=== PATIENT | female | born 1960 | race Caucasian/White ===

== ENCOUNTER → 2016-06-17 08:54 | Outpatient (CLI) | payer MEDICARE ==
[2015-08-07 09:27] VITALS: BMI 45.7
[~2016-06-17 08:54] MED LIST: BAYER CHEWABLE81 MG PO; CELEXA40 MG PO; COREG6.25 MG PO; FLUTICASONE PRO16 GM NASAL; FOLIC ACID1 MG PO; GLUCOPHAGE500 MG PO; HYDROCHLOROTH12.5 M1 PO; HYDROCODONE-APA1 TAB PO; INVANZ 1 GM/NS 11 G1 IV; K-DUR20 MEQ PO; KLONOPIN1 MG PO; KLOR-CON M2020 MEQ PO; LANTUS INSULIN10 ML SC; LASIX20 MG PO; LIPITOR20 MG PO; MERREM 1 GM/NS 11 G1 IV; NEURONTIN600 MG PO; NITROSTAT0.4 MG SL; NOVOLOG100 U/M1 SC; ONGLYZA5 MG PO; PEPCID40 MG PO; PERCOCET 7.5/321 TAB PO; PLAVIX75 MG PO; PRINZIDE 10/12.1 TA1 PO; ZANTAC300 MG PO; ZYLOPRIM300 MG PO
--- NOTE | 2016-06-17 12:21 | NUR ---
Nutrition education for bariatric surgery (gastric bypass): S: Pt unable to walk to office for education; requested a wheelchair. Pt states her blood sugar was low and asked me to buy her a coke. Pt did provide the money. Pt reports she drinks regular Sprite, some water and SF drinks. Pt states she skips meals and does not eat very much when she does eat. Pt states she is unable to exercise due to leg pain. O: Dx: morbid obesity, DMT2 Ht: 5'8" Wt: 308# IBW: 140# +/-10% BMI: 46.8 PMH: DMT2, DJD with knee replacement A: Pt in denial re: how much soda she is drinking in a day; Pt is also in denial re: how much food she is consuming daily. Pt food recall for last 24 hours reveals pt is only eating ~1200 kcal/day; however, pt reports she continues to gain wt. RDPillo was standing behind pt in the dining room and she ordered Lasagna, mashed potatoes, fried zucchini, gravy, jarad Tirado for lunch. Pt did not see me behind her. Pt did not even attempt to practice and of the homework she had just learned to prepare herself for bariatric surgery. P: Reviewed pre/post op dietary control; clear liquid/full liquid/puree/soft/regular diet progression and reviewed sample menus; discussed no liquids with meals; 1/2 cup meal size; dumping syndrome; no straws or carbonated drinks; protein requirements; clear liquid protein drinks and protein powder, premixed protein supplements; reviewed sample menus; daily multivitamin; pouch stretching and provided pt with printed diet information and RDN name and phone number. CHARLIEN feels pt is not ready to make the necessary changes to be successful for the long-term. RDN will be available if needed. Thank you for the consult.
== END | disposition home or self-care (01) ==
LOC: D.FANS 08:54
DX: Z01.818 Encounter for other preprocedural examination (principal)

== ENCOUNTER → 2016-08-26 14:57 | Outpatient (CLI) | payer MEDICARE ==
[2015-08-07 09:27] VITALS: BMI 45.7
== END | disposition home or self-care (01) ==
LOC: D.RT 08-03 08:00 → D.RAD 08-11 11:45 → D.RT 08-13 11:00 → D.RAD 08-13 12:00 → D.RT 08-20 14:00 → D.RAD 08-20 15:00 → D.RT 14:00
DX: R06.09 Other forms of dyspnea (principal)

== ENCOUNTER 2017-03-30 09:31 | Outpatient (CLI) | payer MEDICARE ==
--- NOTE | ~2017-03-30 | HEMODYNAMI ---
PATIENT:TATIANNA HANNA MEDICAL RECORD: [id number] : 64 LOCATION:[facility] ADMISSION DATE: 03/30/17 Generatedon:03/30/201713:17 Patient name: TATIANNA HANNA Patient #: [id number] : 1960 Date of study: 03/30/2017 Page: Of Hemodynamic Procedure Report Patient Data Patient Demographics Procedure consent was obtained First Name: TATIANNA Gender: Female Last Name: JACQUES : 1960 Middle Initial: PALOMA Age: 57 year(s) Patient #: [id number] Race: SSN: [id number] Additional ID: [id number] Contact details [address]: [address] [place] [address] State: [place] City: [place] Zip code: [address] Past Medical History Allergies Allergen Reaction Date Comments Reported Codeine 08/02/2015 Other allergy 08/02/2015 TYLENOL Admission Admission Data Admission Date: 03/30/2017 Admission Time: 9:31 Arrival Date: 03/30/2017 Arrival Time: 11:30 Admit Source: Other Insurance Payor: Medicare Height (in.): 68 BSA: 2.47 (m2) Height (cm.): 172.72 BMI: 47.44 (kg/m2) Weight (lbs.): 312 Weight (kg.): 141.52 Lab Results Lab Result Date: 03/30/2017 Lab Result Time: 0:00 Biochemistry Name Units Result Min Max BUN mg/dl 34 --(----)-* 7 18 Creatinine mg/dl 1.5 --(----)-* 0.6 1.3 CBC Name Units Result Min Max Hemoglobin g/dl 11.8 *-(----)-- 13.5 17.5 Procedure Procedure Types Cath Procedure Diagnostic Procedure LHC LHC w/Coronaries PCI Procedure Coronary Stent Initial Miscellaneous Procedures Moderate Sedation up to 15 minutes Procedure Description Procedure Date Procedure Date: 03/30/2017 Procedure Start Time: 13:01 Procedure End Time: 13:15 Procedure Staff Name Function Rafael Roth MD Performing Physician Vianey Moffett RT Scrub Morgan Reddy RN Nurse Mariella Mchugh RT Monitor Procedure Data Cath Procedure Fluoroscopy Diagnostic fluoroscopy Total fluoroscopy Time: 2.9 time: 2.9 min min Diagnostic fluoroscopy Total fluoroscopy dose: dose: 1161 mGy 1161 mGy Contrast Material Contrast Material Type Amount (ml) Isovue 300 139 Entry Location Entry Primary Successful Side Size Upsize Upsize Entry Closure Martinez ccessful Closure Location (Fr) 1 (Fr) 2 (Fr) Remarks Device Remarks Radial Right 6 Fr Mechanical artery Short Compression Estimated blood loss: 5 ml Diagnostic catheters Device Type Used For End Catheter Placement Diagnostic Terumo 5Fr Multi-vessel Lodgepole 110cm catheter Angiography Procedure Complications No complications Procedure Medications Medication Administration Route Dosage Oxygen NC 2 l/min Heparin Flush Bag added to field 2 bags (1000units/500ml NS) 0.9% NaCl I.V. 100 ml/hr Radial Cocktail added to field 1 syringe (Verapomil 2mg/Nitro 400mcg/Heparin 1500units) Fentanyl I.V. 50 mcg Versed I.V. 1 mg Fentanyl I.V. 50 mcg Versed I.V. 1 mg Fentanyl I.V. 50 mcg Radial Cocktail I.A. 1 syringe (Verapomil 2mg/Nitro 400mcg/Heparin 1500units) Heparin Bolus I.V. 4000 units Hemodynamics Rest BSA: 2.47 (m2) HGB: 11.8 (g/dl) O2 Consumption: Estimated: 240.03 (ml/min) O2 Co nsumption indexed: Estimated:97.18 (ml/min/m) Heart Rate: 72 (bpm) Pressure Samples Time Site Value (mmHg) Purpose Heart Use Rate(bpm) 13:03 LV 75/2,17 Snapshot 52 Snapshots Pre Cath Intra NCS Post Cath Vital Signs Time Heart Resp SPO2 etCO2 NIBP (mmHg) Rhythm Pain Sedation Rate (ipm) (%) (mmHg) Status Level (bpm) 12:44:00 71 18 97 0 128/68(93) NSR 0 (11) 10(A) , No pain 12:48:40 70 19 97 46.6 129/68(107) NSR 0 (11) 10(A) , No pain 12:53:21 69 18 95 39.1 122/67(90) NSR 0 (11) 10(A) , No pain 12:58:06 71 18 94 40.6 112/54(80) NSR 0 (11) 10(A) , No pain 13:02:38 71 18 94 42.1 114/66(91) NSR 0 (11) 10(A) , No pain 13:07:16 70 18 95 30.8 107/59(77) NSR 0 (11) 10(A) , No pain 13:12:03 80 18 96 22.5 121/42(71) NSR 0 (11) 10(A) , No pain 13:16:58 70 18 95 33.8 111/48(80) NSR 0 (11) 10(A) , No pain Medications Time Medication Route Dose Verified Delivered Reason Note s Effectiveness by by 12:47:24 Oxygen NC 2 l/min Rafael Mora Per physician Gonzalez Reddy RN 12:47:33 Heparin Flush added 2 bags Rafael Mora used for Bag to Gonzalez Reddy RN procedure (1000units/500ml field NS) 12:47:44 0.9% NaCl I.V. 100 Rafael Mora Per physician ml/hr Gonzalez Reddy RN 12:47:51 Radial Cocktail added 1 Rafael Mora used for (Verapomil to syringe Gonzalez Reddy RN procedure 2mg/Nitro field 400mcg/Heparin 1500units) 12:55:19 Fentanyl I.V. 50 mcg Rafael Mora for sedation Gonzalez Reddy RN 12:55:25 Versed I.V. 1 mg Rafael Mora for sedation Gonzalez Reddy RN 12:56:53 Fentanyl I.V. 50 mcg Rafael Mora for sedation Gonzalez Reddy RN 12:56:59 Versed I.V. 1 mg Rafael Mora for sedation Gonzalez Reddy RN 13:03:01 Fentanyl I.V. 50 mcg Rafael Madisony for sedation Gonzalez Reddy RN 13:03:14 Radial Cocktail I.A. 1 Rafael Hall for (Verapomil syringe Gonzalez Roth MD vasodilation 2mg/Nitro 400mcg/Heparin 1500units) 13:07:43 Heparin Bolus I.V. 4000 Rafael Mora for units Gonzalez Reddy RN anticoagulation Procedure Log Time Note 12:25:00 Morgan Reddy RN sent for patient. Start room use. 12:31:18 Informed consent obtained and on chart 12::31 Diagnostic Cath Status : Elective 12:32:01 Time tracking: Regular hours 12:32:06 Plan of Care:Hemodynamics will remain stable., Cardiac rhythm will remain stable., Comfort level will be maintained., Respiratory function will remain adequate., Patient/ family verbilizes understanding of procedure., Procedure tolerated without complication., Recovers from procedure without complications.. 12:37:32 Patient received from Pre/Post Procedure Room to [facility] 2 Alert and oriented. Tansferred to table in Supine position. 12:37:33 Warm blankets applied, and britt hugger turned on for patient comfort. 12:37:34 Correct patient and procedure confirmed by team. 12:37:35 ECG and BP/O2 sat monitors applied to patient. 12:42:17 Vital chart was started 12:47:24 Oxygen 2 l/min NC was administered by Morgan Reddy RN; Per physician; 12:47:33 Heparin Flush Bag (1000units/500ml NS) 2 bags added to field was administered by Morgan Reddy RN; used for procedure; 12:47:33 Baseline sample Acquired. 12:47:36 Rhythm: sinus rhythm 12:47:38 Full Disclosure recording started 12:47:43 H&P Date Dictated: 03/30/2017 Within 30 days and on chart., H&P Addendum completed by physician on day of procedure. (MUST COMPLETE FOR ALL OUTPATIENTS). 12:47:44 0.9% NaCl 100 ml/hr I.V. was administered by Morgan Reddy RN; Per physician; 12:47:45 Pre-procedure instructions explained to patient. 12:47:45 Pre-op teaching completed and patient verbalized understanding. 12:47:46 Family in waiting room. 12:47:48 Patient NPO since Midnight. 12:47:51 Radial Cocktail (Verapomil 2mg/Nitro 400mcg/Heparin 1500units) 1 syringe added to field was administered by Morgan Reddy RN; used for procedure; 12:47:51 Is the patient allergic to Iodine/contrast media? No. 12:47:52 Was the patient premedicated? No 12:47:55 Is patient on blood thinner?Yes 12:48:04 ACC The patient was administered the following blood thiners within the last 24 hours: ACCPlavix 12:48:25 Patient diabetic? Yes. 12:48:26 If diabetic: On Metformin? No 12:48:28 Previous problem with sedation/anesthesia? No ? 12:48:30 Snore? Yes 12:48:31 Sleep apnea? Yes 12:48:31 Deviated septum? No 12:48:32 Opens mouth fully? Yes 12:48:33 Sticks out tongue? Yes 12:48:52 Airway obstruction? No ? 12:48:56 Dentures? No ? 12:48:59 Pre procedure: right dorsailis pedis pulse 1+ Palpable, but thready & weak; easily obliterated 12:49:02 Pre procedure: left dorsailis pedis pulse 1+ Palpable, but thready & weak; easily obliterated 12:49:08 Patient pain scale 0/10 ?. 12:49:22 IV patent on arrival in left forearm with 0.9% NaCl at [facility]. 12:50:03 Lab Result : BUN 34 mg/dl 12:50:03 Lab Result : Creatinine 1.5 mg/dl 12:50:03 Lab Result : Hemoglobin 11.8 g/dl 12:50:06 Lab results completed and on chart. 12:50:10 Right Radial & Right Groin area was prepped with chlora-prep and draped in sterile fashion 12:50:12 Alarms reviewed by R. N. 12:50:12 Sharps counted by scrub and verified by R.N. 12:50:28 Physician arrived 12:50:29 --------ALL STOP TIME OUT------ 12:50:29 Final Timeout: patient, procedure, and site verified with staff and physician. All members of the team are in agreement. 12:50:32 Right Radial & Right Groin site verified by team. 12:50:34 Physical assessment completed. ASA score P 2 - A patient with mild systemic disease as per Rafael Roth MD. 12:50:37 Sedation plan: IV Moderate Sedation Versed, Fentanyl 12:50:45 Use device set Radial Dx 12:50:46 Acist Syringe opened to sterile field. 12:50:46 Medline Cath Pack opened to sterile field. 12:50:46 Bag Decanter opened to sterile field. 12:50:47 Terumo 6Fr Slender Glidesheath opened to sterile field. 12:50:47 St Aris 260cm J .035 wire opened to sterile field. 12:50:48 Acist Hand Control opened to sterile field. 12:50:48 Acist Manifold opened to sterile field. 12:50:48 Tegaderm 4 x 4 opened to sterile field. 12:50:49 MBrace Wrist Support opened to sterile field. 12:54:24 Admit Source: Other 12:54:30 Arrival Date: 03/30/2017 11:30:00 AM 12:54:36 Insurance Payor : Medicare 12:54:41 Patient Height : 68 inches 12:54:46 Patient Weight : 312 lbs 12:55:19 Fentanyl 50 mcg I.V. was administered by Morgan Reddy RN; for sedation; 12:55:25 Versed 1 mg I.V. was administered by Morgan Reddy RN; for sedation; 12:56:06 Zero performed for pressure channel P1 12:56:14 Zero performed for pressure channel P1 12:56:53 Fentanyl 50 mcg I.V. was administered by Morgan Reddy RN; for sedation; 12:56:59 Versed 1 mg I.V. was administered by Morgan Reddy RN; for sedation; 13:00:58 Procedure started. 13:01:04 Local anesthetic to right radial artery with Lidocaine 2% by Rafael Roth MD.INITIAL ACCESS ONLY 13:02:02 A 6 Fr Short sheath was inserted into the Right Radial artery 13:02:22 A Diagnostic Terumo 5Fr Lodgepole 110cm catheter was advanced over the wire and used for Multi-vessel Angiography. 13:03:01 Fentanyl 50 mcg I.V. was administered by Morgan Reddy RN; for sedation; 13:03:14 Radial Cocktail (Verapomil 2mg/Nitro 400mcg/Heparin 1500units) 1 syringe I.A. was administered by Rafael Roth MD; for vasodilation; 13:03:50 LV hemodynamics recorded. 13:03:51 LV gram done using LOVE 13:03:55 Injector settings: Ml/sec: 5, Volume: 15, 13:04:00 EF : 55 % 13:04:05 LCA angiography performed. 13:04:09 Injector settings: Ml/sec: 3, Volume: 6, 13:05:29 Cuenca Whisper J 300cm 0.014 guide wire opened to sterile field. 13:05:30 f-star [employer] BasixCompak Inflation Kit opened to sterile field. 13:06:32 Cordis 6FR XBLAD 3.5 guide catheter opened to sterile field. 13:06:43 RCA angiography performed. 13:06:45 Catheter removed. 13:06:56 6 Fr xblad 3.5 guide catheter was inserted over the wire 13:07:43 Heparin Bolus 4000 units I.V. was administered by Morgan Reddy RN; for anticoagulation; 13:08:11 whisper wire advanced. 13:11:00 Inflation Number: 1 A Blue RX 3.0 x 38 stent was prepped and advanced across the Prox LAD. The stent was deployed at 15 TOÑO for 0:10 (min:sec). 13:11:22 Stent catheter was removed intact over wire. 13:11:22 Wire removed. 13:11:23 Guide catheter removed. 13:12:08 Terumo TR Band Standard opened to sterile field. 13:13:19 Sheath removed intact; hemostasis achieved with Mechanical Compression to the Right Radial artery. 13:13:32 Procedure ended.(Physican Out) 13:13:49 Fluoroscopy time 02.90 minutes. 13:13:53 Fluoroscopy dose: 1161 mGy 13:13:53 Flurop Dose total: 1161 13:14:11 Contrast amount:Isovue 300 139ml. 13:14:13 Sharps counted by scrub and verified by R.N. 13:14:15 TR band inflated with 10cc of air. 13:14:17 Insertion/operative site no bleeding no hematoma. 13:14:20 Post right radial artery:stable 13:14:21 Post Procedure Pulses reassessed and unchanged 13:14:24 Post procedure rhythm: unchanged. 13:14:27 Estimated blood loss: 5 ml 13:14:28 Post procedure instruction explained to patient.Patient verbalizes understanding. 13:14:30 Patient needs reinforcement of post procedure teaching. 13:14:46 Procedure type changed to Cath procedure, Diagnostic procedure, LHC, LHC w/Coronaries, PCI procedure, Coronary Stent Initial, Miscellaneous Procedures, Moderate Sedation up to 15 minutes 13:14:47 Procedure and supply charges have been captured, reviewed, submitted and are correct. 13:14:52 Procedure Complication : No complications 13:14:54 Vital chart was stopped 13:14:59 See physician's report for complete and final results. 13:15:01 Report given to Pre/Post Procedure Room. 13:15:04 Patient transfered to Pre/Post Procedure Room with Stretcher. 13:15:06 Procedure ended. 13:15:06 Full Disclosure recording stopped 13:15:14 ACC-PCI Only Patient was given prescriptions, or instructed by Rafael Roth MD to start/continue the following medications upon discharge: Plavix 13:15:16 End room use (Document Last) Intervention Summary Intervention Notes Time ActionType Lesion and Equipment Action# Pressure Duration Attributes Used 13:11:[address] Place stent Prox LAD Harvye RX 1 15 00:10 3.0 x 38 stent Device Usage Item Name Manufacture Quantity Catalog Hospital Part Current Minim al Lot# / Number Charge Number Stock Stock Serial# Code Acist Acist 1 96687 616666 682859 240016 20 Syringe Medical Systems Inc Medline Cardinal 1 [id number] 300975 95804 450650 5 Cath Pack Health Bag Microtek 1 2002S 396451 51466 609653 5 tagUin Inc. Terumo 6Fr Terumo 1 [id number] 368593 017475 267431 [address] Aris 1 578069 542270 703738 382979 30 260cm J .035 wire Acist Hand Acist 1 45061 186438 529363 938532 5 Control Medical Systems Inc Acist Acist 1 84010 148335 806251 782010 5 Manifold Medical Systems Inc Tegaderm 4 3M 1 1626W 896116 603263 332648 5 x 4 MBrace Advanced 1 140-0250-00 083376 50063 078089 5 Wrist Vascular Support Dynamics Diagnostic Terumo 1 89-3693 282612 846769 391016 5 Terumo 5Fr Lodgepole 110cm catheter Cuenca Cuenca 1 [id number] 579524 456357 134253 5 Whisper J Vascular 300cm 0.014 guide wire Merit Merit 1 [id number] 479065 178053 453298 15 [employer] Medical Inflation Kit Cordis 6FR Cardinal 1 [id number] 314895 328583 007433 10 XBLAD 3.5 Health guide catheter Harvey RX 3.0 Medtronic 1 [id number] 905814 1451640 371141 5 [id number] x 38 stent Terumo TR Terumo 1 [id number] 689849 464566 737187 40 Band Standard Signature Audit [place] Stage Time Signature Unsigned Intra-Procedure 03/30/2017 Mariella Mchugh 1:17:34 PM RT(R) Signatures Monitor : Mariella Mchugh RT Signature : Date : Time : [id number] [place] [address]
[2017-03-30] MEDS ORDERED: ONGLYZA5 MG PO (10:00)
[2017-03-30] MEDS ORDERED: KLONOPIN1 MG PO (10:01)
[2017-03-30 10:07] VITALS: BP 130/54; BMI 47.5
[2017-03-30 10:21] LABS: BASOPHILS 0.4 % (0-2); EOSINOPHILS 5.8 % (0-7); HEMOGLOBIN 11.8 g/dL (12-16); IMMATURE GRANULOCYTES 0.4 % (0-5); LYMPHOCYTES 24.6 % (15-50); MCH 32.7 pg (26.0-34.0); MCHC 33.7 g/dL (31.0-37.0); MEAN PLATELET VOLUME 9.3 fL (7.4-10.4); MONOCYTES 8.3 % (2-11); NEUTROPHILS 60.5 % (40-80); PLATELET COUNT 222 10x3/uL (130-400); RBC 3.61 10x6/uL (4.00-5.40); RDW 13.1 % (11.5-14.5)
[2017-03-30 10:25] LABS: ANION GAP 14.5 mmol/L (8-16); CALCIUM 8.9 mg/dL (8.5-10.1); CARBON DIOXIDE 26.8 mmol/L (21.0-32.0); CREATININE - SERUM 1.5 mg/dL (0.6-1.3); POTASSIUM - SERUM 4.3 mmol/L (3.5-5.1)
--- NOTE | 2017-03-30 13:40 | NUR ---
2L NC, NO RESP DISTRESS NOTED. RIGHT WRIST TR BAND CDI WITH NO BLEEDING OR HEMATOMA. VSS. NO C/O NAUSEA OR PAIN. FAMILY AT BEDSIDE, CALL LIGHT WITHIN REACH.
--- NOTE | 2017-03-30 14:10 | NUR ---
2L NC, NO RESP DISTRESS. RIGHT WRIST TR BAND CDI, NO BLEEDING OR HEMATOMA NOTED. NO C/O CHEST PAIN OR NAUSEA. VSS. FAMILY AT BEDSIDE, CALL LIGHT WITHIN REACH.
--- NOTE | 2017-03-30 14:25 | NUR ---
SANDWICH TRAY AND DRINK GIVEN. NO C/O NAUSEA. RIGHT WRIST TR BAND CDI, NO BLEEDING NOTED. 2L NC, NO RESP DISTRESS. VSS. WILL CONTINUE TO MONITOR.
--- NOTE | 2017-03-30 15:25 | NUR ---
RESTING QUIETLY WITH EYES CLOSED. RIGHT WRIST TR BAND CDI, NO BLEEDING NOTED. 2L NC, NO RESP DISTRESS. NO C/O PAIN. VSS. CALL LIGHT WITHIN REACH.
--- NOTE | 2017-03-30 16:30 | NUR ---
3CC OF AIR REMOVED FROM TR BAND, NO BLEEDING NOTED.
--- NOTE | 2017-03-30 16:47 | NUR ---
3CC OF AIR REMOVED FROM TR BAND, NO BLEEDING NOTED.
--- NOTE | 2017-03-30 17:02 | NUR ---
LEFT HAND PIV D/C'D WITH CATHETER INTACT, BAND AID TO SITE. 3CC OF AIR REMOVED FROM TR BAND, NO BLEEDING NOTED. UP TO BEDSIDE TO GET DRESSED.
--- NOTE | 2017-03-30 17:07 | NUR ---
UP TO RESTROOM TO VOID.
--- NOTE | 2017-03-30 17:12 | NUR ---
REMAINING AIR REMOVED FROM TR BAND, DRESSING TO SITE. DISCHARGE INSTRUCTIONS GIVEN, VERBALIZED UNDERSTANDING.
--- NOTE | 2017-03-30 17:20 | NUR ---
TAKEN OUT VIA WHEELCHAIR BY CATH GRILL PREP COOK. LEFT FACILITY WITH FAMILY MEMBER AND ALL PERSONAL BELONGINGS.
--- NOTE | 2017-04-02 16:56 | OP ---
PATIENT NAME: TATIANNA HANNA MEDICAL RECORD: [id number] :64 LOCATION:D.CAT ADMISSION DATE: SURGEON: KENRICK SHERMAN MD DATE OF OPERATION: 03/30/2017 PROCEDURES: 1. PTCA stent LAD. 2. Left heart catheterization. 3. Selective coronary angiography. 4. Left ventriculogram. INDICATION: Chest pain compatible with angina and coronary artery disease. PROCEDURE IN DETAIL: After informed consent was obtained and after a detailed explanation of risks, benefits as well as alternative therapies, the patient elected to proceed with angiogram and angioplasty. The right radial area is prepped and draped in normal sterile fashion. The right radial artery was cannulated via modified Seldinger technique with placement of a 6-Niuean sheath. All catheters exchanged through this sheath. FINDINGS: The left ventriculogram was performed in the standard 30-degree LOVE view reveals good cardiac wall motion throughout all segments. Overall ejection fraction estimated at 60%. SELECTIVE CORONARY ANGIOGRAPHY: 1. Left main showed no significant angiographic disease. 2. Left anterior descending has a long area of 70% to 75% stenosis proximally, then a previously placed stent. This is widely patent and mild irregularities. 3. Left circumflex shows moderate irregularities, but no flow-limiting stenosis. 4. Right coronary is small and diffusely diseased, nondominant. PTCA STENT OF THE LAD: The stent used is a 3.0 x 38 mm Harvey taken to 15 atmospheres. Result was 0% residual stenosis. OVERALL IMPRESSION: Successful percutaneous transluminal coronary angioplasty stent of the left anterior descending going from a long area of 70% to 75% initial stenosis to 0% residual stenosis. TRANSINT:[id number] Voice Confirmation ID: [id number] DOCUMENT ID: [id number] KENRICK SHERMAN MD at 1656 CC: [id number] DICTATION DATE: 03/30/17 1310 [facility]SE SUPERVISOR: 03/30/17 1351 [facility] CLI 03/30/[address] [address]
== END 2017-03-30 17:20 | disposition home or self-care (01) ==
LOC: D.CATH 09:31
PROVIDERS: Internal Medicine Interventional Cardiology
DX: I25.119 Atherosclerotic heart disease of native coronary artery with unspecified angina pectoris (principal); I10 Essential (primary) hypertension; E78.5 Hyperlipidemia, unspecified; Z01.812 Encounter for preprocedural laboratory examination
CPT/HCPCS: 93458; C9600

== ENCOUNTER 2017-05-07 09:00 | Outpatient (CLI) | payer MEDICARE | END 2017-05-07 23:59 | disposition home or self-care (01) | LOC: D.MAMMO 09:00 | DX: Z12.31 Encounter for screening mammogram for malignant neoplasm of breast (principal) ==

== ENCOUNTER 2017-05-10 17:11 | Emergency (ER) | payer MEDICARE | END 2017-05-10 19:10 | disposition home or self-care (01) | LOC: D.ER 17:11 | DX: S80.02XA Contusion of left knee, initial encounter (principal); X58.XXXA Exposure to other specified factors, initial encounter; Y93.89 Activity, other specified; Y92.89 Other specified places as the place of occurrence of the external cause; S70.02XA Contusion of left hip, initial encounter; E11.9 Type 2 diabetes mellitus without complications; Z79.4 Long term (current) use of insulin ==

== ENCOUNTER 2017-06-02 17:10 | Inpatient (IN) | payer MEDICARE ==
[~2017-06-02] VITALS: Ht 172.7 cm; Wt 136.1 kg
--- NOTE | ~2017-06-02 | OP ---
PATIENT NAME: TATIANNA HANNA MEDICAL RECORD: [id number] :64 LOCATION:D.[id number] ADMISSION DATE:06/02/17 SURGEON: MAXINE KULKARNI MD DATE OF OPERATION: 06/03/2017 DATE OF OPERATION: 06/03/2017 PREOPERATIVE DIAGNOSIS: Flexor tenosynovitis with osteomyelitis, left long finger. POSTOPERATIVE DIAGNOSES: Flexor tenosynovitis with osteomyelitis, left long finger and felon. PROCEDURE: Excisional debridement of the flexor tendon sheath as well as the entire distal phalanx of the left long finger that is skin, subcutaneous tissue, portions of fat, fascia as well as bone. SURGEON: Maxine Kulkarni MD ANESTHESIA: General. INTRAOPERATIVE COMPLICATIONS: None. SUMMARY OF PATHOLOGIC FINDINGS: Unfortunately, the patient had flexor tenosynovitis into the palmar aspect of her hand. The entire distal phalanx was essentially eroded and was a hollow shell. All of the portions of this were removed. OPERATIVE SUMMARY IN DETAIL: After obtaining the appropriate preoperative orthopedic surgery consent as well as anesthetic consultation, evaluation and clearance, the patient was brought to the operating room and placed on the operating table in supine position. After adequate regional anesthesia had been administered, the patient's left upper extremity was prepared for the tourniquet, was prepped and draped in routine sterile fashion. The arm was elevated and exsanguinated, tourniquet inflated to 250 mmHg. Volar zigzag incision was made, taken down very gently to the level of the flexor tendon. It is of note that purulence was encountered at both levels. Cultures were taken. A small incision was made both proximal and distal to the PIP joint and copious flush was done. The incision was carried out into the volar pulp of the distal volar aspect of the phalanges and it was noted that the entire distal phalanx had eroded as seen on the x-rays. This was shelled out, decorticated and essentially removed in its entirety. The flexor digitorum profundus stopped and had eroded at this joint. It did not appear that there was any osteomyelitis in the middle phalanx. After further irrigation, a very loose closure for reapproximation was done, sterile dressings were applied. Tourniquet was deflated. The patient was awakened and taken to the recovery room in stable condition. All final sponge and needle counts were correct. TRANSINT:[id number] Voice Confirmation ID: [id number] DOCUMENT ID: [id number] OPERATIVE REPORT [id number] TATIANNA HANNA MD, MAXINE CANDELARIA at 1641 CC: [id number] DICTATION DATE: 06/03/17 1525 PAPERBOARD MACHINE OPERATOR: 06/03/[address] [facility] [address] [place] [address]
--- NOTE | ~2017-06-02 | HP ---
PATIENT: TATIANNA HANNA MEDICAL RECORD: [id number] ACCOUNT: [id number] LOCATION:[facility] : 64 ADMISSION DATE: 06/02/17 HISTORY AND PHYSICAL EXAMINATION REASON FOR ADMISSION: Left third finger cellulitis and pain. HISTORY OF PRESENT ILLNESS: The patient is a 57-year-old, metabolic syndrome female who says she constantly picks at her finger. It had gradually enlarged and swelled a few weeks ago. She saw Dr. Arizmendi who placed her on oral clindamycin. Her finger has gotten progressively worse over the weekend with low-grade fever and intense pain, is chronically draining. She presented to the office and had a sausage like left third finger on presentation with multiple pustules and discoloration. She is now admitted for cellulitis, possible abscess of the left third finger with possible need for amputation. 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 ALLERGIES: None known. MEDICATIONS: Lantus insulin 60 units in the morning and 100 in the evening with NovoLog sliding scale, hydrocodone 10/325 one 4 times daily p.r.n. pain, gabapentin 600 mg t.i.d., atorvastatin 40 mg at bedtime, lisinopril and hydrochlorothiazide 10/12.5 one q.a.m., Plavix 75 mg p.o. daily, Coreg 6.25 mg b.i.d., Klonopin 1 mg b.i.d., citalopram 40 mg daily, allopurinol 300 mg daily, Flonase nasal spray 2 sprays each nostril daily. FAMILY HISTORY: Mother with history of CAD and chronic pain syndrome. Brother and father both have diabetes. SOCIAL HISTORY: Former smoker. Does not use drugs or alcohol. SURGICAL HISTORY: Hysterectomy, cholecystectomy, PTCA times 2, left knee replacement and right knee replacement for osteoarthritis. REVIEW OF SYSTEMS: GENERAL: She has had low-grade fever and felt poorly for the last week. HEENT: No recent new visual change, sinus congestion, sore throat or hearing difficulty. RESPIRATORY: No SOB or cough. CARDIAC: No exertional chest pain, claudication or edema. GASTROINTESTINAL: No nausea, vomiting, change in stools or blood per rectum. GYNECOLOGIC: No vaginal bleeding. GENITOURINARY: No dysuria. INTEGUMENT: Marked swelling, purplish discoloration of the left third finger from the base of the phalanx to the tip. The finger is 3 times its normal size, it is very painful to touch and has several pustules that are oozing. NEUROLOGIC: Oriented to person, place, and time. Cranial nerves grossly intact. Decreased sensation to touch in the bottoms of both feet. LABORATORY DATA: Currently pending. HISTORY AND PHYSICAL [id number] TATIANNA HANNA ASSESSMENT: 1. Cellulitis versus abscess, left third finger. 2. Metabolic syndrome, poorly controlled, historically. 3. History of multivessel coronary artery disease. 4. Essential hypertension. 5. Exogenous obesity. 6. Osteoarthritis. 7. Umbilical hernia. 8. History of asthma. 9. Diabetic neuropathy. 10. Chronic pain syndrome. 11. Gout. PLAN: The patient will be admitted for cultures, IV antibiotics and orthopedic consult after x-ray of the head is obtained. TRANSINT:[id number] Voice Confirmation ID: [id number] DOCUMENT ID: [id number] BENJAMIN SCHAEFFER MD at 2153 CC: [id number] DICTATION DATE: 06/02/171753 GLUE JOINTER OPERATOR: 06/02/17 1907 ADM IN [place] [id number] [place] [address]
--- NOTE | ~2017-06-02 | OP ---
PATIENT NAME: TATIANNA HANNA MEDICAL RECORD: [id number] :64 LOCATION:[facility] ADMISSION DATE:06/02/17 SURGEON: MAXINE KULKARNI MD DATE OF OPERATION: 06/10/2017 PREOPERATIVE DIAGNOSIS: Severely infected left finger with flexor tenosynovitis with continued bleeding. POSTOPERATIVE DIAGNOSIS: Severely infected left finger with flexor tenosynovitis with continued bleeding. PROCEDURES: Irrigation and debridement of the entire finger with debridement of flexor tendon sheath along with further pieces of the distal phalangeal bone and lastly cauterization of small bleeder. OPERATIVE SUMMARY IN DETAIL: After obtaining the appropriate preoperative orthopedic surgery consent as well as anesthetic consultation, evaluation and clearance, the patient was brought to the operating room and placed on the operating table in supine position. After adequate general TIVA anesthesia was administered, the patient's hand was prepped and draped in a routine sterile fashion. First, care was taken to debride all the skin back to viable appearing tissue. Previously placed sutures were removed and the area was again debrided of any necrotic appearing tissue. The tendon remained intact, however, the distal phalanx had a small residual bone chips. These were removed as well as the distal phalanx is now completely gone and wound was tacked back together gently, but not too tightly. Sterile dressings were applied. The patient was awakened, taken to recovery room in stable condition. All final needle and sponge counts were correct. TRANSINT:[id number] Voice Confirmation ID: [id number] DOCUMENT ID: [id number] MAXINE KULKARNI MD at 1657 CC: [id number] DICTATION DATE: 06/11/17 1500 CANVAS REPAIRER: 06/11/17 1534 DIS IN 06/11/17 [place] [place] [address]
[2017-06-02 18:52] LABS: BASOPHILS 0.2 % (0-2); EOSINOPHILS 1.4 % (0-7); HEMATOCRIT 32.4 % (36.0-48.0); HEMOGLOBIN 10.7 g/dL (12-16); IMMATURE GRANULOCYTES 0.3 % (0-5); LYMPHOCYTES 10.6 % (15-50); MCH 31.8 pg (26.0-34.0); MCV 96.1 fL (80.0-100.0); MEAN PLATELET VOLUME 9.2 fL (7.4-10.4); MONOCYTES 9.1 % (2-11); NEUTROPHILS 78.4 % (40-80); RBC 3.37 10x6/uL (4.00-5.40); RDW 12.8 % (11.5-14.5); WBC 13.2 10x3/uL (4.8-10.8)
[2017-06-02 19:05] LABS: PLATELET COUNT 295 10x3/uL (130-400)
[2017-06-02 19:14] LABS: ANION GAP 14.7 mmol/L (8-16); CALCIUM 9.2 mg/dL (8.5-10.1); CARBON DIOXIDE 26.6 mmol/L (21.0-32.0); CREATININE - SERUM 1.6 mg/dL (0.6-1.3); POTASSIUM - SERUM 5.3 mmol/L (3.5-5.1)
[2017-06-02 20:17] LABS: ERYTHROCYTE SEDIMENTATION RATE 15 mm/hr (0-30)
[2017-06-03 02:00] VITALS: BP 112/39
[2017-06-03 02:19] VITALS: BP 112/39; BMI 45.7
[2017-06-03 06:19] LABS: ANION GAP 13.1 mmol/L (8-16); CALCIUM 8.6 mg/dL (8.5-10.1); CARBON DIOXIDE 26.5 mmol/L (21.0-32.0); CREATININE - SERUM 1.4 mg/dL (0.6-1.3); POTASSIUM - SERUM 4.6 mmol/L (3.5-5.1)
[2017-06-03 08:20] VITALS: BP 125/51
[2017-06-03 12:26] VITALS: BP 137/64
[2017-06-03 13:55] VITALS: BMI 45.6
[2017-06-03 15:28] VITALS: BP 102/50
[2017-06-03 20:00] VITALS: BP 120/64
[2017-06-04] VITALS: BP 110/60
[2017-06-04 04:00] VITALS: BP 106/55
[2017-06-04 08:25] LABS: HEMATOCRIT 29.1 % (36.0-48.0); HEMOGLOBIN 9.5 g/dL (12-16); MCH 31.4 pg (26.0-34.0); MCHC 32.6 g/dL (31.0-37.0); MEAN PLATELET VOLUME 8.8 fL (7.4-10.4); RBC 3.03 10x6/uL (4.00-5.40); WBC 10.2 10x3/uL (4.8-10.8)
[2017-06-04 08:39] LABS: CALCIUM 8.7 mg/dL (8.5-10.1); CARBON DIOXIDE 26.4 mmol/L (21.0-32.0); CREATININE - SERUM 1.3 mg/dL (0.6-1.3); POTASSIUM - SERUM 4.4 mmol/L (3.5-5.1)
[2017-06-04 16:03] VITALS: Ht 172.7 cm; Wt 136.1 kg
[2017-06-04 16:09] VITALS: BP 134/71
[2017-06-04 20:00] VITALS: BP 159/69
[2017-06-05] VITALS: BP 142/62
[2017-06-05 06:14] LABS: APPEARANCE CLEAR (CLEAR); BILIRUBIN NEGATIVE (NEGATIVE); COLOR STRAW (YELLOW); GLUCOSE 250 mg/dL (NEGATIVE); KETONE NEGATIVE (NEGATIVE); NITRITE NEGATIVE (NEGATIVE); PROTEIN NEGATIVE (NEGATIVE); SPECIFIC GRAVITY 1.015 (1.005-1.020); UROBILINOGEN NORMAL (NORMAL)
[2017-06-05 06:15] LABS: BACTERIA FEW /hpf (NONE SEEN); EPITHELIAL CELLS NSEEN /hpf (0-5); RED CELLS - URINE 0-5 /hpf (0-5); WHITE CELLS - URINE NSEEN /hpf (0-5)
[2017-06-05 06:33] LABS: HEMATOCRIT 30.7 % (36.0-48.0); MCH 31.3 pg (26.0-34.0); MCHC 32.6 g/dL (31.0-37.0); MCV 96.2 fL (80.0-100.0); RBC 3.19 10x6/uL (4.00-5.40); RDW 12.9 % (11.5-14.5); WBC 8.5 10x3/uL (4.8-10.8)
[2017-06-05 06:48] LABS: ANION GAP 13.8 mmol/L (8-16); CALCIUM 8.8 mg/dL (8.5-10.1); CARBON DIOXIDE 26.7 mmol/L (21.0-32.0); CREATININE - SERUM 1.1 mg/dL (0.6-1.3); POTASSIUM - SERUM 4.5 mmol/L (3.5-5.1)
[2017-06-05 07:14] VITALS: BP 169/80
[2017-06-05 11:07] VITALS: BP 134/69
[2017-06-05 15:14] VITALS: BP 135/67
[2017-06-06] VITALS: BP 134/64
[2017-06-06 05:00] VITALS: BP 152/63
[2017-06-06 07:28] VITALS: BP 173/77
[2017-06-06 11:04] VITALS: BP 189/88
[2017-06-06 20:00] VITALS: BP 157/74
[2017-06-07 04:00] VITALS: BP 177/81
[2017-06-07 06:20] LABS: BASOPHILS 0.1 % (0-2); EOSINOPHILS 3.2 % (0-7); HEMATOCRIT 29.1 % (36.0-48.0); HEMOGLOBIN 9.5 g/dL (12-16); IMMATURE GRANULOCYTES 0.5 % (0-5); LYMPHOCYTES 22.5 % (15-50); MCH 31.3 pg (26.0-34.0); MCHC 32.6 g/dL (31.0-37.0); MCV 95.7 fL (80.0-100.0); MEAN PLATELET VOLUME 8.7 fL (7.4-10.4); MONOCYTES 8.1 % (2-11); NEUTROPHILS 65.6 % (40-80); PLATELET COUNT 313 10x3/uL (130-400); RBC 3.04 10x6/uL (4.00-5.40); RDW 12.9 % (11.5-14.5); WBC 8.2 10x3/uL (4.8-10.8)
[2017-06-07 06:28] LABS: ANION GAP 12.3 mmol/L (8-16); CALCIUM 8.8 mg/dL (8.5-10.1); CARBON DIOXIDE 26.6 mmol/L (21.0-32.0); CREATININE - SERUM 0.9 mg/dL (0.6-1.3); POTASSIUM - SERUM 3.9 mmol/L (3.5-5.1)
[2017-06-07 08:51] VITALS: BP 176/73
[2017-06-07 12:20] VITALS: BP 159/61
[2017-06-07 16:03] VITALS: BP 159/69
[2017-06-07 20:00] VITALS: BP 159/70
[2017-06-08 04:00] VITALS: BP 166/70
[2017-06-08 08:30] VITALS: BP 174/70
[2017-06-08 12:16] VITALS: BP 175/76
[2017-06-08 14:55] VITALS: BP 195/71
[2017-06-08 20:00] VITALS: BP 169/81
[2017-06-09] VITALS: BP 159/77
[2017-06-09 04:00] VITALS: BP 155/82
[2017-06-09] MEDS ORDERED: Ancef 2 GM/Dextrose IV (08:02)
[2017-06-09 09:06] VITALS: BP 181/77
[2017-06-09 13:19] VITALS: BP 189/99
[2017-06-09 16:50] VITALS: BP 148/79
[2017-06-09 21:41] VITALS: BP 187/73
[2017-06-10 01:13] VITALS: BP 118/68
[2017-06-10 04:00] VITALS: BP 149/77
[2017-06-10 05:20] LABS: BASOPHILS 0.2 % (0-2); EOSINOPHILS 2.8 % (0-7); HEMATOCRIT 28.7 % (36.0-48.0); HEMOGLOBIN 9.3 g/dL (12-16); IMMATURE GRANULOCYTES 1.1 % (0-5); LYMPHOCYTES 30.2 % (15-50); MCH 31.4 pg (26.0-34.0); MCHC 32.4 g/dL (31.0-37.0); MEAN PLATELET VOLUME 8.7 fL (7.4-10.4); NEUTROPHILS 57.7 % (40-80); PLATELET COUNT 312 10x3/uL (130-400); RBC 2.96 10x6/uL (4.00-5.40); RDW 13.2 % (11.5-14.5); WBC 8.3 10x3/uL (4.8-10.8)
[2017-06-10 05:44] LABS: ANION GAP 10.4 mmol/L (8-16); CALCIUM 8.3 mg/dL (8.5-10.1); CARBON DIOXIDE 29.5 mmol/L (21.0-32.0); CREATININE - SERUM 0.9 mg/dL (0.6-1.3); POTASSIUM - SERUM 3.9 mmol/L (3.5-5.1)
[2017-06-10 08:53] VITALS: BP 126/87
[2017-06-10 12:24] VITALS: BP 190/88
[2017-06-10 16:08] VITALS: BP 163/69
[2017-06-11 04:00] VITALS: BP 98/58
[2017-06-11 04:15] LABS: BASOPHILS 0.1 % (0-2); EOSINOPHILS 2.8 % (0-7); HEMATOCRIT 27.3 % (36.0-48.0); HEMOGLOBIN 8.8 g/dL (12-16); IMMATURE GRANULOCYTES 0.6 % (0-5); LYMPHOCYTES 25.4 % (15-50); MCH 31.4 pg (26.0-34.0); MCHC 32.2 g/dL (31.0-37.0); MCV 97.5 fL (80.0-100.0); MEAN PLATELET VOLUME 8.6 fL (7.4-10.4); MONOCYTES 7.1 % (2-11); PLATELET COUNT 286 10x3/uL (130-400); RDW 13.4 % (11.5-14.5); WBC 8.4 10x3/uL (4.8-10.8)
[2017-06-11 08:40] VITALS: BP 144/60
== END 2017-06-11 14:00 | disposition home health service (06) | DRG 629 ==
LOC: D.MS 17:10 → D.SDCHOLD 06-03 15:37 → D.MS 06-03 15:38
PROVIDERS: Family Medicine; Orthopaedic Surgery; Student in an Organized Health Care Education/Training Program
PROC: 0PBV0ZZ Excision of Left Finger Phalanx, Open Approach (ICD-10-PCS; principal; 2017-06-03 14:45)
PROC: 02HV33Z Insertion of Infusion Device into Superior Vena Cava, Percutaneous Approach (ICD-10-PCS; 2017-06-09)
PROC: B548ZZA Ultrasonography of Superior Vena Cava, Guidance (ICD-10-PCS; 2017-06-09)
PROC: 0PBV0ZZ Excision of Left Finger Phalanx, Open Approach (ICD-10-PCS; 2017-06-10)
DX: E11.69 Type 2 diabetes mellitus with other specified complication (principal); M86.9 Osteomyelitis, unspecified; Z68.42 Body mass index [BMI] 45.0-49.9, adult; L03.012 Cellulitis of left finger; B95.61 Methicillin susceptible Staphylococcus aureus infection as the cause of diseases classified elsewhere; M65.18 Other infective (teno)synovitis, other site; N17.9 Acute kidney failure, unspecified; E87.5 Hyperkalemia; E11.40 Type 2 diabetes mellitus with diabetic neuropathy, unspecified; E88.81 Metabolic syndrome and other insulin resistance; E66.01 Morbid (severe) obesity due to excess calories

== ENCOUNTER → 2017-06-21 11:16 | Outpatient (CLI) | payer MEDICARE ==
[2017-06-04 16:03] VITALS: BMI 45.6
[~2017-06-21 11:16] MED LIST changes: +Ancef 2 GM/Dextrose IV
[2017-06-21 11:26] LABS: BASOPHILS 0.5 % (0-2); EOSINOPHILS 4.6 % (0-7); HEMOGLOBIN 10.1 g/dL (12-16); IMMATURE GRANULOCYTES 0.2 % (0-5); LYMPHOCYTES 30.6 % (15-50); MCH 31.1 pg (26.0-34.0); MCHC 31.6 g/dL (31.0-37.0); MCV 98.5 fL (80.0-100.0); MEAN PLATELET VOLUME 9.4 fL (7.4-10.4); MONOCYTES 10.4 % (2-11); NEUTROPHILS 53.7 % (40-80); RBC 3.25 10x6/uL (4.00-5.40); RDW 13.8 % (11.5-14.5); WBC 6.5 10x3/uL (4.8-10.8)
[2017-06-21 11:28] LABS: CREATININE - SERUM 0.9 mg/dL (0.6-1.3); UREA NITROGEN 20 mg/dL (7-18)
[2017-06-21 11:30] LABS: C-REACTIVE PROTEIN < 0.2 mg/dL (0.0-0.9)
[2017-06-21 11:37] LABS: PLATELET COUNT 220 10x3/uL (130-400)
[2017-06-21 12:28] LABS: ERYTHROCYTE SEDIMENTATION RATE 42 mm/hr (0-30)
== END | disposition home or self-care (01) ==
LOC: D.LABREF 11:16
PROVIDERS: Family Medicine
DX: L03.114 Cellulitis of left upper limb (principal)

== ENCOUNTER → 2017-06-28 13:39 | Outpatient (CLI) | payer MEDICARE ==
[2017-06-04 16:03] VITALS: BMI 45.6
[2017-06-28 15:13] LABS: BASOPHILS 0 % (0-2); EOSINOPHILS 6.8 % (0-7); HEMATOCRIT 34.8 % (36.0-48.0); HEMOGLOBIN 10.7 g/dL (12-16); IMMATURE GRANULOCYTES 0.5 % (0-5); MCH 30.4 pg (26.0-34.0); MCHC 30.7 g/dL (31.0-37.0); MCV 98.9 fL (80.0-100.0); MEAN PLATELET VOLUME 9.8 fL (7.4-10.4); NEUTROPHILS 45.7 % (40-80); RBC 3.52 10x6/uL (4.00-5.40); RDW 13.8 % (11.5-14.5)
[2017-06-28 15:14] LABS: PLATELET COUNT 143 10x3/uL (130-400)
[2017-06-28 15:30] LABS: C-REACTIVE PROTEIN 1.8 mg/dL (0.0-0.9); CREATININE - SERUM 0.9 mg/dL (0.6-1.3)
[2017-06-28 16:43] LABS: ERYTHROCYTE SEDIMENTATION RATE 5 mm/hr (0-30)
== END | disposition home or self-care (01) ==
LOC: D.LABREF 13:39
PROVIDERS: Family Medicine
DX: L03.012 Cellulitis of left finger (principal)

== ENCOUNTER → 2017-07-05 16:14 | Outpatient (CLI) | payer MEDICARE ==
[2017-06-04 16:03] VITALS: BMI 45.6
[2017-07-05 16:45] LABS: BASOPHILS 0.2 % (0-2); EOSINOPHILS 5.2 % (0-7); HEMATOCRIT 31.7 % (36.0-48.0); IMMATURE GRANULOCYTES 0.3 % (0-5); LYMPHOCYTES 27.3 % (15-50); MCH 31.1 pg (26.0-34.0); MCHC 31.5 g/dL (31.0-37.0); MCV 98.4 fL (80.0-100.0); MEAN PLATELET VOLUME 9.4 fL (7.4-10.4); RBC 3.22 10x6/uL (4.00-5.40); RDW 13.9 % (11.5-14.5); WBC 6.4 10x3/uL (4.8-10.8)
[2017-07-05 16:53] LABS: PLATELET COUNT 220 10x3/uL (130-400)
[2017-07-05 17:03] LABS: C-REACTIVE PROTEIN 1.3 mg/dL (0.0-0.9); CREATININE - SERUM 0.8 mg/dL (0.6-1.3)
[2017-07-05 18:11] LABS: ERYTHROCYTE SEDIMENTATION RATE 49 mm/hr (0-30)
== END | disposition home or self-care (01) ==
LOC: D.LABREF 16:14
PROVIDERS: Student in an Organized Health Care Education/Training Program
DX: L03.012 Cellulitis of left finger (principal); I10 Essential (primary) hypertension; Z51.81 Encounter for therapeutic drug level monitoring; Z79.2 Long term (current) use of antibiotics

== ENCOUNTER → 2017-07-09 14:50 | Outpatient (CLI) | payer MEDICARE ==
[2017-06-04 16:03] VITALS: BMI 45.6
[2017-07-09 17:55] LABS: BASOPHILS 0.2 % (0-2); EOSINOPHILS 2.7 % (0-7); HEMOGLOBIN 10.9 g/dL (12-16); IMMATURE GRANULOCYTES 0.4 % (0-5); LYMPHOCYTES 19.9 % (15-50); MCH 31.4 pg (26.0-34.0); MCHC 32.1 g/dL (31.0-37.0); MEAN PLATELET VOLUME 9.6 fL (7.4-10.4); MONOCYTES 7.5 % (2-11); NEUTROPHILS 69.3 % (40-80); PLATELET COUNT 245 10x3/uL (130-400); RBC 3.47 10x6/uL (4.00-5.40); RDW 13.9 % (11.5-14.5)
[2017-07-09 18:11] LABS: C-REACTIVE PROTEIN 0.4 mg/dL (0.0-0.9)
[2017-07-09 19:09] LABS: ERYTHROCYTE SEDIMENTATION RATE 47 mm/hr (0-30)
== END | disposition home or self-care (01) ==
LOC: D.LABREF 14:50
PROVIDERS: Student in an Organized Health Care Education/Training Program
DX: M19.042 Primary osteoarthritis, left hand (principal); Z51.81 Encounter for therapeutic drug level monitoring; Z79.2 Long term (current) use of antibiotics

== ENCOUNTER 2017-08-31 17:13 | Inpatient (IN) | payer MEDICARE ==
[~2017-08-31] VITALS: Ht 172.7 cm; Wt 143.3 kg
[2017-08-31 18:30] LABS: BASOPHILS 0.5 % (0-2); EOSINOPHILS 5.3 % (0-7); HEMATOCRIT 33.4 % (36.0-48.0); HEMOGLOBIN 11.1 g/dL (12-16); IMMATURE GRANULOCYTES 0.3 % (0-5); LYMPHOCYTES 28.7 % (15-50); MCH 31.3 pg (26.0-34.0); MCHC 33.2 g/dL (31.0-37.0); MCV 94.1 fL (80.0-100.0); MEAN PLATELET VOLUME 9.1 fL (7.4-10.4); MONOCYTES 8.3 % (2-11); NEUTROPHILS 56.9 % (40-80); PLATELET COUNT 201 10x3/uL (130-400); RBC 3.55 10x6/uL (4.00-5.40); RDW 13.9 % (11.5-14.5); WBC 8.8 10x3/uL (4.8-10.8)
[2017-08-31 18:54] LABS: APPEARANCE CLEAR (CLEAR); BILIRUBIN NEGATIVE (NEGATIVE); COLOR YELLOW (YELLOW); GLUCOSE NEGATIVE (NEGATIVE); KETONE NEGATIVE (NEGATIVE); NITRITE NEGATIVE (NEGATIVE); PROTEIN NEGATIVE (NEGATIVE); UROBILINOGEN NORMAL (NORMAL)
[2017-08-31 18:55] LABS: RED CELLS - URINE 0-5 /hpf (0-5)
[2017-08-31 18:56] LABS: BACTERIA MANY /hpf (NONE SEEN); EPITHELIAL CELLS 0-5 /hpf (0-5)
[2017-08-31 18:58] LABS: ALBUMIN 3.2 g/dL (3.4-5.0); ALKALINE PHOSPHATASE 113 U/L (46-116); ALT (SGPT) 50 U/L (10-68); BILIRUBIN - TOTAL 0.43 mg/dL (0.2-1.3); CALC OSMOLALITY 287 mosm/kg (275-300); CALCIUM 7.3 mg/dL (8.5-10.1); CARBON DIOXIDE 22.1 mmol/L (21.0-32.0); CHLORIDE - SERUM 101 mmol/L (98-107); CREATININE - SERUM 2.7 mg/dL (0.6-1.3); GLUCOSE 115 mg/dL (74-106); POTASSIUM - SERUM 4.2 mmol/L (3.5-5.1); PROTEIN - SERUM 6.6 g/dL (6.4-8.2); SODIUM 137 mmol/L (136-145); UREA NITROGEN 48 mg/dL (7-18); eGFR NON AFRICAN AMERICAN 19 mL/min (90-120)
[2017-08-31 19:08] LABS: CKMB 18.5 U/L (0.0-3.6)
[2017-08-31 19:15] LABS: TROPONIN-I < 0.017 ng/mL (0.000-0.060)
[2017-09-01] MEDS ORDERED: BIOTIN5 MG PO (00:41)
[2017-09-01] MEDS ORDERED: MELATONIN 3 MG1 TAB PO (00:42)
[2017-09-01] MEDS ORDERED: BENADRYL25 MG PO (00:43)
[2017-09-01 01:32] VITALS: BP 110/38
[2017-09-01 03:24] VITALS: BP 110/38; BMI 45.7
[2017-09-01 05:23] LABS: BASOPHILS 0.5 % (0-2); EOSINOPHILS 4.5 % (0-7); HEMATOCRIT 31.7 % (36.0-48.0); HEMOGLOBIN 10.6 g/dL (12-16); IMMATURE GRANULOCYTES 0.4 % (0-5); LYMPHOCYTES 28.4 % (15-50); MCH 31.5 pg (26.0-34.0); MCHC 33.4 g/dL (31.0-37.0); MCV 94.3 fL (80.0-100.0); MEAN PLATELET VOLUME 9.6 fL (7.4-10.4); MONOCYTES 8.8 % (2-11); NEUTROPHILS 57.4 % (40-80); PLATELET COUNT 176 10x3/uL (130-400); RBC 3.36 10x6/uL (4.00-5.40); RDW 13.8 % (11.5-14.5); WBC 7.8 10x3/uL (4.8-10.8)
[2017-09-01 06:14] LABS: ANION GAP 16.4 mmol/L (8-16); BILIRUBIN - TOTAL 0.4 mg/dL (0.2-1.3); CALCIUM 7.1 mg/dL (8.5-10.1); CARBON DIOXIDE 20.6 mmol/L (21.0-32.0); PROTEIN - SERUM 6.1 g/dL (6.4-8.2)
[2017-09-01 06:34] VITALS: BP 102/40
[2017-09-01 13:13] VITALS: Ht 172.7 cm; Wt 143.3 kg
[2017-09-01 20:00] VITALS: BP 125/53
[2017-09-02 04:43] LABS: BASOPHILS 0.4 % (0-2); EOSINOPHILS 5.7 % (0-7); HEMATOCRIT 32.3 % (36.0-48.0); HEMOGLOBIN 10.5 g/dL (12-16); IMMATURE GRANULOCYTES 0.6 % (0-5); LYMPHOCYTES 37.3 % (15-50); MCH 30.5 pg (26.0-34.0); MCHC 32.5 g/dL (31.0-37.0); MCV 93.9 fL (80.0-100.0); MEAN PLATELET VOLUME 9.6 fL (7.4-10.4); MONOCYTES 11.7 % (2-11); NEUTROPHILS 44.3 % (40-80); PLATELET COUNT 183 10x3/uL (130-400); RBC 3.44 10x6/uL (4.00-5.40); RDW 13.7 % (11.5-14.5)
[2017-09-02 04:46] LABS: WBC 5.1 10x3/uL (4.8-10.8)
[2017-09-02 05:12] LABS: ALBUMIN 2.8 g/dL (3.4-5.0); ANION GAP 12.5 mmol/L (8-16); BILIRUBIN - TOTAL 0.2 mg/dL (0.2-1.3); CALCIUM 7.2 mg/dL (8.5-10.1); CARBON DIOXIDE 23.5 mmol/L (21.0-32.0); PROTEIN - SERUM 6.2 g/dL (6.4-8.2)
[2017-09-02 05:16] LABS: CREATININE - SERUM 1.8 mg/dL (0.6-1.3)
[2017-09-02 06:42] VITALS: BP 124/43
[2017-09-02 10:25] VITALS: BP 147/57
[2017-09-02 13:01] VITALS: BP 134/72
[2017-09-02 17:28] VITALS: BP 174/65
[2017-09-02 21:55] VITALS: BP 152/45
[2017-09-03 00:55] VITALS: BP 150/57
[2017-09-03 04:55] LABS: BASOPHILS 0.4 % (0-2); HEMATOCRIT 30.5 % (36.0-48.0); HEMOGLOBIN 10.1 g/dL (12-16); IMMATURE GRANULOCYTES 0.2 % (0-5); LYMPHOCYTES 39.6 % (15-50); MCH 31.1 pg (26.0-34.0); MCHC 33.1 g/dL (31.0-37.0); MCV 93.8 fL (80.0-100.0); MEAN PLATELET VOLUME 9.5 fL (7.4-10.4); MONOCYTES 11.1 % (2-11); NEUTROPHILS 42.7 % (40-80); PLATELET COUNT 152 10x3/uL (130-400); RBC 3.25 10x6/uL (4.00-5.40); RDW 13.9 % (11.5-14.5); WBC 4.7 10x3/uL (4.8-10.8)
[2017-09-03 05:05] LABS: ALBUMIN 2.8 g/dL (3.4-5.0); BILIRUBIN - TOTAL 0.2 mg/dL (0.2-1.3); CALCIUM 7.4 mg/dL (8.5-10.1); CARBON DIOXIDE 22.6 mmol/L (21.0-32.0); POTASSIUM - SERUM 4.6 mmol/L (3.5-5.1)
[2017-09-03 05:09] LABS: CREATININE - SERUM 1.2 mg/dL (0.6-1.3)
[2017-09-03 05:48] VITALS: BP 149/68
[2017-09-03 11:33] VITALS: BP 145/49
== END 2017-09-03 16:12 | disposition home or self-care (01) | DRG 683 ==
LOC: D.ER 17:13 → D.M2 22:46 → OBSVTIME 22:47 → D.M2 09-01 11:03
PROVIDERS: Family Medicine
DX: N17.9 Acute kidney failure, unspecified (principal); N39.0 Urinary tract infection, site not specified; I95.1 Orthostatic hypotension; D64.9 Anemia, unspecified; E11.51 Type 2 diabetes mellitus with diabetic peripheral angiopathy without gangrene; I10 Essential (primary) hypertension; I25.10 Atherosclerotic heart disease of native coronary artery without angina pectoris; R41.0 Disorientation, unspecified

== ENCOUNTER 2018-02-24 14:17 | Emergency (ER) | payer MEDICARE ==
[~2018-02-24] VITALS: Ht 172.7 cm; Wt 134.1 kg
[~2018-02-24 14:17] MED LIST changes: +BENADRYL25 MG PO; +BIOTIN5 MG PO; +MELATONIN 3 MG1 TAB PO
[2018-02-24 14:23] VITALS: Ht 172.7 cm; Wt 134.1 kg
[2018-02-24 15:14] LABS: BASOPHILS 0.2 % (0-2); HEMATOCRIT 31.6 % (36.0-48.0); HEMOGLOBIN 10.3 g/dL (12-16); IMMATURE GRANULOCYTES 0.3 % (0-5); MCH 31.5 pg (26.0-34.0); MCHC 32.6 g/dL (31.0-37.0); MCV 96.6 fL (80.0-100.0); MONOCYTES 10.8 % (2-11); NEUTROPHILS 58.7 % (40-80); RBC 3.27 10x6/uL (4.00-5.40); RDW 13.4 % (11.5-14.5); WBC 6.2 10x3/uL (4.8-10.8)
[2018-02-24 15:34] LABS: APPEARANCE CLEAR (CLEAR); COLOR YELLOW (YELLOW)
[2018-02-24 15:35] LABS: BACTERIA FEW /hpf (NONE SEEN); BILIRUBIN NEGATIVE (NEGATIVE); EPITHELIAL CELLS 0-5 /hpf (0-5); GLUCOSE 1000 mg/dL (NEGATIVE); KETONE NEGATIVE (NEGATIVE); NITRITE NEGATIVE (NEGATIVE); PROTEIN 1+ mg/dL (NEGATIVE); RED CELLS - URINE 0-5 /hpf (0-5); SPECIFIC GRAVITY 1.015 (1.005-1.020); UROBILINOGEN NORMAL (NORMAL); WHITE CELLS - URINE OCC /hpf (0-5)
[2018-02-24 15:36] LABS: PLATELET COUNT 201 10x3/uL (130-400)
[2018-02-24 15:53] LABS: ALBUMIN 2.8 g/dL (3.4-5.0); ALKALINE PHOSPHATASE 118 U/L (46-116); ALT (SGPT) 69 U/L (10-68); BILIRUBIN - TOTAL 0.25 mg/dL (0.2-1.3); CALC OSMOLALITY 297 mosm/kg (275-300); CALCIUM 8.5 mg/dL (8.5-10.1); CARBON DIOXIDE 28.5 mmol/L (21.0-32.0); CHLORIDE - SERUM 100 mmol/L (98-107); CREATINE KINASE 224 UL (21-215); CREATININE - SERUM 1.3 mg/dL (0.6-1.3); POTASSIUM - SERUM 4.8 mmol/L (3.5-5.1); PROTEIN - SERUM 6.2 g/dL (6.4-8.2); SODIUM 137 mmol/L (136-145); TROPONIN-I < 0.017 ng/mL (0.000-0.060); UREA NITROGEN 28 mg/dL (7-18); eGFR NON AFRICAN AMERICAN 45 mL/min (90-120)
[2018-02-24 15:55] LABS: GLUCOSE 422 mg/dL (74-106)
[2018-02-24 16:02] LABS: KETONE - SERUM NEGATIVE (NEGATIVE)
[2018-02-24 20:16] VITALS: BP 178/72
== END 2018-02-24 20:16 | disposition home or self-care (01) ==
LOC: D.ER 14:17
PROVIDERS: Family Medicine
DX: E11.65 Type 2 diabetes mellitus with hyperglycemia (principal); Z79.4 Long term (current) use of insulin; G47.30 Sleep apnea, unspecified; I10 Essential (primary) hypertension; F17.200 Nicotine dependence, unspecified, uncomplicated

== ENCOUNTER 2018-04-23 18:37 | Inpatient (IN) | payer OTHER ==
[~2018-04-23] VITALS: Ht 172.7 cm; Wt 141.1 kg
--- NOTE | ~2018-04-23 | MORECARE ---
CASE MANAGEMENT DISCHARGE SUMMARY PATIENT: TTAIANNA HANNA UNIT: [id number] ADM DATE: 04/23/18 AGE: 58 : 64 SEX: F ROOM/BED: D.4744 AUTHOR: SAEED,DOC PHYSICIAN: REFERRING PHYSICIAN: KEN MCDONALD MD DATE OF SERVICE: 04/26/18 Discharge Plan Patient Name: TATIANNA HANNA Facility: [facility]:[place] : 1960 Planned Disposition: Home Anticipated Discharge Date: 04/26/18 Discharge Date: 04/26/2018 Expected LOS: 3 Initial Reviewer: [email or web address] Initial Review Date: 04/26/2018 Generated: 04/26/18 5:57 pm Comments DCP- Discharge Planning Updated by [id number]: Cesar Nicholson on 04/26/18 3:[address] Patient Name: TATIANNA HANNA Admission Status: ER Accout number: [id number] Admission Date: 04-23-2018 : 1960 Admission Diagnosis:TYPE 2 DIABETES MELLITUS WITH OTHER SKIN COMPLICATIONS Attending: KEN MCDONALD Current LOS: 3 Anticipated DC Date: 04-26-2018 Planned Disposition: Home Primary Insurance[facility] [facility] Discharge Planning Comments: CM MET WITH PT AND DAUGHTER IN ROOM TO DISCUSS DISCHARGE PLANNING AND NEEDS. TATIANNA HANNA provided verbal consent to discuss current and ongoing needs with/in the presence of: DAUGHTERBONNY. PT REPORTS LIVING AT HOME INDEPENDENTLY WITH HER FAMILY PT HAS CANE AND WALKER WITH WHEELS SEAT AND BRAKES. PT HAS NO MEDICAL EQUIPMENT PROVIDER PREFERENCE AND NO OUTSIDE SERVICES ASSISTING IN THE HOME. CM DISCUSSED AVAILABILITY OF HOME HEALTH, REHAB SERVICES AND MEDICAL EQUIPMENT. PT DENIES DISCHARGE NEEDS, REPORTS HER DAUGHTERS FRIEND WILL PICK HER UP FOR DISCHARGE HOME. PT REPORTS SHE AND HER DAUGHTER ARE ABLE TO DO WOUND CARE EXPLAINED TO THEM BY THE DOCTOR. IMPORTANT MESSAGE FROM MEDICARE PROVIDED AND EXPLAINED. COUNTY HISTORIAN NURSE NOTIFIED. Progressive Care Nurse: Cesar Nicholson DCPIA - Discharge Planning Initial Assessment Updated by [email or web address]: Cesar Nicholson on 04/26/18 4:49 pm * Is the patient Alert and Oriented? Yes * How many steps to enter\exit or inside your home? 14 W/RAILS * PCP DR. MCDONALD * Pharmacy [facility] * Preadmission Environment Home with Family * ADLs Independent * Equipment Cane Glucometer Rolling Walker * Other Equipment NO MEDICAL EQUIOPMENT PROVIDER PREFERNCE * List name and contact numbers for known caregivers / representatives who currently or will assist patient after discharge: DEN HANNA, DTR, * Verbal permission to speak to the caregivers and representatives has been obtained from the patient. Yes * Community resources currently utilized None * Please name any agencies selected above. NONE * Additional services required to return to the preadmission environment? No * Can the patient safely return to the preadmission environment? Yes * Has this patient been hospitalized within the prior 30 days at any hospital? No Coverage Notice Reviewer: [email or web address] Milton Nicholson Notice Issued Date-Time: 04/26/2018 14:30 Notice Type: IM Discharge Notice Notice Delivered To: Patient Relationship to Patient: Helicopter Utility Aircrewman Name: Delivery Method: HAND - Hand Delivered Julia Days: Prior Verbal Notification: Recipient Understood Notice: Yes Recipient Signature: Yes Med Rec Note Co-signed by Attending: Coverage Notice Comment: Patient Name: TATIANNA HANNA Page [id number] at 1657 All edits/amendments must be made on the electronic document DICTATION DATE: 04/26/181656 AUTO CUSTOMIZE PAINTER: OSIRIS 04/26/181656 RPT#: [id number] DC DATE:04/26/18 STATUS: DIS IN [facility] [address] [place] [address] END OF REPORT
[2018-04-23 19:24] LABS: BASOPHILS 0.2 % (0-2); EOSINOPHILS 7.5 % (0-7); HEMATOCRIT 32.1 % (36.0-48.0); HEMOGLOBIN 10.6 g/dL (12-16); IMMATURE GRANULOCYTES 0.5 % (0-5); LYMPHOCYTES 17.5 % (15-50); MCH 30.9 pg (26.0-34.0); MCV 93.6 fL (80.0-100.0); MEAN PLATELET VOLUME 9.6 fL (7.4-10.4); NEUTROPHILS 67.3 % (40-80); RBC 3.43 10x6/uL (4.00-5.40); RDW 13.2 % (11.5-14.5); WBC 12.7 10x3/uL (4.8-10.8)
[2018-04-23 19:37] LABS: ANION GAP 12.2 mmol/L (8-16); BILIRUBIN - TOTAL 0.44 mg/dL (0.2-1.3); CALCIUM 9.2 mg/dL (8.5-10.1); CARBON DIOXIDE 26.5 mmol/L (21.0-32.0); CREATININE - SERUM 2.2 mg/dL (0.6-1.3); POTASSIUM - SERUM 4.7 mmol/L (3.5-5.1); PROTEIN - SERUM 7.2 g/dL (6.4-8.2)
[2018-04-23 19:40] LABS: C-REACTIVE PROTEIN 18.9 mg/dL (0.0-0.9)
[2018-04-23 19:41] LABS: PLATELET COUNT 259 10x3/uL (130-400)
[2018-04-23 20:58] VITALS: BP 103/53
[2018-04-23 22:03] VITALS: BP 86/45
[2018-04-23 23:02] VITALS: BP 90/46; BMI 45.7
[2018-04-24] VITALS: BP 90/46
[2018-04-24 01:39] LABS: APPEARANCE HAZY (CLEAR); BILIRUBIN NEGATIVE (NEGATIVE); COLOR YELLOW (YELLOW); GLUCOSE 250 mg/dL (NEGATIVE); KETONE NEGATIVE (NEGATIVE); NITRITE NEGATIVE (NEGATIVE); PROTEIN NEGATIVE (NEGATIVE); UROBILINOGEN NORMAL (NORMAL)
[2018-04-24 04:59] VITALS: BP 100/49
[2018-04-24 05:30] LABS: BASOPHILS 0.1 % (0-2); EOSINOPHILS 9.1 % (0-7); HEMATOCRIT 29.6 % (36.0-48.0); HEMOGLOBIN 9.7 g/dL (12-16); IMMATURE GRANULOCYTES 0.6 % (0-5); LYMPHOCYTES 19.6 % (15-50); MCH 30.9 pg (26.0-34.0); MCHC 32.8 g/dL (31.0-37.0); MCV 94.3 fL (80.0-100.0); MEAN PLATELET VOLUME 9.9 fL (7.4-10.4); MONOCYTES 8.6 % (2-11); PLATELET COUNT 242 10x3/uL (130-400); RBC 3.14 10x6/uL (4.00-5.40); RDW 13.5 % (11.5-14.5); WBC 12.3 10x3/uL (4.8-10.8)
[2018-04-24 05:52] LABS: ALBUMIN 2.6 g/dL (3.4-5.0); ANION GAP 12.3 mmol/L (8-16); BILIRUBIN - TOTAL 0.44 mg/dL (0.2-1.3); CALCIUM 8.2 mg/dL (8.5-10.1); CARBON DIOXIDE 25.8 mmol/L (21.0-32.0); CREATININE - SERUM 2.1 mg/dL (0.6-1.3); POTASSIUM - SERUM 5.1 mmol/L (3.5-5.1); PROTEIN - SERUM 5.8 g/dL (6.4-8.2)
[2018-04-24 09:24] VITALS: BP 139/72
[2018-04-24 13:28] VITALS: BP 92/46
[2018-04-24 20:00] VITALS: BP 107/53
[2018-04-25 04:00] VITALS: BP 111/45
[2018-04-25 06:50] LABS: BASOPHILS 0.1 % (0-2); EOSINOPHILS 13.7 % (0-7); HEMATOCRIT 29.4 % (36.0-48.0); HEMOGLOBIN 9.4 g/dL (12-16); IMMATURE GRANULOCYTES 0.9 % (0-5); LYMPHOCYTES 25.1 % (15-50); MCH 30.7 pg (26.0-34.0); MCV 96.1 fL (80.0-100.0); MEAN PLATELET VOLUME 9.8 fL (7.4-10.4); MONOCYTES 8.3 % (2-11); NEUTROPHILS 51.9 % (40-80); PLATELET COUNT 229 10x3/uL (130-400); RBC 3.06 10x6/uL (4.00-5.40); RDW 13.5 % (11.5-14.5)
[2018-04-25 06:55] LABS: WBC 8.6 10x3/uL (4.8-10.8)
[2018-04-25 07:11] LABS: ANION GAP 10.6 mmol/L (8-16); CALCIUM 8.3 mg/dL (8.5-10.1); CARBON DIOXIDE 27.2 mmol/L (21.0-32.0); CREATININE - SERUM 1.8 mg/dL (0.6-1.3); POTASSIUM - SERUM 4.8 mmol/L (3.5-5.1)
[2018-04-25 10:48] VITALS: BP 152/74
[2018-04-25 13:12] VITALS: Ht 172.7 cm; Wt 141.1 kg
[2018-04-25 13:38] VITALS: BP 129/63
[2018-04-25 15:53] VITALS: BP 131/62
[2018-04-25 19:45] VITALS: BP 140/39
[2018-04-25 23:35] VITALS: BP 133/56
[2018-04-26 03:30] VITALS: BP 117/65
[2018-04-26 08:47] VITALS: BP 156/61
[2018-04-26 11:42] VITALS: BP 145/56
[2018-04-26] MEDS ORDERED: CLEOCIN HCL300 MG PO (12:54)
[2018-04-26 15:07] VITALS: BP 125/62
== END 2018-04-26 16:23 | disposition home or self-care (01) | DRG 638 ==
LOC: D.ER 18:37 → D.M2 21:51
PROVIDERS: Family Medicine
DX: E11.628 Type 2 diabetes mellitus with other skin complications (principal); L03.116 Cellulitis of left lower limb; L97.212 Non-pressure chronic ulcer of right calf with fat layer exposed; Z79.4 Long term (current) use of insulin; E11.622 Type 2 diabetes mellitus with other skin ulcer; E11.22 Type 2 diabetes mellitus with diabetic chronic kidney disease; I12.9 Hypertensive chronic kidney disease with stage 1 through stage 4 chronic kidney disease, or unspecified chronic kidney disease; N18.9 Chronic kidney disease, unspecified; Z87.891 Personal history of nicotine dependence

== ENCOUNTER 2018-09-12 01:24 | Inpatient (IN) | payer OTHER ==
[~2018-09-12] VITALS: Ht 172.7 cm; Wt 118.4 kg
[2018-09-12] VITALS (82 sets, daily range): BP systolic 69–151; BP diastolic 31–92; Ht 172.7 cm; Wt 118.4 kg
[~2018-09-12 01:24] MED LIST changes: +CLEOCIN HCL300 MG PO
[2018-09-12 02:30] LABS: BASOPHILS 0.4 % (0-2); EOSINOPHILS 2.3 % (0-7); HEMATOCRIT 31.2 % (36.0-48.0); HEMOGLOBIN 10.3 g/dL (12-16); IMMATURE GRANULOCYTES 0.3 % (0-5); LYMPHOCYTES 22.5 % (15-50); MCH 30.6 pg (26.0-34.0); MCV 92.6 fL (80.0-100.0); MONOCYTES 10.3 % (2-11); NEUTROPHILS 64.2 % (40-80); PLATELET COUNT 239 10x3/uL (130-400); RBC 3.37 10x6/uL (4.00-5.40); RDW 13.9 % (11.5-14.5)
[2018-09-12 02:35] LABS: APTT 28.7 SECONDS (22.8-39.4); INR 1.03 (0.85-1.17)
[2018-09-12 02:49] LABS: ALBUMIN 2.5 g/dL (3.4-5.0); ALKALINE PHOSPHATASE 132 U/L (46-116); ALT (SGPT) 40 U/L (10-68); BILIRUBIN - TOTAL 0.15 mg/dL (0.2-1.3); CALCIUM 7.5 mg/dL (8.5-10.1); CHLORIDE - SERUM 89 mmol/L (98-107); CKMB 22.9 U/L (0.0-3.6); CREATININE - SERUM 5.2 mg/dL (0.6-1.3); POTASSIUM - SERUM 5.8 mmol/L (3.5-5.1); PROTEIN - SERUM 6.3 g/dL (6.4-8.2); SODIUM 123 mmol/L (136-145); UREA NITROGEN 86 mg/dL (7-18); eGFR NON AFRICAN AMERICAN 9 mL/min (90-120)
[2018-09-12 02:55] LABS: CALC OSMOLALITY 302 mosm/kg (275-300); CREATINE KINASE 1119 UL (21-215); GLUCOSE 625 mg/dL (74-106); TROPONIN-I < 0.017 ng/mL (0.000-0.060)
[2018-09-12 05:09] LABS: APPEARANCE CLEAR (CLEAR); BILIRUBIN NEGATIVE (NEGATIVE); COLOR YELLOW (YELLOW); GLUCOSE 500 mg/dL (NEGATIVE); KETONE NEGATIVE (NEGATIVE); NITRITE NEGATIVE (NEGATIVE); PROTEIN NEGATIVE (NEGATIVE); UROBILINOGEN NORMAL (NORMAL)
[2018-09-12 07:37] LABS: CALCIUM 7.4 mg/dL (8.5-10.1); CARBON DIOXIDE 24.5 mmol/L (21.0-32.0); CREATININE - SERUM 5.1 mg/dL (0.6-1.3); MAGNESIUM - SERUM 2.6 mg/dL (1.8-2.4); POTASSIUM - SERUM 5.5 mmol/L (3.5-5.1)
[2018-09-12] MEDS ORDERED: COREG6.25 MG PO (08:20)
[2018-09-12 12:49] LABS: ANION GAP 14.7 mmol/L (8-16); CALCIUM 7.5 mg/dL (8.5-10.1); CARBON DIOXIDE 24.2 mmol/L (21.0-32.0); CREATININE - SERUM 5.2 mg/dL (0.6-1.3); MAGNESIUM - SERUM 2.3 mg/dL (1.8-2.4); POTASSIUM - SERUM 4.9 mmol/L (3.5-5.1)
[2018-09-12 16:11] LABS: ANION GAP 15.6 mmol/L (8-16); CALCIUM 7.1 mg/dL (8.5-10.1); CARBON DIOXIDE 22.4 mmol/L (21.0-32.0); CREATININE - SERUM 5.2 mg/dL (0.6-1.3)
[2018-09-12 19:48] LABS: ANION GAP 12.8 mmol/L (8-16); CALCIUM 7.3 mg/dL (8.5-10.1); CARBON DIOXIDE 23.2 mmol/L (21.0-32.0); CREATININE - SERUM 4.7 mg/dL (0.6-1.3); MAGNESIUM - SERUM 2.4 mg/dL (1.8-2.4)
[2018-09-13] VITALS (35 sets, daily range): BP systolic 15–136; BP diastolic 28–72
[2018-09-13 01:17] LABS: ANION GAP 13.9 mmol/L (8-16); CALCIUM 7.2 mg/dL (8.5-10.1); CARBON DIOXIDE 22.4 mmol/L (21.0-32.0); CREATININE - SERUM 4.3 mg/dL (0.6-1.3); MAGNESIUM - SERUM 2.3 mg/dL (1.8-2.4); POTASSIUM - SERUM 5.3 mmol/L (3.5-5.1)
[2018-09-13 05:23] LABS: HEMATOCRIT 32.7 % (36.0-48.0); HEMOGLOBIN 10.8 g/dL (12-16); MCH 30.3 pg (26.0-34.0); MCV 91.9 fL (80.0-100.0); MEAN PLATELET VOLUME 9.6 fL (7.4-10.4); PLATELET COUNT 251 10x3/uL (130-400); RBC 3.56 10x6/uL (4.00-5.40); RDW 13.8 % (11.5-14.5); WBC 8.9 10x3/uL (4.8-10.8)
[2018-09-13 06:47] LABS: ALBUMIN 2.3 g/dL (3.4-5.0); ANION GAP 15.2 mmol/L (8-16); BILIRUBIN - TOTAL 0.22 mg/dL (0.2-1.3); CALCIUM 7.4 mg/dL (8.5-10.1); CARBON DIOXIDE 21.8 mmol/L (21.0-32.0); CREATININE - SERUM 3.9 mg/dL (0.6-1.3); PROTEIN - SERUM 6.2 g/dL (6.4-8.2)
[2018-09-13 08:14] LABS: LYMPHOCYTES 20 % (15-50); MONOCYTES 9 % (2-11); NEUTROPHILS 71 % (40-80)
[2018-09-13 08:15] LABS: PLATELET ESTIMATE NORMAL; PLATELET MORPHOLOGY NORMAL PLT MORPH
[2018-09-14 05:00] VITALS: BP 111/50
[2018-09-14 08:04] LABS: ALBUMIN 2.3 g/dL (3.4-5.0); ANION GAP 11.8 mmol/L (8-16); BILIRUBIN - TOTAL 0.26 mg/dL (0.2-1.3); CARBON DIOXIDE 24.1 mmol/L (21.0-32.0); POTASSIUM - SERUM 4.9 mmol/L (3.5-5.1); PROTEIN - SERUM 6.1 g/dL (6.4-8.2)
[2018-09-14 08:05] LABS: BASOPHILS 0.2 % (0-2); EOSINOPHILS 0.8 % (0-7); HEMATOCRIT 28.9 % (36.0-48.0); HEMOGLOBIN 9.3 g/dL (12-16); LYMPHOCYTES 32.5 % (15-50); MCH 29.8 pg (26.0-34.0); MCHC 32.2 g/dL (31.0-37.0); MCV 92.6 fL (80.0-100.0); MEAN PLATELET VOLUME 9.8 fL (7.4-10.4); MONOCYTES 10.4 % (2-11); NEUTROPHILS 56.1 % (40-80); PLATELET COUNT 222 10x3/uL (130-400); RBC 3.12 10x6/uL (4.00-5.40); RDW 14.4 % (11.5-14.5)
[2018-09-14 08:11] LABS: WBC 6.4 10x3/uL (4.8-10.8)
[2018-09-14 09:12] VITALS: BP 132/55
[2018-09-14 12:53] VITALS: BP 139/54
--- NOTE | 2018-09-14 13:18 | MORECARE ---
CASE MANAGEMENT DISCHARGE SUMMARY PATIENT: TATIANNA HANNA UNIT: [id number] ADM DATE: 09/12/18 AGE: 58 : 64 SEX: F ROOM/BED: D.1202 AUTHOR: DAVID TIPTON PHYSICIAN: REFERRING PHYSICIAN: KEN MCDONALD MD DATE OF SERVICE: 09/14/18 Discharge Plan Patient Name: TATIANNA HANNA Facility: [facility]:[place] : 1960 Planned Disposition: Home Anticipated Discharge Date: Discharge Date: Expected LOS: Initial Reviewer: [email or web address] Initial Review Date: 09/13/2018 Generated: 09/14/18 2:18 pm Patient Name: TATIANNA HANNA Page [phone] at 1318 All edits/amendments must be made on the electronic document DICTATION DATE: 09/14/18 1317 HEALTH AND WELLNESS MANAGER: OSIRIS 09/14/18 1317 RPT#: [id number] DC DATE: STATUS: ADM IN [facility] [address] [place] [address] END OF REPORT
--- NOTE | 2018-09-14 13:27 | MORECARE ---
CASE MANAGEMENT DISCHARGE SUMMARY PATIENT: TATIANNA HANNA UNIT: [id number] ADM DATE: 09/12/18 AGE: 58 : 64 SEX: F ROOM/BED: D.1202 AUTHOR: SAEED,DOC PHYSICIAN: REFERRING PHYSICIAN: KEN MCDONALD MD DATE OF SERVICE: 09/14/18 Discharge Plan Patient Name: TATIANNA HANNA Facility: [facility]:[place] : 1960 Planned Disposition: Home Anticipated Discharge Date: Discharge Date: Expected LOS: Initial Reviewer: [email or web address] Initial Review Date: 09/13/2018 Generated: 09/14/18 2:26 pm Comments DCP- Discharge Planning Updated by [email or web address]: Nataliia Hilario on 09/14/18 12:[address] LATE ENTRY 09/13/18 @ 1230 Patient Name: TATIANNA HANNA Admission Status: ER Accout number: [id number] Admission Date: 09-12-2018 : 1960 Admission Diagnosis: Attending: KEN MCDONALD Current LOS: 2 Anticipated DC Date: Planned Disposition: Home Primary Insurance: [employer] Discharge Planning Comments: CM met with patient at bedside after explaining CM role and obtaining verbal consent. Patient lives at home with her 19 yr old daughter and plans to return there upon discharge. Patient feels this would be a safe discharge. CM discussed availability / needs of home health and medical equipment. Patient states she has a CPAP, walker and a cane. Patient also states that she has 10 steps going into her home. Patient denies any discharge needs at this time. Patient states he will have her family drive her home upon discharge. CM will continue to follow and assist as needed with discharge planning / needs. Wood Type Finisher: Nataliia Hilario DCPIA - Discharge Planning Initial Assessment Updated by [email or web address]: Nataliia Hilario on 09/14/18 1:18 pm * Is the patient Alert and Oriented? Yes * How many steps to enter\exit or inside your home? 10 * PCP TAMARA * [facility] * Preadmission Environment Home with Family * ADLs Independent * Other Equipment CPAP, WALKER, CANE * List name and contact numbers for known caregivers / representatives who currently or will assist patient after discharge: MARCIE TODD [phone], SON AND [id number] * Verbal permission to speak to the caregivers and representatives has been obtained from the patient. Yes * Community resources currently utilized None * Additional services required to return to the preadmission environment? No * Can the patient safely return to the preadmission environment? Yes * Has this patient been hospitalized within the prior 30 days at any hospital? No Last DP export: 09/14/18 12:18 p Patient Name: TATIANNA HANNA Page [phone] at 1327 All edits/amendments must be made on the electronic document DICTATION DATE: 09/14/181325 INSURANCE CUSTOMER SERVICE SPECIALIST: OSIRIS 09/14/181325 RPT#: [id number] DC DATE: STATUS: ADM IN [facility] [address] [place] [address] END OF REPORT
[2018-09-14 18:22] VITALS: BP 134/66
[2018-09-14 20:00] VITALS: BP 145/47
[2018-09-15] VITALS: BP 142/63
[2018-09-15 05:00] VITALS: BP 121/43
[2018-09-15 07:15] LABS: BASOPHILS 0.2 % (0-2); EOSINOPHILS 1.4 % (0-7); HEMATOCRIT 28.8 % (36.0-48.0); HEMOGLOBIN 9.4 g/dL (12-16); IMMATURE GRANULOCYTES 0.2 % (0-5); LYMPHOCYTES 36.2 % (15-50); MCH 29.8 pg (26.0-34.0); MCHC 32.6 g/dL (31.0-37.0); MCV 91.4 fL (80.0-100.0); MEAN PLATELET VOLUME 9.3 fL (7.4-10.4); MONOCYTES 9.6 % (2-11); NEUTROPHILS 52.4 % (40-80); PLATELET COUNT 232 10x3/uL (130-400); RBC 3.15 10x6/uL (4.00-5.40); RDW 14.1 % (11.5-14.5); WBC 6.2 10x3/uL (4.8-10.8)
[2018-09-15 07:32] LABS: ALBUMIN 2.3 g/dL (3.4-5.0); ANION GAP 10.3 mmol/L (8-16); BILIRUBIN - TOTAL 0.29 mg/dL (0.2-1.3); CALCIUM 8.3 mg/dL (8.5-10.1); CARBON DIOXIDE 26.5 mmol/L (21.0-32.0); POTASSIUM - SERUM 4.8 mmol/L (3.5-5.1)
[2018-09-15 07:33] LABS: CREATININE - SERUM 1.4 mg/dL (0.6-1.3)
[2018-09-15 08:00] VITALS: BP 117/50
[2018-09-15 12:00] VITALS: BP 131/51
[2018-09-15 16:00] VITALS: BP 142/46
[2018-09-15 20:38] VITALS: BP 150/61
[2018-09-16 06:56] LABS: BASOPHILS 0.2 % (0-2); EOSINOPHILS 1.4 % (0-7); HEMATOCRIT 31.5 % (36.0-48.0); HEMOGLOBIN 10.2 g/dL (12-16); IMMATURE GRANULOCYTES 0.3 % (0-5); LYMPHOCYTES 42.5 % (15-50); MCH 29.9 pg (26.0-34.0); MCHC 32.4 g/dL (31.0-37.0); MCV 92.4 fL (80.0-100.0); MEAN PLATELET VOLUME 9.4 fL (7.4-10.4); MONOCYTES 8.5 % (2-11); NEUTROPHILS 47.1 % (40-80); RBC 3.41 10x6/uL (4.00-5.40); RDW 14.2 % (11.5-14.5)
[2018-09-16 07:00] LABS: PLATELET COUNT 280 10x3/uL (130-400); WBC 9.5 10x3/uL (4.8-10.8)
[2018-09-16 07:14] LABS: ALBUMIN 2.4 g/dL (3.4-5.0); ANION GAP 15.3 mmol/L (8-16); BILIRUBIN - TOTAL 0.23 mg/dL (0.2-1.3); CALCIUM 8.2 mg/dL (8.5-10.1); CARBON DIOXIDE 23.4 mmol/L (21.0-32.0); CREATININE - SERUM 1.2 mg/dL (0.6-1.3); POTASSIUM - SERUM 4.7 mmol/L (3.5-5.1); PROTEIN - SERUM 6.4 g/dL (6.4-8.2)
[2018-09-16 08:08] VITALS: BP 148/55
[2018-09-16 12:00] VITALS: BP 149/72
[2018-09-16 16:00] VITALS: BP 161/63
[2018-09-16 21:23] VITALS: BP 136/57
[2018-09-17 00:32] VITALS: BP 157/49
[2018-09-17 05:54] VITALS: BP 126/63
[2018-09-17 06:29] LABS: BASOPHILS 0.1 % (0-2); HEMATOCRIT 28.4 % (36.0-48.0); HEMOGLOBIN 9.2 g/dL (12-16); IMMATURE GRANULOCYTES 0.4 % (0-5); LYMPHOCYTES 41.4 % (15-50); MCHC 32.4 g/dL (31.0-37.0); MCV 92.5 fL (80.0-100.0); MEAN PLATELET VOLUME 9.2 fL (7.4-10.4); MONOCYTES 8.2 % (2-11); NEUTROPHILS 48.9 % (40-80); PLATELET COUNT 230 10x3/uL (130-400); RBC 3.07 10x6/uL (4.00-5.40); RDW 13.8 % (11.5-14.5); WBC 7.8 10x3/uL (4.8-10.8)
[2018-09-17 06:38] LABS: ALBUMIN 2.3 g/dL (3.4-5.0); ANION GAP 10.8 mmol/L (8-16); BILIRUBIN - TOTAL 0.18 mg/dL (0.2-1.3); CALCIUM 8.3 mg/dL (8.5-10.1); CREATININE - SERUM 1.1 mg/dL (0.6-1.3); POTASSIUM - SERUM 4.8 mmol/L (3.5-5.1); PROTEIN - SERUM 5.9 g/dL (6.4-8.2)
[2018-09-17 08:36] VITALS: BP 148/56
[2018-09-17 11:40] VITALS: BP 129/88
--- NOTE | 2018-09-17 15:58 | MORECARE ---
CASE MANAGEMENT DISCHARGE SUMMARY PATIENT: TATIANNA HANNA UNIT: [id number] ADM DATE: 09/12/18 AGE: 58 : 64 SEX: F ROOM/BED: D.1202 AUTHOR: SAEED,DOC PHYSICIAN: REFERRING PHYSICIAN: KEN MCDONALD MD DATE OF SERVICE: 09/17/18 Discharge Plan Patient Name: TATIANNA HANNA Facility: [facility]:[place] : 1960 Planned Disposition: Home Anticipated Discharge Date: 09/17/18 Discharge Date: Expected LOS: 5 Initial Reviewer: [email or web address] Initial Review Date: 09/13/2018 Generated: 09/17/18 4:57 pm Comments DCP- Discharge Planning Updated by [email or web address]: Nataliia Hilario on 09/14/18 12:[address] LATE ENTRY 09/13/18 @ 1230 Patient Name: TATIANNA HANNA Admission Status: ER Accout number: [id number] Admission Date: 09-12-2018 : 1960 Admission Diagnosis: Attending: KEN MCDONALD Current LOS: 2 Anticipated DC Date: Planned Disposition: Home Primary Insurance: [employer] Discharge Planning Comments: CM met with patient at bedside after explaining CM role and obtaining verbal consent. Patient lives at home with her 19 yr old daughter and plans to return there upon discharge. Patient feels this would be a safe discharge. CM discussed availability / needs of home health and medical equipment. Patient states she has a CPAP, walker and a cane. Patient also states that she has 10 steps going into her home. Patient denies any discharge needs at this time. Patient states he will have her family drive her home upon discharge. CM will continue to follow and assist as needed with discharge planning / needs. Online Advertising Manager: Nataliia Hilario DCPIA - Discharge Planning Initial Assessment Updated by [email or web address]: Nataliia Hilario on 09/14/18 1:18 pm * Is the patient Alert and Oriented? Yes * How many steps to enter\exit or inside your home? 10 * PCP TAMARA * [facility] * Preadmission Environment Home with Family * ADLs Independent * Other Equipment CPAP, WALKER, CANE * List name and contact numbers for known caregivers / representatives who currently or will assist patient after discharge: MARCIE TODD [phone], SON AND [id number] * Verbal permission to speak to the caregivers and representatives has been obtained from the patient. Yes * Community resources currently utilized None * Additional services required to return to the preadmission environment? No * Can the patient safely return to the preadmission environment? Yes * Has this patient been hospitalized within the prior 30 days at any hospital? No Last DP export: 09/14/18 12:26 p Patient Name: TATIANNA HANNA Page [phone] at 1558 All edits/amendments must be made on the electronic document DICTATION DATE: 09/17/181556 SALES OPERATIONS ANALYST: OSIRIS 09/17/181556 RPT#: [id number] DC DATE: STATUS: ADM IN [facility] [address] [place] [address] END OF REPORT
--- NOTE | 2018-09-17 16:18 | MORECARE ---
CASE MANAGEMENT DISCHARGE SUMMARY PATIENT: TATIANNA HANNA UNIT: [id number] ADM DATE: 09/12/18 AGE: 58 : 64 SEX: F ROOM/BED: D.1202 AUTHOR: SAEED,DOC PHYSICIAN: REFERRING PHYSICIAN: KEN MCDONALD MD DATE OF SERVICE: 09/17/18 Discharge Plan Patient Name: TATIANNA HANNA Facility: [facility]:[place] : 1960 Planned Disposition: Home Anticipated Discharge Date: 09/17/18 Discharge Date: Expected LOS: 5 Initial Reviewer: [email or web address] Initial Review Date: 09/13/2018 Generated: 09/17/18 5:18 pm Comments DCP- Discharge Planning Updated by [email or web address]: Luh Cotter on 09/17/18 3:[address] CM RECEIVED A TELEPHONE CALL FROM POR[facility] CARGO SERVICE AGENT, THAT PATIENT WAS BEING DISCHARGED TO HOME W/ HOME HEALTH. STATED SHE HAD HOME HEALTH HOWEVER PATIENT STATED THEY NEVER CONTACTED HER. TC TO [facility]- SPOKE W/ [facility]. JANETH - NO REFERRAL [facility] HAD SEEN THE PATIENT PREVIOUSLY AND SHE WAS DISCHARGED FROM SERVICE IN JUNE. TC TO [facility] - SPOKE W/ HOOKER UP, CHERRIE - NO REFERRAL. [facility] VISITED W/ THE PATIENT. DISCUSSED HOME HEALTH. PROVIDED THE HOME HEALTH PROVIDERS LIST. SHE SELECTED [facility] SINCE SHE HAD THEM PREVIOUSLY. IF PATIENT SELECTED [facility] THE VISIT WILL BE WEDNESDAY. PATIENT CHOICE FORM SIGNED. ORIGINAL COPY TO THE PATIENT. ORIGINAL COPY TO HARD COVER CHART. DISCHARGE IMM EXPLAINED. SIGNATURE OBTAINED. COPY TO THE PATIENT. SIGNED COPY TO THE HARD COVER CHART. ADVISED CARGO SERVICE AGENT OF PATIENT CHOICE FOR H/H. ADVISED PATIENT THE VISIT WOULD BE ON WEDNESDAY. SPOKE WITH PRIMARY NURSE, JACOB. REQUESTED SHE SEND DRESSINGS FOR 4 DAYS OF CHANGES. DCP- Discharge Planning Updated by [email or web address]: Nataliia Hilario on 09/14/18 12:[address] LATE ENTRY 09/13/18 @ 1230 Patient Name: TATIANNA HANNA Admission Status: ER Accout number: [id number] Admission Date: 09-12-2018 : 1960 Admission Diagnosis: Attending: KEN MCDONALD Current LOS: 2 Anticipated DC Date: Planned Disposition: Home Primary Insurance: [email or web address] Discharge Planning Comments: CM met with patient at bedside after explaining CM role and obtaining verbal consent. Patient lives at home with her 19 yr old daughter and plans to return there upon discharge. Patient feels this would be a safe discharge. CM discussed availability / needs of home health and medical equipment. Patient states she has a CPAP, walker and a cane. Patient also states that she has 10 steps going into her home. Patient denies any discharge needs at this time. Patient states he will have her family drive her home upon discharge. CM will continue to follow and assist as needed with discharge planning / needs. Remote Sensing Research Scientist: Nataliia Hilario DCPIA - Discharge Planning Initial Assessment Updated by [email or web address]: Nataliia Hilario on 09/14/18 1:18 pm * Is the patient Alert and Oriented? Yes * How many steps to enter\exit or inside your home? 10 * PCP TAMARA * [facility] * Preadmission Environment Home with Family * ADLs Independent * Other Equipment CPAP, WALKER, CANE * List name and contact numbers for known caregivers / representatives who currently or will assist patient after discharge: MARCIE TODD [phone], SON AND [id number] * Verbal permission to speak to the caregivers and representatives has been obtained from the patient. Yes * Community resources currently utilized None * Additional services required to return to the preadmission environment? No * Can the patient safely return to the preadmission environment? Yes * Has this patient been hospitalized within the prior 30 days at any hospital? No Coverage Notice Reviewer: [id number] Milton Cotter Notice Issued Date-Time: 09/17/2018 15:55 Notice Type: IM Discharge Notice Notice Delivered To: Patient Relationship to Patient: Self Operations Support Analyst Name: Delivery Method: HAND - Hand Delivered Julia Days: Prior Verbal Notification: Recipient Understood Notice: Yes Recipient Signature: Yes Med Rec Note Co-signed by Attending: Coverage Notice Comment: DISCHARGE IMM SERVED. Last DP export: 09/17/18 2:57 p Patient Name: TATIANNA HANNA Page [phone] at 1618 All edits/amendments must be made on the electronic document DICTATION DATE: 09/17/181617 UROLOGIC NURSE: OSIRIS 09/17/181617 RPT#: [id number] DC DATE: STATUS: ADM IN [facility] [address] [place] [address] END OF REPORT
--- NOTE | 2018-09-19 09:26 | MORECARE ---
CASE MANAGEMENT DISCHARGE SUMMARY PATIENT: TATIANNA HANNA UNIT: [id number] ADM DATE: 09/12/18 AGE: 58 : 64 SEX: F ROOM/BED: D.1202 AUTHOR: SAEED,DOC PHYSICIAN: REFERRING PHYSICIAN: KEN MCDONALD MD DATE OF SERVICE: 09/19/18 Discharge Plan Patient Name: TATIANNA HANNA Facility: [facility]:[place] : 1960 Planned Disposition: Home Anticipated Discharge Date: 09/17/18 Discharge Date: 09/17/2018 Expected LOS: 5 Initial Reviewer: [id number] Initial Review Date: 09/13/2018 Generated: 09/19/18 10:25 am Comments DCP- Discharge Planning Updated by [email or web address]: Luh Cotter on 09/17/18 3:[address] CM RECEIVED A TELEPHONE CALL FROM [facility] APPLIED PSYCHOLOGY PROFESSOR, THAT PATIENT WAS BEING DISCHARGED TO HOME W/ HOME HEALTH. STATED SHE HAD HOME HEALTH HOWEVER PATIENT STATED THEY NEVER CONTACTED HER. TC TO [facility]- SPOKE W/ CHILDREN'S SERVICE SUPERVISOR. JANETH - NO REFERRAL HANNAH HAD SEEN THE PATIENT PREVIOUSLY AND SHE WAS DISCHARGED FROM SERVICE IN JUNE. TC TO [facility] - SPOKE W/ CHILDREN'S SERVICE SUPERVISOR, CHERRIE - NO REFERRAL. CM VISITED W/ THE PATIENT. DISCUSSED HOME HEALTH. PROVIDED THE HOME HEALTH PROVIDERS LIST. SHE SELECTED [facility] SINCE SHE HAD THEM PREVIOUSLY. IF PATIENT SELECTED [facility] THE VISIT WILL BE WEDNESDAY. PATIENT CHOICE FORM SIGNED. ORIGINAL COPY TO THE PATIENT. ORIGINAL COPY TO HARD COVER CHART. DISCHARGE IMM EXPLAINED. SIGNATURE OBTAINED. COPY TO THE PATIENT. SIGNED COPY TO THE HARD COVER CHART. ADVISED APPLIED PSYCHOLOGY PROFESSOR OF PATIENT CHOICE FOR H/H. ADVISED PATIENT THE VISIT WOULD BE ON WEDNESDAY. SPOKE WITH PRIMARY NURSE, JACOB. REQUESTED SHE SEND DRESSINGS FOR 4 DAYS OF CHANGES. DCP- Discharge Planning Updated by [id number]: Nataliia Hilario on 09/14/18 12:[address] LATE ENTRY 09/13/18 @ 1230 Patient Name: TATIANNA HANNA Admission Status: ER Accout number: [id number] Admission Date: 09-12-2018 : 1960 Admission Diagnosis: Attending: KEN MCDONALD Current LOS: 2 Anticipated DC Date: Planned Disposition: Home Primary Insurance: [employer] Discharge Planning Comments: CM met with patient at bedside after explaining CM role and obtaining verbal consent. Patient lives at home with her 19 yr old daughter and plans to return there upon discharge. Patient feels this would be a safe discharge. CM discussed availability / needs of home health and medical equipment. Patient states she has a CPAP, walker and a cane. Patient also states that she has 10 steps going into her home. Patient denies any discharge needs at this time. Patient states he will have her family drive her home upon discharge. CM will continue to follow and assist as needed with discharge planning / needs. Crane Operator Cab: Nataliia Hilario DCPIA - Discharge Planning Initial Assessment Updated by [id number]: Nataliia Hilario on 09/14/18 1:18 pm * Is the patient Alert and Oriented? Yes * How many steps to enter\exit or inside your home? 10 * PCP TAMARA * [facility] * Preadmission Environment Home with Family * ADLs Independent * Other Equipment CPAP, WALKER, CANE * List name and contact numbers for known caregivers / representatives who currently or will assist patient after discharge: KATARINA Elizabeth DEMARCUSHoracio TODD [phone], SON AND [id number] * Verbal permission to speak to the caregivers and representatives has been obtained from the patient. Yes * Community resources currently utilized None * Additional services required to return to the preadmission environment? No * Can the patient safely return to the preadmission environment? Yes * Has this patient been hospitalized within the prior 30 days at any hospital? No Coverage Notice Reviewer: [id number] Milton Cotter Notice Issued Date-Time: 09/17/2018 15:55 Notice Type: IM Discharge Notice Notice Delivered To: Patient Relationship to Patient: Self Supervisor Varnish Name: Delivery Method: HAND - Hand Delivered Julia Days: Prior Verbal Notification: Recipient Understood Notice: Yes Recipient Signature: Yes Med Rec Note Co-signed by Attending: Coverage Notice Comment: DISCHARGE IMM SERVED. Last DP export: 09/17/18 3:18 p Patient Name: TATIANNA HANNA Page [phone] at 0926 All edits/amendments must be made on the electronic document DICTATION DATE: 09/19/18924 DEPUTY CHIEF EXECUTIVE: OSIRIS 09/19/18924 RPT#: [id number] DC DATE:09/17/18 STATUS: DIS IN [facility] [address] [place] [address] END OF REPORT
== END 2018-09-17 17:39 | disposition home or self-care (01) | DRG 871 ==
LOC: D.ER 01:24 → D.EDHOLD 06:28 → D.ICU 06:28 → D.M3 09-13 15:36
PROVIDERS: Family Medicine; ADMIT Family Medicine; ATTEND Family Medicine
PROC: 0HBKXZZ Excision of Right Lower Leg Skin, External Approach (ICD-10-PCS; principal; 2018-09-12)
DX: A41.9 Sepsis, unspecified organism (principal); E11.00 Type 2 diabetes mellitus with hyperosmolarity without nonketotic hyperglycemic-hyperosmolar coma (NKHHC); E11.10 Type 2 diabetes mellitus with ketoacidosis without coma; L97.212 Non-pressure chronic ulcer of right calf with fat layer exposed; L05.01 Pilonidal cyst with abscess; Z79.4 Long term (current) use of insulin; E11.622 Type 2 diabetes mellitus with other skin ulcer; N28.9 Disorder of kidney and ureter, unspecified; B37.2 Candidiasis of skin and nail

== ENCOUNTER → 2018-11-22 17:06 | Outpatient (CLI) | payer OTHER, MEDICAID ==
[2018-09-12 12:39] VITALS: BMI 45.6
[~2018-11-22 17:06] MED LIST changes: +ZYPREXA5 MG PO
[2018-11-22 18:09] LABS: APTT 25.4 SECONDS (22.8-39.4); INR 1.04 (0.85-1.17); PROTIME 13.1 SECONDS (11.6-15.0)
[2018-11-22 18:10] LABS: BASOPHILS 0.2 % (0-2); EOSINOPHILS 0.5 % (0-7); HEMATOCRIT 33.9 % (36.0-48.0); HEMOGLOBIN 11.5 g/dL (12-16); IMMATURE GRANULOCYTES 0.2 % (0-5); LYMPHOCYTES 23.4 % (15-50); MCH 31.1 pg (26.0-34.0); MCHC 33.9 g/dL (31.0-37.0); MCV 91.6 fL (80.0-100.0); MEAN PLATELET VOLUME 9.8 fL (7.4-10.4); MONOCYTES 5.8 % (2-11); NEUTROPHILS 69.9 % (40-80); PLATELET COUNT 215 10x3/uL (130-400); RDW 14.3 % (11.5-14.5); WBC 8.1 10x3/uL (4.8-10.8)
[2018-11-22 18:33] LABS: ALBUMIN 3.3 g/dL (3.4-5.0); ALKALINE PHOSPHATASE 135 U/L (46-116); ALT (SGPT) 30 U/L (10-68); BILIRUBIN - DIRECT 0.12 mg/dL (0.00-0.30); BILIRUBIN - INDIRECT 0.35 mg/dL (0.00-1.00); BILIRUBIN - TOTAL 0.47 mg/dL (0.2-1.3); CALCIUM 8.5 mg/dL (8.5-10.1); CARBON DIOXIDE 26.1 mmol/L (21.0-32.0); CHLORIDE - SERUM 91 mmol/L (98-107); CHOL - HDL RATIO 6.3 ratio (2.3-4.1); CHOLESTEROL, TOTAL 188 mg/dL (0-200); CREATININE - SERUM 1.7 mg/dL (0.6-1.3); HDL CHOLESTEROL 30 mg/dL (32-96); POTASSIUM - SERUM 4.3 mmol/L (3.5-5.1); SODIUM 129 mmol/L (136-145); T4 THYROXIN - FREE 1.06 ng/dL (0.76-1.46); THYROID STIMULATING HORMONE 3.62 uIU/mL (0.36-3.74); UREA NITROGEN 42 mg/dL (7-18); eGFR NON AFRICAN AMERICAN 33 mL/min (90-120)
[2018-11-22 18:37] LABS: CALC OSMOLALITY 302 mosm/kg (275-300)
[2018-11-22 18:38] LABS: TRIGLYCERIDE 594 mg/dL (30-200)
[2018-11-22 18:54] LABS: GLUCOSE 696 mg/dL (74-106)
[2018-11-22 22:01] LABS: HELICOBACTER PYLORI IGG NEGATIVE (NEGATIVE)
[2018-11-24 09:13] LABS: VITAMIN D 25 HYDROXY <4.0 ng/mL (30.0-100.0)
== END | disposition home or self-care (01) ==
LOC: D.LAB 17:06
PROVIDERS: ATTEND Surgery
DX: E11.9 Type 2 diabetes mellitus without complications (principal); Z01.812 Encounter for preprocedural laboratory examination; E66.01 Morbid (severe) obesity due to excess calories; M10.9 Gout, unspecified

== ENCOUNTER 2018-11-23 13:30 | Emergency (ER) | payer OTHER, MEDICAID ==
[~2018-11-23] VITALS: Ht 172.7 cm; Wt 130.9 kg
[~2018-11-23 13:30] MED LIST changes: -ZYPREXA5 MG PO
[2018-11-23 13:46] VITALS: Ht 172.7 cm; Wt 130.9 kg
[2018-11-23] MEDS ORDERED: ZYPREXA5 MG PO (13:55)
[2018-11-23 14:58] LABS: APPEARANCE CLEAR (CLEAR); BILIRUBIN NEGATIVE (NEGATIVE); COLOR YELLOW (YELLOW); GLUCOSE 1000 mg/dL (NEGATIVE); KETONE NEGATIVE (NEGATIVE); NITRITE NEGATIVE (NEGATIVE); PROTEIN TRACE mg/dL (NEGATIVE); SPECIFIC GRAVITY 1.015 (1.005-1.020); UROBILINOGEN NORMAL (NORMAL)
[2018-11-23 14:59] LABS: BASOPHILS 0.2 % (0-2); EOSINOPHILS 0.7 % (0-7); HEMATOCRIT 33.6 % (36.0-48.0); HEMOGLOBIN 11.4 g/dL (12-16); IMMATURE GRANULOCYTES 0.2 % (0-5); LYMPHOCYTES 20.4 % (15-50); MCH 30.8 pg (26.0-34.0); MCHC 33.9 g/dL (31.0-37.0); MCV 90.8 fL (80.0-100.0); MEAN PLATELET VOLUME 9.4 fL (7.4-10.4); MONOCYTES 6.2 % (2-11); NEUTROPHILS 72.3 % (40-80); PLATELET COUNT 199 10x3/uL (130-400); RDW 14.3 % (11.5-14.5); WBC 9.6 10x3/uL (4.8-10.8)
[2018-11-23 15:20] LABS: KETONE - SERUM NEGATIVE (NEGATIVE)
[2018-11-23 16:28] LABS: ALBUMIN 3.3 g/dL (3.4-5.0); ALKALINE PHOSPHATASE 136 U/L (46-116); ALT (SGPT) 31 U/L (10-68); BILIRUBIN - TOTAL 0.36 mg/dL (0.2-1.3); CALCIUM 8.6 mg/dL (8.5-10.1); CARBON DIOXIDE 26.9 mmol/L (21.0-32.0); CHLORIDE - SERUM 95 mmol/L (98-107); CREATININE - SERUM 1.7 mg/dL (0.6-1.3); MAGNESIUM - SERUM 1.8 mg/dL (1.8-2.4); POTASSIUM - SERUM 4.8 mmol/L (3.5-5.1); PROTEIN - SERUM 6.5 g/dL (6.4-8.2); SODIUM 131 mmol/L (136-145); UREA NITROGEN 43 mg/dL (7-18); eGFR NON AFRICAN AMERICAN 33 mL/min (90-120)
[2018-11-23 16:29] LABS: CALC OSMOLALITY 298 mosm/kg (275-300); GLUCOSE 542 mg/dL (74-106)
[2018-11-23 21:12] VITALS: BP 129/75
== END 2018-11-23 21:12 | disposition home or self-care (01) ==
LOC: D.ER 13:30
PROVIDERS: Family Medicine
DX: E11.9 Type 2 diabetes mellitus without complications (principal); N28.9 Disorder of kidney and ureter, unspecified; Z86.79 Personal history of other diseases of the circulatory system; I10 Essential (primary) hypertension

== ENCOUNTER 2019-01-28 22:57 | Inpatient (IN) | payer OTHER, MEDICAID ==
[~2019-01-28] VITALS: Ht 172.7 cm; Wt 128.5 kg
[~2019-01-28 22:57] MED LIST changes: +ZYPREXA5 MG PO
[2019-01-28 23:23] LABS: BASOPHILS 0.3 % (0-2); HEMATOCRIT 34.6 % (36.0-48.0); HEMOGLOBIN 11.5 g/dL (12-16); IMMATURE GRANULOCYTES 0.3 % (0-5); LYMPHOCYTES 16.4 % (15-50); MCH 30.6 pg (26.0-34.0); MCHC 33.2 g/dL (31.0-37.0); MEAN PLATELET VOLUME 9.7 fL (7.4-10.4); MONOCYTES 8.8 % (2-11); NEUTROPHILS 72.2 % (40-80); RBC 3.76 10x6/uL (4.00-5.40); WBC 15.7 10x3/uL (4.8-10.8)
[2019-01-28 23:29] LABS: PLATELET COUNT 254 10x3/uL (130-400)
[2019-01-28 23:33] LABS: APPEARANCE TURBID (CLEAR); BACTERIA MANY /hpf (NONE SEEN); BILIRUBIN NEGATIVE (NEGATIVE); COLOR YELLOW (YELLOW); GLUCOSE NEGATIVE (NEGATIVE); KETONE SMALL mg/dL (NEGATIVE); NITRITE POSITIVE (NEGATIVE); PROTEIN TRACE mg/dL (NEGATIVE); RED CELLS - URINE 0-5 /hpf (0-5); UROBILINOGEN NORMAL (NORMAL); WHITE CELLS - URINE >50 /hpf (0-5)
[2019-01-28 23:38] LABS: APTT 28.3 SECONDS (22.8-39.4); INR 1.12 (0.85-1.17); PROTIME 13.9 SECONDS (11.6-15.0)
[2019-01-28 23:39] LABS: ALBUMIN 2.7 g/dL (3.4-5.0); ALKALINE PHOSPHATASE 147 U/L (46-116); ALT (SGPT) 17 U/L (10-68); BILIRUBIN - TOTAL 0.28 mg/dL (0.2-1.3); CALC OSMOLALITY 281 mosm/kg (275-300); CALCIUM 8.1 mg/dL (8.5-10.1); CARBON DIOXIDE 22.5 mmol/L (21.0-32.0); CHLORIDE - SERUM 94 mmol/L (98-107); CREATININE - SERUM 4.9 mg/dL (0.6-1.3); POTASSIUM - SERUM 4.3 mmol/L (3.5-5.1); PROTEIN - SERUM 7.1 g/dL (6.4-8.2); SODIUM 129 mmol/L (136-145); UREA NITROGEN 58 mg/dL (7-18); eGFR NON AFRICAN AMERICAN 10 mL/min (90-120)
[2019-01-28 23:40] LABS: GLUCOSE 218 mg/dL (74-106)
[2019-01-28 23:45] LABS: C-REACTIVE PROTEIN 20.4 mg/dL (0.0-0.9); CREATINE KINASE 174 UL (21-215); TROPONIN-I < 0.017 ng/mL (0.000-0.060)
[2019-01-29] VITALS (23 sets, daily range): BP systolic 86–133; BP diastolic 41–100; BMI 43.1
--- NOTE | 2019-01-29 00:38 | NUR ---
RECEIVED PATIENT FROM ED VIA BED ACCOMPANIED BY ED RN. TRANSFERRED TO ICU BED 2302. MONITORS CONNECTED TO PATIENT WITH ALARMS SET. VSS. ADMIT ASSESSMENT COMPLETED AT THIS TIME PER FLOW SHEET. NO ACUTE DISTRESS OBSERVED AT THIS TIME. PATIENT ORIENTED TO ICU ROOM/SCHEDULE/CALL LIGHT. CALL LIGHT WITHIN REACH AND ABLE TO UTILIZE TO MAKE NEEDS KNOWN.
--- NOTE | 2019-01-29 01:45 | NUR ---
RETURNED TO ROOM [address] JANENE WITHOUT DIFF. VSS
--- NOTE | 2019-01-29 03:00 | NUR ---
RESTING QUIETLY IN BED WITH EYES CLOSED. ROUSES EASILY TO VERBAL STIMULI. VSS
--- NOTE | 2019-01-29 06:32 | NUR ---
DR. SID DIAS FOR CONSULT
--- NOTE | 2019-01-29 06:35 | NUR ---
SPOKE WITH DR. LAU INFORMED OF CONSULT.
--- NOTE | 2019-01-29 07:00 | NUR ---
RECEIVED BEDSIDE REPORT ON PATIENT AND ASSUMED CARE OF PATIENT. PATIENT RESTING QUIETLY, VSS. EASILY AROUSED BY VOICE. ALERT AND ORIENTED X 4. STATES ACHES ALL OVER RATES 3/10. ABCESS TO LEFT GROIN AREA, FIRM WITH SOME DRAINAGE NOTED. BBS CLEAR AND EQUAL, RRR. CM - SR RATE 68. IV 20 GA TO R FA INFUSING NS AT 125 CC/HR WITH NO S/S OF INFILTRATION. IV 20 GA TO L HAND NSL. HEAD TO TOE ASSESSMENT COMPLETED.
--- NOTE | 2019-01-29 09:05 | NUR ---
PATIENT RESTING KRISTINE NOLAN.
--- NOTE | 2019-01-29 11:00 | NUR ---
REASSESSMENT COMPLETED. VSS. NO NEEDS AT THIS TIME. RESTING QUIETLY.
--- NOTE | 2019-01-29 11:15 | NUR ---
DR. HENSON AT ROOM UPDATED AND QUESTIONS ANSWERED.
--- NOTE | 2019-01-29 13:00 | NUR ---
PATIENT RESTING QUIETLY, EYES CLOSED, VSS. WILL CONTINUE TO MONITOR.
--- NOTE | 2019-01-29 15:00 | NUR ---
REASSESSMENT COMPLETE. PATIENT UP TO BEDSIDE COMMODE AND VOIDS 300 CC UOP, FRANK, CLOUDY.
--- NOTE | 2019-01-29 15:40 | NUR ---
SPOKE TO DR. HENSON CONCERNING PATIENT RATING PAIN 01/14, ADVISED TO RESTART PATIENTS HOME MED HYDROCODONE 10/325 Q6H PRN. PATIENT DURING VOIDING C/O PAIN TO ABCESS THAT IS ON LEFT EXTERNAL LABIA/GROIN. ADVISED TO INSERT HARLEY CATH. ORDER PLACED.
--- NOTE | 2019-01-29 16:05 | NUR ---
DR. LAU AT ROOM UPDATED AND EXAMINES PATIENT. WILL DO I/D TOMORROW IN OR.
--- NOTE | 2019-01-29 17:50 | NUR ---
CONSENT OBTAINED FROM PATIENT FOR EXCISIONAL DEBRIDEMENT OF LEFT LABIAL AND PERINEAL ABSCESS WITH PACKING AND PLACED ON CHART.
--- NOTE | 2019-01-29 17:52 | NUR ---
HARLEY CATH PLACED PER ORDER WITH APPROXIMATELY 1400 CC UOP RETURNED FRANK WITH SEDIMENT/CLOUDY.
--- NOTE | 2019-01-29 19:15 | NUR ---
REC'D TO CARE, EMERGENCY RESPONSE OFFICER PER FLOWSHEET. PT RESTING QUIETLY, VSS. GROIN AREA REDNESS/SORE NOTED. PT VERBALIZES NPO AFTER MN FOR O.R. IN AM. DENIES NEEDS. C/L IN REACH.
--- NOTE | 2019-01-29 21:00 | NUR ---
FAMILY AT BS VISITING.
--- NOTE | 2019-01-29 21:49 | NUR ---
PT REPOSITIONED UP IN BED, C/O PAIN AT L LABIA SITE, DANE-CARE AND ABD PAD PLACED. ADMIN PRN NORCO - SEE EMAR. PT DENIES OTHER NEEDS.
--- NOTE | 2019-01-29 23:00 | NUR ---
REASSESSMENT PER FLOWSHEET, NO ACUTE CHANGES. PT REPORTS ADEQUATE PAIN RELIEF. SMALL AMT BROWN/PINK DRAINAGE ON ABD PAD NOTED. C/L IN REACH.
[2019-01-30] VITALS (13 sets, daily range): BP systolic 105–157; BP diastolic 43–80; Ht 172.7 cm; Wt 128.5 kg
--- NOTE | 2019-01-30 01:00 | NUR ---
PT RESTING WITH EYES CLOSED, NO SIGN OF DISTRESS. VSS.
--- NOTE | 2019-01-30 03:00 | NUR ---
REASSESSMENT PER FLOWSHEET. PT AWAKENS EASILY, VSS. REPOSITIONS SELF. C/L IN REACH.
[2019-01-30 03:48] LABS: BASOPHILS 0.1 % (0-2); EOSINOPHILS 6.5 % (0-7); HEMATOCRIT 29.4 % (36.0-48.0); HEMOGLOBIN 9.7 g/dL (12-16); IMMATURE GRANULOCYTES 0.4 % (0-5); LYMPHOCYTES 24.1 % (15-50); MEAN PLATELET VOLUME 9.1 fL (7.4-10.4); MONOCYTES 9.4 % (2-11); NEUTROPHILS 59.5 % (40-80); RBC 3.23 10x6/uL (4.00-5.40); RDW 12.9 % (11.5-14.5)
[2019-01-30 03:51] LABS: PLATELET COUNT 200 10x3/uL (130-400); WBC 8.5 10x3/uL (4.8-10.8)
[2019-01-30 04:07] LABS: ALKALINE PHOSPHATASE 107 U/L (46-116); BILIRUBIN - TOTAL 0.26 mg/dL (0.2-1.3); CALCIUM 7.5 mg/dL (8.5-10.1); CARBON DIOXIDE 25.8 mmol/L (21.0-32.0); CHLORIDE - SERUM 106 mmol/L (98-107); POTASSIUM - SERUM 4.4 mmol/L (3.5-5.1); PROTEIN - SERUM 5.5 g/dL (6.4-8.2); SODIUM 138 mmol/L (136-145); UREA NITROGEN 48 mg/dL (7-18); VANCOMYCIN - RANDOM 5.8 ug/mL (10.0-20.0)
[2019-01-30 04:08] LABS: ALT (SGPT) 10 U/L (10-68); CALC OSMOLALITY 291 mosm/kg (275-300); CREATININE - SERUM 2.1 mg/dL (0.6-1.3); GLUCOSE 148 mg/dL (74-106); TROPONIN-I < 0.017 ng/mL (0.000-0.060); eGFR NON AFRICAN AMERICAN 26 mL/min (90-120)
--- NOTE | 2019-01-30 05:22 | NUR ---
PRE-OP CHG BATH DONE. GOWN AND LINENS CHANGED.
--- NOTE | 2019-01-30 07:15 | NUR ---
PATIENT IS ALERT AND ORIENTED. NO PAIN AT THIS TIME. DENIES NEEDS AT THIS TIME. PATIENT NPO. CALL LIGHT WITHIN REACH. BED LOW AND LOCKED. AWAITING PREOP ORDRES. WILL CONITINUE TO MONITOR. SHIFT ASSESSMENT COMPLETED.
--- NOTE | 2019-01-30 10:11 | NUR ---
PATIENT SLEEPING. NPO. CLEAR LUNGS BILAT. PALP PULSES. NO DISTRESS NOTED. NO CHANGES FROM SHIFT ASSESSMENT. DRAINAGE ON ABD PAD ON PERINEAL AREA. CHANGED ABD PAD. VSS. WILL CONTINUE TO MONITOR
--- NOTE | 2019-01-30 11:05 | NUR ---
PATIENT SLEEPING. EASILY AROUSED. VSS. NO COMPLAINTS AT THIS TIME. NO DISTRESS NOTED. NO CHANGES. REASSESSMENT COMPLTED.
--- NOTE | 2019-01-30 13:09 | NUR ---
PATIENT RESTING. STATES RELIEF OF PAIN WITH NORCO GIVEN. NO OTHER COMPLAINS AT THIS TIME. NO DISTRESS NOTED. NO CHANGES. WILL CONTINUE TO MONITOR.
--- NOTE | 2019-01-30 15:03 | NUR ---
PATIENT WENT TO OR. PREOP WAS COMPLETE.
--- NOTE | 2019-01-30 16:54 | NUR ---
patient back from OR
--- NOTE | 2019-01-30 17:44 | NUR ---
PATIENT REFUSED BATH AT THIS TIME.
--- NOTE | 2019-01-30 17:54 | NUR ---
gave report to lindy coleman
--- NOTE | 2019-01-30 18:17 | NUR ---
RECEIVED PT FROM ICU. ALERT AND ORIENTED. NO C/O PAIN. NO S/S OF ACUTE DISTRESS NOTED. BROUGHT BY BED. IV IN LEFT HAND OUT. IV IN RIGHT FOREARM INFILTRATED. DISCONTINUED BOTH IV'S, CATHETER TIP INTACT. PT DENIES ANY NEEDS.
--- NOTE | 2019-01-30 18:41 | NUR ---
RESITED IV TO LEFT FOREARM 22 GA, X1 STICK.
--- NOTE | 2019-01-30 20:00 | NUR ---
A&O X 4. FAMILY AT BEDSIDE. ORIENTED X 4, PT IS VERY LETHARGIC. PACKING TO LEFT GROIN C/D/I. DENIES NEEDS AT THIS TIME. WILL CONTINUE TO MONITOR.
[2019-01-31] VITALS: BP 133/48
[2019-01-31 04:00] VITALS: BP 121/49
--- NOTE | 2019-01-31 07:46 | NUR ---
PT RESTING IN BED WITH EYES OPEN, ALERT AND ORIENTED. IV LOCATED TO LEFT FOREARM RUNNING NS @ 125ML. DENIES ANY NEEDS AT THIS TIME, WILL CONTINUE TO MONITOR. BED LOW, CALL LIGHT IN REACH, RAILS UP X 2.
[2019-01-31 09:08] VITALS: BP 136/47
[2019-01-31 12:17] VITALS: BP 152/51
[2019-01-31 16:45] VITALS: BP 159/58
[2019-01-31 20:00] VITALS: BP 143/69
--- NOTE | 2019-01-31 20:00 | NUR ---
RESTING IN BED EYES CLOSED, RESP UNLABORED, AROUSES TO VOICE AND TOUCH, BUT APPEARS VERY DROWSY WILL MONITOR, SEE SHIFT ASSESSMENT, CALL LIGHT IN REACH
--- NOTE | 2019-01-31 21:30 | NUR ---
REMAINS LETHARGIC AND DIFFICULT TO KEEP AWAKE, WILL HOLD SCHEDULED MEDS AT TH TIME
--- NOTE | 2019-01-31 22:00 | NUR ---
NOW AWAKE WATHCING TV, NO LONGER APPEARS LETHARGIC, SCHEDULED MEDS GIVEN AT THIS TIME
[2019-02-01 04:00] VITALS: BP 130/44
--- NOTE | 2019-02-01 08:06 | NUR ---
Nutrition follow-up: Diet: ADA consistent CHO PO poor to fair; pt has been NPO for surgery 01/30 and has had periods of lethagy per nursing. labs reviewed Wt: 283# NS @ 125 ml/hr Pt would benefit from ProcalAmine PPN @ 125 ml/hr due to poor po intake after surgery. RDN following.
[2019-02-01 08:48] VITALS: BP 155/60
--- NOTE | 2019-02-01 10:34 | OP ---
PATIENT NAME: TATIANNA HANNA MEDICAL RECORD: [id number] :[birth year] LOCATION:D.MS [id number] ADMISSION DATE:01/29/19 SURGEON: DESEAN LAU MD DATE OF OPERATION: 01/30/2019 PREOPERATIVE DIAGNOSIS: Left labial abscess. POSTOPERATIVE DIAGNOSIS: Left labial abscess. PROCEDURES: Excisional debridement with marsupialization and packing of left labial abscess. Dimensions of debridement, including margins, measured 3.2 x 3.4 cm included skin and subcutaneous tissue as well as abscess cavity. SURGEON: Desean Lau MD INSPECTOR ELECTROMECHANICAL: None. BLOOD LOSS: Minimal. ANESTHESIA: General. COMPLICATIONS: None. OPERATIVE COURSE: The patient was conveyed to the operating room electively on 01/30/2019. General anesthesia was induced by the anesthesia staff. The patient was positioned in the lithotomy position. The perineum was sterilely prepped and draped. Utilizing a scalpel, I excised a roughly circular defect overlying the labia majora on the left. I dissected down to an abscess cavity. Cultures were obtained. The excised dimensions are listed above. I curetted out the abscess cavity. I then irrigated with hydrogen peroxide. I marsupialized the wound with a running locking 3-0 Vicryl Rapide suture. I then packed the wound with Kerlix that was soaked in quarter-strength Dakin's. A sterile dressing was applied. The patient was then extubated and conveyed to post-anesthesia care unit where she was in stable condition. TRANSINT:[id number] Voice Confirmation ID: [id number] DOCUMENT ID: [id number] DESEAN LAU MD at 1034 CC: KEN MCDONALD MD [id number] DICTATION DATE: 01/31/19 1627 [place] T[place] AUDITOR: 01/31/19 2243 [place] [address]
--- NOTE | 2019-02-01 11:15 | NUR ---
MEDICATED WITH NORCO FOR C/O PAIN RATING 8/10 ON PAIN SCALE. C/L IN REACH
[2019-02-01 11:43] VITALS: BP 150/69
[2019-02-01 16:34] VITALS: BP 180/64
--- NOTE | 2019-02-01 16:38 | MORECARE ---
CASE MANAGEMENT DISCHARGE SUMMARY PATIENT: TATIANNA HANNA UNIT: [id number] ADM DATE: 01/29/19 AGE: 58 : 64 SEX: F ROOM/BED: D.2239 AUTHOR: SAEED,DOC PHYSICIAN: REFERRING PHYSICIAN: KEN MCDONALD MD DATE OF SERVICE: 02/01/19 Discharge Plan Patient Name: TATIANNA HANNA Facility: [facility]:[place] : 1960 Planned Disposition: Home with Home Health Anticipated Discharge Date: 02/03/19 Discharge Date: Expected LOS: 5 Initial Reviewer: [email or web address] Initial Review Date: 02/01/2019 Generated: 02/01/19 5:38 pm Comments DCP- Discharge Planning Updated by [email or web address]: Reva Genao on 02/01/19 3:[address] Patient Name: TATIANNA HANNA Admission Status: ER Accout number: [id number] Admission Date: 01-29-2019 : 1960 Admission Diagnosis: Attending: KEN MCDONALD Current LOS: 3 Anticipated DC Date: 02-03-2019 Planned Disposition: Home with Home Health Primary Insurance: [employer] Discharge Planning Comments: CM met with patient to discuss discharge planning/needs. She states her daughter (Yola) is living with her at this time and would be a teachable career development specialist for home health to teach dressing changes. She states she uses her cane for ambulation, otherwise is independent with all ADL's and AIDL's. I discussed availability of rehab, SNF, home health and DME. She states she would like to use [facility] for dressing changes. She denies other needs at this time. CM will continue to follow and assist with discharge planning/needs. Reimbursement Spec: Reva Genao DCP- Discharge Planning Updated by [id number]: Nataliia Hilario on 01/30/19 4:[address] CM attempted to see patient for discharge planning. Patient is currently in surgery CM will come back at a later time for d/c planning eval. CM will continue to follow and assist as needed with discharge planning / needs. DCPIA - Discharge Planning Initial Assessment Updated by [email or web address]: Reva Genao on 02/01/19 4:32 pm * Is the patient Alert and Oriented? Yes * How many steps to enter\exit or inside your home? 03/07 * PCP Dr. Mcdonald * Pharmacy [facility] * Preadmission Environment Home with Family * ADLs Partial Dependent * Partial ADLs (Assistance needed) Ambulation * Equipment Cane CPAP Walker * List name and contact numbers for known caregivers / representatives who currently or will assist patient after discharge: Rebecca Victorino - [phone] or [phone] Yola - DTR - no phone * Verbal permission to speak to the caregivers and representatives has been obtained from the patient. Yes * Community resources currently utilized None * Additional services required to return to the preadmission environment? Yes * Can the patient safely return to the preadmission environment? Yes * Has this patient been hospitalized within the prior 30 days at any hospital? No External Providers External Provider: [facility]ANNAHHannah [facility] Next Contact Date: Service Request Date: Service Type: Resolution: Reviewer: Comments: Coverage Notice Reviewer: [email or web address] Genao Notice Issued Date-Time: 02/01/2019 16:28 Notice Type: Patient Choice Letter Notice Delivered To: Patient Relationship to Patient: Self Linen Aide Name: Delivery Method: HAND - Hand Delivered Julia Days: Prior Verbal Notification: Recipient Understood Notice: Yes Recipient Signature: Yes Med Rec Note Co-signed by Attending: Coverage Notice Comment: [facility] Reviewer: [id number] Genao Notice Issued Date-Time: 02/01/2019 16:28 Notice Type: IM Discharge Notice Notice Delivered To: Patient Relationship to Patient: Self Linen Aide Name: Delivery Method: HAND - Hand Delivered Julia Days: Prior Verbal Notification: Recipient Understood Notice: Yes Recipient Signature: Yes Med Rec Note Co-signed by Attending: Coverage Notice Comment: IMM explained, signed, given, copy placed in Mr Patient Name: TATIANNA HANNA Page [phone] at 1638 All edits/amendments must be made on the electronic document DICTATION DATE: 02/01/191637 HELP DESK SUPPORT SPECIALIST: OSIRIS 02/01/198 RPT#: [id number] DC DATE: STATUS: ADM IN [facility] [address] [place] [address] END OF REPORT
--- NOTE | 2019-02-01 19:36 | NUR ---
LYING IN BED WITH TV ON, ISOLATION PRECAUTIONS IN PLACE. REQUESTS PHONE TO BE PLUGGED UP, IT WAS, REQUESTS LARGE CUP OF ICE WATER, GRANTED. WILL NOTE ANY FURTHER CHANGE.
[2019-02-01 20:00] VITALS: BP 152/45
--- NOTE | 2019-02-01 23:40 | NUR ---
I have reviewed this patient and I concur with the Shift Assessment completed by the Licensed Practical Nurse today this shift.
--- NOTE | 2019-02-02 00:23 | NUR ---
REQUESTED PAIN MEDICATION RELATED TO BACK PAIN, NORCO 10-325 GIVEN PER ORDERS, WILL CONTINUE TO OBSERVE.
--- NOTE | 2019-02-02 00:57 | NUR ---
UPON REASSESSMENT, PT IS RESTING COMFORTABLY IN BED WITH NO S/S OF ANY ACUTE DISTRESS OR DISCOMFORT. WILL NOTE ANY CHANGE.
[2019-02-02 04:00] VITALS: BP 131/59
--- NOTE | 2019-02-02 05:38 | NUR ---
HAS RESTED WELL THIS SHIFT, IS IN BED AT THIS TIME, EASILY AROUSED, IV TO LEFT FOREARM IS INFUSING NS AT 100 PER ORDERS, SHOWS NO S/S OF ANY ACUTE DISTRESS. WILL NOTE ANY CHANGE.
[2019-02-02 07:05] LABS: BASOPHILS 0.3 % (0-2); EOSINOPHILS 4.7 % (0-7); HEMATOCRIT 28.5 % (36.0-48.0); HEMOGLOBIN 9.2 g/dL (12-16); IMMATURE GRANULOCYTES 0.4 % (0-5); LYMPHOCYTES 33.1 % (15-50); MCH 30.1 pg (26.0-34.0); MCHC 32.3 g/dL (31.0-37.0); MCV 93.1 fL (80.0-100.0); MEAN PLATELET VOLUME 8.9 fL (7.4-10.4); MONOCYTES 9.2 % (2-11); NEUTROPHILS 52.3 % (40-80); PLATELET COUNT 182 10x3/uL (130-400); RBC 3.06 10x6/uL (4.00-5.40); RDW 13.1 % (11.5-14.5); WBC 7.4 10x3/uL (4.8-10.8)
[2019-02-02 07:34] LABS: ANION GAP 11.1 mmol/L (8-16); CALCIUM 7.5 mg/dL (8.5-10.1); CARBON DIOXIDE 28.5 mmol/L (21.0-32.0); CREATININE - SERUM 0.9 mg/dL (0.6-1.3); POTASSIUM - SERUM 4.6 mmol/L (3.5-5.1)
[2019-02-02 09:39] VITALS: BP 148/53
--- NOTE | 2019-02-02 09:52 | NUR ---
C/O PERINEAL PAIN RATING 6/10 ON PAIN SCALE. MEDICATED WITH NORCO PER ORDERS. C/L IN REACH AT BEDSIDE
[2019-02-02 11:56] VITALS: BP 155/61
--- NOTE | 2019-02-02 14:48 | NUR ---
[facility]LEY DC AT THIS TIME WITH 600 CC NOTED TO TUBING AND COLLECTION DEVICE.
--- NOTE | 2019-02-02 15:57 | MORECARE ---
CASE MANAGEMENT DISCHARGE SUMMARY PATIENT: TATIANNA HANNA UNIT: [id number] ADM DATE: 01/29/19 AGE: 58 : 64 SEX: F ROOM/BED: D.2239 AUTHOR: SAEED,DOC PHYSICIAN: REFERRING PHYSICIAN: KEN MCDONALD MD DATE OF SERVICE: 02/02/19 Discharge Plan Patient Name: TATIANNA HANNA Facility: [facility]:[place] : 1960 Planned Disposition: Home with Home Health Anticipated Discharge Date: 02/03/19 Discharge Date: Expected LOS: 5 Initial Reviewer: [email or web address] Initial Review Date: 02/01/2019 Generated: 02/02/19 4:57 pm Comments DCP- Discharge Planning Updated by [id number]: Reva Tothcharlie on 02/02/19 2:[address] Received discharge orders, she is no longer needing packing. She states she no longer needs home health. I called Capri with [facility] and informed her that she no longer wants home health. DCP- Discharge Planning Updated by [email or web address]: Reva Genao on 02/01/19 3:[address] Patient Name: TATIANNA HANNA Admission Status: ER Accout number: [id number] Admission Date: 01-29-2019 : 1960 Admission Diagnosis: Attending: KEN MCDONALD Current LOS: 3 Anticipated DC Date: 02-03-2019 Planned Disposition: Home with Home Health Primary Insurance: [employer] Discharge Planning Comments: CM met with patient to discuss discharge planning/needs. She states her daughter (Yola) is living with her at this time and would be a teachable rn transitional care for home health to teach dressing changes. She states she uses her cane for ambulation, otherwise is independent with all ADL's and AIDL's. I discussed availability of rehab, SNF, home health and DME. She states she would like to use [facility] for dressing changes. She denies other needs at this time. CM will continue to follow and assist with discharge planning/needs. Build Automation Engineer: Reva Genao DCP- Discharge Planning Updated by [id number]: Nataliia Hilario on 01/30/19 4:[address] CM attempted to see patient for discharge planning. Patient is currently in surgery CM will come back at a later time for d/c planning eval. CM will continue to follow and assist as needed with discharge planning / needs. DCPIA - Discharge Planning Initial Assessment Updated by [id number]: Reva Genao on 02/01/19 4:32 pm * Is the patient Alert and Oriented? Yes * How many steps to enter\exit or inside your home? 03/07 * PCP Dr. Mcdonald * Pharmacy [facility] * Preadmission Environment Home with Family * ADLs Partial Dependent * Partial ADLs (Assistance needed) Ambulation * Equipment Cane CPAP Walker * List name and contact numbers for known caregivers / representatives who currently or will assist patient after discharge: Rebecca Gleason - [phone] or [phone] Yola - DTR - no phone * Verbal permission to speak to the caregivers and representatives has been obtained from the patient. Yes * Community resources currently utilized None * Additional services required to return to the preadmission environment? Yes * Can the patient safely return to the preadmission environment? Yes * Has this patient been hospitalized within the prior 30 days at any hospital? No Coverage Notice Reviewer: [id number] Milton Genao Notice Issued Date-Time: 02/01/2019 16:28 Notice Type: Patient Choice Letter Notice Delivered To: Patient Relationship to Patient: Self Steel Chipper Name: Delivery Method: HAND - Hand Delivered Julia Days: Prior Verbal Notification: Recipient Understood Notice: Yes Recipient Signature: Yes Med Rec Note Co-signed by Attending: Coverage Notice Comment: [facility] Reviewer: [id number] Milton Genao Notice Issued Date-Time: 02/01/2019 16:28 Notice Type: IM Discharge Notice Notice Delivered To: Patient Relationship to Patient: Self Steel Chipper Name: Delivery Method: HAND - Hand Delivered Julia Days: Prior Verbal Notification: Recipient Understood Notice: Yes Recipient Signature: Yes Med Rec Note Co-signed by Attending: Coverage Notice Comment: IMM explained, signed, given, copy placed in Mr Last DP export: 02/01/19 3:38 p Patient Name: TATIANNA HANNA Page [id number] at 1557 All edits/amendments must be made on the electronic document DICTATION DATE: 02/02/191556 RESIDENT BUYER: OSIRIS 02/02/191556 RPT#: [id number] DC DATE: STATUS: ADM IN [facility] [address] [facility] [place] [address] END OF REPORT
--- NOTE | 2019-02-02 19:01 | NUR ---
CALL WAS PLACED TO LEGAL CLERK ABOUT PT BEING DC HOME AND SPOKE WITH DR. SCHAEFFER AND REC'D VERBAL ORDERS FOR PT TO BE DC HOME AND THAT FOR HER TO CALL DR. GALEAS ON TOMORROW TO ASK IF HE WANTS HER ON ANY ABTX THERAPY.
--- NOTE | 2019-02-02 19:59 | NUR ---
PT DISCHARGED VIA FAMILY MEMBER, ALL INSTRUCTIONS REGARDING DISCHARGE WERE VERBALLY UNDERSTOOD, ALL BELONGINGS TOOK WITH.
--- NOTE | 2019-02-04 12:06 | MORECARE ---
CASE MANAGEMENT DISCHARGE SUMMARY PATIENT: TATIANNA HANNA UNIT: [id number] ADM DATE: 01/29/19 AGE: 58 : 64 SEX: F ROOM/BED: D.2239 AUTHOR: SAEED,DOC PHYSICIAN: REFERRING PHYSICIAN: KEN MCDONALD MD DATE OF SERVICE: 02/04/19 Discharge Plan Patient Name: TATIANNA HANNA Facility: [facility]:[place] : 1960 Planned Disposition: Home with Home Health Anticipated Discharge Date: 02/03/19 Discharge Date: 02/02/2019 Expected LOS: 5 Initial Reviewer: [email or web address] Initial Review Date: 02/01/2019 Generated: 02/04/19 1:06 pm Comments DCP- Discharge Planning Updated by [email or web address]: Reva Genao on 02/02/19 2:[address] Received discharge orders, she is no longer needing packing. She states she no longer needs home health. I called Capri with [facility] and informed her that she no longer wants home health. DCP- Discharge Planning Updated by [email or web address]: Reva Genao on 02/01/19 3:[address] Patient Name: TATIANNA HANNA Admission Status: ER Accout number: [id number] Admission Date: 01-29-2019 : 1960 Admission Diagnosis: Attending: KEN MCDONALD Current LOS: 3 Anticipated DC Date: 02-03-2019 Planned Disposition: Home with Home Health Primary Insurance: [facility] Discharge Planning Comments: CM met with patient to discuss discharge planning/needs. She states her daughter (Yola) is living with her at this time and would be a teachable insurance healthcare representative for home health to teach dressing changes. She states she uses her cane for ambulation, otherwise is independent with all ADL's and AIDL's. I discussed availability of rehab, SNF, home health and DME. She states she would like to use [facility] for dressing changes. She denies other needs at this time. CM will continue to follow and assist with discharge planning/needs. Brand Analyst: Reva Genao DCP- Discharge Planning Updated by [id number]: Nataliia Hilario on 01/30/19 4:[address] CM attempted to see patient for discharge planning. Patient is currently in surgery CM will come back at a later time for d/c planning eval. CM will continue to follow and assist as needed with discharge planning / needs. DCPIA - Discharge Planning Initial Assessment Updated by [email or web address]: Reva Genao on 02/01/19 4:32 pm * Is the patient Alert and Oriented? Yes * How many steps to enter\exit or inside your home? 03/07 * PCP Dr. Mcdonald * Pharmacy [facility] * Preadmission Environment Home with Family * ADLs Partial Dependent * Partial ADLs (Assistance needed) Ambulation * Equipment Cane CPAP Walker * List name and contact numbers for known caregivers / representatives who currently or will assist patient after discharge: Rebecca Gleason - [phone] or [phone] Yola - DTR - no phone * Verbal permission to speak to the caregivers and representatives has been obtained from the patient. Yes * Community resources currently utilized None * Additional services required to return to the preadmission environment? Yes * Can the patient safely return to the preadmission environment? Yes * Has this patient been hospitalized within the prior 30 days at any hospital? No Coverage Notice Reviewer: [id number] Milton Genao Notice Issued Date-Time: 02/01/2019 16:28 Notice Type: Patient Choice Letter Notice Delivered To: Patient Relationship to Patient: Self Modern And Contemporary Art Curator Name: Delivery Method: HAND - Hand Delivered Julia Days: Prior Verbal Notification: Recipient Understood Notice: Yes Recipient Signature: Yes Med Rec Note Co-signed by Attending: Coverage Notice Comment: [facility] for [facility] Reviewer: [id number] Milton Genao Notice Issued Date-Time: 02/01/2019 16:28 Notice Type: IM Discharge Notice Notice Delivered To: Patient Relationship to Patient: Self Modern And Contemporary Art Curator Name: Delivery Method: HAND - Hand Delivered Julia Days: Prior Verbal Notification: Recipient Understood Notice: Yes Recipient Signature: Yes Med Rec Note Co-signed by Attending: Coverage Notice Comment: IMM explained, signed, given, copy placed in Mr Last DP export: 02/02/19 2:57 p Patient Name: TATIANNA HANNA Page [phone] at 1206 All edits/amendments must be made on the electronic document DICTATION DATE: 02/04/191205 PAPER CONE GRADER: OSIRIS 02/04/196 RPT#: [id number] DC DATE:02/02/19 STATUS: DIS IN [facility] [address] [facility] [place] [address] END OF REPORT
== END 2019-02-02 20:00 | disposition home or self-care (01) | DRG 854 ==
LOC: D.ER 22:57 → D.ICU 01-29 00:07 → D.MS 01-29 00:07
PROVIDERS: Family Medicine; Surgery; ADMIT Family Medicine; ATTEND Family Medicine
PROC: 0UBM0ZZ Excision of Vulva, Open Approach (ICD-10-PCS; principal; 2019-01-30 12:55)
DX: A41.9 Sepsis, unspecified organism (principal); N76.4 Abscess of vulva; N17.9 Acute kidney failure, unspecified; Z68.41 Body mass index [BMI] 40.0-44.9, adult; E11.65 Type 2 diabetes mellitus with hyperglycemia; N18.9 Chronic kidney disease, unspecified; I12.9 Hypertensive chronic kidney disease with stage 1 through stage 4 chronic kidney disease, or unspecified chronic kidney disease; E11.22 Type 2 diabetes mellitus with diabetic chronic kidney disease; I25.10 Atherosclerotic heart disease of native coronary artery without angina pectoris; E66.01 Morbid (severe) obesity due to excess calories

== ENCOUNTER 2019-02-25 14:36 | Emergency (ER) | payer OTHER, MEDICAID ==
[~2019-02-25] VITALS: Ht 172.7 cm; Wt 136.4 kg
[2019-02-25 14:40] VITALS: Ht 172.7 cm; Wt 136.4 kg
[2019-02-25 15:42] LABS: BASOPHILS 0.5 % (0-2); HEMATOCRIT 37.9 % (36.0-48.0); IMMATURE GRANULOCYTES 0.5 % (0-5); LYMPHOCYTES 25.6 % (15-50); MCH 30.7 pg (26.0-34.0); MCHC 34.3 g/dL (31.0-37.0); MCV 89.4 fL (80.0-100.0); MEAN PLATELET VOLUME 9.5 fL (7.4-10.4); MONOCYTES 8.2 % (2-11); NEUTROPHILS 63.2 % (40-80); RBC 4.24 10x6/uL (4.00-5.40); RDW 13.6 % (11.5-14.5); WBC 13.2 10x3/uL (4.8-10.8)
[2019-02-25 15:44] LABS: PLATELET COUNT 276 10x3/uL (130-400)
[2019-02-25 15:57] LABS: ALBUMIN 3.6 g/dL (3.4-5.0); ALKALINE PHOSPHATASE 160 U/L (46-116); ALT (SGPT) 20 U/L (10-68); CALC OSMOLALITY 302 mosm/kg (275-300); CALCIUM 8.2 mg/dL (8.5-10.1); CARBON DIOXIDE 27.1 mmol/L (21.0-32.0); CHLORIDE - SERUM 99 mmol/L (98-107); POTASSIUM - SERUM 3.6 mmol/L (3.5-5.1); PROTEIN - SERUM 7.1 g/dL (6.4-8.2); SODIUM 138 mmol/L (136-145); UREA NITROGEN 42 mg/dL (7-18); eGFR NON AFRICAN AMERICAN 17 mL/min (90-120)
[2019-02-25 16:05] LABS: GLUCOSE 388 mg/dL (74-106)
[2019-02-25 16:10] LABS: CKMB 3.7 U/L (0.0-3.6); CREATINE KINASE 162 UL (21-215); MAGNESIUM - SERUM 1.8 mg/dL (1.8-2.4); THYROID STIMULATING HORMONE 2.77 uIU/mL (0.36-3.74); TROPONIN-I < 0.017 ng/mL (0.000-0.060)
[2019-02-25 16:27] LABS: APTT 25.3 SECONDS (22.8-39.4); INR 1.01 (0.85-1.17); PROTIME 12.8 SECONDS (11.6-15.0)
[2019-02-25 18:03] VITALS: BP 128/50
== END 2019-02-25 18:03 | disposition home or self-care (01) ==
LOC: D.ER 14:36
PROVIDERS: Family Medicine
DX: R42 Dizziness and giddiness (principal); E11.9 Type 2 diabetes mellitus without complications; I10 Essential (primary) hypertension

== ENCOUNTER 2019-04-15 03:05 | Inpatient (IN) | payer OTHER, MEDICAID ==
[~2019-04-15] VITALS: Ht 172.7 cm; Wt 129.1 kg
[2019-04-15 03:26] LABS: BASOPHILS 0.2 % (0-2); EOSINOPHILS 4.2 % (0-7); HEMATOCRIT 32.4 % (36.0-48.0); HEMOGLOBIN 10.7 g/dL (12-16); IMMATURE GRANULOCYTES 0.4 % (0-5); LYMPHOCYTES 18.6 % (15-50); MCH 30.1 pg (26.0-34.0); MCV 91.3 fL (80.0-100.0); MEAN PLATELET VOLUME 8.9 fL (7.4-10.4); MONOCYTES 7.8 % (2-11); NEUTROPHILS 68.8 % (40-80); PLATELET COUNT 306 10x3/uL (130-400); RBC 3.55 10x6/uL (4.00-5.40); RDW 13.7 % (11.5-14.5); WBC 9.1 10x3/uL (4.8-10.8)
--- NOTE | 2019-04-15 03:40 | NUR ---
URINE SENT TO LAB.
[2019-04-15 03:51] LABS: ALBUMIN 2.6 g/dL (3.4-5.0); ANION GAP 15.5 mmol/L (8-16); BILIRUBIN - TOTAL 0.3 mg/dL (0.2-1.3); C-REACTIVE PROTEIN 13.3 mg/dL (0.0-0.9); CALCIUM 8.3 mg/dL (8.5-10.1); CARBON DIOXIDE 28.5 mmol/L (21.0-32.0); CREATININE - SERUM 1.8 mg/dL (0.6-1.3)
[2019-04-15 03:55] LABS: APPEARANCE CLEAR (CLEAR); BILIRUBIN NEGATIVE (NEGATIVE); COLOR YELLOW (YELLOW); GLUCOSE 1000 mg/dL (NEGATIVE); KETONE NEGATIVE (NEGATIVE); NITRITE NEGATIVE (NEGATIVE); PROTEIN TRACE mg/dL (NEGATIVE); SPECIFIC GRAVITY 1.015 (1.005-1.020); UROBILINOGEN NORMAL (NORMAL); WHITE CELLS - URINE RARE /hpf (NEGATIVE)
--- NOTE | 2019-04-15 05:15 | NUR ---
MID WIFE ON FLOOR. SPOKE WITH MID WIFE AND CHARGE NURSE ABOUT PATIENT COMPLAINS OF LEG NUMBNESS. ASKED MANAGER APPLE IF THIS NURSE SHOULD CALL DOCTOR BREVING OVER SITUATION. MID WIFE STATED NOT TO AT THIS TIME, TO INSTRUCT PATIENT TO TAKE IT UP WITH DOCTOR WHEN HE MAKES ROUNDS. REASSESSED PATIENT. SLEEPING WITH NO DISTRESS NOTED. ASSESSED PATIENT AND PATIENT RESPONDED TO PHYSICAL STIMULI WHEN ASSESSING BILATERAL LOWER EXTREMETIES. PATIENT STATED "I DIDN'T KNOW YOU WERE THERE." BUT WOKE AND JERKED WHEN TOUCHING LEGS FOR ASSESSMENT.
--- NOTE | 2019-04-15 07:20 | NUR ---
PT RESTING IN BED. NO SIGNS OF DISTRESS. IV TO RIGHT FORARM PATENT NO REDNESS OR TENDERNESS. ON TELEMETRY 64 SR. HAS REDENDDED AREA TO GRION, GRAHAM AND RIGHT GREAT TOE. DRESSING ON TOE CLEAN AND INTACT. DENIES ANY FURTHER NEED AT THIS TIME. CALL LIGHT IN REACH. BED LOW POSITION. NO FAMILY AT BEDSIDE AT THIS TIME.
[2019-04-15 08:03] VITALS: BP 116/51; BMI 43.2
[2019-04-15 08:51] VITALS: BP 114/57
[2019-04-15 12:40] VITALS: BP 142/66
--- NOTE | 2019-04-15 15:05 | NUR ---
SLEEPING,WITHOUT SIGNS OF DISTRESS.CALL LIGHT IN REACH
[2019-04-15 15:29] VITALS: Ht 172.7 cm; Wt 129.1 kg
[2019-04-15 17:29] VITALS: BP 125/50
[2019-04-15 18:59] VITALS: BP 127/56
--- NOTE | 2019-04-15 19:15 | NUR ---
RECEIVED PATIENT. STABLE. MINIMAL COMPLAINTS OF PAIN. INCISION TO THE RIGHT SIDED DANE AREA/GROIN. PACKED WITH KERLEX AND 4X4S OVERLAPPING WITH MESH UNDERWEAR. RIGHT FOREARM IV RESTARTED WITH NS. PATIENT ALERT AND ORIENTED. FAMILY AT BEDSIDE. POST OP VITAL SIGNS IN MUSLIM. DENIES FURTHER NEEDS AT THIS TIME. CALL LIGHT IN REACH. CPOC.
[2019-04-15 20:56] VITALS: BP 135/59
[2019-04-16 00:36] VITALS: BP 100/49
--- NOTE | 2019-04-16 01:30 | NUR ---
ASSESSING PATIENT. PATIENT APPEARS TO HAVE ANXIETY. ASSESSED VITAL SIGNS. STABLE. SUGARS STABLE. ASSESSED PULSES, BILATERAL PEDAL PULSES PALPABLE. BILATERAL LOWER EXTREMETIES WARM TO TOUCH AND CAPILLARY REFILL LESS THAN THREE SECONDS. PATIENT MOVED TO SIDE OF BED AND WANTED TO URINATE. PATIENT STATES SHE IS HAVING TROUBLE FEELING HER LEGS. ASKED CHARGE NURSE TO COME IN ROOM. CHARGE NURSE IN ROOM ASSESSED PATIENT. PATIENT STATES "I HAVE NEUROPATHY." PATIENT ASKED TO CALL SON. ASSISTED PATIENT IN CALLING SON. SPOKE WITH SON ABOUT VITAL SIGNS AND BLOOD SUGARS. PATIENT TALKED WITH SON FOR SEVERAL MINUTES. AFTER PHONE CALL HELPED PATIENT READJUST IN BED. PLACED COLD RAG ON HEAD. PATIENT THANKED. CALL LIGHT IN REACH. CPOC
--- NOTE | 2019-04-16 03:30 | NUR ---
REASSESSED PATIENT. PATIENT COMPLANIED OF LEGS AGAIN. NO CHANGES IN VITAL SIGNS OR SUGARS AT THIS TIME. BILATERAL EXTREMETIES REMAIN WARM TO TOUCH AND PATIENT RESPONDS WHEN TOUCHED AT ANKLE AREA. SPOKE WITH CHARGE NURSE, DENA LIPSCOMB ABOUT PATIENT AGAIN. CHARGE NURSE STATED ITS POSSIBLE MEDICATIONS THAT HAS PATIENT UPSET.
--- NOTE | 2019-04-16 05:15 | NUR ---
GROWTH HACKER ON FLOOR. TOLD HS OVER PATIENT COMPLAINTS AND IF THIS NURSE SHOULD INFORM DOCTOR. GROWTH HACKER INSTRUCTED THIS NURSE NOT TO AND INSTRUCTED THIS NURSE TO TELL PATIENT TO "TAKE IT UP WITH THE DOCTOR". WENT BACK TO ASSESS PATIENT AND PATIENT SLEEPING WITH NO SIGNS OF DISTRESS. ASSESSED PATIENT BILATERAL LOWER EXTREMETIES WHERE PATIENT WAS COMPLAINING. PATIENT WOKE AND RESPONDED TO PHYSICAL STIMULI. PATIENT STATED "I DIDN'T KNOW YOU WERE THERE BUT I FEEL IT." DENIES ANY OTHER DISTRESS AT THIS TIME. CALL LIGHT IN REACH.
--- NOTE | 2019-04-16 06:13 | NUR ---
I have reviewed this patient and I concur with the Shift Assessment completed by the Licensed Practical Nurse today this shift.
--- NOTE | 2019-04-16 06:45 | NUR ---
PASSED FINDINGS IN REPORT.
--- NOTE | 2019-04-16 08:13 | NUR ---
PT IS RESTING IN BED WTIH EYES OPEN. PT WITH TEARS AND STATING THAT SHE IS UNABLE TO "FEEL" HER LEGS. PT REPORTS THAT SHE IS UNABLE TO MOVE RLE AND LLE WILL "JERK". PT DOES NOT RESPOND TO PAINFUL STIMULI TO BLE. PEDAL PULSES ARE PALPABLE. CAP REFILL TO BLE IS <3. SKIN IS WARM TO TOUCH. NOTED 2ND TOE ON LEFT FOOT AMPUTATED PT REPORTS "BECAUSE OF STAPH". PT WITH MODERATE LEVEL OF ANXIETY AND TACHYPNEA STATING "I CAN'T MOVE. I CAN'T FEEL MY LEGS AND I FEEL LIKE IT IS GOING UP MY BODY. MY TAIL BONE IS KIND OF HURTING". VSS. BP 165/65 HEARTRATE SINUS RHYTHM 79. PT IS AAO X 4. DR SCHAEFFER PAGED AND NOTIFIED OF PT STATUS. NO NEW ORDERS RECD AT THIS TIME.
--- NOTE | 2019-04-16 08:26 | NUR ---
PT ENCOURAGED TO TAKE RELAXING BREATHS PT STARTS CRYING STATING "I JUST LOST MY MOTHER 2 WEEKS AGO AND ROSLYN NEVER HAD THIS FEELING BEFORE. IT FEELS LIKE I AM FLOATING OR LIKE MY BODY IS ON JELL-O". PT IS AAO X 4 AND IS TALING ON CELL PHONE TO FAMILY MEMBER PER PT. PT NOTIFIED THAT DR SCHAEFFER IS ON HIS WAY TO ASSESS PT. PT THANKS ME FOR ASSISTANCE AND DENIES FURTHER NEEDS AT THIS TIME. BED IS IN THE LOWEST POSITION. CALL LIGHT AND BEDSIDE TABLE ARE WITHIN REACH. SIDE RAILS X 2. WILL CONT TO MONITOR.
--- NOTE | 2019-04-16 08:45 | HP ---
PATIENT: TATIANNA HANNA MEDICAL RECORD: [id number] ACCOUNT: [id number] LOCATION:[id number] : 64 ADMISSION DATE: 04/15/19 PCP: KEN MCDONALD HISTORY AND PHYSICAL EXAMINATION CHIEF COMPLAINT: Right groin pain and draining wound and uncontrolled diabetes. HISTORY OF PRESENT ILLNESS: The patient is a 59-year-old female, followed by Dr. Los Mcdonald, who had increasing erythema and pain in her right groin for the last week. She saw him in the office yesterday and was felt to have cellulitis versus early furuncle. She had an I and D on the left side back in January of this year and had a complicated medical course. She was placed on clindamycin and consult was made to Dr. Ho, but the patient's pain became worse last night. For that reason, presented to the ED this morning. She denies fever and chills, shortness of breath or chest pain. Her blood sugar in the ED was over 400, but she was nonketotic. PAST MEDICAL HISTORY: Cellulitis of the left third finger in May of 2017. Diabetic foot ulcer, right great toe and left second toe. Type 2 diabetes mellitus, poorly controlled with A1c most recently of 14. Essential hypertension. History of asthma . Depression. Arthritis. Hyperlipidemia. Morbid obesity. Umbilical hernia. Coronary artery disease with a stent in the left circumflex in August of 2015. PTCA of the LAD in August of 2015. Total occlusion of the RCA remotely. 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 ALLERGIES: None known. FAMILY HISTORY: Mother recently , had history of CAD, chronic pain syndrome and in hospice. One brother and father both have diabetes. SOCIAL HISTORY: Former smoker. Does not use drugs or alcohol. PAST SURGICAL HISTORY: Cholecystectomy, hysterectomy, I&D of left groin for Radha's, cellulitis, PTCA times 2, left and right knee replacement. She has had tendon surgery on the right great toe and amputation of the left second toe. HOME MEDICATIONS: Lantus insulin 60 units in the morning and 100 in the evening. Clindamycin 300 mg q.i.d. Diflucan 150 mg p.o. daily. Narcan 10/325 one every 6 hours for severe pain. Januvia 100 mg a day. Allopurinol 300 mg a day. Olanzapine 5 mg tablets at bedtime. Lisinopril HCT 10/12.5 one p.o. at bedtime. Atorvastatin 20 mg at bedtime. Citalopram 40 mg a day. Benadryl 25 mg every 4 hours p.r.n. sleep. Aspirin 81 mg p.o. daily. Coreg 6.25 mg p.o. twice a day. Gabapentin 300 mg 2 capsules by mouth t.i.d. NovoLog sliding scale. Nitrostat 0.4 sublingual p.r.n. chest pain. REVIEW OF SYSTEMS: GENERAL: She is chronically fatigued, has been somewhat depressed due to her mother's recent . No recent fever. HEENT: No recent visual change, sinus congestion, or sore throat. RESPIRATORY: No SOB or cough. CARDIAC: No exertional chest pain, claudication, or edema. GASTROINTESTINAL: No nausea, vomiting, change in stools, blood per rectum. GENITOURINARY: Pain, swelling, and erythema, now draining wound at her right femoral triangle and groin. Denies vaginal bleeding. MUSCULOSKELETAL: Chronic arthralgia in knees and hips. HISTORY AND PHYSICAL [id number] TATIANNA HANNA PSYCHIATRIC: Admits to depressed mood. No suicidal ideation. SKIN: As mentioned above. PHYSICAL EXAMINATION: VITAL SIGNS: Temperature 97.9, pulse 77 and regular, respirations are 15, blood pressure 102/66 with a sat of 97% on room air. GENERAL: The patient is alert and oriented times 3. Eyes are clear. Oropharynx unremarkable. NECK: Supple. CHEST: Distant breath sounds without wheeze or rales. HEART: Regular rate and rhythm. ABDOMEN: Morbidly obese, soft, nontender throughout. GENITOURINARY: She has marked erythema. A firm right perivulvar abscess that is draining bloody discharge. LOWER EXTREMITIES: Show 2+ pretibial edema bilaterally. She has amputation of left second toe. Her right great toe shows an ulcer on the tip and plantar aspect. NEUROLOGIC: She is oriented to person, place, and time. Cranial nerves are intact. Sensory, decreased sensation to touch in both feet bilaterally. LABORATORY DATA: White count of 9000, H&H of 10.7 and 32.4, reflecting her chronic anemia. Sodium was 130, creatinine is 1.8 and her baseline 1.3, BUN is 36, glucose is 476. Lactic acid was 2.1. C-reactive protein is 13.3, alkaline phosphatase 162. CT of the abdomen is currently pending. ASSESSMENT: Probable Radha cellulitis in right groin, uncontrolled diabetes mellitus type 2, morbid obesity, CAD clinically stable, chronic pain, osteoarthritis, hyperlipidemia, depression, diabetic neuropathy. PLAN: The patient is admitted to the floor, has been placed on IV antibiotics. Dr. Ho of surgery has been consulted. We will place on high dose sliding scale insulin. Further workup pending clinical course. TRANSINT:[id number] Voice Confirmation ID: [id number] DOCUMENT ID: [id number] BENJAMIN SCHAEFFER MD at 0845 CC: [id number] DICTATION DATE: 04/15/19704 AUTO RESEARCH ENGINEER: 04/15/19 0746 ADM IN [place] [id number] [place] [id number]
--- NOTE | 2019-04-16 09:06 | NUR ---
TELEPHONE ORDERS RECD FROM DR SCHAEFFER ARE ORDER BANANA BAG CONTINUOUS RUNNING AT 125/HR. HALF THE PATIENTS LANTUS DOSE THAT IS ORDERED. ONE TIME DOSE OF VIT B12 1ML SUBQ. ORDERS PLACED.
[2019-04-16 09:19] VITALS: BP 140/42
--- NOTE | 2019-04-16 11:12 | OP ---
PATIENT NAME: TATIANNA HANNA MEDICAL RECORD: [id number] :64 LOCATION:D[facility] ADMISSION DATE:04/15/19 SURGEON: ARELY LAU MD DATE OF OPERATION: 04/15/2019 PREOPERATIVE DIAGNOSIS: Right labial abscess, rule out Radha's gangrene. POSTOPERATIVE DIAGNOSES: Right labial abscess without Radha's gangrene. PROCEDURE: Excisional debridement of right labial abscess. The dimensions of debridement, including margins, measured 3.5 x 4.0 cm included skin and subcutaneous tissue as well as a portion of the abscess cavity. I then marsupialized and packed the wound. OPERATIVE COURSE: The patient was conveyed to the operating room electively on 04/15/2019. General anesthesia was induced by anesthesia staff. The patient was placed in the lithotomy position. The perineum was sterilely prepped and draped. Utilizing scalpel, a roughly circular incision was accomplished around the area that was pointing overlying the right labia majora. I dissected down to a purulent cavity. Cultures were obtained. I then excised the cap. The dimensions of the excision are listed above. I excised back to healthy bleeding tissue. Meticulous hemostasis was achieved with the electrocautery. I then curetted out the abscess cavity with some bone curettes. I marsupialized the wound with a running locking 3-0 Vicryl Rapide suture. I irrigated with hydrogen peroxide. Meticulous hemostasis was achieved with the electrocautery. I then packed the wound with a Kerlix soaked in Dakin's solution. A sterile dressing was applied. The patient was then extubated and conveyed to post-anesthesia care unit where she was in stable condition. TRANSINT:[id number] Voice Confirmation ID: [id number] DOCUMENT ID: [id number] ARELY LAU MD at 1112 CC: KEN MCDONALD MD [id number] DICTATION DATE: 04/15/191922 PRESSURE TESTER: 04/16/19 0022 ADM IN [place] [id number] [place] [address]
--- NOTE | 2019-04-16 11:20 | NUR ---
PT TRANSPORTED FROM ROOM VIA STRETCHER FOR MRI ESCORTED BY HOSPITAL STAFF.
--- NOTE | 2019-04-16 11:40 | NUR ---
TUMOR REGISTRAR CALLED AND NOTIFIED THIS NURSE OF PATIENT INABILITY TO STAY STILL. DR SCHAEFFER PAGED TO NOTIFY OF INABILITY TO PROPERLY COMPLETE MRI DUE TO PT "UNCONTROLLABLE MOVEMENTS". TELEPHONE ORDERS RECD ARE 1MG IV ATIVAN ONE TIME NOW. WILL PLACE ORDERS.
--- NOTE | 2019-04-16 12:12 | NUR ---
ATIVAN ADMINISTERED AT MRI WITH MAMMAL CONTROL AGENT AT BEDSIDE. PT TOLERATED WELL. PT RESPIRATIONS ARE EVEN AND UNLABORED.
--- NOTE | 2019-04-16 13:30 | NUR ---
PT RETURNS TO ROOM VIA STRETCHER FROM MRI
--- NOTE | 2019-04-16 14:04 | NUR ---
PIV TO RIGHT FA LEAKING. PIV REMOVED WITH CATHETER TIP INTACT. DRESSING APPLIED. 22G PIV RESITED TO LOWER RIGHT FA X 1 ATTEMPT. PT TOLERATED WELL. BANANA BAG INFUSING WITHOUT DIFFICULTY. BED IS IN THE LOWEST POSITION. CALL LIGHT AND BEDSIDE TABLE ARE WITHIN REACH. SIDE RAILS X 2. FAMILY AT BEDSIDE.
--- NOTE | 2019-04-16 15:15 | NUR ---
PT TRANSPORTED FROM FLOOR VIA STRETCHER ESCORTED BY HOSPITAL STAFF FOR STAT MRI.
[2019-04-16 17:04] VITALS: BP 156/74
--- NOTE | 2019-04-16 17:11 | NUR ---
PT HAS NOT VOIDED DURING THIS SHIFT. SPOKE WITH DR SCHAEFFER TELEPHONE ORDERS RECD TO INSERT HARLEY CATHETER.
[2019-04-16] MEDS ORDERED: CLINDAMYCIN IV (17:13)
--- NOTE | 2019-04-16 17:14 | NUR ---
SPOKE WITH DR SCHAEFFER RE DISCHARGE ORDER AND MEDICATIONS. CONTINUE MARKED.
--- NOTE | 2019-04-16 17:34 | NUR ---
16 FR HARLEY CATHETER INSERTED USING STERILE TECHNIQUE. 10ML USED TO INFLATE STABILIZATION BALLOON. 700ML CLEAR YELLOW URINE NOTED TO COLLECTION BAG WITH CLEAR YELLOW URINE STILL FILLING TUBING. CATHETER TUBING CLAMPED AT THIS TIME. STAT LOCK INPLACE SECURING HARLEY TUBING. PT TOLERATED WELL. FAMILY IS AT BEDSIDE. BED IS IN THE LOWEST POSITION. CALL LIGHT AND BEDSIDE TABLE ARE WITHIN REACH. SIDE RAILS X 2. PT DENIES FURTHER NEEDS.
--- NOTE | 2019-04-16 17:39 | NUR ---
SPOKE WITH ABDIFATAH AT [facility] FOR TRANSFER OF PT. NO FURTHER ACTION NEEDED FROM [facility] AT THIS TIME PER ABDIFATAH. WILL WAIT FOR ROOM NUMBER FOR TRANSFER.
--- NOTE | 2019-04-16 20:00 | NUR ---
PT SLEEPING. VITALS SIGNS STABLE. FAXED TRANSFER BACK AGREEMENT AND CALLED TRANSFER CENTER FOR CONFIRMATION. AROUSED PT TO SIGN FORMS FOR TRANSFER. COMPLETE ASSESSMENT PER FLOW-SHEET. NO OTHER NEEDS. WILL CONTINUE TO MONITOR.
--- NOTE | 2019-04-16 21:30 | NUR ---
TRANSFER CENTER CALLED WITH ROOM NUMBER FOR [facility]. CALLED AND GAVE REPORT TO CHRISTAL FRAUSTO RN. CALLED [facility]. [facility] HAS TRUCK DOWN AND IS SENDING [facility] TO DO TRANSPORT. [facility] CALLED AND SAID [facility] IS ON THE WAY.
--- NOTE | 2019-04-16 22:35 | NUR ---
[facility] ARRIVED TO TRANSPORT PT TO [facility]. PT ALERT & ORIENTED. VITALS SIGNS STABLE. PT'S PERSONNEL ITEMS WITH CELL PHONE, MANAGER DECISION SUPPORT, GLASSESS AND CANE CHECKED BY NURSE, EMS AND PT ARE IN BAG AND LEFT FLOOR WITH PT.
== END 2019-04-16 22:35 | disposition short-term general hospital (02) | DRG 746 ==
LOC: D.ER 03:05 → D.MS 04:33
PROVIDERS: Family Medicine; Surgery; ADMIT Family Medicine; ATTEND Family Medicine
PROC: 0JBQ0ZZ Excision of Right Foot Subcutaneous Tissue and Fascia, Open Approach (ICD-10-PCS; 2019-04-15)
PROC: 0UBM0ZZ Excision of Vulva, Open Approach (ICD-10-PCS; principal; 2019-04-15 13:00)
DX: N76.4 Abscess of vulva (principal); Z68.41 Body mass index [BMI] 40.0-44.9, adult; G37.3 Acute transverse myelitis in demyelinating disease of central nervous system; G82.20 Paraplegia, unspecified; E11.621 Type 2 diabetes mellitus with foot ulcer; E11.65 Type 2 diabetes mellitus with hyperglycemia; E11.40 Type 2 diabetes mellitus with diabetic neuropathy, unspecified; L97.519 Non-pressure chronic ulcer of other part of right foot with unspecified severity; E66.01 Morbid (severe) obesity due to excess calories; I10 Essential (primary) hypertension; E11.51 Type 2 diabetes mellitus with diabetic peripheral angiopathy without gangrene

== ENCOUNTER 2019-04-19 15:31 | Inpatient (IN) | payer OTHER, MEDICAID ==
[~2019-04-19] VITALS: Ht 172.7 cm; Wt 128.8 kg
[~2019-04-19 15:31] MED LIST changes: +CLINDAMYCIN IV
[2019-04-19 17:27] VITALS: BP 166/62
[2019-04-19 18:32] VITALS: BP 166/62; BMI 43.2
--- NOTE | 2019-04-19 18:41 | NUR ---
PATIENT RECIEVED BACK FORM [facility] FOLLOWING TRANSFER TO THEIR FACILITY 2 DAYS AGO FOR UNEXPLAINED WEAKNESS TO BLE. PATIENT CONTINUES TO HAVE WEAKNESS WITH MINIMAL IMPROVEMENT. IV RESTARTED TO RIGHT FOREARM DUE TO UNABLE TO FLUSH IV PATIENT HAD ON TRANSFER.
--- NOTE | 2019-04-19 19:40 | NUR ---
PT SITTING UP IN BED WITHOUT DISTRESS, AOX4. IV RIGHT FA SL, FLUSHES EASILY. WEANKESS TO BILAT LOWER EXT. DENIES PAIN AT THIS TIME. CL IN REACH, WILL CTM
[2019-04-19 20:00] VITALS: BP 169/61
[2019-04-20] VITALS: BP 116/74
--- NOTE | 2019-04-20 00:30 | NUR ---
PT STATES [facility] PULLED HER HARLEY AT 1PM 04/19/19 AND SHE HAS NO GONE TO BATHROOM SINCE. ASSISTED PT ONTO BEDPAN TO VOID. COULD NOT VOID BUT FELT URGE TO GO. LOWER ABD TENDER TO TOUCH, SLIGHLTY DISTENDED. BLADDER SCAN 229ML BUT PT ALMOST IN TEARS IN PAIN. CALLED DR HENSON, ORDERS TO PLACE HARLEY. 18F HARLEY PLACED. 1200ML IMMEDIATE OUTPUT. PT STATES SHE FEELS MUCH BETTER. WILL CTM
[2019-04-20 06:35] LABS: BASOPHILS 0.2 % (0-2); EOSINOPHILS 4.7 % (0-7); HEMATOCRIT 32.4 % (36.0-48.0); HEMOGLOBIN 10.7 g/dL (12-16); IMMATURE GRANULOCYTES 0.5 % (0-5); LYMPHOCYTES 31.4 % (15-50); MCH 30.9 pg (26.0-34.0); MCV 93.6 fL (80.0-100.0); MEAN PLATELET VOLUME 9.1 fL (7.4-10.4); MONOCYTES 7.3 % (2-11); NEUTROPHILS 55.9 % (40-80); PLATELET COUNT 281 10x3/uL (130-400); RBC 3.46 10x6/uL (4.00-5.40); RDW 14.2 % (11.5-14.5); WBC 8.3 10x3/uL (4.8-10.8)
[2019-04-20 07:03] LABS: ANION GAP 11.1 mmol/L (8-16); CALCIUM 8.4 mg/dL (8.5-10.1); CARBON DIOXIDE 27.8 mmol/L (21.0-32.0); CREATININE - SERUM 1.1 mg/dL (0.6-1.3); POTASSIUM - SERUM 3.9 mmol/L (3.5-5.1)
--- NOTE | 2019-04-20 07:10 | NUR ---
PT RESTING IN BED. NO SIGNS OF DISTRESS. IV TO RIGHT FORARM PATENT NO REDNESS OR TENDERNESS. HAS HARLEY NO KINKS PATENT. DENIES ANY FURTHER NEED AT THIS TIME. CALL LIGHT IN REACH. BED LOW POSITION. NO FAMILY AT BEDSIDE AT THIS TIME.
[2019-04-20 09:21] VITALS: BP 143/65
[2019-04-20 12:16] VITALS: BP 133/66
--- NOTE | 2019-04-20 13:49 | NUR ---
I have reviewed this patient and I concur with the Shift Assessment completed by the Licensed Practical Nurse today this shift.
[2019-04-20 21:36] VITALS: BP 138/57
[2019-04-21 01:03] VITALS: BP 124/60
[2019-04-21 05:00] LABS: BASOPHILS 0.2 % (0-2); EOSINOPHILS 5.4 % (0-7); HEMATOCRIT 33.4 % (36.0-48.0); HEMOGLOBIN 10.4 g/dL (12-16); IMMATURE GRANULOCYTES 0.9 % (0-5); LYMPHOCYTES 25.4 % (15-50); MCH 29.4 pg (26.0-34.0); MCHC 31.1 g/dL (31.0-37.0); MCV 94.4 fL (80.0-100.0); MEAN PLATELET VOLUME 8.9 fL (7.4-10.4); MONOCYTES 7.4 % (2-11); NEUTROPHILS 60.7 % (40-80); RBC 3.54 10x6/uL (4.00-5.40); RDW 14.2 % (11.5-14.5); WBC 8.8 10x3/uL (4.8-10.8)
[2019-04-21 05:03] LABS: ANION GAP 11.6 mmol/L (8-16); CALCIUM 8.2 mg/dL (8.5-10.1); CARBON DIOXIDE 30.1 mmol/L (21.0-32.0); POTASSIUM - SERUM 3.7 mmol/L (3.5-5.1)
[2019-04-21 05:05] LABS: CREATININE - SERUM 1.4 mg/dL (0.6-1.3)
[2019-04-21 05:10] LABS: PLATELET COUNT 361 10x3/uL (130-400)
[2019-04-21 05:16] VITALS: BP 109/63
--- NOTE | 2019-04-21 07:05 | NUR ---
SLEEPING ON LEFT SIDE.AWAKENS INT. SHE IS WITHOUT DISTRESS
[2019-04-21 07:55] VITALS: BP 143/58
--- NOTE | 2019-04-21 08:00 | NUR ---
ASSESSMENT PER FLOW SHEET. PT IS WITHOUT DISTRESS.DENIES NEEDS.CALL LIGHT IN REACH.
--- NOTE | 2019-04-21 10:57 | MORECARE ---
CASE MANAGEMENT DISCHARGE SUMMARY PATIENT: TATIANNA HANNA UNIT: [id number] ADM DATE: 04/19/19 AGE: 59 : 64 SEX: F ROOM/BED: D.2217 AUTHOR: DAVID TIPTON PHYSICIAN: REFERRING PHYSICIAN: KEN MCDONALD MD DATE OF SERVICE: 04/21/19 Discharge Plan Patient Name: TATIANNA HANNA Facility: [facility]:[place] : 1960 Planned Disposition: Inpatient Rehab Anticipated Discharge Date: Discharge Date: Expected LOS: Initial Reviewer: [email or web address] Initial Review Date: 04/19/2019 Generated: 04/21/19 11:56 am Patient Name: TATIANNA HANNA Page [phone] at 1057 All edits/amendments must be made on the electronic document DICTATION DATE: 04/21/19 1056 FIELD SUPERINTENDENT: OSIRIS 04/21/19 1056 RPT#: [id number] DC DATE: STATUS: ADM IN [facility] [address] [place] [address] END OF REPORT
--- NOTE | 2019-04-21 11:07 | MORECARE ---
CASE MANAGEMENT DISCHARGE SUMMARY PATIENT: TATIANNA HANNA UNIT: [id number] ADM DATE: 04/19/19 AGE: 59 : 64 SEX: F ROOM/BED: D.2217 AUTHOR: DAVID TIPTON PHYSICIAN: REFERRING PHYSICIAN: KEN MCDONALD MD DATE OF SERVICE: 04/21/19 Discharge Plan Patient Name: TATIANNA HANNA Facility: [facility]:[place] : 1960 Planned Disposition: Inpatient Rehab Anticipated Discharge Date: Discharge Date: Expected LOS: Initial Reviewer: [email or web address] Initial Review Date: 04/19/2019 Generated: 04/21/19 12:06 pm DCPIA - Discharge Planning Initial Assessment Updated by [email or web address]: Sushma Snyder on 04/21/19 11:00 am * Is the patient Alert and Oriented? Yes * How many steps to enter\exit or inside your home? RAMP * PCP TAMARA * Pharmacy [facility] * Preadmission Environment Home with Family * ADLs Partial Dependent * Partial ADLs (Assistance needed) Ambulation * Equipment Glucometer Rolling Walker Shower Chair * List name and contact numbers for known caregivers / representatives who currently or will assist patient after discharge: DEMARCUS (SON) [phone] * Verbal permission to speak to the caregivers and representatives has been obtained from the patient. N/A * Community resources currently utilized None * Additional services required to return to the preadmission environment? Yes * Can the patient safely return to the preadmission environment? No * Has this patient been hospitalized within the prior 30 days at any hospital? Yes Last DP export: 04/21/19 9:57 Patient Name: TATIANNA HANNA Page [id number] at 1107 All edits/amendments must be made on the electronic document DICTATION DATE: 04/21/191105 DAIRY HUSBANDRY TEACHER: OSIRIS 04/21/191105 RPT#: [id number] DC DATE: STATUS: ADM IN [facility] [address] [place] [address] END OF REPORT
--- NOTE | 2019-04-21 11:13 | MORECARE ---
CASE MANAGEMENT DISCHARGE SUMMARY PATIENT: TATIANNA HANNA UNIT: [id number] ADM DATE: 04/19/19 AGE: 59 : 64 SEX: F ROOM/BED: D.2217 AUTHOR: DAVID TIPTON PHYSICIAN: REFERRING PHYSICIAN: KEN MCDONALD MD DATE OF SERVICE: 04/21/19 Discharge Plan Patient Name: TATIANNA HANNA Facility: [facility]:[place] : 1960 Planned Disposition: Inpatient Rehab Anticipated Discharge Date: Discharge Date: Expected LOS: Initial Reviewer: [id number] Initial Review Date: 04/19/2019 Generated: 04/21/19 12:13 pm Comments DCP- Discharge Planning Updated by [id number]: Sushma Snyder on 04/21/19 10:[address] Patient Name: TATIANNA HANNA Admission Status: Urgent Accout number: [id number] Admission Date: 04-19-2019 : 1960 Admission Diagnosis: Attending: KEN MCDONALD Current LOS: 2 Anticipated DC Date: Planned Disposition: Inpatient Rehab Primary Insurance: [employer] Discharge Planning Comments: CM met with patient to complete initial dc planning assessment. CM educated patient on the CM role and verbal consent given by patient to complete assessment. Patient lives at home with her great niece and her where she WAS independent with her care. At discharge patient needs some type of rehab & feels this is a safe discharge. CM discussed availability of home health, rehab services, and medical equipment. She would like to know why her legs are not working. PT and OT are in there, we will wait to see what they have to say to have a good discharge plan. She has a walker, shower chair, ramp at home. She had a cane, but has lost it between the transfers to and from [facility]. She stated when she does get to go home either her son or nephew, Cullen will be her deliver driver home. Patient denied known discharge needs at this time. CM will continue to follow and will assist as needed with dc plans/needs. Tuft Machine Operator: Sushma Snyder DCPIA - Discharge Planning Initial Assessment Updated by [email or web address]: Sushma Snyder on 04/21/19 11:00 am * Is the patient Alert and Oriented? Yes * How many steps to enter\exit or inside your home? RAMP * PCP TAMARA * Pharmacy [facility] * Preadmission Environment Home with Family * ADLs Partial Dependent * Partial ADLs (Assistance needed) Ambulation * Equipment Glucometer Rolling Walker Shower Chair * List name and contact numbers for known caregivers / representatives who currently or will assist patient after discharge: DEMARCUS (SON) [phone] * Verbal permission to speak to the caregivers and representatives has been obtained from the patient. N/A * Community resources currently utilized None * Additional services required to return to the preadmission environment? Yes * Can the patient safely return to the preadmission environment? No * Has this patient been hospitalized within the prior 30 days at any hospital? Yes Last DP export: 04/21/19 10:07 Patient Name: TATIANNA HANNA Page [id number] at 1113 All edits/amendments must be made on the electronic document DICTATION DATE: 04/21/191112 DIRECTOR OF ANALYTICS: OSIRIS 04/21/191112 RPT#: [id number] DC DATE: STATUS: ADM IN [facility] [address] [place] [address] END OF REPORT
[2019-04-21 12:49] VITALS: BP 120/53
--- NOTE | 2019-04-21 14:02 | NUR ---
Rehab Prescreening Consult recieved and the chart has been reviewed. She is [employer] and will require a preauth for the ARU. Discussed with the CM Reyna Snyder RN. Elissa Krishna RN Clinical Liaison, Rehab
[2019-04-21 18:08] VITALS: BP 168/64
[2019-04-21 21:16] VITALS: BP 159/55
--- NOTE | 2019-04-21 22:17 | NUR ---
PT CRYING AND COMPLAINING OF "HARLEY" PAIN, ITCHING AND BURNING. PT DEMANDS THE HARLEY BE TAKEN OUT. EXPLAINED TO THE PT THAT THE HARLEY WAS PLACED DUE TO HER INABILITY TO VOID AND THAT WE MAY NOT BE ABLE TO GET HER UP (PT WAS HARD FOR 2 MALES TO GET HER UP ON DAYSHIFT), THAT SHE WOULD POSSIBLY HAVE TO USE BEDPAN. PT STATED HER ACCEPTANCE AND STATED SHE STILL WANTED HARLEY OUT. REMOVED HARLEY CATHETER AT THIS TIME AND EMPTIED 800 CC'S URINE FROM CATHETER. GAVE SCHEDULED MEDS AND PAIN MEDICINE. NO OTHER NEEDS. COMPLETE ASSESSMENT PER FLOW-SHEET. WILL REASSESS AND CONTINUE TO MONITOR.
[2019-04-22 01:13] VITALS: BP 122/62
[2019-04-22 04:37] VITALS: BP 108/51
[2019-04-22 06:34] LABS: ANION GAP 11.2 mmol/L (8-16); CALCIUM 8.2 mg/dL (8.5-10.1); CARBON DIOXIDE 27.9 mmol/L (21.0-32.0); CREATININE - SERUM 1.2 mg/dL (0.6-1.3); POTASSIUM - SERUM 4.1 mmol/L (3.5-5.1)
[2019-04-22 06:37] LABS: BASOPHILS 0.2 % (0-2); EOSINOPHILS 4.2 % (0-7); HEMOGLOBIN 10.2 g/dL (12-16); IMMATURE GRANULOCYTES 0.7 % (0-5); MCH 29.9 pg (26.0-34.0); MCHC 31.9 g/dL (31.0-37.0); MCV 93.8 fL (80.0-100.0); MEAN PLATELET VOLUME 8.9 fL (7.4-10.4); MONOCYTES 6.9 % (2-11); PLATELET COUNT 345 10x3/uL (130-400); RBC 3.41 10x6/uL (4.00-5.40); RDW 14.4 % (11.5-14.5); WBC 9.1 10x3/uL (4.8-10.8)
[2019-04-22 08:22] VITALS: BP 143/50
[2019-04-22 12:57] VITALS: BP 105/55
[2019-04-22 19:30] VITALS: BP 157/50
--- NOTE | 2019-04-22 21:42 | NUR ---
PT C/O PAIN 01/14. GAVE NORCO-10 PO AND SCHEDULED MEDS. FSBS 404 - TREATED WITH 28 UNITS REG INSULIN PER SS. GAVE SNACK. PT STATES SHE "FEELS MUCH BETTER TODAY." NO OTHER NEEDS. COMPLETE ASSESSMENT PER FLOW-SHEET. WILL REASSESS AND CONTINUE TO MONITOR.
[2019-04-23 04:30] VITALS: BP 148/56
[2019-04-23 06:09] LABS: BASOPHILS 0.1 % (0-2); HEMOGLOBIN 10.1 g/dL (12-16); IMMATURE GRANULOCYTES 0.8 % (0-5); LYMPHOCYTES 28.6 % (15-50); MCH 29.6 pg (26.0-34.0); MCHC 31.6 g/dL (31.0-37.0); MCV 93.8 fL (80.0-100.0); MEAN PLATELET VOLUME 8.4 fL (7.4-10.4); MONOCYTES 7.3 % (2-11); NEUTROPHILS 59.2 % (40-80); PLATELET COUNT 334 10x3/uL (130-400); RBC 3.41 10x6/uL (4.00-5.40); RDW 14.3 % (11.5-14.5); WBC 8.9 10x3/uL (4.8-10.8)
[2019-04-23 06:47] LABS: ANION GAP 12.5 mmol/L (8-16); CALCIUM 8.4 mg/dL (8.5-10.1); CARBON DIOXIDE 26.7 mmol/L (21.0-32.0); CREATININE - SERUM 1.1 mg/dL (0.6-1.3); POTASSIUM - SERUM 4.2 mmol/L (3.5-5.1)
[2019-04-23 07:46] VITALS: BP 112/45
--- NOTE | 2019-04-23 09:11 | NUR ---
PT C/O HARLEY IRRITATING HER, STATES SHE HAS A BURNING FEELING THAT IS UNCOMFORTABLE, HARLEY PLACED YESTERDAY AFTERNOON WITH NO COMPLICATION. ENCOURAGED PT TO MENTION BURNING SENSATION TO DR WILL GET UA IF NEEDED. CONTINUE WITH PLAN OF CARE. CL IN REACH
--- NOTE | 2019-04-23 10:40 | NUR ---
I have reviewed this patient and I concur with the Shift Assessment completed by the Licensed Practical Nurse today this shift.
[2019-04-23 12:08] VITALS: BP 94/53
[2019-04-23 16:11] LABS: APPEARANCE CLEAR (CLEAR); COLOR STRAW (YELLOW)
[2019-04-23 16:12] LABS: BILIRUBIN NEGATIVE (NEGATIVE); GLUCOSE 250 mg/dL (NEGATIVE); KETONE NEGATIVE (NEGATIVE); NITRITE NEGATIVE (NEGATIVE); PROTEIN 2+ mg/dL (NEGATIVE); SPECIFIC GRAVITY 1.015 (1.005-1.020); UROBILINOGEN NORMAL (NORMAL)
[2019-04-23 16:14] LABS: BACTERIA FEW /hpf (NEGATIVE)
[2019-04-23 20:01] VITALS: BP 140/51
--- NOTE | 2019-04-23 22:02 | NUR ---
FSBS 505 - PT HAS HAD SNACK AND DRINKING COLA. GAVE 28 UNITS REG INSULIN PER SS AND SCHEDULED 100 UNITS LANTUS. GAVE DIABETIC SNACK. PT C/O PAIN 12/14. GAVE NORCO-10 1 TAB PO AND SCHEDULED MEDS. NO OTHER NEEDS. ASSESSMENT COMPLETE PER FLOW-SHEET. WILL REASSESS AND CONTINUE TO MONITOR.
[2019-04-24 00:30] VITALS: BP 97/40
--- NOTE | 2019-04-24 00:30 | NUR ---
PT C/O OF ITCHING AND BURNING IN PERIAREA. EKG MONITOR TECH PERFORMED HARLEY CARE. RIGHT GROIN INCISION MODERATE WARREN AND PINK TINGED DRAINAGE. CHANGED DRESSING WET TO DRY. NO OTHER NEEDS. WILL CONTINUE TO MONITOR.
[2019-04-24 05:00] VITALS: BP 128/54
[2019-04-24 05:44] LABS: BASOPHILS 0.1 % (0-2); EOSINOPHILS 4.7 % (0-7); HEMATOCRIT 31.1 % (36.0-48.0); HEMOGLOBIN 10.2 g/dL (12-16); IMMATURE GRANULOCYTES 0.7 % (0-5); LYMPHOCYTES 29.9 % (15-50); MCH 30.4 pg (26.0-34.0); MCHC 32.8 g/dL (31.0-37.0); MCV 92.8 fL (80.0-100.0); MEAN PLATELET VOLUME 9.2 fL (7.4-10.4); MONOCYTES 9.5 % (2-11); NEUTROPHILS 55.1 % (40-80); PLATELET COUNT 317 10x3/uL (130-400); RBC 3.35 10x6/uL (4.00-5.40); RDW 14.1 % (11.5-14.5); WBC 7.7 10x3/uL (4.8-10.8)
[2019-04-24 06:19] LABS: ANION GAP 9.9 mmol/L (8-16); CALCIUM 8.1 mg/dL (8.5-10.1); CARBON DIOXIDE 28.8 mmol/L (21.0-32.0); POTASSIUM - SERUM 4.7 mmol/L (3.5-5.1)
[2019-04-24 08:33] VITALS: BP 135/47
--- NOTE | 2019-04-24 13:01 | NUR ---
OT NOTE: PT PERFOREMD WELL TODAY. BED MOB WITH SPV; ABLE TO SIT UP ON EOB WITH GOOD SITTING BALANCE. ABLE TO WASH FACE, HANDS , AND CHEST WITH WASHCLOTH; MOD ASSIST TO BATHE BACK AND PERINEAL AREA. MAX ASSIST TO MAJO SOCKS. ABLE TO TRANSFER WITH WALKER AND MOD ASSIST X 2 DUE TO POTENTIAL KNEE BUCKLING. PT WAS ABLE TO MOVE R FOOT TODAY WITH INCREASED UE SUPPORT. EUN AVILES, OTR/L
[2019-04-24 13:32] VITALS: Ht 172.7 cm; Wt 128.8 kg
[2019-04-24 13:34] VITALS: BP 127/65
--- NOTE | 2019-04-24 15:05 | NUR ---
I&D RIGHT LABIAL ABSCESS ON 04/25. DAILY DRESSING CHANGES ARE BEING DONE PER MD ORDERS.
--- NOTE | 2019-04-24 15:59 | NUR ---
TRIED TO FIX NORCO CHARTING ON EMAR. DID NOT GIVE AT 1305 WAS ONLY GIVEN AT 1040. UNABLE TO FIX. CALLED PHARMACIST AND THEY STATED THERE WAS NO WAY TO DELETE IT. WAS UNABLE TO CHART AT 1040 IN HER ROOM ON COMPUTER BECAUSE IT WAS NOT WORKING AT THAT TIME.
[2019-04-24 17:51] VITALS: BP 102/51; BP 98/51
--- NOTE | 2019-04-24 18:05 | NUR ---
OT NOTE: PT COMPLETED BED MOB TASKS WITH SPV. PT COMPLETED EOB SITTING WITH SBA. PT COMPLETED UB HYGIENE TASK FACE/HAND WASH WITH SET UP. THANK YOU, XIMENA HANNA
--- NOTE | 2019-04-24 18:45 | NUR ---
PATIENT IN BED WITH IV INTACT. NO COMPLAINT OR SIGNS OF DISTRESS. FAMILY AT BEDSIDE. CALL LIGHT WITHIN REACH.
--- NOTE | 2019-04-24 19:40 | NUR ---
PT SITTING UP ON SIDE OF BED WITHOUT DISTRESS, AOX4. IV LEFT AC SL, FLUSHES EASILY. DRESSING TO RIGHT GROIN CDI. REMINDED PT SHE IS NPO AFTER MN. CONSENTS SIGNED FOR SURGERY. DENIES OTHER NEEDS. CL IN REACH, WILL CTM
[2019-04-24 20:00] VITALS: BP 141/46
[2019-04-25] VITALS (20 sets, daily range): BP systolic 109–162; BP diastolic 46–77
--- NOTE | 2019-04-25 04:00 | NUR ---
WET TO DRY DRESSING TO RIGHT GROIN CHANGED
--- NOTE | 2019-04-25 04:39 | NUR ---
LEFT AC LEAKING WHEN FLUSHED. DC'D WITH CATHETER TIP INTACT. 20G IV RESITED TO LEFT FA X1 ATTEMPT
--- NOTE | 2019-04-25 07:20 | NUR ---
PATIENT TAKEN TO SURGERYBEFORE REPORT TAKEN, ASSUME PATIENT CARE
[2019-04-25 07:24] LABS: BASOPHILS 0.3 % (0-2); EOSINOPHILS 4.2 % (0-7); HEMATOCRIT 30.7 % (36.0-48.0); HEMOGLOBIN 9.9 g/dL (12-16); IMMATURE GRANULOCYTES 0.4 % (0-5); LYMPHOCYTES 31.6 % (15-50); MCH 29.6 pg (26.0-34.0); MCHC 32.2 g/dL (31.0-37.0); MCV 91.6 fL (80.0-100.0); MEAN PLATELET VOLUME 9.1 fL (7.4-10.4); NEUTROPHILS 54.5 % (40-80); PLATELET COUNT 310 10x3/uL (130-400); RBC 3.35 10x6/uL (4.00-5.40); WBC 6.9 10x3/uL (4.8-10.8)
[2019-04-25 07:44] LABS: ANION GAP 11.8 mmol/L (8-16); CALCIUM 8.1 mg/dL (8.5-10.1); CARBON DIOXIDE 26.7 mmol/L (21.0-32.0); CREATININE - SERUM 1.1 mg/dL (0.6-1.3); POTASSIUM - SERUM 4.5 mmol/L (3.5-5.1)
--- NOTE | 2019-04-25 10:01 | NUR ---
FSBS POST OP 187 NO ACTION REQUIRED.
--- NOTE | 2019-04-25 10:15 | NUR ---
PATIENT RECEIVED FROM PACU VIA BED, ALERT AND ORIENTED X 4, S/P 2 LEVEL ACF. PATIENT C/O PAIN 7/10 TO NECK, NO SWELLING NOTED, INCISION WELL APPROXIMATED AND NO DRAINAGE. VSS. SPO2 - 94% ON RA, CM SHOWS NSR RATE 64. BBS - CLEAR AND EQUAL, DIMINISHE IN THE BASES. IV 20 GA TO LEFT FA, NSL, FLUSHES EASILY WITH POSITIVE BLOOD RETURN NOTED. HARLEY CATH IN PLACE WITH 1450 ML YELLOW CLEAR UOP. HEAD TO TOE ASSESSMENT COMPLETED UPON ADMISSION TO ICU.
--- NOTE | 2019-04-25 10:24 | NUR ---
TRANSFERRED TO ICU PER ORDER. PT AWAKE AND RESTING QUIETLY. CALLED PTS ROOM AND NO FAMILY IN THERE OR IN OUTPATIENT SURGERY WAITING. WILL LET ICU KNOW AND TRY TO CONTACT THEM FOR ROOM NUMBER CHANGE.
--- NOTE | 2019-04-25 11:00 | NUR ---
REASSESSMENT COMPLETED. VSS. PATIENT RESTING QUEIETLY WITH EYES CLOSED, EASILY AROUSED.
--- NOTE | 2019-04-25 11:45 | NUR ---
PATIENT STATES SHE DOES NOT WANT LUNCH TRAY. STATES NO HUNGRY.
--- NOTE | 2019-04-25 11:53 | NUR ---
Rehab continues to follow this patient. She is having surgery today. She is [employer] and will require a preauth for the acute rehab. Post OP she will need to be re-evaluated by PT and OT to submit to the insurance for their review. Elissa Krishna RN CL
--- NOTE | 2019-04-25 12:00 | NUR ---
PATEINT RESTING QUIETLY, SNORING, VSS. PATIENT EASILY AWAKENED BY VOICE, STATES DOES NOT WANT LUNCH TRAY.
--- NOTE | 2019-04-25 13:16 | NUR ---
PATIENT RESTING QUIETLY, VSS. ASSISTED WITH TURNING TO LEFT SIDE AND PILLOW PLACED.
--- NOTE | 2019-04-25 15:10 | NUR ---
REASSESSMENT COMPLETE. PATIENT RESTING QUEITLY, EASILY AROUSED BY VOICE. VSS.
--- NOTE | 2019-04-25 16:10 | NUR ---
PATIENT C/O PAIN TO NECK RATES 8/10, PRN PAIN MED GIVEN PER MAR.
--- NOTE | 2019-04-25 16:52 | NUR ---
PATIENT GIVEN DINNER TRAY AND ASSISTED IN SET UP. VSS.
--- NOTE | 2019-04-25 19:00 | NUR ---
BEDSIDE REPORT AND SHIFT ASSESSMENT COMPLETE, SEE FLOWSHEET. L NECK INCISION CDI, WNL, NO SIGNS OF BLEEDING OR SWELLING NOTED. PT STATES SHE IS MISSING A WARREN CHANGE PURSE THAT WAS IN HER ROOM (2216) BEFORE SHE WENT TO SURGERY. SPOKE WITH EDVIN AT [facility] AND SHE SAID SHE WOULD LOOK FOR THOSE ITEMS. PT DENIES PAIN. VSS, NO SIGNS OF ACUTE DISTRESS NOTED. CALL LIGHT IN REACH. WILL MONITOR.
--- NOTE | 2019-04-25 19:47 | MORECARE ---
CASE MANAGEMENT DISCHARGE SUMMARY PATIENT: TATIANNA HANNA UNIT: [id number] ADM DATE: 04/19/19 AGE: 59 : 64 SEX: F ROOM/BED: D.2303 AUTHOR: DAVID TIPTON PHYSICIAN: REFERRING PHYSICIAN: KEN MCDONALD MD DATE OF SERVICE: 04/25/19 Discharge Plan Patient Name: TATIANNA HANNA Facility: [facility]:[place] : 1960 Planned Disposition: Inpatient Rehab Anticipated Discharge Date: Discharge Date: Expected LOS: Initial Reviewer: [email or web address] Initial Review Date: 04/19/2019 Generated: 04/25/19 8:47 pm DCP- Discharge Planning Updated by [email or web address]: Sushma Snyder on 04/21/19 10:[address] Patient Name: TATIANNA HANNA Admission Status: Urgent Accout number: [id number] Admission Date: 04-19-2019 : 1960 Admission Diagnosis: Attending: KEN MCDONALD Current LOS: 2 Anticipated DC Date: Planned Disposition: Inpatient Rehab Primary Insurance: [employer] Discharge Planning Comments: CM met with patient to complete initial dc planning assessment. CM educated patient on the CM role and verbal consent given by patient to complete assessment. Patient lives at home with her great niece and her where she WAS independent with her care. At discharge patient needs some type of rehab & feels this is a safe discharge. CM discussed availability of home health, rehab services, and medical equipment. She would like to know why her legs are not working. PT and OT are in there, we will wait to see what they have to say to have a good discharge plan. She has a walker, shower chair, ramp at home. She had a cane, but has lost it between the transfers to and from [facility]. She stated when she does get to go home either her son or nephew, Cullen will be her powder truck driver home. Patient denied known discharge needs at this time. CM will continue to follow and will assist as needed with dc plans/needs. Buying Intern: Sushma Snyder DCPIA - Discharge Planning Initial Assessment Updated by [id number]: Sushma Snyder on 04/21/19 11:00 am * Is the patient Alert and Oriented? Yes * How many steps to enter\exit or inside your home? RAMP * PCP TAMARA * Pharmacy [facility] * Preadmission Environment Home with Family * ADLs Partial Dependent * Partial ADLs (Assistance needed) Ambulation * Equipment Glucometer Rolling Walker Shower Chair * List name and contact numbers for known caregivers / representatives who currently or will assist patient after discharge: DEMARCUS (SON) [phone] * Verbal permission to speak to the caregivers and representatives has been obtained from the patient. N/A * Community resources currently utilized None * Additional services required to return to the preadmission environment? Yes * Can the patient safely return to the preadmission environment? No * Has this patient been hospitalized within the prior 30 days at any hospital? Yes Last DP export: 04/21/19 10:13 Patient Name: TATIANNA HANNA Page [id number] at 1947 All edits/amendments must be made on the electronic document DICTATION DATE: 04/25/191946 REPRODUCER: OSIRIS 04/25/191946 RPT#: [id number] DC DATE: STATUS: ADM IN [facility] [address] [place] [address] END OF REPORT
--- NOTE | 2019-04-25 21:00 | NUR ---
MEDS GIVEN PER MAR AND TOLERATED BY PT. REPOSITIONED SELF IN BED. EDUCATION ON PROTECTING L NECK INCISION COMPLETE. CALL LIGHT IN REACH, WILL MONITOR.
--- NOTE | 2019-04-25 23:00 | NUR ---
REASSESSMENT COMPLETE, SEE FLOWSHEET. MEDS GIVEN PER MAR. REPOSITIONED SELF IN BED, HOB LOWERED PER PT REQUEST. DENIES ANY OTHER NEEDS, CALL LIGHT IN REACH, BED IN LOWEST POSITION. WILL MONITOR.
[2019-04-26] VITALS (18 sets, daily range): BP systolic 97–171; BP diastolic 55–89
--- NOTE | 2019-04-26 01:00 | NUR ---
PT RESTING QUIETLY. VSS, NO SIGNS OF ACUTE DISTRESS NOTED. WILL MONITOR.
--- NOTE | 2019-04-26 03:00 | NUR ---
REASSESSMENT COMPLETE, SEE FLOWSHEET. VSS. PT SLEEPING. WILL MONITOR.
--- NOTE | 2019-04-26 05:00 | NUR ---
MEDS GIVEN PER MAR. PT DENIES ANY OTHER NEEDS AT THIS TIME. CALL LIGHT IN REACH, WILL MONITOR.
--- NOTE | 2019-04-26 07:00 | NUR ---
AWAKE AND ALERT. LEFT NECK INCISION INTACT. NO REDNESS OR DRAINAGE. STATES HER THROAT IS SORE. RIGHT GROIN DRESSING DRY AND INTACT. IV LEFT FOREARM INFUSING WITH NS AT 5 ML HOUR FIR IVPB. NO REDNESS OR SWELLING. HARLEY CATH PATENT DRAINING CLEAR YELLOW URINE. MOVING LEGS AND ARMS DENIES ANY NUMBNESS OR TINGLING IN EXTREMITITES. HEAD OF BED ELEVATED 30 DEGREES.
--- NOTE | 2019-04-26 07:50 | NUR ---
Nutrition follow-up: Pt s/p ACDF Diet: Consistent CHO PO Intake 100% of most meals Labs reviewed; glucose elevated Will continue to provide food choices with selective menus and honor food preferences within diet restrictions. RDN following.
--- NOTE | 2019-04-26 08:00 | NUR ---
BREAKFAST SERVED ATE WELL. DR. TRUONG HERE STATES PATIENT CAN GO TO REHAB TODAY IF OK WITH PRIMARY PHYSICAN.
--- NOTE | 2019-04-26 10:00 | NUR ---
TALKING ON PHONE. NO DISTRESS. HEAD OF BED ELEVATED 30 DEGREES.
--- NOTE | 2019-04-26 11:30 | NUR ---
LUNCH TRAY SERVED ATE 100% . DRINKING PLENTY OF FLUIDS. THORAT IS STILL SORE.
--- NOTE | 2019-04-26 11:43 | NUR ---
Rehab Note- We have been following the patient since referral on 04/21, was awaiting treatment plan. She has [employer] insurance and will require a PreAuth so we will begin the PreAuth process. She has a pending PT & OT Evals post procedure, will also need these for PreAuth process. WIll follow at this time. Thank you for this referral! Jess Diamond RN Clinical Liaison, [facility] Rehab
--- NOTE | 2019-04-26 13:00 | NUR ---
VISITORS HERE. UP IN CHAIR NO DISTRESS
--- NOTE | 2019-04-26 15:00 | NUR ---
COMPLETE BED BATH GIVEN WITH HIBCLENS. PATIENT TOLERATED WELL HARLEY CATH CARE DONE. RIGHT GROIN WOUND DRESSING REMOVED FOUL ODOR NOTED. HALF DOLLAR SIZE AREA FLAT NO DEPTH PINK RED IN COLOR YELLOW DRAINAGE NOTED ON DRESSING, CLEAN WITH NS, WET TO DRY DRESSING APPLIED SECURE WITH TAPE. PATIENT TOLERATED WELL.
--- NOTE | 2019-04-26 16:00 | NUR ---
UP TO BEDSIDE COMMODE PASSING GAS NO BM. STANDING BETTER, STILL WEAK
--- NOTE | 2019-04-26 16:24 | NUR ---
Rehab Note- PreAuth initiated & clinicals faxed to [facility]Annabelle at [phone], pending Auth#[id number]. Will continue to await determiniation for possible inpatient acute rehab stay. Thank you for this referral! Jess Diamond RN Clinical Liaison, [facility] Rehab
--- NOTE | 2019-04-26 16:30 | NUR ---
SUPPER TRAY SERVED. TALKING ON PHONE
--- NOTE | 2019-04-26 17:15 | NUR ---
REPORT CALLED TO DOU[facility]AS. PATIENT TO TRANSFER TO 2236 PER BED.
--- NOTE | 2019-04-26 17:40 | NUR ---
RECEIVED PATIENT FROM ICU. ALERT AND ORIENTED, VIA BED ACCOMPANIED BY STAFF. NO C/O PAIN. NO S/S OF ACUTE DISTRESS NOTED. HARLEY CATHETER PRESENT. IV TO LEFT FOREARM, SL. SITE PATENT WITHOUT REDNESS OR SWELLING. ON CONTACT ISOLATION FOR WOUND. DENIES ANY NEEDS AT THIS TIME. CALL LIGHT IN REACH. WILL CONTINUE TO MONITOR.
--- NOTE | 2019-04-26 18:49 | NUR ---
ALERT AND ORIENTED, RESTING IN BED EYES OPEN. NO C/O PAIN. NO S/S OF ACUTE DISTRESS NOTED. CALL LIGHT IN REACH. DENIES ANY NEEDS AT THIS TIME. WILL CONTINUE TO MONITOR.
[2019-04-27 01:47] VITALS: BP 125/66
[2019-04-27 06:22] VITALS: BP 101/55
[2019-04-27 06:39] LABS: BASOPHILS 0.1 % (0-2); EOSINOPHILS 3.5 % (0-7); HEMATOCRIT 30.4 % (36.0-48.0); HEMOGLOBIN 9.6 g/dL (12-16); IMMATURE GRANULOCYTES 0.5 % (0-5); LYMPHOCYTES 26.3 % (15-50); MCH 29.4 pg (26.0-34.0); MCHC 31.6 g/dL (31.0-37.0); MEAN PLATELET VOLUME 9.4 fL (7.4-10.4); MONOCYTES 11.7 % (2-11); NEUTROPHILS 57.9 % (40-80); PLATELET COUNT 292 10x3/uL (130-400); RBC 3.27 10x6/uL (4.00-5.40); RDW 14.1 % (11.5-14.5); WBC 7.8 10x3/uL (4.8-10.8)
[2019-04-27 07:02] LABS: ALBUMIN 2.3 g/dL (3.4-5.0); ANION GAP 10.3 mmol/L (8-16); BILIRUBIN - TOTAL 0.27 mg/dL (0.2-1.3); CALCIUM 8.3 mg/dL (8.5-10.1); CARBON DIOXIDE 28.3 mmol/L (21.0-32.0); CREATININE - SERUM 1.3 mg/dL (0.6-1.3); POTASSIUM - SERUM 4.6 mmol/L (3.5-5.1); PROTEIN - SERUM 6.2 g/dL (6.4-8.2)
[2019-04-27 08:42] VITALS: BP 160/72
--- NOTE | 2019-04-27 09:50 | NUR ---
PT ALERT X 4. BREATH SOUNDS CLEAR BILAT. BOWEL SOUNDS HYPO X 4. IV TO LEFT FOREARM, SALINE BONITA. PT REPORTING PAIN OF 5/10, MEDICATED PER ORDERS, WILL MONITOR. REDDENED AREA TO ABDOMINAL FOLD. DRESSING TO LABIAL AREA CDI. BED LOW, CALL LIGHT IN REACH. NO OTHER NEEDS AT THIS TIME.
[2019-04-27 12:44] VITALS: BP 136/61
--- NOTE | 2019-04-27 14:57 | NUR ---
OT NOTE: PT COMPLETED ADL MOB WITH CGA. PT COMPLETED BED MOB WITH CGA/MIN A. PT COMPLETED UE AROM AXS. PT COMPLETED HYGIENE TASK WITH MIN A. THANK YOU, XIMENA HANNA
--- NOTE | 2019-04-27 15:09 | NUR ---
OT NOTE: PT PERFORMED VERY WELL TODAY. PT DESPERATELY WANTING TO GET BETTER SO THAT SHE CAN GO HOME AND TAKE CARE OF HERSELF AND HER BILLS. PT ABLE TO PERFORM UE/LE AROM EXS IN AM.... IN PM, PT ABLE TO DOFF AND MAJO SOCKS. ABLE TO PERFORM FEEDING WITH SET UP OF TRAY. ABLE TO WASH FACE AND HANDS WITH WASH CLOTH. MIN ASSIST WITH UE DRESSING BUT UNABLE TO FASTEN SNAPS ON GOWN. UNABLE TO OPEN CAN OF DRINK OR CERTAIN PKGS DUE TO WEAKNESS IN HANDS AND DECREASED FINE MOTOR SKILLS. PERFORMED SIT TO STAND WITH WALKER AND MOD ASSIST X 4 TRIALS. AMB WITH OT AND PT WITH WALKER AND GAIT BELT AND MOD ASSIST X 40 FT. PT REMAINS WEAK IN B UE/LE . PT IS VERY MOTIVATED AND WILL DO WELL IN IP REHAB. EUN AVILES, OTR/L
[2019-04-27 15:39] VITALS: BP 128/73
--- NOTE | 2019-04-27 18:11 | NUR ---
PT FSBS HAS BEEN ELEVATED TODAY. FOUND PT ONGLYZA TABLET IN THE BED. DISPOSED OF TABLET DUE TO PROXIMITY OF NEXT DOSE.
[2019-04-27 21:23] VITALS: BP 112/67
[2019-04-28 01:14] VITALS: BP 146/67
[2019-04-28 05:30] LABS: ALBUMIN 2.3 g/dL (3.4-5.0); ANION GAP 8.2 mmol/L (8-16); BILIRUBIN - TOTAL 0.25 mg/dL (0.2-1.3); CALCIUM 8.7 mg/dL (8.5-10.1); CARBON DIOXIDE 30.2 mmol/L (21.0-32.0); CREATININE - SERUM 1.4 mg/dL (0.6-1.3); POTASSIUM - SERUM 4.4 mmol/L (3.5-5.1); PROTEIN - SERUM 6.4 g/dL (6.4-8.2)
[2019-04-28 06:01] VITALS: BP 164/60
[2019-04-28 06:13] LABS: HEMATOCRIT 30.6 % (36.0-48.0); HEMOGLOBIN 9.7 g/dL (12-16); MCH 29.3 pg (26.0-34.0); MCHC 31.7 g/dL (31.0-37.0); MCV 92.4 fL (80.0-100.0); MEAN PLATELET VOLUME 9.3 fL (7.4-10.4); PLATELET COUNT 260 10x3/uL (130-400); RBC 3.31 10x6/uL (4.00-5.40); WBC 6.6 10x3/uL (4.8-10.8)
[2019-04-28 07:41] VITALS: BP 139/64
[2019-04-28 09:04] LABS: ANISOCYTOSIS OCC; EOSINOPHILS 4 % (0-7); HYPOCHROMASIA OCC; LYMPHOCYTES 24 % (15-50); MONOCYTES 8 % (2-11); NEUTROPHILS 62 % (40-80); PLATELET ESTIMATE NORMAL; SMUDGE CELLS OCC
--- NOTE | 2019-04-28 11:07 | MORECARE ---
CASE MANAGEMENT DISCHARGE SUMMARY PATIENT: TATIANNA HANNA UNIT: [id number] ADM DATE: 04/19/19 AGE: 59 : 64 SEX: F ROOM/BED: D.2236 AUTHOR: SAEED,DOC PHYSICIAN: REFERRING PHYSICIAN: KEN MCDONALD MD DATE OF SERVICE: 04/28/19 Discharge Plan Patient Name: TATIANNA HANNA Facility: [facility]:[place] : 1960 Planned Disposition: Inpatient Rehab Anticipated Discharge Date: Discharge Date: Expected LOS: Initial Reviewer: [id number] Initial Review Date: 04/19/2019 Generated: 04/28/19 12:07 pm Comments DCP- Discharge Planning Updated by [id number]: Reva Genao on 04/28/19 10:[address] Elissa from inpatient rehab states they have insurance authorization for inpatient rehab. I called and informed Dr. Mcdonald. He states he will be here at lunch time to write discharge orders. I informed the patient and she is agreeable to discharge to inpatient rehab today. DCP- Discharge Planning Updated by [id number]: Sushma Snyder on 04/21/19 10:[address] Patient Name: TATIANNA HANNA Admission Status: Urgent Accout number: [id number] Admission Date: 04-19-2019 : 1960 Admission Diagnosis: Attending: KEN MCDONALD Current LOS: 2 Anticipated DC Date: Planned Disposition: Inpatient Rehab [facility] Discharge Planning Comments: CM met with patient to complete initial dc planning assessment. CM educated patient on the CM role and verbal consent given by patient to complete assessment. Patient lives at home with her great niece and her where she WAS independent with her care. At discharge patient needs some type of rehab & feels this is a safe discharge. CM discussed availability of home health, rehab services, and medical equipment. She would like to know why her legs are not working. PT and OT are in there, we will wait to see what they have to say to have a good discharge plan. She has a walker, shower chair, ramp at home. She had a cane, but has lost it between the transfers to and from [facility]. She stated when she does get to go home either her son or nephew, Cullen will be her mobile lounge driver or operator home. Patient denied known discharge needs at this time. CM will continue to follow and will assist as needed with dc plans/needs. Hatchery Man: Sushma Snyder DCPIA - Discharge Planning Initial Assessment Updated by [id number]: Sushma Snyder on 04/21/19 11:00 am * Is the patient Alert and Oriented? Yes * How many steps to enter\exit or inside your home? RAMP * PCP TAMARA * Pharmacy [facility] * Preadmission Environment Home with Family * ADLs Partial Dependent * Partial ADLs (Assistance needed) Ambulation * Equipment Glucometer Rolling Walker Shower Chair * List name and contact numbers for known caregivers / representatives who currently or will assist patient after discharge: DEMARCUS (SON) [phone] * Verbal permission to speak to the caregivers and representatives has been obtained from the patient. N/A * Community resources currently utilized None * Additional services required to return to the preadmission environment? Yes * Can the patient safely return to the preadmission environment? No * Has this patient been hospitalized within the prior 30 days at any hospital? Yes Coverage Notice Reviewer: [id number] Milton Genao Notice Issued Date-Time: 04/28/2019 11:01 Notice Type: IM Discharge Notice Notice Delivered To: Patient Relationship to Patient: Self Returned Materials Inspector Name: Delivery Method: HAND - Hand Delivered Julia Days: Prior Verbal Notification: Recipient Understood Notice: Yes Recipient Signature: Yes Med Rec Note Co-signed by Attending: Coverage Notice Comment: IMM explained, signed, given, copy placed in MR Last DP export: 04/25/19 6:47 Patient Name: TATIANNA HANNA Page [id number] at 1107 All edits/amendments must be made on the electronic document DICTATION DATE: 04/28/191106 ICE CARVER: OSIRIS 04/28/191106 RPT#: [id number] DC DATE: STATUS: ADM IN [facility] [address] [place] [address] END OF REPORT
[2019-04-28] MEDS ORDERED: CHRONULAC30 ML PO (12:53)
--- NOTE | 2019-04-28 13:26 | MORECARE ---
CASE MANAGEMENT DISCHARGE SUMMARY PATIENT: TATIANNA HANNA UNIT: [id number] ADM DATE: 04/19/19 AGE: 59 : 64 SEX: F ROOM/BED: D.2236 AUTHOR: DAVID TIPTON PHYSICIAN: REFERRING PHYSICIAN: KEN MCDONALD MD DATE OF SERVICE: 04/28/19 Discharge Plan Patient Name: TATIANNA HANNA Facility: [facility]:[place] : 1960 Planned Disposition: Inpatient Rehab Anticipated Discharge Date: Discharge Date: Expected LOS: Initial Reviewer: [email or web address] Initial Review Date: 04/19/2019 Generated: 04/28/19 2:26 pm Comments DCP- Discharge Planning Updated by [id number]: Reva Genao on 04/28/19 12:[address] Patient Name: TATIANNA HANNA Encounter No: [id number] : 1960 Primary Insurance: N[employer]CR Anticipated DC Date: Planned Disposition: Inpatient Rehab External Planned Provider: : DCP follow-up note: Patient in agreement with discharge plan. No changes to plan. Discharging to inpatient rehab today. Claudia in inpatient rehab informed. Case management will follow and assist as needed. Reva Genao DCP- Discharge Planning Updated by [id number]: Reva Genao on 04/28/19 10:[address] Elissa from inpatient rehab states they have insurance authorization for inpatient rehab. I called and informed Dr. Mcdonald. He states he will be here at lunch time to write discharge orders. I informed the patient and she is agreeable to discharge to inpatient rehab today. DCP- Discharge Planning Updated by [id number]: Sushma Snyder on 04/21/19 10:[address] Patient Name: TATIANNA HANNA Admission Status: Urgent Accout number: [id number] Admission Date: 04-19-2019 : 1960 Admission Diagnosis: Attending: KEN MCDONALD Current LOS: 2 Anticipated DC Date: Planned Disposition: Inpatient Rehab Primary Insurance: NOVASYCR Discharge Planning Comments: CM met with patient to complete initial dc planning assessment. CM educated patient on the CM role and verbal consent given by patient to complete assessment. Patient lives at home with her great niece and her where she WAS independent with her care. At discharge patient needs some type of rehab & feels this is a safe discharge. CM discussed availability of home health, rehab services, and medical equipment. She would like to know why her legs are not working. PT and OT are in there, we will wait to see what they have to say to have a good discharge plan. She has a walker, shower chair, ramp at home. She had a cane, but has lost it between the transfers to and from [facility]. She stated when she does get to go home either her son or nephew, Cullen will be her sales route driver helper home. Patient denied known discharge needs at this time. CM will continue to follow and will assist as needed with dc plans/needs. Transitional Living Specialist: Sushma Snyder DCPIA - Discharge Planning Initial Assessment Updated by [email or web address]: Sushma Snyder on 04/21/19 11:00 am * Is the patient Alert and Oriented? Yes * How many steps to enter\exit or inside your home? RAMP * PCP TAMARA * [facility]acy [facility] * Preadmission Environment Home with Family * ADLs Partial Dependent * Partial ADLs (Assistance needed) Ambulation * Equipment Glucometer Rolling Walker Shower Chair * List name and contact numbers for known caregivers / representatives who currently or will assist patient after discharge: DEMARCUS (SON) [phone] * Verbal permission to speak to the caregivers and representatives has been obtained from the patient. N/A * Community resources currently utilized None * Additional services required to return to the preadmission environment? Yes * Can the patient safely return to the preadmission environment? No * Has this patient been hospitalized within the prior 30 days at any hospital? Yes Coverage Notice Reviewer: [id number] Milton Genao Notice Issued Date-Time: 04/28/2019 11:01 Notice Type: IM Discharge Notice Notice Delivered To: Patient Relationship to Patient: Self Bending Frame Operator Name: Delivery Method: HAND - Hand Delivered Julia Days: Prior Verbal Notification: Recipient Understood Notice: Yes Recipient Signature: Yes Med Rec Note Co-signed by Attending: Coverage Notice Comment: IMM explained, signed, given, copy placed in MR Last DP export: 04/28/19 10:07 Patient Name: TATIANNA HANNA Page 27838 at 1326 All edits/amendments must be made on the electronic document DICTATION DATE: 04/28/191325 RETENTION MANAGER: OSIRIS 04/28/196 RPT#: [id number] DC DATE: STATUS: ADM IN [facility] [address] [place] [address] END OF REPORT
--- NOTE | 2019-04-28 13:32 | NUR ---
DR. MCDONALD STATES TO ME TO REMOVE HARLEY CATHETER. I VERBALIZED UNDERSTANDING.
--- NOTE | 2019-04-28 13:40 | NUR ---
OT NOTE: PT DOING WELL; ABLE TO AMB TO BATHROOM WITH MIN ASSIST, HOWEVER, GAIT BELT AND PREPARED FOR MOD ASSIST DUE TO 1 INCIDENT OF LEGS BUCKLING. TOILET TRANSFER WITH MIN ASSIST; HYGIENE WITH SET UP. PTS GROSS AND FINE MOTOR COORDINATION ARE IMPROVING. SET UP TO MAJO SOCKS. AMB 12 FT FROM TOIILET TO OTHER SIDE OF BED IWTH MIN/MOD ASSIST AND WALKER. REQUIRED APPROX 5 MIN REST BREAK, THEN AMB ANOTHER 50 FT INTO HALLWAY. PT ABLE TO WASH FACE AND HANDS WITH SET UP. PT EAGER TO GO TO REHAB. WILL PROVIDE THERABAND FOR UE STRENGTHENING EXS. EUN AVILES, OTR/L
--- NOTE | 2019-04-28 13:45 | NUR ---
WET TO DRY DRESSING DONE ON RIGHT GROIN ABSCESS. OLD DRESSING HAD A MODERATE AMOUNT OF BLOOD. DC'D HARLEY CATHETER. PT TOLERATED WELL. PT STATES SHE FELT LIKE SHE NEEDED TO USE THE BATHROOM. ASSISTED PT TO BATHROOM. STATED TO PT TO PULL CORD WHEN SHE IS FINISHED. PT VERBALIZED UNDERSTANDING. WILL MONITOR FOR PT TO URINATE.
--- NOTE | 2019-04-28 14:20 | NUR ---
I have reviewed this patient and I concur with the Shift Assessment completed by the Licensed Practical Nurse today this shift.
--- NOTE | 2019-04-28 17:23 | NUR ---
LEFT FA 20G IV DC'D WITH CATH INTACT. DISCHARGE INSTRUCTIONS GIVEN TO PT. PT HAS NO FURTHER QUESTIONS. CHART COPY SIGNED. CALLED REPORT TO JERMAINE LIPSCOMB IN REHAB. PT IS GOING TO ROOM 1116. PT IS GOING TO EAT DINNER THEN TRANSFER DOWN TO REHAB.
--- NOTE | 2019-04-28 18:38 | NUR ---
PT TAKEN DOWN TO REHAB BY AGRICULTURAL CROP FARM MANAGER WITH ALL OF BELONGINGS. ACCOMAPNIED BY FAMILY.
--- NOTE | 2019-04-29 15:23 | MORECARE ---
CASE MANAGEMENT DISCHARGE SUMMARY PATIENT: TATIANNA HANNA UNIT: [id number] ADM DATE: 04/19/19 AGE: 59 : 64 SEX: F ROOM/BED: D.2236 AUTHOR: DAVID TIPTON PHYSICIAN: REFERRING PHYSICIAN: KEN MCDONALD MD DATE OF SERVICE: 04/29/19 Discharge Plan Patient Name: TATIANNA HANNA Facility: [facility]:[place] : 1960 Planned Disposition: Inpatient Rehab Anticipated Discharge Date: Discharge Date: 04/28/2019 Expected LOS: Initial Reviewer: [email or web address] Initial Review Date: 04/19/2019 Generated: 04/29/19 4:23 pm Comments DCP- Discharge Planning Updated by [id number]: Reva Genao on 04/28/19 12:[address] Patient Name: TATIANNA AHNNA Encounter No: [id number] : 1960 Primary Insurance: NOVASYSMCR Anticipated DC Date: Planned Disposition: Inpatient Rehab External Planned Provider: : DCP follow-up note: Patient in agreement with discharge plan. No changes to plan. Discharging to inpatient rehab today. Claudia in inpatient rehab informed. Case management will follow and assist as needed. Reva Genao DCP- Discharge Planning Updated by [id number]: Reva Genao on 04/28/19 10:[address] Elissa from inpatient rehab states they have insurance authorization for inpatient rehab. I called and informed Dr. Mcdonald. He states he will be here at lunch time to write discharge orders. I informed the patient and she is agreeable to discharge to inpatient rehab today. DCP- Discharge Planning Updated by [id number]: Sushma Snyder on 04/21/19 10:[address] Patient Name: TATIANNA HANNA Admission Status: Urgent Accout number: [id number] Admission Date: 04-19-2019 : 1960 Admission Diagnosis: Attending: KEN MCDONALD Current LOS: 2 Anticipated DC Date: Planned Disposition: Inpatient Rehab Primary Insurance: NOVASYSMCR Discharge Planning Comments: CM met with patient to complete initial dc planning assessment. CM educated patient on the CM role and verbal consent given by patient to complete assessment. Patient lives at home with her great niece and her where she WAS independent with her care. At discharge patient needs some type of rehab & feels this is a safe discharge. CM discussed availability of home health, rehab services, and medical equipment. She would like to know why her legs are not working. PT and OT are in there, we will wait to see what they have to say to have a good discharge plan. She has a walker, shower chair, ramp at home. She had a cane, but has lost it between the transfers to and from [facility]. She stated when she does get to go home either her son or nephew, Cullen will be her driver recruiter home. Patient denied known discharge needs at this time. CM will continue to follow and will assist as needed with dc plans/needs. Concrete Pipe Making Machine Operator: Sushma Snyder DCPIA - Discharge Planning Initial Assessment Updated by [id number]: Sushma Snyder on 04/21/19 11:00 am * Is the patient Alert and Oriented? Yes * How many steps to enter\exit or inside your home? RAMP * PCP TAMARA * Pharmacy [facility] * Preadmission Environment Home with Family * ADLs Partial Dependent * Partial ADLs (Assistance needed) Ambulation * Equipment Glucometer Rolling Walker Shower Chair * List name and contact numbers for known caregivers / representatives who currently or will assist patient after discharge: DEMARCUS (SON) [phone] * Verbal permission to speak to the caregivers and representatives has been obtained from the patient. N/A * Community resources currently utilized None * Additional services required to return to the preadmission environment? Yes * Can the patient safely return to the preadmission environment? No * Has this patient been hospitalized within the prior 30 days at any hospital? Yes Coverage Notice Reviewer: [email or web address] - Reva Genao Notice Issued Date-Time: 04/28/2019 11:01 Notice Type: IM Discharge Notice Notice Delivered To: Patient Relationship to Patient: Self Scorer Helper Name: Delivery Method: HAND - Hand Delivered Julia Days: Prior Verbal Notification: Recipient Understood Notice: Yes Recipient Signature: Yes Med Rec Note Co-signed by Attending: Coverage Notice Comment: IMM explained, signed, given, copy placed in MR Last DP export: 04/28/19 12:26 Patient Name: TATIANNA HANNA Page 31440 at 1523 All edits/amendments must be made on the electronic document DICTATION DATE: 04/29/191522 PAPER AND PULP MILL WORKER: OSIRIS 04/29/191522 RPT#: [id number] DC DATE:04/28/19 STATUS: DIS IN [facility] [address] [place] [address] END OF REPORT
--- NOTE | 2019-05-12 09:47 | OP ---
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 PROCEDURE: Anterior cervical discectomy and fusion with Zavation anterior cervical plate and screws, Judith bone allograft, separate PEEK interbody cage. DESCRIPTION OF TECHNIQUE: After induction of general endotracheal anesthesia, the patient was positioned supine on the operating table. Neck was prepped and draped in usual sterile fashion. Fluoroscopic x-ray and [place] dissector localized the C6-C7 interspace. After infiltration of 1:100,000 epinephrine and 1% lidocaine, a transverse skin incision was carried out from the midline to the sternocleidomastoid muscle. The platysma was divided with #15-blade. Using blunt and sharp dissection with Metzenbaum scissors, I proceeded in the avascular plane medial to the carotid sheath. The C6-C7 interspace was now identified with fluoroscopic x-ray and a spinal needle. The longus colli muscles were elevated from bodies of C6 and C7. Osteophytes were removed anteriorly with Adson rongeurs. The self-retaining retractor was placed deep to the longus colli muscles. [place] distracting pins placed in body of C6 and C7. Disc space was incised with #11 blade, and pituitary rongeurs and curettes were used to clear the disc space of disc material. The bony endplates were prepared with curettes. Posteriorly osteophytes were drilled away under microscopic illumination with a Midas-Cruz drill. The posterior longitudinal ligament was removed with Cloward rongeurs. A large fragment of disc material was removed from the don hole in the posterior longitudinal ligament. This decompressed the dura well. The foraminotomies were carried out bilaterally with Cloward rongeurs. Following this, the nerve roots were decompressed as well as the central dura. A PEEK interbody cage 7 mm in height was filled with Judith bone allograft and placed in the disc space under distraction. The [place] pins removed and a 16-mm plate was used to span the C6-C7 interspace. The 16-mm screws were placed in the holes in the plate. The locking cams were tightened down over the screw heads. Good position of hardware was confirmed with fluoroscopic x-ray. Meticulous hemostasis was maintained throughout the wound. Wound was irrigated with copious amounts of Ancef irrigant solution. The platysma and subdermal layer were closed with interrupted 3-0 Vicryl suture. The skin was reapproximated with Steri-Strips and benzoin. A sterile dressing was applied to the wound. The patient was awakened in good condition and taken to recovery. All counts were reported as correct. Estimated blood loss was minimal. TRANSINT:[id number] Voice Confirmation ID: [id number] DOCUMENT ID: [id number] OPERATIVE REPORT [id number] TATIANNA HANNA JOHN MD at 0947 CC: [id number] DICTATION DATE: 04/27/19627 CERAMIC ENGINEERING PROFESSOR: 04/27/19 0651 DIS IN 04/28/19 [place] [id number] [place] [address]
== END 2019-04-28 18:39 | DRG 982 ==
LOC: D.MS 15:31 → D.ICU 15:31 → D.MS 04-26 17:56
PROVIDERS: Family Medicine; Neurological Surgery; ADMIT Family Medicine; ATTEND Family Medicine
PROC: 0RB30ZZ Excision of Cervical Vertebral Disc, Open Approach (ICD-10-PCS; principal; 2019-04-25 07:30)
PROC: 0RG10A0 Fusion of Cervical Vertebral Joint with Interbody Fusion Device, Anterior Approach, Anterior Column, Open Approach (ICD-10-PCS; 2019-04-25 07:30)
DX: N76.89 Other specified inflammation of vagina and vulva (principal); M86.9 Osteomyelitis, unspecified; Z68.41 Body mass index [BMI] 40.0-44.9, adult; E11.69 Type 2 diabetes mellitus with other specified complication; M50.123 Cervical disc disorder at C6-C7 level with radiculopathy; E11.43 Type 2 diabetes mellitus with diabetic autonomic (poly)neuropathy; E66.01 Morbid (severe) obesity due to excess calories; E11.621 Type 2 diabetes mellitus with foot ulcer; L97.519 Non-pressure chronic ulcer of other part of right foot with unspecified severity; E11.65 Type 2 diabetes mellitus with hyperglycemia; E11.51 Type 2 diabetes mellitus with diabetic peripheral angiopathy without gangrene; E11.22 Type 2 diabetes mellitus with diabetic chronic kidney disease; I12.9 Hypertensive chronic kidney disease with stage 1 through stage 4 chronic kidney disease, or unspecified chronic kidney disease; N18.9 Chronic kidney disease, unspecified; I25.10 Atherosclerotic heart disease of native coronary artery without angina pectoris; K31.84 Gastroparesis; K59.09 Other constipation

== ENCOUNTER 2019-04-28 16:59 | Inpatient (IN) | payer MEDICARE, MEDICAID ==
[~2019-04-28] VITALS: Ht 172.7 cm; Wt 128.8 kg
[~2019-04-28 16:59] MED LIST changes: +CHRONULAC30 ML PO
--- NOTE | 2019-04-28 19:00 | NUR ---
PT SITTING UP IN WHEELCHAIR. VISITORS IN ROOM. PT ARRIVED TO UNIT ABOUT 1830 AND PT IS ON CONTACT ISOLATION. ISOLATIONS PRECAUTIONS EDUCATION PROVIDED TO VISITORS AND PROTOCOL WAS FOLLOWED BY THEM. DENIES NEEDS AT THIS TIME. CL IN REACH. WILL CONTINUE TO MONITOR. A/O X4.
--- NOTE | 2019-04-28 20:20 | NUR ---
PT ATTEMPTED TO URINATE TWICE SINCE 1930 AND HAS NOT HAD ANY SUCCESS. PT IS IN PAIN FROM NOT BEING ABLE TO URINATE SINCE HARLEY WAS REMOVED EARLIER TODAY AT 1345. AT 214 IT WILL BE 8 HRS SINCE PT HAD NOT URINATED WILL CONTINUE TO MONITOR UNTIL THEN. PT IS ON COMMODE NOW ATTEMPTING TO URINATE.
--- NOTE | 2019-04-28 22:00 | NUR ---
PT TEARFUL FROM PAIN IN HER BLADDER AREA FROM NOT BEING ABLE TO URINATE. HARLEY PLACED BACK IN AND 1500CC OF URINE IN HARLEY BAG. STERILE TECHNIQUE USED. 16 GUAGE HARLEY ADMINISTERED. URINE COLOR WNL. NO FOUL ODOR. WILL CONTINUE TO MONITOR. CL IN REACH.
[2019-04-28 22:36] VITALS: BP 174/64
[2019-04-29 00:51] VITALS: BP 174/64; BMI 43.2
--- NOTE | 2019-04-29 00:51 | NUR ---
ADMISSION ASSESSMENT COMPLETED. DRESSING ON DANE AREA WOUND REMOVED AND CLEANED AND NEW WET TO DRY DRESSING APPLIED. PT. TOLERATED PROCEDURE.
[2019-04-29 06:57] LABS: BASOPHILS 0.4 % (0-2); EOSINOPHILS 4.6 % (0-7); HEMATOCRIT 29.2 % (36.0-48.0); HEMOGLOBIN 9.4 g/dL (12-16); IMMATURE GRANULOCYTES 0.1 % (0-5); MCH 29.8 pg (26.0-34.0); MCHC 32.2 g/dL (31.0-37.0); MCV 92.7 fL (80.0-100.0); MEAN PLATELET VOLUME 9.2 fL (7.4-10.4); MONOCYTES 12.9 % (2-11); PLATELET COUNT 248 10x3/uL (130-400); RBC 3.15 10x6/uL (4.00-5.40); RDW 14.1 % (11.5-14.5); WBC 7.4 10x3/uL (4.8-10.8)
[2019-04-29 07:09] LABS: ANION GAP 11.5 mmol/L (8-16); CARBON DIOXIDE 29.4 mmol/L (21.0-32.0); CREATININE - SERUM 1.2 mg/dL (0.6-1.3); POTASSIUM - SERUM 4.9 mmol/L (3.5-5.1)
[2019-04-29 08:00] VITALS: BP 142/61
--- NOTE | 2019-04-29 10:16 | NUR ---
WORKING WITH THERAPY
--- NOTE | 2019-04-29 10:17 | NUR ---
HAS BEEN UP WORKING WITH THERAPY THIS AM. WEARS SOFT C-COLLAR WHEN UP F/C PATENT WITH CLOUDY URINE. DSG INTACT TO RT GROIN. USES WC FOR MOTION ASST
[2019-04-29 11:21] VITALS: Ht 172.7 cm; Wt 128.8 kg
--- NOTE | 2019-04-29 15:47 | NUR ---
LAYING IN BED RESTING QUIETLY. HAS BEEN UP MOST OF DAY. HAS WORKED WITH PT AND OT. C/O TO NECK AND GROIN AREA. DSG IN PLACE TO GROIN AREA. WEARS SOFT C-COLLAR WHEN UP. USES WC FOR NAVIGATION. F/C PATENT WITH CLOUDY YELLOW URINE. CALL LIGHT IN REACH
--- NOTE | 2019-04-29 17:40 | NUR ---
PT FSBS [address] COATS NOTIFIED.
--- NOTE | 2019-04-29 19:35 | NUR ---
PT SITTING UP IN WHEELCHAIR. CL IN REACH. PT EYES CLOSED. NO DISTRESS NOTED. CHAIR ALARM ON. WHEELCHAIR LOCKED. HARLEY INTACT, URINE COLOR WNL WITH NO ODOR. RESP EVEN AND UNLABORED. LUNGS CLEAR. BOWEL ACTIVE X4. WILL CONTINUE TO MONITOR.
[2019-04-29 21:14] VITALS: BP 125/67
--- NOTE | 2019-04-30 00:04 | NUR ---
QUIET HOURS. PT LYING IN BED EYES CLOSED RESTING QUIETLY. RR EVEN AND UNLABROED. CL IN REACH
--- NOTE | 2019-04-30 05:59 | NUR ---
I have reviewed this patient and I concur with the Shift Assessment completed by the Licensed Practical Nurse today this shift.
--- NOTE | 2019-04-30 06:34 | NUR ---
FSBS 270. 6 UNITS OF HUMALOG GIVEN IN LEFT ARM
[2019-04-30 08:00] VITALS: BP 143/72
--- NOTE | 2019-04-30 19:43 | NUR ---
PT SITTING UP IN WHEELCHAIR WATCHING TV. CL IN REACH. DENIES NEEDS AT THIS TIME. PT IS COMPLAINING OF URGENCY AND PAIN LIKE NEEDING TO URINATE BUT PT HAS HARLEY. WILL CHECK HARLEY FOR KINKS AND IRRIGATE IF NEEDED. URINE COLOR WNL. RESP EVEN AND UNLABORED. A/O X4. LUNGS CLEAR. BOWEL ACTIVE X4. WILL CONTINUE TO MONITOR.
--- NOTE | 2019-04-30 21:00 | NUR ---
PT TEARFUL AND IN PAIN FROM HARLEY CATH, IRRIGATED CATH TWICE AND PT STATED IT WAS VERY PAINFUL AND ASKED NOT TO DO IT AGAIN. ADJUSTED HARLEY AND PT COMPLAINED OF PAIN WHEN MOVING CATHETAR. CHARGE NURSE ASSISTED THIS NURSE AND DECIDED TO REMOVE HARLEY DUE TO PREVIOUS DAY NURSE CLEANING AROUND THE WOUND AND HARLEY EARLIER TODAY, HARLEY CATH MIGHT HAVE BEEN NOT IN THE BLADDER ANYMORE. HARLEY REMOVED INTACT. PT HAD 1200CC IN COLLECTION BAG. PT DOES STATE IT FEELS A LITTLE BETTER JUST FEELS LIKE SHE STILL HAS TO URINATE WILL CONTINUE TO MONITOR.
[2019-04-30 21:40] VITALS: BP 143/74
--- NOTE | 2019-04-30 23:00 | NUR ---
PT URINATED 300CC WITH NO TROUBLE OR PAIN. JACOB CONTINUE TO MONITOR.
--- NOTE | 2019-04-30 23:10 | NUR ---
QUIET HOURS. PT SITTING UP IN W/C WATCHING TV. DENIES ANY NEEDS OR PAIN. NO SIGNS OF ACUTE DISTRESS NOTED. CL IN REACH
--- NOTE | 2019-05-01 02:33 | NUR ---
PT LYING IN BED PRONE WITH HEAD SLIGHTLY TILTED TO LEFT SIDE. RR EVEN AND UNLABORED. CL IN REACH
[2019-05-01 06:25] LABS: BASOPHILS 0.4 % (0-2); EOSINOPHILS 9.1 % (0-7); HEMATOCRIT 29.7 % (36.0-48.0); HEMOGLOBIN 9.4 g/dL (12-16); LYMPHOCYTES 26.1 % (15-50); MCH 29.2 pg (26.0-34.0); MCHC 31.6 g/dL (31.0-37.0); MCV 92.2 fL (80.0-100.0); MEAN PLATELET VOLUME 9.2 fL (7.4-10.4); MONOCYTES 9.5 % (2-11); NEUTROPHILS 54.9 % (40-80); PLATELET COUNT 263 10x3/uL (130-400); RBC 3.22 10x6/uL (4.00-5.40); RDW 13.9 % (11.5-14.5)
[2019-05-01 06:55] LABS: ANION GAP 11.9 mmol/L (8-16); CALCIUM 8.5 mg/dL (8.5-10.1); CARBON DIOXIDE 27.2 mmol/L (21.0-32.0); CREATININE - SERUM 1.3 mg/dL (0.6-1.3); POTASSIUM - SERUM 5.1 mmol/L (3.5-5.1)
[2019-05-01 07:16] LABS: WBC 4.8 10x3/uL (4.8-10.8)
[2019-05-01 07:31] VITALS: BP 104/53
--- NOTE | 2019-05-01 11:52 | NUR ---
PATIENT ADMITTED TO REHAB FROM [facility]. DME AT HOME IS A WALKER, SHOWER CHAIR AND SHE DOES HAVE A RAMP. HER PCP IS DR. MCDONALD AND AT DISCHARGE SHE PLANS ON RETURNING HOME WITH HER FAMILY. WILL CONTINUE TO FOLLOW WITH PATIENT
--- NOTE | 2019-05-01 14:47 | NUR ---
PT SITTING IN HER WC IN HER ROOM WATCHING TV. HAD C/O CONSTIPATION AND INABILITY TO VOID TILL EMPTY. MD NOTIFIED, ORDERS GIVEN. RIGHT BEFORE PT WAS TO GET MEDS TO HELP WITH BM SHE REPORTED SHE VOIDED TILL EMPTY AND HAD LARGE BM. SOME DRAINAGE NOTED FROM RT GROIN. WOUND CARE NURSE HAS BEEN CONSULTED. DR FLORES HAS BEEN CONSLULTED FOR LEFT BIG TOE WOUND.
--- NOTE | 2019-05-01 16:05 | NUR ---
Wound located on right groin measures 3cm x 3cm. There is no depth. The wound bed is red and beefy. Recommended puracol plus for daily dressing changes. Wound care will monitor.
--- NOTE | 2019-05-01 17:31 | NUR ---
PT FSBS 414. DR COATS NOTIFIED. NO NEW ORDERS
--- NOTE | 2019-05-01 17:54 | NUR ---
SITTING UP IN WC VISITING WITH FAMILY AND EATING SUPPER. STILL VOIDING AND HAVING BM'S. DENIES NEED FOR INTERVENTION. WOUND CARE NURSE CAME BY AND SAW PT AND WROTE ORDERS.
[2019-05-01 19:23] VITALS: BP 137/58
--- NOTE | 2019-05-01 19:35 | NUR ---
PT SITTING UP IN WHEELCHAIR. CL IN REACH. DENIES NEEDS AT THIS TIME. BED IN LOW SIDE RAILS X2. A/O X4. LUNGS CLEAR. BOWEL ACTIVE X4. RESP EVEN AND UNLABORED. WILL CONTINUE TO MONITOR.
--- NOTE | 2019-05-02 02:56 | NUR ---
QUIET HOURS. PT LYING IN BED PRONE EYES CLOSED RESTING QUIETLY. RR EVEN AND UNLABORED. CL IN REACH
--- NOTE | 2019-05-02 03:54 | NUR ---
I have reviewed this patient and I concur with the Shift Assessment completed by the Licensed Practical Nurse today this shift.
--- NOTE | 2019-05-02 08:00 | NUR ---
PT RESTING IN BED WITH EYES OPEN CALL LIGHT IN REACH NO PROBLEMS WILL MONITER
[2019-05-02 08:18] VITALS: BP 102/50
--- NOTE | 2019-05-02 09:58 | NUR ---
CLINICAL UPDTAES FAXED TO [facility]. , AUTH. # [id number] WITH CONFORMATION RECIEVED.
--- NOTE | 2019-05-02 11:00 | NUR ---
I have reviewed this patient and I concur with the Shift Assessment completed by the Licensed Practical Nurse today this shift.
--- NOTE | 2019-05-02 14:44 | NUR ---
Nutrition Follow-up: Pt remains on Isolation at this time. Chart reviewed. Noted wound care note: DM foot ulcer to right big toe, debridement yesterday. Blood sugars running higher d/t infection per MD notes. MRSA. Diet: Diabetic PO intake: ~89% average x last 9 meals Last BM: 05/01/19 x 2. Wt: 284# (04/29/19) Significant meds: bactrim, lantus, onglyza. Labs noted: Glu 251 Continue diabetic diet. Will order Hakeem BID to nutritionally aid in wound healing. RD Following.
--- NOTE | 2019-05-02 18:21 | NUR ---
PT RESTING IN BED WITH EYES OPEN CALL LIGHT IN REACH WILL MONITER
--- NOTE | 2019-05-02 19:37 | NUR ---
GREETED PATIENT AND INTRODUCED MYSELF HER NURSE. PATIENT IS SITTING IN WHEELCHAIR WATCHING TV. RESPIRATIONS EVEN. NO S/S OF DISTRESS. CALL LIGHT IN REACH. DENIES ANY NEEDS AT THIS TIME.
[2019-05-02 20:00] VITALS: BP 113/53
--- NOTE | 2019-05-03 00:55 | NUR ---
PT. RESTING QUIETLY WITH EYES CLOSED. RESPIRATIONS EVEN. NO S/S OF DISTRESS. SR UP X 2. BED IN LOWEST POSITION. CALL LIGHT IN REACH.
[2019-05-03 05:55] LABS: BASOPHILS 0.3 % (0-2); EOSINOPHILS 10.1 % (0-7); HEMATOCRIT 29.9 % (36.0-48.0); HEMOGLOBIN 9.5 g/dL (12-16); IMMATURE GRANULOCYTES 0.2 % (0-5); MCH 29.5 pg (26.0-34.0); MCHC 31.8 g/dL (31.0-37.0); MCV 92.9 fL (80.0-100.0); MEAN PLATELET VOLUME 9.1 fL (7.4-10.4); MONOCYTES 8.5 % (2-11); NEUTROPHILS 45.9 % (40-80); PLATELET COUNT 256 10x3/uL (130-400); RBC 3.22 10x6/uL (4.00-5.40); RDW 14.1 % (11.5-14.5); WBC 5.9 10x3/uL (4.8-10.8)
[2019-05-03 06:04] LABS: ANION GAP 12.6 mmol/L (8-16); CALCIUM 8.7 mg/dL (8.5-10.1); POTASSIUM - SERUM 5.6 mmol/L (3.5-5.1)
[2019-05-03 06:05] LABS: CREATININE - SERUM 1.7 mg/dL (0.6-1.3)
[2019-05-03 08:00] VITALS: BP 120/57
--- NOTE | 2019-05-03 08:00 | NUR ---
PATIENT IS IN CONTACT ISOLATION. ALERT/ORIENT. CALL LIGHT WITHIN REACH. VOICES NO NEEDS AT THIS TIME. WILL CONTINUE WITH PLAN OF CARE
--- NOTE | 2019-05-03 09:59 | NUR ---
PATIENT WORKING WITH PHYSICAL THERAPIST. ISOLATION PRECAUSIONS IN PLACE
--- NOTE | 2019-05-03 13:16 | NUR ---
PATIENT IS A STAND BY ASST WITH AMBULATION
--- NOTE | 2019-05-03 13:44 | NUR ---
UP IN HALLWAY WITH THERAPY.
--- NOTE | 2019-05-03 14:42 | NUR ---
DR FLORES INTO SEE PATIENT. CHANGED DRESSING TO RIGHT BIG TOE. STATED THAT IS PATIENT HAS A SHOWER, DRESSING CAN BE CHANGED. DR FLORES STATED DRESSING CAN BE CHANGED EVERY TWO TO THREE DAYS. STATED HE WILL COME DOWN AND SEE PATIENT NEXT WEEK
--- NOTE | 2019-05-03 14:55 | NUR ---
CARE TEAM MEETING: PATIENT DOING WELL IN THERAPY. TENATIVE DSICHARGE DATE IS 05/11/19. WILL CONTINUE TO FOLLOW WITH PATIENT.
--- NOTE | 2019-05-03 19:57 | NUR ---
GREETED PATIENT AND INTRODUCED MYSELF HIS NURSE. PATIENT IS SITTING IN WHEELCHAIR AT THIS TIME. RESPIRATIONS EVEN. NO S/S OF DISTRESS. STATES THAT PAIN IS 8/10 IN BACK AND SHOULDERS. CALL LIGHT IN REACH.
[2019-05-03 20:00] VITALS: BP 150/57
--- NOTE | 2019-05-04 02:12 | NUR ---
PT. RESTING QUIETLY WITH EYES CLOSED. RESPIRATIONS EVEN. NO S/S OF DISTRESS. SR UP X 2. BED IN LOWEST POSITION. CALL LIGHT IN REACH.
[2019-05-04 06:56] LABS: CALCIUM 8.3 mg/dL (8.5-10.1); CARBON DIOXIDE 26.5 mmol/L (21.0-32.0); CREATININE - SERUM 1.4 mg/dL (0.6-1.3); POTASSIUM - SERUM 5.5 mmol/L (3.5-5.1)
[2019-05-04 08:00] VITALS: BP 126/45
--- NOTE | 2019-05-04 17:00 | NUR ---
PT BACK FROM PASS. DENIES NEEDS OR C/O.
[2019-05-04 20:10] VITALS: BP 154/67
--- NOTE | 2019-05-05 00:29 | NUR ---
QUIET HOURS. PT LYING IN BED EYES CLOSED RESTING QUIETLY. RR EVEN AND UNLABORED. CL IN REACH.
--- NOTE | 2019-05-05 02:00 | NUR ---
I have reviewed this patient and I concur with the Shift Assessment completed by the Licensed Practical Nurse today this shift.
--- NOTE | 2019-05-05 03:30 | NUR ---
PATIENT EYES CLOSED. RESPIRATIONS 18 & EVEN. BED LOW. CALL LIGHT WITHIN REACH. WILL CONTINUE TO MONITOR.
[2019-05-05 08:00] VITALS: BP 151/62
--- NOTE | 2019-05-05 13:07 | NUR ---
SITTING UP IN WC IN ROOM FINISHING LUNCH. DENIES NEEDS OR C/O. REMAINS ON CONTACT ISOLATION. WOUND TO RT GROIN IS STILL DRAINING BUT ODOR IS LESS. NO S/S WORSENING WOUND CONDITION. SHE USES WC FOR NAVIGATION MOST OF TIME. CALL LIGHT IN REACH
--- NOTE | 2019-05-05 19:00 | NUR ---
PT RESTING IN ROOM WITH EYES OPEN. ALERT AND ORIENTED X 3. DENIES ACUTE DISCOMFORT AT THIS TIME. PAT RN IS GOING TO CHANGE HER DRESSING TO HER GROIN. ISOLATION PRECAUTIONS OBSERVED. SR'S ARE UP X 2 WHILE IN BED. CALL LIGHT AND BEDSIDE TABLE ARE WITHIN EASY REACH.
[2019-05-05 19:46] VITALS: BP 124/42
--- NOTE | 2019-05-05 23:31 | NUR ---
PT IS RESTING IN BED ROOM WITH EYES OPEN. NO ACUTE DISTRESS NOTED.
--- NOTE | 2019-05-06 01:00 | NUR ---
RESTING IN BED WITH EYES CLOSED.
--- NOTE | 2019-05-06 02:10 | NUR ---
I have reviewed this patient and I concur with the Shift Assessment completed by the Licensed Practical Nurse today this shift.
--- NOTE | 2019-05-06 05:00 | NUR ---
PT RESTING IN BED WITH EYES CLOSED. NO DISTRESS NOTED.
--- NOTE | 2019-05-06 07:09 | NUR ---
GREETED PATIENT AND INTRODUCED MYSELF HER NURSE. PATIENT IS CURRENTLY IN BATHROOM AT THIS TIME. RESPIRATIONS EVEN. NO S/S OF DISTRESS. STATES THAT PAIN LEVEL IS 8/10 IN BACK AND BILATERAL SHOULDERS. DENIES ANY FURTHER NEEDS AT THIS TIME.
[2019-05-06 07:45] VITALS: BP 143/51
--- NOTE | 2019-05-06 10:45 | NUR ---
PT. SITTING IN WHEELCHAIR WATCHING TV.
[2019-05-06 19:30] VITALS: BP 138/72
--- NOTE | 2019-05-06 19:41 | NUR ---
PT RANG CALL LIGHT TO SAY SOMETHING ON HER BED RAIL BROKE. UPON INSPECTION, I NOTED THE UPPER LEFT RAIL HAD COME OFF THE LOWER HINGE. PT STATED IT DID NOT CAUSE HER TO FALL, BUT WAS WORRIED ABOUT IT. BED IMMEDIATELY EXCHANGED. PT SATISFIED WITH RESULTS.
--- NOTE | 2019-05-06 22:26 | NUR ---
PT SITTING IN ROOM EATING SHERBERT FOR HER HS SNACK. NO DISTRESS NOTED.
--- NOTE | 2019-05-07 00:43 | NUR ---
RESTING QUIETLY IN BED WITH EYES CLOSED. RESPS ARE EVEN AND UNLABORED. NO ACUTE DISTRESS NOTED.
--- NOTE | 2019-05-07 01:31 | NUR ---
I have reviewed this patient and I concur with the Shift Assessment completed by the Licensed Practical Nurse today this shift.
--- NOTE | 2019-05-07 06:26 | NUR ---
PT RESTING IN BED WITH EYES OPEN. NO NEEDS VOICED.
--- NOTE | 2019-05-07 06:58 | NUR ---
GREETED PATIENT AND INTRODUCED MYSELF HER NURSE. PATIENT IS LAYING IN BED RESTING AT THIS TIME. RESPIRATIONS EVEN. NO S/S OF DISTRESS. CALL LIGHT IN REACH.
[2019-05-07 07:30] VITALS: BP 148/77
--- NOTE | 2019-05-07 13:19 | NUR ---
PT. SITTING IN WHEELCHAIR. DENIES ANY NEEDS AT THIS TIME.
--- NOTE | 2019-05-07 17:15 | NUR ---
PT. SITTING IN DINNER AND VISITING WITH FAMILY MEMBERS. DENIES ANY NEEDS AT THIS TIME. CALL LIGHT IN REACH.
--- NOTE | 2019-05-07 19:16 | NUR ---
PT SITTING IN HER ROOM WATCHING TV. NO NEEDS VOICED.
[2019-05-07 20:58] VITALS: BP 141/74
--- NOTE | 2019-05-07 22:03 | NUR ---
PT RESTING IN HER ROOM WATCHING TV. PT OFFERED A SHOWER, BUT SHE STATES SHE WANTS IT IN THE AM.
--- NOTE | 2019-05-08 00:07 | NUR ---
I have reviewed this patient and I concur with the Shift Assessment completed by the Licensed Practical Nurse today this shift.
--- NOTE | 2019-05-08 04:46 | NUR ---
RESTING IN BED WITH EYES CLOSED.
--- NOTE | 2019-05-08 06:01 | NUR ---
PT OFFERED A SHOWER THIS AM. HER ROOM IS VERY COLD, AND SHE STATED SHE DID NOT WANT TO TAKE ONE AND FREEZE. THE HEATER IS BLOWING COLD AIR ONLY. WORK ORDER PLACED. PT STATES SHE WILL ASK THE DAY NURSE TO LET HER SHOWER LATER.
[2019-05-08 07:12] LABS: ANION GAP 14.1 mmol/L (8-16); CALCIUM 8.6 mg/dL (8.5-10.1); CREATININE - SERUM 1.2 mg/dL (0.6-1.3)
[2019-05-08 07:16] LABS: POTASSIUM - SERUM 6.1 mmol/L (3.5-5.1)
[2019-05-08 07:26] LABS: BASOPHILS 0.2 % (0-2); EOSINOPHILS 5.8 % (0-7); HEMATOCRIT 30.6 % (36.0-48.0); HEMOGLOBIN 9.7 g/dL (12-16); IMMATURE GRANULOCYTES 0.2 % (0-5); MCH 29.5 pg (26.0-34.0); MCHC 31.7 g/dL (31.0-37.0); MEAN PLATELET VOLUME 9.2 fL (7.4-10.4); MONOCYTES 8.4 % (2-11); NEUTROPHILS 45.4 % (40-80); PLATELET COUNT 277 10x3/uL (130-400); RBC 3.29 10x6/uL (4.00-5.40); RDW 14.3 % (11.5-14.5); WBC 4.6 10x3/uL (4.8-10.8)
[2019-05-08 07:46] VITALS: BP 133/56
--- NOTE | 2019-05-08 09:01 | NUR ---
LATE ENTRY FOR 05/03/19, CLINICAL UPDTES FAXED TO , AUTH . # [id number], FAXED ONE DAYS NOTE PER MONICA DUE TO HOLIDAY. CONFORMATION RECIEVED
--- NOTE | 2019-05-08 09:26 | NUR ---
NUTRITION F/U PT REMAINS IN CONTACT ISOLATION. CHART REVIEWED. 100% INTAKE RECENT MEALS. BM RECORDED ON 05/07/19. WILL CONTINUE TO PROVIDE DIABETIC DIET, MONITOR PO INTAKE. RD FOLLOWING
--- NOTE | 2019-05-08 12:21 | NUR ---
SITTING UP IN ROOM FOR LUNCH. HAS BEEN UP ALL MORNING VISITING WITH FAMILY AND DOIGN THERAPY. DENIES INCREASED PAIN. CALL LIGHT IN REACH
--- NOTE | 2019-05-08 17:00 | NUR ---
ASSISTED PT WITH SHOWER. DSG CHANGED TO RT GROIN/DANE AREA. WOUND BED IS FLUSH WITH SKIN AND IS BEEFY RED. NO S/S POOR SKIN ATTACHMENT.
[2019-05-08 20:00] VITALS: BP 140/51
--- NOTE | 2019-05-08 20:00 | NUR ---
PATIENT RECEIVED SITTING UP IN WHEELCHAIR AT BEDSIDE. FRIEND IN ROOM. ASSESMENT & VITAL SIGNS DONE. NO C/O PAIN OR DISTRESS AT THIS TIME. CALL LIGHT WITHIN REACH. WILL CONTINUE TO MONITOR.
--- NOTE | 2019-05-09 04:03 | NUR ---
I have reviewed this patient and I concur with the Shift Assessment completed by the Licensed Practical Nurse today this shift.
--- NOTE | 2019-05-09 04:09 | NUR ---
PATIENT EYES CLOSED. RESPIRATIONS 18 & EVEN. BED LOW. CALL LIGHT WITHIN REACH. WILL CONTINUE TO MONITOR.
[2019-05-09 06:14] LABS: ANION GAP 13.9 mmol/L (8-16); CALCIUM 8.5 mg/dL (8.5-10.1); CARBON DIOXIDE 25.5 mmol/L (21.0-32.0); CREATININE - SERUM 1.4 mg/dL (0.6-1.3); POTASSIUM - SERUM 5.4 mmol/L (3.5-5.1)
--- NOTE | 2019-05-09 06:21 | NUR ---
PATIENT FSBS 89. ADDIEBERT GIVEN PER PATIENT REQUEST. TOILETED & HAD VOID. CALL LIGHT WITHIN REACH. WILL CONTINUE TO MONITOR.
[2019-05-09 08:08] VITALS: BP 132/74
--- NOTE | 2019-05-09 09:58 | RHP ---
PATIENT: TATIANNA HANNA MEDICAL RECORD: [id number] ACCOUNT: [id number] LOCATION:[facility]1116 : 64 ADMISSION DATE: 04/28/19 REHABILITATION HISTORY AND PHYSICAL EXAMINATION POST ADMISSION PHYSICIAN EXAMINATION ADMITTING DIAGNOSES: Right inguinal abscess and developing gangrene. HISTORY OF PRESENT ILLNESS: The patient is a 59-year-old female patient with poorly controlled diabetes and has had some noncompliance with treatment, who came in, had a status post incision and drainage of a labial abscess on 04/15/2019. The wound culture was positive for MRSA. She then developed a neurological assistance and inability to move or feel her legs. She was transferred to [facility] for neurology consult on 04/17/2019. EMS performed an MRI of the spine and pelvis, found an area of osteomyelitis in the pelvis that seemed to communicate with the open abscess. The impression was that her neurological symptoms were due to infection. She was transferred back to [place] for continued IV therapy. The patient continues to have weakness and tingling and numbness in all extremities; however, some better since IV antibiotics. Dr. Dangelo was consulted. He did do an MRI of her C-spine. She is able to stand with assistance, but has weakness, unable to dress herself or feed herself independently. MRI of her C-spine showed bulging discs and central protrusion of C5-C6 and cord effacement. She was taken to the OR for an ACDF at C5-C7 on 04/25/2019. On postop day, she had improvement in motor and sensory function in all 4 extremities. Previously, the weakness in her lower extremities were affecting her tolerance to PT. She is very fatigued, has limited flexion and extension of her lower extremities. Proximal muscle strength is decreased and mod-to-max assist for ADLs, mod-to-max assist for [id number] and dro-lo-tgrbk. She is highly motivated and has good family support to regain her strength and actually return home. 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 PAST MEDICAL HISTORY: Significant for diabetes, got a history of noncompliance, got a history of acid reflux, arthritis, depression and anxiety. PAST SURGICAL HISTORY: Includes gallbladder surgery, hysterectomy. She has had stents. She has had knee replacement, carpal tunnel, trigger finger release, anterior cervical fusion, exploratory surgeries, DC and tubal. ALLERGIES: CODEINE. CURRENT MEDICATIONS: Include insulin 60 units daily of the Lantus, she is on Coreg 3.125 mg b.i.d. with meals, Zyprexa 5 mg at bedtime, hydrochlorothiazide 12.5 mg at bedtime, lisinopril 10 mg daily, she is on Onglyza 5 mg at bedtime, Enulose 30 cc b.i.d., she is on Humalog low-resistant sliding scale, Neurontin 600 mg t.i.d., Klonopin 1 mg b.i.d., citalopram 40 mg at bedtime, atorvastatin 20 mg at bedtime, aspirin 81 mg daily, allopurinol 300 mg at bedtime, is on a glucose replacement protocol, nitroglycerin 0.4 mg every 5 minutes p.r.n., [place] 10/325 one tab every 6 hours p.r.n. and Benadryl 25 mg every 4 hours p.r.n. HISTORY AND PHYSICAL [id number] TATIANNA HANNA HABITS: No current alcohol or tobacco use. FAMILY HISTORY: Noncontributory. SOCIAL HISTORY: The patient hopes to return back home and get back to her prior level of functioning. REVIEW OF SYSTEMS: GENERAL: Does complain of weakness and fatigue, but has actually improved since recent surgery. HEENT: Denies cold, cough, or congestion. CARDIOVASCULAR: Denies any chest pain. LUNGS: Does not complain of any shortness of breath. PHYSICAL EXAMINATION: VITAL SIGNS: Stable. She is afebrile. GENERAL: A morbidly obese female in no acute distress, alert upon exam. HEENT: Normocephalic and atraumatic. Mucosa moist. NECK: Supple. No lymphadenopathy. LUNGS: Clear at this time. No wheezing, rhonchi or rales. HEART: Regular rate and rhythm. No murmurs, rubs or gallops. ABDOMEN: Soft, obese. EXTREMITIES: No clubbing, cyanosis or edema. NEUROLOGIC: She does have noted weakness, it is diffuse, but does have 3/5 strength in her upper extremities and 2/5 in her lower. LABORATORY DATA: White count is 7.4, H&H of 9.4 and 29.2 and platelet count is 248. Sodium is 136, potassium 4.9, BUN and creatinine of 35 and 1.2, and blood sugar is noted to be 280. 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 The patient has potential to make improvement. We instituted the following multidisciplinary therapies including, but not limited to physical, occupational, respiratory, speech, nutritional services, prosthetics and orthotics. Given her complex medical condition and risk for more complications, rehabilitation services cannot be provided at a low level of care such as skilled nurse facility. PLAN: 1. Admit to [facility] for intensive inpatient therapy to include the following disciplines: A. Physical therapy to improve gait, all transfer skills and bed mobility to a modified independent level. B. Occupational therapy to a modified independent level. C. Case management to assist with discharge planning and placement options. D. Nutrition to assist with nutritional needs. E. Rehabilitation nursing to assist in monitoring the patient's underlying medical condition and to assist with any type of bowel or bladder management. 2. We will go ahead and watch her blood sugars closely. Treat appropriately. Keep on current medications and I will see again in the a.m. on Wednesday. TRANSINT:[id number] Voice Confirmation ID: [id number] DOCUMENT ID: [id number] HISTORY AND PHYSICAL [id number] TATIANNA HANNA notes whether there has been none or any medical/functional change since admission: - No change since preadmission screen. SONIA attests patient continues to be appropriate for IRF: - Continues to be appropriate. KEN COATS MD at 0958 CC: [id number] DICTATION DATE: 04/29/19821 EMERGENCY MEDICAL TECHNICIAN: 04/29/19912 ADM IN [place] [id number] [place] [address]
--- NOTE | 2019-05-09 13:09 | NUR ---
SITTING UP IN FOR LUNCH. DOES OWN TASKS FOR HERSELF (OPENING LIDS, CLOSING DRAWERS AND WASHING HANDS...ETC). DENIES INCREASED PAIN.
--- NOTE | 2019-05-09 13:49 | NUR ---
SITTING UP IN WC TALKING ON PHONE IN HER ROOM. DENIES NEEDS OR C/O. ROLLS HERSELF AROUND IN ROOM. BALANCE AND ENDURANCE ARE POOR WHEN STANDING. NO DRESSING TO LEFT BIG TOE. NO S/S WORSENING SKIN BREAKDOWN TO LEFT BIG TOE BUT IT STILL HAS A CIRCULAR SCAB ON END OF TOE. HER TOE IS PERMANTELY BENT SO END OF TOE STRIKES FLOOR.
--- NOTE | 2019-05-09 15:34 | NUR ---
DSG CHANGED ORDERED. WOUND BED IS STILL BEEFY RED. SHE HAS MODERATE DRAINAGE ON HER DRESSING. NO INCREASED ODOR NOTED. SKIN STILL HEALTHY LOOKING. CALL LIGHT IN REACH.
[2019-05-09 19:00] VITALS: BP 144/66
--- NOTE | 2019-05-09 20:00 | NUR ---
PATIENT RECEIVED SITTING UP IN WHEELCHAIR. FRIEND IN ROOM. VITAL SIGNS & ASSESSMENT DONE. BED LOW. CALL LIGHT WITHIN REACH. WILL CONTINUE TO MONITOR.
--- NOTE | 2019-05-10 02:28 | NUR ---
PATIENT EYES CLOSED. RESPIRATIONS 18 & EVEN. BED LOW. ALARM ON. CALL LIGHT WITHIN REACH. WILL CONTINUE TO MONITOR.
--- NOTE | 2019-05-10 07:57 | NUR ---
ALERT AND ORIENTED. NO DISTRESS NOTED. CL IN REACH. RESP EVEN AND UNLABORED. WAITING FOR BREAKFAST.
--- NOTE | 2019-05-10 07:58 | NUR ---
ALERT AND ORIENTED. NO DISTRESS NOTED. CL IN REACH. RESP EVEN AND UNLABORED. WAITING FOR BREAKFAST.
[2019-05-10 08:04] VITALS: BP 136/50
[2019-05-10 09:49] LABS: HEMATOCRIT 29.7 % (36.0-48.0); HEMOGLOBIN 9.9 g/dL (12-16); MCH 30.6 pg (26.0-34.0); MCHC 33.3 g/dL (31.0-37.0); MCV 91.7 fL (80.0-100.0); MEAN PLATELET VOLUME 8.2 fL (7.4-10.4); NEUTROPHILS 49.9 % (40-80); PLATELET COUNT 293 10x3/uL (130-400); RBC 3.24 10x6/uL (4.00-5.40); RDW 14.5 % (11.5-14.5); WBC 4.7 10x3/uL (4.8-10.8)
[2019-05-10 09:51] LABS: ANION GAP 13.4 mmol/L (8-16); CALCIUM 8.9 mg/dL (8.5-10.1); CARBON DIOXIDE 26.6 mmol/L (21.0-32.0); CREATININE - SERUM 1.3 mg/dL (0.6-1.3)
--- NOTE | 2019-05-10 12:35 | NUR ---
PARTICIPATED IN THERAPY THIS AM. NO C/O PAIN AT THIS TIME. CL IN REACH.
--- NOTE | 2019-05-10 14:12 | NUR ---
SHOWER TODAY PER OT.
--- NOTE | 2019-05-10 16:06 | NUR ---
DRESSING CHANGED TO R GROIN. NO CHANGE IN ASSESSEMNT. SITTING IN WC. CL IN REACH.
--- NOTE | 2019-05-10 19:09 | NUR ---
GREETED PATIENTAND INTRODUCED MYSELF HER NURSE. PATIENT IS SITTIN IN WHEELCHAIR WATCHING TV. RESPIRATIONS EVEN. NO S/S OF DISTRESS. STATES THAT PAIN IS 6/10 IN BILATERAL SHOULDERS AND LOWER BACK. DENIES ANY FURTHER NEEDS AT THIS TIME. CALL LIGHT IN REACH.
[2019-05-10 19:30] VITALS: BP 156/59
--- NOTE | 2019-05-10 20:37 | NUR ---
PT. FSBS TAKEN. RESULTED IN BS OF 420. PUT IN ORDER FOR LAB TO COME DRAW GLUCOSE. WCTM.
--- NOTE | 2019-05-10 21:30 | NUR ---
CONTACTED LAB FOR THE SECOND TIME TO COME DRAW BLOOD GLUCOSE. LAB RESPONDED THAT THEY WOULD BE THERE SHORTLY BUT THAT THEY WHERE SHORT HANDED AT THIS TIME.
--- NOTE | 2019-05-10 22:10 | NUR ---
LAB CALLED WITH PTS. BLOOD GLUCOSE OF 462.
--- NOTE | 2019-05-10 22:12 | NUR ---
PAGED SUPERINTENDENT WATER AND SEWER SYSTEMS CRAFT COORDINATOR CONCERNING PTS. BLOOD GLUCOSE OF 462 FOR INSTRUCTIONS ON INTERVENTIONS NEEDED.
--- NOTE | 2019-05-10 22:22 | NUR ---
TIM CABALLERO APN RETURNED MY PAGE. HE INSTRUCTED THIS NURSE TO ADMINISTER 14 UNITS OF HUMALOG AND 100 UNITS OF LANTUS AND RECHECK BS AT 0100 AT TREAT ACCORDING TO SLIDING SCALE.
--- NOTE | 2019-05-11 06:34 | NUR ---
PT. AWAKE AND SITTIN IN WHEELCHAIR. DENIES ANY NEEDS AT THIS TIME. CALL LIGHT IN REACH.
--- NOTE | 2019-05-11 08:00 | NUR ---
PATIENT IS ALERT/ORIENT. CALL LIGHT WITHIN REACH. VOICES NO NEEDS AT THIS TIME. PLAN IS TO DISCHARGE TO THE [facility]HAB TODAY
--- NOTE | 2019-05-11 08:00 | NUR ---
PATIENT IS ALERT/ORIENT. SITTING UP AT BEDSIDE TO EAT BREAKFAST. CALL LIGHT WITHIN REACH. VOICES NO NEEDS AT THIS TIME. PLAN IS TO DISCHARGE PATIENT HOME TODAY
[2019-05-11 08:23] VITALS: BP 129/46
--- NOTE | 2019-05-11 08:25 | NUR ---
DR Zac COATS INTO SEE PATIENT. NEW ORDERS FOR DISCHARGE
[2019-05-11] MEDS ORDERED: HYDROCODON-ACE1 EA10 PO (08:32)
[2019-05-11] MEDS ORDERED: HCTZ25 MG PO (08:33)
[2019-05-11] MEDS ORDERED: SMZ-TMP DS 800-1 TAB PO (08:40)
--- NOTE | 2019-05-11 09:10 | NUR ---
DR Zac COATS INTO SEE PATIENT. NEW ORDER FOR DISCHARGE
--- NOTE | 2019-05-11 09:30 | NUR ---
PRN PAIN MEDICATION GIVEN PER PATIENT REQUEST
--- NOTE | 2019-05-11 09:30 | NUR ---
PRN PAIN MEDICATION GIVEN PER PATIENT REQUEST FOR BACK AND ALL OVER PAIN/DISC
--- NOTE | 2019-05-11 10:39 | NUR ---
PATIENT DISCHARGING HOME TODAY WITH FAMILY. [facility] WILL PROVIDE THERAPY AT HOME.NO NEW DME NEEDED AT THIS TIME. DR. MCDONALD 05/17/19 @ 10:30, DR. HARDING 05/17/19 @ 1:00. PATIENT CHOICE FORM WITH COMPARE DATA GIVEN AND REFVIEWED WITH PATIENT AND PATIENT VOICED UNDERSTANDING, [facility] FORM SIGNED, COPY GIVEN TO PATIENT AND FILED IN CHART. DISCHARGE INSTRUCTIONS FAXED TO PCP, HOME HEALTH TO PATIENT INSURANCE, , AUTH. # [id number], AND REVIEWED WITH PATIENT.
--- NOTE | 2019-05-11 11:00 | NUR ---
I have reviewed this patient and I concur with the Shift Assessment completed by the Licensed Practical Nurse today this shift.
--- NOTE | 2019-05-11 12:53 | NUR ---
DISCHARGE INSTRUCTIONS GONE OVER WITH PATIENT. DISCHARGE MEDICATIONS CALLED INTO [facility]. FAMILY TOOK PATIENT HOME.
== END 2019-05-11 12:54 | disposition home health service (06) | DRG 98 ==
LOC: D.REHAB 16:59
PROVIDERS: ADMIT Emergency Medicine; ATTEND Emergency Medicine
DX: G04.89 Other myelitis (principal); M86.9 Osteomyelitis, unspecified; Z68.41 Body mass index [BMI] 40.0-44.9, adult; E87.1 Hypo-osmolality and hyponatremia; Z48.811 Encounter for surgical aftercare following surgery on the nervous system; Z73.6 Limitation of activities due to disability; N76.89 Other specified inflammation of vagina and vulva; E11.69 Type 2 diabetes mellitus with other specified complication; M50.123 Cervical disc disorder at C6-C7 level with radiculopathy; E11.43 Type 2 diabetes mellitus with diabetic autonomic (poly)neuropathy; E66.01 Morbid (severe) obesity due to excess calories; E11.621 Type 2 diabetes mellitus with foot ulcer; L97.519 Non-pressure chronic ulcer of other part of right foot with unspecified severity; E11.65 Type 2 diabetes mellitus with hyperglycemia; I25.10 Atherosclerotic heart disease of native coronary artery without angina pectoris; I10 Essential (primary) hypertension; R33.9 Retention of urine, unspecified; D64.9 Anemia, unspecified; R53.1 Weakness; R53.83 Other fatigue

== ENCOUNTER 2019-10-09 17:10 | Inpatient (IN) | payer OTHER, MEDICAID ==
[~2019-10-09] VITALS: Ht 172.7 cm; Wt 133.8 kg
[~2019-10-09 17:10] MED LIST changes: +HCTZ25 MG PO; +HYDROCODON-ACE1 EA10 PO; +SMZ-TMP DS 800-1 TAB PO
[2019-10-09] MEDS ORDERED: JARDIANCE10 MG PO (18:43)
[2019-10-09 19:02] LABS: BASOPHILS 0.1 % (0-2); EOSINOPHILS 0.5 % (0-7); HEMOGLOBIN 8.9 g/dL (12-16); IMMATURE GRANULOCYTES 1.2 % (0-5); LYMPHOCYTES 10.7 % (15-50); MCH 29.3 pg (26.0-34.0); MCHC 31.8 g/dL (31.0-37.0); MCV 92.1 fL (80.0-100.0); MONOCYTES 9.4 % (2-11); NEUTROPHILS 78.1 % (40-80); PLATELET COUNT 276 10x3/uL (130-400); RBC 3.04 10x6/uL (4.00-5.40); RDW 13.1 % (11.5-14.5); WBC 18.1 10x3/uL (4.8-10.8)
[2019-10-09 19:29] VITALS: BP 109/61; BMI 44.9
[2019-10-09 19:48] LABS: ANION GAP 14.9 mmol/L (8-16); CALCIUM 7.1 mg/dL (8.5-10.1); CARBON DIOXIDE 23.6 mmol/L (21.0-32.0); CREATININE - SERUM 2.5 mg/dL (0.6-1.3); POTASSIUM - SERUM 4.5 mmol/L (3.5-5.1)
[2019-10-09 21:50] VITALS: BP 118/53
[2019-10-10] VITALS: BP 133/54
[2019-10-10 05:50] VITALS: BP 124/60
[2019-10-10 05:55] LABS: APTT 37.7 SECONDS (22.8-39.4); INR 1.13 (0.85-1.17); PROTIME 14.4 SECONDS (11.6-15.0)
[2019-10-10 06:33] LABS: ALBUMIN 1.8 g/dL (3.4-5.0); ANION GAP 12.7 mmol/L (8-16); BILIRUBIN - TOTAL 0.34 mg/dL (0.2-1.3); CALCIUM 7.8 mg/dL (8.5-10.1); CARBON DIOXIDE 25.2 mmol/L (21.0-32.0); CREATININE - SERUM 2.2 mg/dL (0.6-1.3); POTASSIUM - SERUM 3.9 mmol/L (3.5-5.1); PROTEIN - SERUM 6.3 g/dL (6.4-8.2)
[2019-10-10 08:35] VITALS: BMI 44.8
--- NOTE | 2019-10-10 13:00 | NUR ---
TO OR VIA BED
[2019-10-10 13:20] VITALS: BP 151/61
[2019-10-10 15:32] VITALS: BP 105/63
[2019-10-10 18:56] VITALS: BP 100/51
[2019-10-10 20:00] VITALS: BP 102/51
--- NOTE | 2019-10-10 20:00 | NUR ---
PT LYING IN BED SLEEPING WITHOUT DISTRESS, VSS. IV RIGHT FA INFUSING NS @ 200. O2 1L/NC. LEFT BREAST DRESSING CDI. SPOKE WITH DAUGHTER OVER PHONE, UPDATE GIVEN. WILL CTM
[2019-10-11 05:57] LABS: BASOPHILS 0.1 % (0-2); EOSINOPHILS 3.4 % (0-7); HEMATOCRIT 26.7 % (36.0-48.0); HEMOGLOBIN 8.2 g/dL (12-16); LYMPHOCYTES 10.5 % (15-50); MCH 28.6 pg (26.0-34.0); MCHC 30.7 g/dL (31.0-37.0); MEAN PLATELET VOLUME 8.9 fL (7.4-10.4); MONOCYTES 8.2 % (2-11); NEUTROPHILS 76.8 % (40-80); PLATELET COUNT 278 10x3/uL (130-400); RBC 2.87 10x6/uL (4.00-5.40); RDW 13.4 % (11.5-14.5); WBC 13.9 10x3/uL (4.8-10.8)
[2019-10-11 06:23] LABS: ANION GAP 11.6 mmol/L (8-16); CALCIUM 7.7 mg/dL (8.5-10.1); CARBON DIOXIDE 25.6 mmol/L (21.0-32.0); POTASSIUM - SERUM 4.2 mmol/L (3.5-5.1)
[2019-10-11 06:25] LABS: CREATININE - SERUM 3.1 mg/dL (0.6-1.3)
--- NOTE | 2019-10-11 07:51 | NUR ---
PT LYING IN BED ASLEEP, CL N REACH, DRESSING ON LT BREAST INTACT, IV TO RT FA, CDI, LUNG SOUNDS CTA, NO NEEDS VOICED AT THIS TIME, ASSUME PT CARE
[2019-10-11 08:00] VITALS: BP 117/67
--- NOTE | 2019-10-11 08:43 | OP ---
PATIENT NAME: TATIANNA HANNA MEDICAL RECORD: [id number] :64 LOCATION:[facility] ADMISSION DATE:10/09/19 SURGEON: MAXINE REES MD DATE OF OPERATION: 10/10/2019 SURGEON: Maxine Rees MD PREOPERATIVE DIAGNOSIS: Left breast abscess with cellulitis. POSTOPERATIVE DIAGNOSIS: Left breast abscess with cellulitis. PROCEDURE PERFORMED: Incision and drainage of complex multiloculated left breast abscess 10 x 6 x 5 cm. ANESTHESIA: General. COMPLICATIONS: None. SPECIMENS: 1. Skin biopsy, left breast. 2. Anaerobic and aerobic Gram stains. Case was grossly contaminated. OPERATIVE COURSE: Consent was obtained, the patient was taken to the operating room and placed in supine position on the operating table. Next, general anesthesia was given via endotracheal intubation after a timeout was performed that confirmed the correct patient and procedure. The left breast was prepped and draped in typical sterile fashion. An elliptical skin incision was made with a 15-blade scalpel over the area of greatest fluctuance. Once the skin was excised, it was sent for permanent pathology to rule out malignancy. Immediately thereafter approximately 150 cc of purulent brown fluid were expressed from the abscess cavity. Culture swabs were obtained for Gram stain, anaerobic, and aerobic culture with sensitivity. The wound was copiously irrigated with saline. The multiloculated abscess cavity was broken with blunt finger dissection. Once the wound was copiously irrigated, cleaned, it was packed with Kerlix soaked in peroxide and Betadine. The wound was then covered with sterile gauze dressings and tape. At the end of procedure, all needle and instrument counts were correct. No complications occurred. The patient was extubated and transferred to the PACU in stable condition. TRANSINT:[id number] Voice Confirmation ID: [id number] DOCUMENT ID: [id number] MAXINE REES MD at 0843 CC: [id number] DICTATION DATE: 10/10/19 142 CONTRACTOR FIELD HAULING: 10/10/192121 ADM IN [place] [id number] [place] [address]
--- NOTE | 2019-10-11 08:49 | NUR ---
PT C/O PAIN IN RT ARM. PATIENT IV INFILTRATED AND ARM IS SWOLLEN, REMOVED IV WITH CATHETER INTACT, ELEVATED PT ARM AND APPLIED WARM PACK TO SITE, ADMINISTER PRN MEDICATIONS WITH SCHEDULED MEDICATIONS, CONTINUE WITH PLAN OF CARE
[2019-10-11 12:00] VITALS: BP 123/46
--- NOTE | 2019-10-11 14:53 | NUR ---
I & D LEFT BREAST ABSCESS YESTERDAY. DRESSING DRY AND INTACT WOUND CARE WILL FOLLOW NEEDED.
[2019-10-11 16:00] VITALS: BP 132/67
--- NOTE | 2019-10-11 19:30 | NUR ---
PT SITTING UP IN BED WITHOUT DISTRESS, AOX4. LEFT BREAST DRESSING CDI. LEFT UPPER ARM IV INFUSING NS @ 200. DENIES PAIN OR NEEDS AT THIS TIME. CL IN REACH, WILL CTM
[2019-10-11 20:00] VITALS: BP 111/51
--- NOTE | 2019-10-11 21:00 | NUR ---
FSBS 165, COVERAGE PER SS. SEE MAR. ASSISTED PT WITH CANE TO BATHROOM. PT UNABLE TO VOID. PT STATES IT HAS BEEN ALMOST 24 HOURS SINCE VOIDING. ABD NON TENDER, DOES NOT FEEL URGE BUT SHE WORRIES IT HAS BEEN TOO LONG WITH GETTING SO MANY FLUIDS AND DRINKING SO MUCH WATER. UNABLE TO GET BLADDER SCANNER. PT IN AND OUT CATH D/T ALMOST BEING 24 HOURS SINCE VOID. 400ML OUT. PT STATES SHE FEELS "TRANSFUSION AIDE" AFTER. WILL CTM
[2019-10-12 04:00] VITALS: BP 111/55
[2019-10-12 06:15] LABS: BASOPHILS 0.1 % (0-2); EOSINOPHILS 2.2 % (0-7); HEMATOCRIT 27.8 % (36.0-48.0); HEMOGLOBIN 8.6 g/dL (12-16); IMMATURE GRANULOCYTES 0.8 % (0-5); LYMPHOCYTES 12.8 % (15-50); MCHC 30.9 g/dL (31.0-37.0); MCV 93.6 fL (80.0-100.0); MEAN PLATELET VOLUME 9.1 fL (7.4-10.4); MONOCYTES 7.2 % (2-11); NEUTROPHILS 76.9 % (40-80); RBC 2.97 10x6/uL (4.00-5.40); RDW 13.6 % (11.5-14.5)
[2019-10-12 06:37] LABS: ANION GAP 16.3 mmol/L (8-16); CALCIUM 7.2 mg/dL (8.5-10.1); CARBON DIOXIDE 21.1 mmol/L (21.0-32.0); POTASSIUM - SERUM 4.4 mmol/L (3.5-5.1); VANCOMYCIN - RANDOM 28.7 ug/mL (10.0-20.0)
[2019-10-12 06:39] LABS: PLATELET COUNT 342 10x3/uL (130-400)
[2019-10-12 06:40] LABS: CREATININE - SERUM 3.9 mg/dL (0.6-1.3)
[2019-10-12 08:00] VITALS: BP 143/65
--- NOTE | 2019-10-12 09:13 | NUR ---
PT HAS SORE ON RT GREAT TOE THAT IS OPEN AND STARTED TO BLEED, CLEANED WOUND AND APPLIED DRESSING. CONTINUE WITH PLAN OF CARE
--- NOTE | 2019-10-12 10:02 | MORECARE ---
CASE MANAGEMENT DISCHARGE SUMMARY PATIENT: TATIANNA HANNA UNIT: [id number] ADM DATE: 10/09/19 AGE: 59 : 64 SEX: F ROOM/BED: D.2232 AUTHOR: DAVID TIPTON PHYSICIAN: REFERRING PHYSICIAN: KEN MCDONALD MD DATE OF SERVICE: 10/12/19 Discharge Plan Patient Name: TATIANNA HANNA Facility: [facility]:[place] : 1960 Planned Disposition: Anticipated Discharge Date: Discharge Date: Expected LOS: Initial Reviewer: [email or web address] Initial Review Date: 10/12/2019 Generated: 10/12/19 11:02 am Comments DCP- Discharge Planning Updated by [email or web address]: Lashawn Patel on 10/12/19 8:[address] Patient Name: TATIANNA HANNA Admission Status: Elective Accout number: [id number] Admission Date: 10-09-2019 : 1960 Admission Diagnosis:ABSCESS OF THE BREAST AND NIPPLE Attending: KEN MCDONALD Current LOS: 3 Anticipated DC Date: Planned Disposition: Primary Insurance: [facility] Discharge Planning Comments: CM met with patient at bedside after explaining CM role and obtaining verbal consent. CM discussed availability / needs of home health, REHAB and medical equipment. WILL NEED HH WITH WOUND CARE AT TIME OF DC, STEVEN SIGNED FOR [facility]. CM WILL FOLLOW NEEDED. Agriculture Teacher: Lashawn Patel DCPIA - Discharge Planning Initial Assessment Updated by [email or web address]: Lashawn Patel on 10/12/19 9:58 am * Is the patient Alert and Oriented? Yes * PCP ADAL * [facility] * Preadmission Environment Home with Family * ADLs Independent * Other Equipment CPAP, GLUCOMETER, CANE, WALKER * Additional services required to return to the preadmission environment? Yes * Can the patient safely return to the preadmission environment? Yes * Has this patient been hospitalized within the prior 30 days at any hospital? No External Providers External Provider: [facility] Next Contact Date: Service Request Date: Service Type: Resolution: Reviewer: Comments: Patient Name: TATIANNA HANNA Page [phone] at 1002 All edits/amendments must be made on the electronic document DICTATION DATE: 10/12/191001 STOCK PARTS INSPECTOR: OSIRIS 10/12/19 1002 RPT#: [id number] DC DATE: STATUS: ADM IN [facility] [address] [place] [address] END OF REPORT
--- NOTE | 2019-10-12 10:25 | NUR ---
BLADDER SCANNED PT AFTER SHE VOIDED, PT STATED SHE NEEDED OR FELT THE NEED TO URINATE AND DID NOT FEEL IF SHE EMPTIED HER BLADDER, SCAN SHOWED 0, ADVISED PT I WILL DO ANOTHER SCAN IN ABOUT 3 HOURS TO SEE WHERE WE ARE AT. CL IN REACH, CONTINUE WITH PLAN OF CARE
[2019-10-12 12:00] VITALS: BP 149/55
--- NOTE | 2019-10-12 15:56 | NUR ---
I have reviewed this patient and I concur with the Shift Assessment completed by the Licensed Practical Nurse today this shift.
[2019-10-12 16:00] VITALS: BP 155/75
--- NOTE | 2019-10-12 16:08 | NUR ---
PLACED PT HARLEY ORDERED AND RECEIVED OUTPUT OF 700, PT STATED SHE FELT MUCH BETTER, NO OTHER NEEDS VOICED AT THIS TIME, CONTINUE WITH PLAN OF CARE
[2019-10-12 20:00] VITALS: BP 145/64
[2019-10-13] VITALS: BP 130/65
[2019-10-13 04:00] VITALS: BP 144/67
[2019-10-13 05:14] LABS: BASOPHILS 0 % (0-2); EOSINOPHILS 3.4 % (0-7); HEMATOCRIT 26.1 % (36.0-48.0); HEMOGLOBIN 8.2 g/dL (12-16); LYMPHOCYTES 11.2 % (15-50); MCH 29.1 pg (26.0-34.0); MCHC 31.4 g/dL (31.0-37.0); MCV 92.6 fL (80.0-100.0); MEAN PLATELET VOLUME 8.6 fL (7.4-10.4); MONOCYTES 6.6 % (2-11); NEUTROPHILS 77.8 % (40-80); PLATELET COUNT 357 10x3/uL (130-400); RBC 2.82 10x6/uL (4.00-5.40); RDW 13.6 % (11.5-14.5); WBC 9.4 10x3/uL (4.8-10.8)
[2019-10-13 05:45] LABS: ANION GAP 19.5 mmol/L (8-16); CREATININE - SERUM 3.9 mg/dL (0.6-1.3); POTASSIUM - SERUM 4.5 mmol/L (3.5-5.1)
[2019-10-13 05:47] LABS: CALCIUM 6.7 mg/dL (8.5-10.1)
--- NOTE | 2019-10-13 06:18 | NUR ---
LAB CALLED PATIENT HAS CALCIUM 6.7 THIS AM. CALL FOR SUPERVISOR OPERATIONS WAS DR SCHAEFFER. DR SCHAEFFER STATED DR MCDONALD WILL LOOK AT IT WHEN HE ROUNDS THIS AM.
--- NOTE | 2019-10-13 07:15 | NUR ---
RESTING IN BED WITH EYES CLOSED. RESPIRATIONS EVEN AND UNLABORED. UP WITH CANE. SCDS PRESENT. DRESSING TO LEFT BREAST, C/D/I. POD #3 I&D LEFT BREAST. HARLEY CATHETER PRESENT. DRESSING TO RIGHT FOOT BIG TOE. IV TO LEFT UPPER ARM, NS INFUSING @ 200ML/HR. SITE PATENT WITHOUT REDNESS OR SWELLING. DENIES ANY NEEDS AT THIS TIME. CALL LIGHT IN REACH. WILL CONTINUE TO MONITOR.
[2019-10-13 08:00] VITALS: BP 145/60
--- NOTE | 2019-10-13 11:52 | NUR ---
I have reviewed this patient and I concur with the Shift Assessment completed by the Licensed Practical Nurse today this shift.
[2019-10-13 12:00] VITALS: BP 136/76
[2019-10-13 12:43] VITALS: Ht 172.7 cm; Wt 133.8 kg
--- NOTE | 2019-10-13 13:57 | NUR ---
Nutrition follow-up: Diet: ADA consistent CHO PO intake poor at this time Labs reviewed Will offer nutritional supplements and encourage increased po intake RDN following.
[2019-10-13 16:00] VITALS: BP 165/76
[2019-10-13 16:11] LABS: BILIRUBIN NEGATIVE (NEGATIVE); GLUCOSE NEGATIVE (NEGATIVE); KETONE NEGATIVE (NEGATIVE); NITRITE NEGATIVE (NEGATIVE); SPECIFIC GRAVITY 1.015 (1.005-1.020); UROBILINOGEN NORMAL (NORMAL)
[2019-10-13 16:16] LABS: BACTERIA MODERATE /hpf (NEGATIVE); EPITHELIAL CELLS 0-5 /hpf (0-5); RED CELLS - URINE 0-5 /hpf (0-5); WHITE CELLS - URINE 25-50 /hpf (NEGATIVE); YEAST >1+ /hpf (NONE SEEN)
[2019-10-13 16:24] LABS: CREATININE - URINE 57.3 mg/dL (30-125); PROTEIN - URINE 35.2 mg/dL (0.0-11.9)
[2019-10-13 20:00] VITALS: BP 155/76
--- NOTE | 2019-10-13 20:00 | NUR ---
PATIENT RESTING IN BED WITH EYES OPEN. NO S/S OF ACUTE DISTRESS. NO C/O AT THIS TIME. PATIENT HAS IV IN LEFT UPPER ARM, NORMAL SALINE @ 200 ML/HR. IV IS PATENT WITHOUT REDNESS, SWELLING, OR TENDERNESS. PATIENT HAS TELEMTRY: [address] BBB. PATIENT IS POST-OP DAY 3 OF A LEFT BREAST I&D, DRESSING IS C/D/I. PATIENT HAS DRESSING C/D/I TO RIGHT GREATER TOE. PATIENT HAS SCABS, AND SORES BILAT LOWER LEGS. PATIENT CAN AMUBLATE WITH CANE AND PARTIAL ASSIST, PATIENT IS VERY SHAKEY THOUGH. PATIENT HAS HARLEY. CALL LIGHT WITHIN REACH. WILL CONTINUE TO MONITOR.
[2019-10-14] VITALS: BP 160/74
--- NOTE | 2019-10-14 01:01 | NUR ---
I have reviewed this patient and I concur with the Shift Assessment completed by the Licensed Practical Nurse today this shift.
[2019-10-14 04:00] VITALS: BP 165/70
[2019-10-14 07:02] LABS: HEMATOCRIT 26.4 % (36.0-48.0); HEMOGLOBIN 8.6 g/dL (12-16); LYMPHOCYTES 16.7 % (15-50); MCH 29.9 pg (26.0-34.0); MCHC 32.6 g/dL (31.0-37.0); MCV 91.7 fL (80.0-100.0); MEAN PLATELET VOLUME 8.3 fL (7.4-10.4); NEUTROPHILS 73.3 % (40-80); PLATELET COUNT 361 10x3/uL (130-400); RBC 2.88 10x6/uL (4.00-5.40); RDW 13.5 % (11.5-14.5); WBC 8.6 10x3/uL (4.8-10.8)
[2019-10-14 07:06] LABS: ANION GAP 15.5 mmol/L (8-16); CALCIUM 7.2 mg/dL (8.5-10.1); CARBON DIOXIDE 19.1 mmol/L (21.0-32.0); CREATININE - SERUM 3.3 mg/dL (0.6-1.3); POTASSIUM - SERUM 4.6 mmol/L (3.5-5.1); VANCOMYCIN - RANDOM 13.7 ug/mL (10.0-20.0)
--- NOTE | 2019-10-14 07:10 | NUR ---
ALERT AND ORIENTED, RESTING IN BED WITH EYES OPEN. NO C/O PAIN. NO S/S OF ACUTE DISTRESS NOTED. UP WITH ASSIST. POD #4 I&D LEFT BREAST, DRESSING C/D/I. IV TO LEFT UPPER ARM, NS INFUSING @ 200ML/HR. SITE PATENT WITHOUT REDNESS OR SWELLING. ON TELEMETRY 56 SB. HARLEY CATHETER PRESENT. DENIES ANY NEEDS AT THIS TIME. CALL LIGHT IN REACH. WILL CONTINUE TO MONITOR.
[2019-10-14 08:47] VITALS: BP 183/64
--- NOTE | 2019-10-14 09:30 | NUR ---
NOTIFIED DR. MCDONALD OF PATIENT BUE EDEMA. CUT FLUIDS DOWN TO 75ML/HR.
[2019-10-14 11:00] VITALS: BP 139/47
[2019-10-14 15:00] VITALS: BP 172/70
--- NOTE | 2019-10-14 17:58 | NUR ---
ALERT AND ORIENTED, RESTING IN BED WITH EYES OPEN. NO C/O PAIN. NO S/S OF ACUTE DISTRESS NOTED. DENIES ANY NEEDS AT THIS TIME. CALL LIGHT IN REACH. WILL CONTINUE TO MONITOR.
[2019-10-14 20:01] VITALS: BP 179/52
[2019-10-15] VITALS: BP 174/59
[2019-10-15 04:00] VITALS: BP 137/62
[2019-10-15 06:06] LABS: ANION GAP 16.1 mmol/L (8-16); CALCIUM 7.7 mg/dL (8.5-10.1); CARBON DIOXIDE 20.3 mmol/L (21.0-32.0); CREATININE - SERUM 2.8 mg/dL (0.6-1.3); POTASSIUM - SERUM 4.4 mmol/L (3.5-5.1); VANCOMYCIN - RANDOM 11.2 ug/mL (10.0-20.0)
[2019-10-15 06:09] LABS: HEMATOCRIT 27.8 % (36.0-48.0); LYMPHOCYTES 18.5 % (15-50); MCH 29.5 pg (26.0-34.0); MCHC 32.4 g/dL (31.0-37.0); MCV 91.1 fL (80.0-100.0); MEAN PLATELET VOLUME 8.2 fL (7.4-10.4); NEUTROPHILS 73.3 % (40-80); PLATELET COUNT 450 10x3/uL (130-400); RBC 3.05 10x6/uL (4.00-5.40); RDW 13.3 % (11.5-14.5); WBC 9.9 10x3/uL (4.8-10.8)
--- NOTE | 2019-10-15 07:05 | NUR ---
ALERT AND ORIENTED, RESTING IN BED WITH EYES OPEN. NO C/O PAIN. NO S/S OF ACUTE DISTRESS NOTED. UP WITH ASSIST. POD #5 I&D TO LEFT BREAST. HARLEY CATHETER. SCDS. IV TO LEFT UPPER ARM, NS INFUSING @ 75ML/HR. SITE PATENT WITHOUT REDNESS OR SWELLING. DRESSING TO LEFT BREAST C/D/I. DENIES ANY NEEDS AT THIS TIME. CALL LIGHT IN REACH. WILL CONTINUE TO MONITOR.
[2019-10-15 08:32] VITALS: BP 187/64
--- NOTE | 2019-10-15 10:45 | NUR ---
CHANGED DRESSING TO LEFT BREAST. REMOVED OLD DRESSING. REMOVED PACKING. CLEANSED WOUND. PACKED WOUND WITH WET KERLEX. APPLIED DRY 4X4 AND TAPED OVER.
[2019-10-15 12:40] VITALS: BP 180/63
[2019-10-15 17:37] VITALS: BP 170/60
--- NOTE | 2019-10-15 18:00 | NUR ---
I have reviewed this patient and I concur with the Shift Assessment completed by the Licensed Practical Nurse today this shift.
--- NOTE | 2019-10-15 18:13 | NUR ---
RESTING IN BED WITH EYES CLOSED. RESPIRATIONS EVEN AND UNLABORED. NO S/S OF ACUTE DISTRESS NOTED. CALL LIGHT IN REACH. WILL CONTINUE TO MONITOR.
[2019-10-15 20:01] VITALS: BP 177/60
[2019-10-16] VITALS: BP 174/68
[2019-10-16 04:00] VITALS: BP 159/51
[2019-10-16 05:25] LABS: ANION GAP 13.2 mmol/L (8-16); CALCIUM 7.8 mg/dL (8.5-10.1); CARBON DIOXIDE 23.5 mmol/L (21.0-32.0); CREATININE - SERUM 2.3 mg/dL (0.6-1.3); POTASSIUM - SERUM 4.7 mmol/L (3.5-5.1)
[2019-10-16 05:28] LABS: HEMATOCRIT 26.5 % (36.0-48.0); HEMOGLOBIN 8.6 g/dL (12-16); LYMPHOCYTES 24.2 % (15-50); MCH 29.5 pg (26.0-34.0); MCHC 32.5 g/dL (31.0-37.0); MCV 90.8 fL (80.0-100.0); MEAN PLATELET VOLUME 7.8 fL (7.4-10.4); NEUTROPHILS 67.1 % (40-80); PLATELET COUNT 358 10x3/uL (130-400); RBC 2.92 10x6/uL (4.00-5.40); WBC 8.3 10x3/uL (4.8-10.8)
--- NOTE | 2019-10-16 07:34 | NUR ---
ALERT AND ORIENTED. LUNGS CLEAR BILATERALLY. HEART SOUNDS S1 AND S2 HEARD IN ALL CARO. BOWEL SOUNDS ACTIVE X 4. SKIN INTACT WITHOUT REDNESS. IV TO DRAKE PATENT WITHOUT REDNESS. DRSG TO LEFT BREAST C/D/I. WILL CHANGE TODAY. DENIES PAIN. DENIES NEEDS. BED LOW. CALL ALTAMIRANO AND PERSONAL ITEMS IN REACH. WILL CONTINUE TO MONITOR.
[2019-10-16 08:07] VITALS: BP 142/50
--- NOTE | 2019-10-16 09:30 | NUR ---
DRSG CHANGED TO LEFT BREAST PER ORDER. DRSG CHANGED TO RIGHT GREAT TOE. PATIENT NORMAL SEES DR FLORES FOR NECROTIC AREA TO RIGHT GREAT TOE. WILL SPEAK WITH MD ABOUT CONSULTING DR FLORES IF STAYING ANOTHER NIGHT PER PATIENT REQUEST.
--- NOTE | 2019-10-16 11:32 | NUR ---
SITTING IN BED. REQUESTED AND GIVEN ICE WATER. DENIES FURTHER NEEDS. WILL CONTINUE TO MONITOR.
[2019-10-16 11:50] VITALS: BP 169/63
--- NOTE | 2019-10-16 13:22 | NUR ---
Nuitrition follow-up: Diet: ADA consistent CHO PO intake ~50% average of last 6 meals; improved Labs reviewed Wt: 295# RDN following.
--- NOTE | 2019-10-16 13:23 | NUR ---
SPOKE WITH DR MCDONALD WHO STATES HOPES TO GET PATIENT DISCHARGED TOMORROW MORNING. NOTIFIED THAT PATIENT SEES DR FLORES OUTSIDE OF HOSPITAL FOR RIGHT GREAT TOE AND WANTS TO SEE DR FLORES IF STAYING LONGER THAN TONIGHT. DR MCDONALD STATES OK AND TO START BLADDER TRAINING TO REMOVE PATIENT'S HARLEY PRIOR TO DC.
--- NOTE | 2019-10-16 13:25 | NUR ---
PATIENT EDUCATION PROVIDED ON BLADDER TRAINING. HARLEY CLAMPED. VERBALIZED UNDERSTANDING.
--- NOTE | 2019-10-16 14:27 | NUR ---
PATIENT STATES NO URGE TO VOID. HARLEY UNCLAMPED. ABOUT 100 CC DRAINED. HARLEY CLAMPED AGAIN.
--- NOTE | 2019-10-16 15:12 | NUR ---
PATIENT STATES FEELS URGE TO VOID. HARLEY UNCLAMPED. ABOUT 50CC DRAINED. HARLEY REMOVED PER ORDER. WILL CONTINUE TO MONITOR.
[2019-10-16 16:06] VITALS: BP 182/59
--- NOTE | 2019-10-16 18:05 | NUR ---
ASSISTED TO BATHROOM AND LARGE VOID NOTED.
[2019-10-16 19:38] VITALS: BP 161/59
--- NOTE | 2019-10-16 19:50 | NUR ---
SITTING UP IN BED WATCHING TV. ALERT AND ORIENTED X4. RESP EVEN AND NONLABORED. NONPROD COUGH NOTED. SCDS IN USE BILAT. DRSG C/D/I TO LT BREAST. RATES PAIN 4 IN LT BREAST WOUND. DRSG NOTED TO RT GREAT TOE IS C/D/I. 2ND TOE ON LT FOOT IS AMPUTATES. EDEMA NOTED TO BLE. AMB WITH CANE WITH ASSIST. SALINE LOCK NOTED TO LT UPPER ARM. SR ELEVATED X2. CL IN REACH.
--- NOTE | 2019-10-16 22:00 | NUR ---
ASSISTED UP TO BR TO VOID. AMB WITH CANE WITH STANDBY ASSIST X1. CL IN REACH.
[2019-10-17 00:10] VITALS: BP 148/50
--- NOTE | 2019-10-17 02:03 | NUR ---
RESTING QUIETLY WITH EYES CLOSED. RESP NONLABORED. NO DISTRESS. CL IN REACH.
[2019-10-17 04:00] VITALS: BP 137/59
--- NOTE | 2019-10-17 04:23 | NUR ---
ASSISTED UP TO BR TO VOID AND THEN BACK TO BED. C/O "SHAKINESS. FSBS 98. ISNT USED TO IT BEING WNL. REQUESTS SNACK. INSULIN WAS HELD LAST NIGHT DUE TO FEAR OF DROPPING THIS A.M.
[2019-10-17 05:32] LABS: HEMATOCRIT 31.6 % (36.0-48.0); HEMOGLOBIN 10.3 g/dL (12-16); LYMPHOCYTES 23.6 % (15-50); MCH 29.3 pg (26.0-34.0); MCHC 32.6 g/dL (31.0-37.0); MEAN PLATELET VOLUME 7.9 fL (7.4-10.4); NEUTROPHILS 66.4 % (40-80)
[2019-10-17 05:35] LABS: ALBUMIN 2.3 g/dL (3.4-5.0); ANION GAP 15.7 mmol/L (8-16); BILIRUBIN - TOTAL 0.29 mg/dL (0.2-1.3); CALCIUM 8.3 mg/dL (8.5-10.1); CARBON DIOXIDE 23.7 mmol/L (21.0-32.0); POTASSIUM - SERUM 4.4 mmol/L (3.5-5.1); PROTEIN - SERUM 7.1 g/dL (6.4-8.2)
[2019-10-17 05:37] LABS: PLATELET COUNT 534 10x3/uL (130-400); RBC 3.51 10x6/uL (4.00-5.40); WBC 12.2 10x3/uL (4.8-10.8)
--- NOTE | 2019-10-17 07:23 | NUR ---
ALERT AND ORIENTED. LUNGS CLEAR BILATERALLY. HEART SOUNDS S1 AND S2 HEARD IN ALL CARO. BOWEL SOUNDS ACTIVE X 4. DRSG TO LEFT BREAST C/D/I. WILL CHANGE TODAY. DRSG TO RIGHT GREAT TOE C/D/I. IV TO DRAKE PATENT WITOUT REDNESS. DENIES PAIN. DENIES NEEDS. BED LOW. CALL [employer] AND PERSONAL ITEMS IN REACH. WILL CONTINUE TO MONITOR.
[2019-10-17] MEDS ORDERED: AUGMENTIN 875-11 TAB PO (07:32)
--- NOTE | 2019-10-17 08:36 | NUR ---
PATIENT'S IV OCCLUDED TO DRAKE. ABX UNABLE TO RUN. SPOKE WITH DR DEL VALLE ON UNIT WHO IS SWITCHBOARD OPERATOR FOR DR MCDONALD. STATES PATIENT DISCHARGING TODAY AND NO NEED FOR NEW IV. STATES PLACING DC ORDER NOW.
[2019-10-17 09:03] VITALS: BP 159/67
--- NOTE | 2019-10-17 09:39 | NUR ---
DRSG CHANGED PER ORDER TO LEFT BREAST. IV REMOVED FROM DRAKE WITH TIP INTACT.
--- NOTE | 2019-10-17 09:52 | NUR ---
DISCHARGE EDUCATION PROVIDED BOTH WRITTEN AND VERBAL. VERBALIZED UNDERSTANDING. DENIES FURTHER QUESTIONS. PATIENT WAITING RIDE.
--- NOTE | 2019-10-17 11:07 | NUR ---
PATIENT STATES RIDE ON WAY TO HOSPITAL TO [facility] ADMINISTRATIVE.
--- NOTE | 2019-10-17 11:26 | NUR ---
PATIENT DC HOME WITH ALL BELONGINGS.
--- NOTE | 2019-10-17 12:51 | MORECARE ---
CASE MANAGEMENT DISCHARGE SUMMARY PATIENT: TATIANNA HANNA UNIT: [id number] ADM DATE: 10/09/19 AGE: 59 : 64 SEX: F ROOM/BED: D.2232 AUTHOR: SAEED,DOC PHYSICIAN: REFERRING PHYSICIAN: KEN MCDONALD MD DATE OF SERVICE: 10/17/19 Discharge Plan Patient Name: TATIANNA HANNA Facility: [facility]:[place] : 1960 Planned Disposition: Anticipated Discharge Date: Discharge Date: 10/17/2019 Expected LOS: Initial Reviewer: [email or web address] Initial Review Date: 10/12/2019 Generated: 10/17/19 1:50 pm DCP- Discharge Planning Updated by [email or web address]: Lashawn Patel on 10/12/19 8:[address] Patient Name: TATIANNA HANNA Admission Status: Elective Accout number: [id number] Admission Date: 10-09-2019 : 1960 Admission Diagnosis:ABSCESS OF THE BREAST AND NIPPLE Attending: KEN MCDONALD Current LOS: 3 Anticipated DC Date: Planned Disposition: Primary Insurance: [employer] Discharge Planning Comments: CM met with patient at bedside after explaining CM role and obtaining verbal consent. CM discussed availability / needs of home health, REHAB and medical equipment. WILL NEED HH WITH WOUND CARE AT TIME OF DC, STEVEN SIGNED FOR [facility]. CM WILL FOLLOW NEEDED. Operations Intern: Lashawn Patel DCPIA - Discharge Planning Initial Assessment Updated by [email or web address]: Lashawn Patel on 10/12/19 9:58 am * Is the patient Alert and Oriented? Yes * PCP ADAL * [facility] * Preadmission Environment Home with Family * ADLs Independent * Other Equipment CPAP, GLUCOMETER, CANE, WALKER * Additional services required to return to the preadmission environment? Yes * Can the patient safely return to the preadmission environment? Yes * Has this patient been hospitalized within the prior 30 days at any hospital? No External Providers [facility] Next Contact Date: Service Request Date: Service Type: Resolution: Reviewer: Comments: Coverage Notice Reviewer: [id number] - Lashawn Patel Notice Issued Date-Time: 10/12/2019 9:59 Notice Type: Patient Choice Letter Notice Delivered To: Patient Relationship to Patient: Electrical Systems Design Engineer Name: Delivery Method: HAND - Hand Delivered Julia Days: Prior Verbal Notification: Recipient Understood Notice: Yes Recipient Signature: Yes Med Rec Note Co-signed by Attending: Coverage Notice Comment: ODALYS YOUNG Reviewer: [id number] Patel Notice Issued Date-Time: 10/12/2019 9:59 Notice Type: IM Discharge Notice Notice Delivered To: Patient Relationship to Patient: Electrical Systems Design Engineer Name: Delivery Method: HAND - Hand Delivered Julia Days: Prior Verbal Notification: Recipient Understood Notice: Yes Recipient Signature: Yes Med Rec Note Co-signed by Attending: Coverage Notice Comment: Reviewer: [id number] Patel Notice Issued Date-Time: 10/17/2019 9:48 Notice Type: IM Discharge Notice Notice Delivered To: Patient Relationship to Patient: Electrical Systems Design Engineer Name: Delivery Method: HAND - Hand Delivered Julia Days: Prior Verbal Notification: Recipient Understood Notice: Yes Recipient Signature: Yes Med Rec Note Co-signed by Attending: Coverage Notice Comment: Last DP export: 10/12/19 9:02 am Patient Name: TATIANNA HANNA Page [id number] at 1251 All edits/amendments must be made on the electronic document DICTATION DATE: 10/17/19 1250 ANIMAL HERDER: OSIRIS 10/17/19 1250 RPT#: [id number] DC DATE:10/17/19 STATUS: DIS IN [place] [facility] [id number] [place] [address] END OF REPORT
--- NOTE | 2019-10-17 14:23 | MORECARE ---
CASE MANAGEMENT DISCHARGE SUMMARY PATIENT: TATIANNA HANNA UNIT: [id number] ADM DATE: 10/09/19 AGE: 59 : 64 SEX: F ROOM/BED: D.2232 AUTHOR: SAEED,DOC PHYSICIAN: REFERRING PHYSICIAN: KEN MCDONALD MD DATE OF SERVICE: 10/17/19 Discharge Plan Patient Name: TATIANNA HANNA Facility: [facility]:[place] : 1960 Planned Disposition: Anticipated Discharge Date: Discharge Date: 10/17/2019 Expected LOS: Initial Reviewer: [email or web address] Initial Review Date: 10/12/2019 Generated: 10/17/19 3:22 pm DCP- Discharge Planning Updated by [email or web address]: Lashawn Patel on 10/12/19 8:[address] Patient Name: TATIANNA HANNA Admission Status: Elective Accout number: [id number] Admission Date: 10-09-2019 : 1960 Admission Diagnosis:ABSCESS OF THE BREAST AND NIPPLE Attending: KEN MCDONALD Current LOS: 3 Anticipated DC Date: Planned Disposition: Primary Insurance: [employer] Discharge Planning Comments: CM met with patient at bedside after explaining CM role and obtaining verbal consent. CM discussed availability / needs of home health, REHAB and medical equipment. WILL NEED HH WITH WOUND CARE AT TIME OF DC, STEVEN SIGNED FOR [facility]. CM WILL FOLLOW NEEDED. Registration Representative: Lashawn Patel DCPIA - Discharge Planning Initial Assessment Updated by [email or web address]: Lashawn Patel on 10/12/19 9:58 am * Is the patient Alert and Oriented? Yes * PCP ADAL * [facility] * Preadmission Environment Home with Family * ADLs Independent * Other Equipment CPAP, GLUCOMETER, CANE, WALKER * Additional services required to return to the preadmission environment? Yes * Can the patient safely return to the preadmission environment? Yes * Has this patient been hospitalized within the prior 30 days at any hospital? No Coverage Notice Reviewer: [id number] - Lashawn Patel Notice Issued Date-Time: 10/12/2019 9:59 Notice Type: Patient Choice Letter Notice Delivered To: Patient Relationship to Patient: Grant Officer Name: Delivery Method: HAND - Hand Delivered Julia Days: Prior Verbal Notification: Recipient Understood Notice: Yes Recipient Signature: Yes Med Rec Note Co-signed by Attending: Coverage Notice Comment: ODALYS YOUNG Reviewer: [id number] Milton Patel Notice Issued Date-Time: 10/12/2019 9:59 Notice Type: IM Discharge Notice Notice Delivered To: Patient Relationship to Patient: Grant Officer Name: Delivery Method: HAND - Hand Delivered Julia Days: Prior Verbal Notification: Recipient Understood Notice: Yes Recipient Signature: Yes Med Rec Note Co-signed by Attending: Coverage Notice Comment: Reviewer: [email or web address] Patel Notice Issued Date-Time: 10/17/2019 9:48 Notice Type: IM Discharge Notice Notice Delivered To: Patient Relationship to Patient: Grant Officer Name: Delivery Method: HAND - Hand Delivered Julia Days: Prior Verbal Notification: Recipient Understood Notice: Yes Recipient Signature: Yes Med Rec Note Co-signed by Attending: Coverage Notice Comment: Last DP export: 10/17/19 11:51 a Patient Name: TATIANNA HANNA Page [id number] at 1423 All edits/amendments must be made on the electronic document DICTATION DATE: 10/17/191421 RANCH SUPERVISOR: OSIRIS 10/17/19 142 RPT#: [id number] DC DATE:10/17/19 STATUS: DIS IN [facility] [address] [place] [address] END OF REPORT
== END 2019-10-17 11:26 | disposition home health service (06) | DRG 600 ==
LOC: D.MS 17:10
PROVIDERS: Internal Medicine Nephrology; Surgery; ADMIT Family Medicine; ATTEND Family Medicine
PROC: 0H95XZZ Drainage of Chest Skin, External Approach (ICD-10-PCS; principal; 2019-10-10 12:00)
DX: N61.1 Abscess of the breast and nipple (principal); N17.0 Acute kidney failure with tubular necrosis; Z68.41 Body mass index [BMI] 40.0-44.9, adult; E87.1 Hypo-osmolality and hyponatremia; E66.01 Morbid (severe) obesity due to excess calories; I25.10 Atherosclerotic heart disease of native coronary artery without angina pectoris; E86.9 Volume depletion, unspecified; E11.22 Type 2 diabetes mellitus with diabetic chronic kidney disease; I12.9 Hypertensive chronic kidney disease with stage 1 through stage 4 chronic kidney disease, or unspecified chronic kidney disease; N18.3 Chronic kidney disease, stage 3 (moderate)

== ENCOUNTER 2019-10-20 21:57 | Inpatient (IN) | payer OTHER, MEDICAID ==
[~2019-10-20] VITALS: Ht 172.7 cm; Wt 130.7 kg
--- NOTE | ~2019-10-20 | HEMODYNAMI ---
PATIENT:TATIANNA HANNA MEDICAL RECORD: [id number] : 64 LOCATION:D. [address] [facility]# [id number] ADMISSION DATE: 10/21/19 Generatedon:10/23/20199:38 Patient name: TATIANNA HANNA Patient #: [id number] : 1960 Date of study: 10/23/2019 Page: Of Hemodynamic Procedure Report Patient Data Patient Demographics Procedure consent was obtained First Name: TATIANNA Gender: Female Last Name: JACQUES : 1960 [facility] Initial: PALOMA Age: 59 year(s) Patient #: [id number] Race: SSN: [id number] Additional ID: [id number] Contact details Address: [address] [place] [address] State: [place] City: [place] Zip code: [address] Past Medical History Allergies Allergen Reaction Date Comments Reported Codeine 08/02/2015 Other allergy 08/02/2015 TYLENOL Codeine 10/23/2019 Admission Admission Data Admission Date: 10/21/2019 Admission Time: 0:56 Arrival Date: 10/23/2019 Arrival Time: 0:00 Admit Source: Other Insurance Payor: Private Room #: D.[id number] health insurance [facility] #: [id number] Height (in.): 67.72 BSA: 2.37 (m2) Height (cm.): 172 BMI: 43.6 (kg/m2) Weight (lbs.): 284.4 Weight (kg.): 129 Lab Results Lab Result Date: 10/23/2019 Lab Result Time: 0:00 Biochemistry Name Units Result Min Max BUN mg/dl 35 --(----)-* 7 18 Creatinine mg/dl 1.4 --(----)*- 0.6 1.3 CBC Name Units Result Min Max Hemoglobin g/dl 9.6 *-(----)-- 13.5 17.5 Procedure Procedure Types Cath Procedure Diagnostic Procedure [facility] w/Coronaries Sedation Charges Moderate Sedation up to 15 minutes Procedure Description Procedure Date Procedure Date: 10/23/2019 Procedure Start Time: 9:21 Procedure End Time: 9:37 Procedure Staff Name Function Margarito Sheppard MD Performing Physician Mally Caballero RN Monitor Joyce Becker RT Monitor Mally Caballero RN Nurse Vianey Moffett RT Scrub Procedure Data Cath Procedure Fluoroscopy Diagnostic fluoroscopy Total fluoroscopy Time: 3.3 time: 3.3 min min Diagnostic fluoroscopy Total fluoroscopy dose: 844 dose: 844 mGy mGy Contrast Material Contrast Material Type Amount (ml) Isovue 300 68 Entry Location Entry Primary Successful Side Size Upsize Upsize Entry Closure Martinez ccessful Closure Location (Fr) 1 (Fr) 2 (Fr) Remarks Device Remarks Radial Right 6 Fr Mechanical artery Short Compression Estimated blood loss: 5 ml Diagnostic catheters Device Type Used For End Catheter Placement DIAGNOSTIC AR2 MOD 5 Fr Procedure catheter ([id number]) DIAGNOSTIC [place] 110cm 5 Procedure Fr catheter ([id number]) Procedure Complications No complications Procedure Medications Medication Administration Route Dosage 0.9% NaCl I.V. 100 ml/hr Oxygen etCO2 Nasal cannula 2 l/min Lidocaine 2% added to field 20 Heparin Flush Bag added to field 2 bags (1000units/500ml NS) Radial Cocktail added to field 1 syringe (Verapamil 2mg/Nitro 400mcg/Heparin 1500units) Versed I.V. 2 mg Fentanyl I.V. 50 mcg Fentanyl I.V. 50 mcg Hemodynamics Rest BSA: 2.37 (m2) HGB: 9.6 (g/dl) O2 Consumption: Estimated: 218.36 (ml/min) O2 Con sumption indexed: Estimated:92.14 (ml/min/m) Heart Rate: 61 (bpm) Pressure Samples Time Site Value (mmHg) Purpose Heart Use Rate(bpm) 9:26 LV 165/14,24 Snapshot 51 Gradients Valve Time Site Site Mean SEP/DFP Peak To Heart Use 1 2 (mmHg) (sec/min) Peak Rate (mmHg) (bpm) Aortic 9:27 LV AO 61 Snapshots Pre Cath Intra NCS Post Cath Vital Signs Time Heart Resp SPO2 etCO2 NIBP (mmHg) Rhythm Pain Sedation Rate (ipm) (%) (mmHg) Status Level (bpm) 9:15:30 59 15 100 32.1 Measuring SB 0 (11) 10(A) , No pain 9:15:50 59 15 100 34.3 186/80(150) SB 0 (11) 10(A) , No pain 9:20:49 54 13 97 40.3 Measuring SB 0 (11) 10(A) , No pain 9:21:14 54 13 97 31.4 168/72(137) SB 0 (11) 10(A) , No pain 9:26:09 61 11 98 38 144/62(113) NSR 0 (11) 10(A) , No pain 9:31:02 55 15 97 38.8 166/73(139) NSR 0 (11) 10(A) , No pain 9:36:01 56 11 95 38.9 Measuring NSR 0 (11) 10(A) , No pain 9:36:07 56 10 96 38.8 157/68(120) NSR 0 (11) 10(A) , No pain Medications Time Medication Route Dose Verified Delivered Reason Notes Ef fectiveness by by 9:13:51 0.9% NaCl I.V. 100 Margarito Bal used for ml/hr Valarie Federico procedure MD LIPSCOMB 9:13:58 Oxygen etCO2 2 l/min Margarito Bal used for Nasal Valarie Federico procedure cannula MD LIPSCOMB 9:14:03 Lidocaine 2% added 20ml Margarito Pimentel for local to vial Valarie Valarie anesthetic field MD RECIO 9:14:07 Heparin Flush added 2 bags Margarito Pimentel used for Bag to Valarie Valarie procedure (1000units/500ml field MD RECIO NS) 9:14:13 Radial Cocktail added 1 Margarito Pimentel used for (Verapamil to syringe Valarie Valarie procedure 2mg/Nitro field MD RECIO 400mcg/Heparin 1500units) 9:19:01 Fentanyl I.V. 50 mcg Margarito Beattya for Valarie Federico sedation MD LIPSCOMB 9:19:51 Versed I.V. 2 mg Margarito Beattya for Valarie Federico sedation MD LIPSCOMB 9:27:32 Fentanyl I.V. 50 mcg Margarito Zuritayla for Valarie Federico sedation MD LIPSCOMBpayroll accountant Log Time Note 8:44:06 Arrival Date: 10/23/2019 12:00:00 AM 8:44:28 Insurance Payor : Private health insurance 8:44:30 Admit Source: Other 8:44:35 Patient Height : 67.72 inches 8:44:42 Patient Weight : 284.4 lbs 8:45:15 Lab Result : Hemoglobin 9.6 g/dl 8:45:15 Lab Result : Creatinine 1.4 mg/dl 8:45:15 Lab Result : BUN 35 mg/dl 8:46:00 Procedure Status Urgent Heart Cath (IP). 8:49:40 Vianey Schillingur RT(R) sent for patient. Start room use. 9::40 Vital chart was started 9:13:41 Time tracking: Regular hours (M-F 7:00 - 5:00) 9::45 Plan of Care:Hemodynamics will remain stable., Cardiac rhythm will remain stable., Comfort level will be maintained., Respiratory function will remain adequate., Patient/ family verbilizes understanding of procedure., Procedure tolerated without complication., Recovers from procedure without complications.. 9:13:50 Patient received from Med II to CCL 1 Alert and oriented. Tansferred to table in Supine position. 9:13:51 0.9% NaCl 100 ml/hr I.V. was administered by Mally Caballero RN; used for procedure; Verbal order read back and verified. 9:13:53 Signed procedure consent form obtained from patient. 9:13:58 Oxygen 2 l/min etCO2 Nasal cannula was administered by Mally Caballero RN; used for procedure; Verbal order read back and verified. 9:14:03 Lidocaine 2% 20ml vial added to field was administered by Margarito Sheppard MD; for local anesthetic; Verbal order read back and verified. 9:14:07 Heparin Flush Bag (1000units/500ml NS) 2 bags added to field was administered by Margarito Sheppard MD; used for procedure; Verbal order read back and verified. 9:14:13 Radial Cocktail (Verapamil 2mg/Nitro 400mcg/Heparin 1500units) 1 syringe added to field was administered by Margarito Sheppard MD; used for procedure; Verbal order read back and verified. 9:15:13 Warm blankets applied, and britt hugger turned on for patient comfort. 9:15:13 Correct patient and procedure confirmed by team. 9:15:14 Baseline sample Acquired. 9:15:14 ECG and BP/O2 sat monitors applied to patient. 9:15:19 Rhythm: sinus bradycardia 9:15:25 Full Disclosure recording started 9:15:28 H&P Date Dictated: 10/23/2019 ER History on chart.. 9:15:28 Pre-procedure instructions explained to patient. 9:15:28 Pre-op teaching completed and patient verbalized understanding. 9:15:30 Family unavailable. 9:15:35 Patient NPO since Midnight. 9:15:44 Patient allergic to Codeine 9:15:48 Is the patient allergic to Iodine/contrast media? No. 9:15:50 Is patient on blood thinner?No 9:15:52 Patient diabetic? Yes. 9:15:55 Previous problem with sedation/anesthesia? No ? 9:15:55 Snore? Yes 9:15:57 Sleep apnea? No 9:15:59 Deviated septum? No 9:16:00 Opens mouth fully? Yes 9:16:00 Sticks out tongue? Yes 9:16:02 Airway obstruction? No ? 9:16:05 Dentures? No ? 9:16:08 Pre procedure: right dorsailis pedis pulse 1+ Palpable, but thready & weak; easily obliterated 9:16:10 Modified Prabhakar's test Ulnar < 7 seconds 9:16:12 Patient pain scale 0/10 ?. 9:16:16 IV patent on arrival in left forearm with 0.9% NaCl at O. 9:16:19 Lab results completed and on chart. 9:16:22 Right Radial & Right Groin area was prepped with chlora-prep and draped in sterile fashion 9:16:23 Alarms reviewed by R. N. 9:16:23 Sharps counted by scrub and verified by R.N. 9:18:27 --------ALL STOP TIME OUT------ 9:18:28 Final Timeout: patient, procedure, and site verified with staff and physician. All members of the team are in agreement. 9:18:29 Right Radial & Right Groin site verified by team. 9:18:38 Fire Safety Assessment: A--An alcohol-based skin anteseptic being used preoperatively., C--Open oxygen or nitrous oxide is being used., D--An ESU, laser, or fiber-optic light is being used. 9:18:41 Physical assessment completed. ASA score P 2 - A patient with mild systemic disease as per Margarito hSeppard MD. 9:18:45 3b) 30-44 Moderately reduced kidney function. 9:18:47 Maximum allowable contrast dose (3.7 X eGFR X 0.75)114 ml. 9:18:50 Sedation plan: IV Moderate Sedation Medication:Versed, Fentanyl 9:19:01 Fentanyl 50 mcg I.V. was administered by Mally Caballero RN; for sedation; Verbal order read back and verified. 9:19:51 Versed 2 mg I.V. was administered by Mally Caballero RN; for sedation; Verbal order read back and verified. 9:21:23 Zero performed for pressure channel P1 9:21:40 Procedure started. 9:21:42 Use device set Radial Dx or PCI 9:21:44 ACIST Syringe (73426) opened to sterile field. 9:21:44 Bag Decanter (2002S) opened to sterile field. 9:21:45 ACIST Hand Control (95772) opened to sterile field. 9:21:45 ACIST Manifold (54936) opened to sterile field. 9:21:46 Tegaderm 4 x 4 (1626W) opened to sterile field. 9:21:47 Medline Cath Pack ([id number]) opened to sterile field. 9:21:48 MBrace Wrist Support ([id number]) opened to sterile field. 9:21:49 EMERALD Guide Wire (490-580) opened to sterile field. 9:21:50 SHEATH 6FR RAIN (8544145) opened to sterile field. 9:21:59 Local anesthetic to right radial artery with Lidocaine 2% by Margarito Sheppard MD.INITIAL ACCESS ONLY 9:22:59 A 6 Fr Short sheath was inserted into the Right Radial artery 9:23:30 A DIAGNOSTIC [place] 110cm 5 Fr catheter (460345) was advanced over the wire and used for Procedure. 9:24:27 LV gram done using LOVE 9:24:30 Injector settings: Ml/sec: 5, Volume: 15, 9:26:37 LV hemodynamics recorded. 9:27:16 EF : 55 % 9:27:32 Fentanyl 50 mcg I.V. was administered by Mally Caballero RN; for sedation; Verbal order read back and verified. 9:28:51 LCA angiography performed. 9:30:18 Catheter exchanged over wire. 9:30:26 UNABLE TO ENGAGE RCA 9:32:14 A DIAGNOSTIC AR2 MOD 5 Fr catheter ([id number]) was advanced over the wire and used for Procedure. 9:32:19 RCA angiography performed. 9:32:20 ACCDominant side:Left 9:32:22 Catheter removed. 9:32:33 Procedure ended.(Physican Out) 9:33:36 ZEPHYR REGULAR TR BAND (626659) opened to sterile field. 9:33:49 Sheath removed intact; hemostasis achieved with Mechanical Compression to the Right Radial artery. 9:34:18 Fluoroscopy time 03.30 minutes. 9:34:25 Contrast amount:Isovue 300 68ml. 9:34:30 Flurop Dose total: 844 9:34:30 Fluoroscopy dose: 844 mGy 9:34:36 Dose Area Product 92326 mGy/cm. 9:34:39 Maximum allowable dose exceeded? No. 9:34:40 Sharps counted by scrub and verified by R.N. 9:34:53 Freeman Spur band inflated with 10cc of air. 9:35:00 Insertion/operative site no bleeding no hematoma. 9:35:04 Post-procedure physical assessment completed. ASA score P 2 - A patient with mild systemic disease as per Margarito Sheppard MD. 9:35:08 Post procedure rhythm: sinus bradycardia 9:35:10 Estimated blood loss: 5 ml 9:35:11 Post procedure instruction explained to patient.Patient verbalizes understanding. 9:35:11 Patient needs reinforcement of post procedure teaching. 9:35:24 Patient needs reinforcement of post procedure teaching. 9:35:30 Procedure type changed to Cath procedure, Diagnostic procedure, LHC, C w/Coronaries, Sedation Charges, Moderate Sedation up to 15 minutes 9:36:35 Procedure and supply charges have been captured, reviewed, submitted and are correct. 9:36:37 Procedure Complication : No complications 9:36:39 Vital chart was stopped 9:36:40 [facility] Findings: mild to moderate CAD (<70%) 9:36:42 Operative report dictated upon procedure completion. 9:36:43 See physician's report for complete and final results. 9:36:52 Report given to [facility]. 9:37:09 Patient transfered to [facility] with Bed. 9:37:10 Procedure ended. 9:37:10 Full Disclosure recording stopped 9:37:13 End room use (Document Last) 9:37:53 End room use (Document Last) 9:38:12 End room use (Document Last) Device Usage Item Name Manufacture Quantity Catalog Hospital Part Current Minima l Lot# / Number Charge Number Stock Stock Serial# Code ACIST Acist 1 11488 303881 177947 081463 20 Syringe Medical (45005) Systems Inc Bag Microtek 1 2001S 893098 96453 514556 5 Decanter Medical Inc. () ACIST Hand Acist 1 37927 244329 083463 416601 5 Control Medical (76356) Systems Inc ACIST Acist 1 41629 042402 076669 092975 5 Manifold Medical (54918) Systems Inc Tegaderm 4 3M 1 1626W 347862 022674 608059 5 x 4 (1626W) Medline Medline 1 [id number] 846647 28358 879153 5 Cath Pack ([id number]) MBrace Advanced 1 140-0250-00 196847 42621 546065 5 Wrist Vascular Support Dynamics ([id number]) EMERALD Cardinal 1 502-455 061509 283186 182373 5 Guide Wire Health (502-455) SHEATH 6FR Cardinal 1 2708966 339931 4021082 812333 5 RAIN Health (5531283) DIAGNOSTIC Cardinal 1 [id number] 998580 512407 547813 20 AR2 MOD 5 Health Fr catheter (958200J) ZEPHYR Cardinal 1 874064 860534 7168966 874155 5 REGULAR TR Health BAND (977631) DIAGNOSTIC Terumo 1 40-0359 272561 185615 851375 5 [place] 110cm 5 Fr catheter (459873) Signature Audit [place] Stage Time Signature Unsigned Intra-Procedure 10/23/2019 Joyce Becker 9:37:53 AM RT(R) Intra-Procedure 10/23/2019 Mally Caballero 9:38:12 AM RN Intra-Procedure 10/23/2019 Margarito Cruz 9:38:48 AM Vasu RECIO [facility] [address] [place] [address]
[~2019-10-20 21:57] MED LIST changes: +AUGMENTIN 875-11 TAB PO; +JARDIANCE10 MG PO
[2019-10-20 22:22] LABS: BASOPHILS 0.1 % (0-2); EOSINOPHILS 0.3 % (0-7); HEMATOCRIT 30.7 % (36.0-48.0); HEMOGLOBIN 9.9 g/dL (12-16); IMMATURE GRANULOCYTES 0.6 % (0-5); MCH 29.3 pg (26.0-34.0); MCHC 32.2 g/dL (31.0-37.0); MCV 90.8 fL (80.0-100.0); MEAN PLATELET VOLUME 8.3 fL (7.4-10.4); MONOCYTES 5.4 % (2-11); NEUTROPHILS 78.6 % (40-80); PLATELET COUNT 314 10x3/uL (130-400); RBC 3.38 10x6/uL (4.00-5.40); WBC 14.1 10x3/uL (4.8-10.8)
[2019-10-20 22:29] LABS: ANION GAP 19.2 mmol/L (8-16); CALCIUM 8.4 mg/dL (8.5-10.1); CARBON DIOXIDE 21.8 mmol/L (21.0-32.0); CREATININE - SERUM 1.7 mg/dL (0.6-1.3)
--- NOTE | 2019-10-20 22:33 | NUR ---
PT TO RADIOLOGY.
[2019-10-20 22:35] LABS: ALBUMIN 2.9 g/dL (3.4-5.0); BILIRUBIN - TOTAL 0.58 mg/dL (0.2-1.3); MAGNESIUM - SERUM 1.1 mg/dL (1.8-2.4); PROTEIN - SERUM 7.3 g/dL (6.4-8.2)
[2019-10-20 22:40] LABS: INR 1.11 (0.85-1.17); PROTIME 14.2 SECONDS (11.6-15.0)
--- NOTE | 2019-10-20 22:47 | NUR ---
PT RETURNED FROM RADIOLOGY.
[2019-10-20 22:59] LABS: CKMB 5.2 U/L (0.0-3.6); CREATINE KINASE 308 UL (21-215); THYROID STIMULATING HORMONE 4.91 uIU/mL (0.36-3.74); TROPONIN-I < 0.017 ng/mL (0.000-0.060)
--- NOTE | 2019-10-20 23:10 | NUR ---
PT STATES "I NEED TO USE THE RESTROOM." PT ASSISTED WITH BEDPAN. CLEAN DRY GOWN AND BRIEF PLACED ON PT. PT TOLERATED WELL.
[2019-10-20 23:54] LABS: BILIRUBIN NEGATIVE (NEGATIVE); GLUCOSE 1000 mg/dL (NEGATIVE); KETONE MODERATE mg/dL (NEGATIVE); NITRITE NEGATIVE (NEGATIVE); SPECIFIC GRAVITY 1.015 (1.005-1.020); UROBILINOGEN NORMAL (NORMAL)
[2019-10-20 23:55] LABS: BACTERIA NONE SEEN /hpf (NEGATIVE); WHITE CELLS - URINE 0-5 /hpf (NEGATIVE)
[2019-10-20 23:58] LABS: UDS - AMPHET NEGATIVE QUAL (NEGATIVE); UDS - BARB NEGATIVE QUAL (NEGATIVE); UDS - BENZO NEGATIVE QUAL (NEGATIVE); UDS - COCAINE NEGATIVE QUAL (NEGATIVE); UDS - OPIATE POSITIVE QUAL (NEGATIVE); UDS - PCP NEGATIVE QUAL (NEGATIVE); UDS - THC NEGATIVE QUAL (NEGATIVE)
[2019-10-21] VITALS (7 sets, daily range): BP systolic 114–200; BP diastolic 48–87; Ht 172.7 cm; Wt 130.7 kg
--- NOTE | 2019-10-21 00:02 | NUR ---
PT REQUESTING WATER, EDP INFORMED, STATES SHE MAY HAVE IF SHE CAN TOLERATE IT. PT GIVEN ICE WATER, TOLERATED WELL.
--- NOTE | 2019-10-21 03:07 | NUR ---
UNABLE TO COMPLETE ASSESSMENTS. CONFUSED TO PERSON, TIME AND SITUATION. KNOWS SHE IS IN HOSPITAL. REPORTED RECENTLY DISCHARGED ON 10/17/19. WHEN ASKED HER FIRST AND LAST NAME SHE STARTS SPELLING FIRST NAME. STATES "I DON'T KNOW WHEN ASKED THE YEAR AND MUMBLES WHEN ASKED WHY SHE IS HERE. INCONT OF URINE WHEN TRANSFERED FROM STRETCHER. INSISTED ON GOING TO B/R LATER ON. UNSTEADY ON HER FEET. DID USE TOILET TO URINATE. BED ALARM IN PLACE FOR SAFTY. SCD,S IN PLACE. SCABED AREA TO YULIA ARMS AND LEFT LEG. DSG TO LT BREAST REMOVED AND PACKING WAS DRY. AREA CLEANSED WITH WOUND CLEANSED. WET TO DRY DSG PLACED USING NS FOR PACKING. SLOUGH ON ISIDE OF WOUND. DSG NOT DATED OR SIGNED. IV TO LT ARM WITH NS INFUSING AT 125CC/HR. NO REDNESS OR SWELLING TO SITE. DSG INTACT. NO S/S OF DISTRESS OBSERVED. UNABLE TO ANSWER QUESTIONS AT THIS TIME.
[2019-10-21 07:37] LABS: BASOPHILS 0.1 % (0-2); EOSINOPHILS 0 % (0-7); HEMATOCRIT 27.5 % (36.0-48.0); HEMOGLOBIN 8.9 g/dL (12-16); IMMATURE GRANULOCYTES 0.5 % (0-5); LYMPHOCYTES 4.8 % (15-50); MCH 29.1 pg (26.0-34.0); MCHC 32.4 g/dL (31.0-37.0); MCV 89.9 fL (80.0-100.0); MEAN PLATELET VOLUME 8.3 fL (7.4-10.4); MONOCYTES 1.4 % (2-11); NEUTROPHILS 93.2 % (40-80); PLATELET COUNT 252 10x3/uL (130-400); RBC 3.06 10x6/uL (4.00-5.40); WBC 16.5 10x3/uL (4.8-10.8)
[2019-10-21 08:13] LABS: ALBUMIN 2.6 g/dL (3.4-5.0); ALKALINE PHOSPHATASE 113 U/L (30-120); ALT (SGPT) 22 U/L (10-68); BILIRUBIN - TOTAL 0.55 mg/dL (0.2-1.3); CALCIUM 7.7 mg/dL (8.5-10.1); CARBON DIOXIDE 20.3 mmol/L (21.0-32.0); CHLORIDE - SERUM 98 mmol/L (98-107); CKMB 3.9 U/L (0.0-3.6); CREATININE - SERUM 1.8 mg/dL (0.6-1.3); PHOSPHOROUS 4.1 mg/dL (2.5-4.9); POTASSIUM - SERUM 4.4 mmol/L (3.5-5.1); PROTEIN - SERUM 6.4 g/dL (6.4-8.2); SODIUM 133 mmol/L (136-145); UREA NITROGEN 36 mg/dL (7-18); eGFR NON AFRICAN AMERICAN 31 mL/min (90-120)
[2019-10-21 08:19] LABS: MAGNESIUM - SERUM 1.4 mg/dL (1.8-2.4)
[2019-10-21 08:20] LABS: CALC OSMOLALITY 295 mosm/kg (275-300); CREATINE KINASE 222 UL (21-215); GLUCOSE 488 mg/dL (74-106)
--- NOTE | 2019-10-21 08:22 | NUR ---
ROUNDING DONE WITH PATIENT UNABLE TO TELL ME HER DATE OF OR WHAT YEAR IT IS. SPILLED WATER ON HERSELF, GOWN CHANGED. LEFT AC PIV SEEN WITH NS INFUSING AT 125 CC/HR. BILATERAL SCD'S ARE ON ALONG WITH ALL FALL RISK. BED ALARM ON. LAB TO CALL WITH CRITICAL GLUCOSE OF 488 AND TROPOIN OF 0.120. PAGE INTO DR DEL VALLE, AWAITING CALL BACK. MORBID OBESE PATIENT. DRESSING DRY AND INTACT SEEN TO LEFT BREAST. UMBILICAL HERNIA SEEN. ON 2L PER NC. SMALL HEALING SCABS SEEN TO BILATERAL LOWER EXTREMITES. CALL LIGHT IN PLACE.
--- NOTE | 2019-10-21 08:32 | NUR ---
DR DEL VALLE TO CALL BACK WITH NEW ORDERS. DR AMARAL HERE AND MADE AWARE OF CONSULT.
--- NOTE | 2019-10-21 11:51 | NUR ---
BP 114/48. I SPOKE WITH DR AMARAL AND HE SAID TO NOT GIVE NOW
--- NOTE | 2019-10-21 12:56 | NUR ---
SAGRARIO MAT ALARM PLACED ON BED ALONG WITH BED ALARM
--- NOTE | 2019-10-21 18:26 | HP ---
PATIENT: TATIANNA HANNA MEDICAL RECORD: [id number] ACCOUNT: [id number] LOCATION:[address] : 64 ADMISSION DATE: 10/21/19 PCP: KEN MCDONALD HISTORY AND PHYSICAL EXAMINATION DATE OF ADMISSION: 10/21/2019 CHIEF COMPLAINT: Confusion, high sugar. HISTORY OF PRESENT ILLNESS: This is a 59-year-old female followed by Dr. Mcdonald in our clinic. She has a history of uncontrolled diabetes, obesity, hypertension. She was just admitted for over a week here with a breast abscess that required I&D by surgery. She was discharged home on 10/17/2019 where she lives with her daughter. She was brought to the ER, the evening of 10/20/2019, daughter had noticed that she had decreased p.o. intake during the day, then started refusing medicines, then became confused. The story is that when this happens her kidneys are usually "shutting down." Actually, in the ER, her creatinine was 1.7, which is really pretty good for her. It is noted that when she was in the hospital with her breast abscess, her kidney function actually was as low as 2.0 and as high as 3.9, so the 1.7 is actually pretty good. Her magnesium was down to 1.1. Her glucose was high at 379. White count was a little high. CAT scan of her head did not show any acute abnormalities. She is admitted with uncontrolled diabetes, hypomagnesemia, metabolic encephalopathy. PAST MEDICAL AND SURGICAL HISTORY: Gained from her chart and speaking to her son, Thiago, on the phone shows she has diabetes (last A1c in the office was 12.7 in August), morbid obesity, hypertension, hyperlipidemia, osteoarthritis, obstructive sleep apnea and depression. PAST SURGICAL HISTORY: Hysterectomy, cholecystectomy, right total knee arthroplasty, coronary artery stents, toe amputation, bilateral carpal tunnel release, trigger finger release, section, anterior cervical fusion. HABITS: Former smoker, no alcohol or drugs. ALLERGIES: No known drug allergies. MEDICATIONS: (These were gained from the discharge orders on 10/17/2019) Augmentin 875 b.i.d., olanzapine 5 mg once a day, clonazepam 1 mg twice a day, atorvastatin 20 mg once a day, gabapentin 600 mg t.i.d., lisinopril 10/hydrochlorothiazide 12.5 once a day, aspirin 81 mg a day, citalopram 40 mg a day, carvedilol 3.125 mg twice a day, Jardiance 10 mg once a day (when I looked up her medications on the PBM through our office, she was on venlafaxine instead of citalopram, she was on Januvia instead of Jardiance, she was on allopurinol, but that has been stopped). Other active medication is Lantus 60 units every morning. FAMILY HISTORY: Unknown. SOCIAL HISTORY: She is disabled, lives with her daughter. REVIEW OF SYSTEMS: Unable to obtain because the patient is confused. PHYSICAL EXAMINATION: VITAL SIGNS: Today, temperature 98.1, pulse 78, respirations 20, blood pressure HISTORY AND PHYSICAL [id number] TATIANNA HANNA 182/87, O2 sats 97%. GENERAL: The patient is awake. She appears lethargic. She will look at me. She will follow commands. When I asked where she is, does she know where she is, she states yes, but she would not tell me that she is in the hospital. SKIN: Warm and dry. HEENT: Grossly within normal limits. NECK: Supple. HEART: Regular rate and rhythm without murmur. LUNGS: Clear. ABDOMEN: Soft, obese. EXTREMITIES: No edema. NEUROLOGIC: Again, lethargic, confused. She is not oriented to time or place. LABORATORY AND DIAGNOSTIC DATA: Urinalysis is okay. Urine drug screen is positive for opiates (patient is on hydrocodone 10 four times a day). Ammonia level was 4. CBC with a white count of 14,100, hemoglobin 9.9, hematocrit 30.7. Basic metabolic panel; sodium 137, potassium 4.0, chloride 100, CO2 21.8, BUN 30, creatinine 1.7, glucose 345, calcium 8.4. Liver functions are all normal. Her ammonia level is 4. Magnesium level was 1.1 down in the ER, troponin was less than 0.017 in the ER, but this morning her troponin is elevated at 0.120. TSH a little elevated at 4.91. INR 1.11. CT of the head was done in the ER showing no acute process. Chest x-ray showing no acute process. ASSESSMENT: 1. Metabolic encephalopathy. 2. Uncontrolled diabetes. 3. Hypomagnesemia. 4. Chronic kidney disease. 5. Morbid obesity. PLAN: Cardiology has been consulted for her elevated troponin. We will give her fluids. We will monitor her sugar and put her on sliding scale, replace magnesium. She is on an electrolyte protocol. Other tests or procedures as warranted. TRANSINT:[id number] Voice Confirmation ID: [id number] DOCUMENT ID: [id number] SERGIO DEL VALLE MD at 1826 CC: [id number] DICTATION DATE: 10/21/19 1151 TRACTOR DRIVER TEAMSTER: 10/21/19 1317 ADM IN [facility] [address] [place] [id number]
--- NOTE | 2019-10-21 19:42 | NUR ---
RECEIVED BEDSIDE SHIFT REPORT. UP IN BED WITH EYES OPEN. ALERT AND CONT TO BE CONFUSED. SPEECH MUCH CLEARER. O2@ 2 LITERS PER N/C. IV TO LT AC WITH NS AT 125CC/HR. UMBILICAL HERNIA AND SCABS TO ARMS AND RT LEG. SCD'S OFF AT THIS TIME. BEDSIDE COMMODE IN PLACE. WILL CONT. POC.
[2019-10-22 00:30] VITALS: BP 187/88
[2019-10-22 04:25] VITALS: BP 163/75
[2019-10-22 06:01] LABS: BASOPHILS 0.1 % (0-2); EOSINOPHILS 0.1 % (0-7); HEMATOCRIT 27.6 % (36.0-48.0); HEMOGLOBIN 8.9 g/dL (12-16); IMMATURE GRANULOCYTES 0.5 % (0-5); LYMPHOCYTES 14.7 % (15-50); MCH 29.1 pg (26.0-34.0); MCHC 32.2 g/dL (31.0-37.0); MCV 90.2 fL (80.0-100.0); MEAN PLATELET VOLUME 8.8 fL (7.4-10.4); MONOCYTES 6.6 % (2-11); PLATELET COUNT 224 10x3/uL (130-400); RBC 3.06 10x6/uL (4.00-5.40); RDW 14.5 % (11.5-14.5); WBC 15.5 10x3/uL (4.8-10.8)
[2019-10-22 06:10] LABS: ANION GAP 14.2 mmol/L (8-16); CALCIUM 7.3 mg/dL (8.5-10.1); CARBON DIOXIDE 24.4 mmol/L (21.0-32.0); CREATININE - SERUM 1.8 mg/dL (0.6-1.3)
[2019-10-22 06:19] LABS: MAGNESIUM - SERUM 1.9 mg/dL (1.8-2.4); POTASSIUM - SERUM 3.6 mmol/L (3.5-5.1)
--- NOTE | 2019-10-22 07:20 | NUR ---
RECIEVE REPORT. RESTING IN BED WITH EYES CLOSED. NO SIGNS OF DISTRESS. CONTINUE PLAN OF CARE AND SAFETY PRECAUTIONS.
[2019-10-22 09:24] VITALS: BP 177/84
[2019-10-22 09:48] LABS: CHOL - HDL RATIO 5.2 ratio (2.3-4.1); LDL-HDL RATIO 3.4 ratio (1.5-3.5)
[2019-10-22 12:10] VITALS: BP 106/65; BP 161/74
--- NOTE | 2019-10-22 18:10 | NUR ---
ALERT AND ORIENTED X4. SITTING UP IN BED WATCHING TV. CONSENTS FOR PHARMACEUTICAL PROCESS ENGINEER SIGNED ON CHART. DENIES ANY NEEDS AT THIS TIME. CONTINUE PLAN OF CARE AND SAFETY PRECAUTIONS.
[2019-10-22 18:11] VITALS: BP 157/68
[2019-10-22 20:00] VITALS: BP 183/66
--- NOTE | 2019-10-22 20:12 | NUR ---
RECIEVED UP IN BED WITH EYES OPEN AND TV ON. ALERT AND ORIETNED AT THIS TIME. UNABLE TO REMEMBER WHY SHE IS HERE. IV TO LT AC WITH NS AT 125/HR. TELEMETRY IN PLACE. DSG TO LT BREAST. WILL CHANGE THIS SHIFT. RT GREAT TOE NECROTIC AREA AND LT SECOND TO PATIAL AMP..WHITE COLOR SCAB TO LT HAND MIDDLE FINGER RED AND SWOLLEN. EDUCATED ON NPO STATUS AFTER MN AND CATH SCHEDULED. DENIES ANY NEEDS AT THIS TIME.
[2019-10-23 04:31] VITALS: BP 161/51
--- NOTE | 2019-10-23 07:20 | NUR ---
RECIEVE REPORT. RESTING IN BED WITH EYES CLOSED. NO SIGNS OF DISTRESS. SINUS RYTHM ON TELEMETRY. CONTINUE PLAN OF CARE NAD SAFETY PRECAUTIONS.
[2019-10-23 07:59] LABS: BASOPHILS 0.2 % (0-2); EOSINOPHILS 1.3 % (0-7); HEMATOCRIT 30.9 % (36.0-48.0); HEMOGLOBIN 9.6 g/dL (12-16); IMMATURE GRANULOCYTES 0.3 % (0-5); LYMPHOCYTES 20.3 % (15-50); MCH 28.7 pg (26.0-34.0); MCHC 31.1 g/dL (31.0-37.0); MEAN PLATELET VOLUME 9.1 fL (7.4-10.4); MONOCYTES 7.6 % (2-11); NEUTROPHILS 70.3 % (40-80); PLATELET COUNT 210 10x3/uL (130-400); RBC 3.34 10x6/uL (4.00-5.40); RDW 14.6 % (11.5-14.5)
[2019-10-23 08:00] VITALS: BP 162/86
[2019-10-23 08:04] LABS: MCV 92.5 fL (80.0-100.0)
[2019-10-23 08:06] LABS: ANION GAP 15.2 mmol/L (8-16); CALCIUM 7.4 mg/dL (8.5-10.1); CARBON DIOXIDE 21.3 mmol/L (21.0-32.0); CREATININE - SERUM 1.4 mg/dL (0.6-1.3); POTASSIUM - SERUM 3.5 mmol/L (3.5-5.1)
--- NOTE | 2019-10-23 08:58 | CN ---
PATIENT NAME:TATIANNA HANNA MEDICAL RECORD: [id number] : 64 LOCATION:D.M2 D.2109 ADMIT DATE: 10/21/19 ACCOUNT: [id number] CONSULTING PHYSICIAN: DOMINICK TOWNSEND MD REFERRING PHYSICIAN: SERGIO DEL VALLE MD DATE OF CONSULTATION: 10/21/2019 HISTORY OF PRESENT ILLNESS: A 59-year-old female with a history of coronary artery disease, status post intervention, most recently had LAD with Dr. Roth in 2017, was recently discharged from the hospital with breast abscess, admitted with confusion, generalized malaise, found to have a marked electrolyte abnormalities as well as hyperglycemia, had an increase in troponin consistent with NSTEMI, decreased troponin despite the improvement in BUN and creatinine with IV hydration. We are asked to see her concerning her cardiovascular status. PAST MEDICAL HISTORY: Includes; 1. History of diabetes mellitus. 2. Hypertension. 3. Hyperlipidemia. 4. Recent breast abscess. 5. Coronary artery disease as described above. 6. Diabetic neuropathy. MEDICATIONS: Include insulin Jardiance 10 mg p.o. every day, Klonopin 1 mg p.o. b.i.d., Neurontin 600 p.o. t.i.d., [place] 10/325 every 6 hours p.r.n., Zyprexa 5 mg p.o. at bedtime, Celexa 40 mg p.o. at bedtime, aspirin 81 every day, atorvastatin 20 every day, carvedilol 3.125 every day, lisinopril 10/12.5 every day. SOCIAL HISTORY: Lives with daughter. Nonsmoker, nondrinker. Typically able to care of all her ADLs up until current illness. PHYSICAL EXAMINATION: GENERAL: Pleasant female in no acute distress, appears stated age. Answers questions, but somewhat slowly. VITAL SIGNS: Blood pressure 141/60, pulse is 70 and regular. HEENT: Normocephalic, atraumatic. NECK: No JVD or bruit. HEART: Regular. Questionable S4 gallop. LUNGS: Good air excursion. ABDOMEN: Soft, nontender. EXTREMITIES: Pulses 2+. No edema. IMPRESSION: Non-ST segment elevation myocardial infarction with elevation in troponins despite improvement in creatinine. At this point in time, we will continue IV hydration, correction of underlying electrolyte abnormalities. We will plan for diagnostic angiography. Further recommendations based on the above. TRANSINT:[id number] Voice Confirmation ID: [id number] DOCUMENT ID: [id number] CONSULT REPORT [id number] TATIANNA HANNA GREGORY A MD at 0858 CC: [id number] DICTATION DATE: 10/21/19 1218 WASTE COLLECTION DRIVER: 10/21/19 1725 ADM IN [place] [address] [place] [address]
--- NOTE | 2019-10-23 08:58 | EC ---
PATIENT:TATIANNA HANNA DATE OF SERVICE: 10/21/19 SEX: F MEDICAL RECORD: [id number] DATE OF : [birth year] LOCATION:D.M2 D.210 AGE OF PATIENT: 59 ADMISSION DATE: 10/21/19 REFERRING PHYSICIAN: INTERPRETING PHYSICIAN: DOMINICK TOWNSEND MD ECHOCARDIOGRAM REPORT ECHO CHARGES 4 ECHO COMPLETE Date: 10/20/19 CLINICAL DIAGNOSIS: NSTEMI ECHOCARDIOGRAPHIC MEASUREMENTS (adult normal given) AC root (d.<3.7cm) 2.4 cm LV Septum d (<1.2 cm> 1.3 cm Valve Excursion 1.0 cm LV Septum (systole) 1.8 cm Left Atria (s.<4.0cm> 3.8 cm LVPW d(<1.2cm) 0.9 cm RV (d.<2.3cm) 2.7 cm LVPW (sytole) 1.0 cm LV diastole(<5.6CM) 5.6 cm MV E-F(>70mm/sec) cm LV systole 4.2 cm LVOT Diameter 2.0 cm MV exc.(>10mm) cm Est.ejection fraction (50-75%) % DOPPLER: LVIT cm/sec A 131 cm/sec E 121 cm/sec LA cm/sec RVSP 24.8 mmHg LVOT 128 cm/sec AOP1/2T m/s Asc. Ao 213 cm/sec RVOT 95 cm/sec RA cm/sec PA 97 cm/sec AV Gradient Peak 18.1 mmHg AV Mean 9.2 mmHg AV Area 2.0 cm MV Gradient Peak 7.1 mmHg MV Mean 4.3 mmHg MV Area cm COMMENTS: Secret Service Agent: Noris MCCORMICK Fish Pitcher: 3 Dr. Parr TAPE# PACS Pericardial Effusion N DATE OF SERVICE: Adequate 2D, color flow imaging, spectral Doppler, and M-Mode. Borderline LVH. LV internal dimensions appears normal. LV function appears to be lower limits of normal, mildly reduced. Estimated EF 45% to 50%. Aortic valve is tricuspid. No evidence of stenosis by Doppler interrogation. Left atrium is normal at 3.8 cm. Mitral valve shows no prolapse. Trace MR. Right-sided chambers are grossly normal. Trace TR. ECHOCARDIOGRAM REPORT [id number] TATIANNA HANNA TRANSINT:[id number] Voice Confirmation ID: [id number] DOCUMENT ID: [id number] DOMINICK TOWNSEND MD at 0858 CC: [id number] DICTATION DATE: 10/22/19 1016 RIVERBOAT CAPTAIN: 10/22/19 1358 ADM IN [facility] [address] [place] [address]
[2019-10-23 09:46] VITALS: BP 157/73
--- NOTE | 2019-10-23 10:04 | NUR ---
RETURN TO ROOM VIA BED FROM DUMPSTER OPERATOR. ALERT AND ORIENTED X4. ZYTHROBAND RT WRIST CLEAN DRY INTACT. FREE FROM BLEEDING. FREE FROM HEMATOMA. BP-162/83, HR-54 SINUS ASHANTI, O2-98% 2L NC. CLEAN CATH. ENCOURAGE TO REMAIN IN BED FOR NEXT 2 HOURS. CONTINUE PLAN OF CARE AND SAFETY PRECAUTIONS.
[2019-10-23 11:51] VITALS: BP 154/83
--- NOTE | 2019-10-23 16:05 | NUR ---
SURGICAL INCISION LEFT BREAST. CURRENT TX IS WET TO DRY DRESSINGS WITH SALINE. WOUND CARE CONTINUES MONITORING.
[2019-10-23 17:02] VITALS: BP 191/72
--- NOTE | 2019-10-23 17:12 | NUR ---
ALERT AND ORIENTED X4. SITTING UP IN BED. RT WRIST FREE FROM BLEEDING. FREE FROM HEMATOME. DRESSING C/D/I. SINUS ASHANTI ON TELEMETRY. DENIES ANY NEEDS AT THIS TIME. CONTINUE PLAN OF CARE AND SAFETY PRECAUTIONS.
--- NOTE | 2019-10-23 19:19 | NUR ---
ASSESSMENT COMPLETE, PT A&O. RESPERATIONS EVEN ON RA. IV TO LEFT AC SL, SITE CLEAN AND DRY, NO SWELLING OR BLEEDING NOTED. DRSG TO RIGHT WRIST FROM HEART CATH, C/D/I. NO SWELLING, BLEEDING OR HEMATOMA NOTED. SPLINT STILL IN PLACE TO HELP REMIND PT NOT TO BEND WRIST. DRSG TO LEFT BREAST C/D/I. NO DRAINAGE NOTED. PT CURRENTLY DENIES PAIN. UP WITH ASSIST TO BR.
[2019-10-23 20:00] VITALS: BP 178/73
--- NOTE | 2019-10-23 20:13 | NUR ---
HS MEDS GIVEN WITH FRESH ICE WATER. BS 254, COVERED PER S/S. PT DENIES PAIN OR NEEDS. HS SNACK PROVIDED.
[2019-10-24] VITALS (7 sets, daily range): BP systolic 138–198; BP diastolic 56–90
--- NOTE | 2019-10-24 00:27 | NUR ---
RESTING WITH EYES CLOSED, RESPERATIONS EVEN, NO S/S DISTRESS NOTED.
--- NOTE | 2019-10-24 02:36 | NUR ---
I have reviewed this patient and I concur with the Shift Assessment completed by the Licensed Practical Nurse today this shift.
[2019-10-24 06:48] LABS: BASOPHILS 0.3 % (0-2); EOSINOPHILS 0.7 % (0-7); HEMOGLOBIN 9.2 g/dL (12-16); IMMATURE GRANULOCYTES 0.3 % (0-5); MCH 29.1 pg (26.0-34.0); MCHC 31.7 g/dL (31.0-37.0); MCV 91.8 fL (80.0-100.0); MEAN PLATELET VOLUME 9.2 fL (7.4-10.4); MONOCYTES 7.2 % (2-11); NEUTROPHILS 70.5 % (40-80); PLATELET COUNT 217 10x3/uL (130-400); RBC 3.16 10x6/uL (4.00-5.40); RDW 14.6 % (11.5-14.5); WBC 9.7 10x3/uL (4.8-10.8)
[2019-10-24 06:54] LABS: ANION GAP 13.4 mmol/L (8-16); CALCIUM 7.9 mg/dL (8.5-10.1); CARBON DIOXIDE 24.2 mmol/L (21.0-32.0); CREATININE - SERUM 1.5 mg/dL (0.6-1.3); POTASSIUM - SERUM 3.6 mmol/L (3.5-5.1)
--- NOTE | 2019-10-24 07:20 | NUR ---
RECIEVE REPORT. RESTING IN BED WITH EYES CLOSED. SINUS ASHANTI 59 ON TELEMETRY. RT WRIST IN IMMOBILIZER. NO SIGNS OF DISTRESS. CONTINUE PLAN OF CARE AND SAFETY PRECAUTIONS.
--- NOTE | 2019-10-24 12:38 | NUR ---
Nutrition Follow-up: Poor appetite. Breakfast tray appeared mostly untouched. C/o slight nausea without vomiting. Agreed to try Glucerna. Diet: Diabetic PO intake: 0-20% Wt: 288# (10/23); 286# (10/20) Last BM: possibly yesterday per pt Labs noted: Glu 189, Ca 7.9 Meds noted: Lantus, Humalog, HCTZ, Protonix, electrolyte protocol -Encourage PO intake and honor food preferences within diet restrictions. -Glucerna sent with lunch today for pt trial. -Monitor wt; noted daily wts ordered. -RD following.
--- NOTE | 2019-10-24 13:40 | NUR ---
ALERT AND ORIENTED X4. SITTING UP IN BED. REPORTED BP-193/75. MANUALLY CHECK BP-182/90. REPORT BP TO .
--- NOTE | 2019-10-24 19:03 | NUR ---
REPORT RECEIVED, WILL CONTINUE POC. PATIENT IS AAOX4, LYING IN SEMI-FOWLERS POSITION. NO S/S OF DISTRESS OBSERVED, RR EVEN AND UNLABORED ON ROOM AIR. PIV TO LT AC SL, DRSG C/D/I. DRSG UNDERNEATH LT BREAST C/D/I. PATIENT DENIES NEEDS AT THIS TIME. CL IN REACH, BED LOCKED AND LOWERED. WILL CTM.
[2019-10-25] VITALS: BP 160/58
--- NOTE | 2019-10-25 03:44 | NUR ---
I have reviewed this patient and I concur with the Shift Assessment completed by the Licensed Practical Nurse today this shift.
[2019-10-25 04:00] VITALS: BP 123/81
[2019-10-25 05:52] LABS: BASOPHILS 0.4 % (0-2); EOSINOPHILS 0.6 % (0-7); HEMATOCRIT 31.4 % (36.0-48.0); IMMATURE GRANULOCYTES 0.3 % (0-5); LYMPHOCYTES 17.6 % (15-50); MCH 29.2 pg (26.0-34.0); MCHC 31.8 g/dL (31.0-37.0); MCV 91.8 fL (80.0-100.0); MEAN PLATELET VOLUME 9.4 fL (7.4-10.4); MONOCYTES 9.4 % (2-11); NEUTROPHILS 71.7 % (40-80); PLATELET COUNT 206 10x3/uL (130-400); RBC 3.42 10x6/uL (4.00-5.40); RDW 14.8 % (11.5-14.5); WBC 10.2 10x3/uL (4.8-10.8)
[2019-10-25 06:21] LABS: CALCIUM 7.9 mg/dL (8.5-10.1); CREATININE - SERUM 1.4 mg/dL (0.6-1.3)
--- NOTE | 2019-10-25 07:14 | NUR ---
REPORT RECEIVED FROM CROP GRAIN OR LIVESTOCK FARMER AND PATEINT CARE ASSUMED.PATIENT LAYING IN BED ON RT SIDE WITH EYES CLOSED AND BREATHING EVENLY. WILL CONTINUE WITH PLAN OF CARE. SR UPX 2 BED IN LOW POSITION AND CALL LIGHT IN REACH.
[2019-10-25 09:24] VITALS: BP 189/66
--- NOTE | 2019-10-25 10:17 | NUR ---
PATIENT SITTING UP IN BED TALKING ON PHONE. PATIENT DENIES ANY NEEDS OR PAIN. ASSESMENT COMPLETED. WILL CONTINUE WITH PLAN OF CARE. SR UP X 2 BED IN LOW POSITION AND CALL LIGHT IN REACH.
--- NOTE | 2019-10-25 10:31 | NUR ---
PATIENT LAYING IN BED SON AT BS. ANSWERED QUESTIONS TO PT AND SON SATISFACTION. PATIENT DENIES ANY NEEDS OR PAIN. ASESSMENT COMPLETED. WILL CONTINUE TO MONITOR. SR UPX 2 BED IN LOW POSITION AND CALL LIGHT IN REACH.
[2019-10-25 11:43] VITALS: BP 172/65
[2019-10-25] MEDS ORDERED: MAGNESIUM OXID500 MG PO (14:47)
--- NOTE | 2019-10-25 16:16 | MORECARE ---
CASE MANAGEMENT DISCHARGE SUMMARY PATIENT: TATIANNA HANNA UNIT: [id number] ADM DATE: 10/21/19 AGE: 59 : 64 SEX: F ROOM/BED: D.2100 AUTHOR: DAVID TIPTON PHYSICIAN: REFERRING PHYSICIAN: KEN MCDONALD MD DATE OF SERVICE: 10/25/19 Discharge Plan Patient Name: TATIANNA HANNA Facility: [facility]:[place] : 1960 Planned Disposition: Home Anticipated Discharge Date: 10/25/19 Discharge Date: Expected LOS: 4 Initial Reviewer: [email or web address] Initial Review Date: 10/25/2019 Generated: 10/25/19 5:16 pm DCPIA - Discharge Planning Initial Assessment Updated by [email or web address]: Reva Genao on 10/25/19 4:15 pm * Is the patient Alert and Oriented? Yes * How many steps to enter\exit or inside your home? 8-10/0 * PCP Dr. Mcdonald * Pharmacy [facility] [address] * Preadmission Environment Home with Family * ADLs Independent * Equipment Cane Glucometer Shower Chair Walker * List name and contact numbers for known caregivers / representatives who currently or will assist patient after discharge: Yola Hanna [facility] - [phone] Mariella Castromery [phone] * Verbal permission to speak to the caregivers and representatives has been obtained from the patient. Yes * Community resources currently utilized None * Additional services required to return to the preadmission environment? No * Can the patient safely return to the preadmission environment? Yes * Has this patient been hospitalized within the prior 30 days at any hospital? Yes Patient Name: TATIANNA HANNA Page [phone] at 1616 All edits/amendments must be made on the electronic document DICTATION DATE: 10/25/191615 GAMING PIT BOSS: OSIRIS 10/25/191615 RPT#: [id number] DC DATE: STATUS: ADM IN [facility] [address] [id number] END OF REPORT
--- NOTE | 2019-10-25 16:27 | MORECARE ---
CASE MANAGEMENT DISCHARGE SUMMARY PATIENT: TATIANNA HANNA UNIT: [id number] ADM DATE: 10/21/19 AGE: 59 : 64 SEX: F ROOM/BED: D.4362 AUTHOR: SAEEDDOC PHYSICIAN: REFERRING PHYSICIAN: KEN MCDONALD MD DATE OF SERVICE: 10/25/19 Discharge Plan Patient Name: TATIANNA HANNA Facility: [facility]:[place] : 1960 Planned Disposition: Home Anticipated Discharge Date: 10/25/19 Discharge Date: Expected LOS: 4 Initial Reviewer: [email or web address] Initial Review Date: 10/25/2019 Generated: 10/25/19 5:26 pm Comments DCP- Discharge Planning Updated by [id number]: Reva Genao on 10/25/19 3:[address] Patient Name: TATIANNA HANNA Admission Status: ER Accout number: [id number] Admission Date: 10-21-2019 : 1960 Admission Diagnosis:DISORIENTATION, UNSPECIFIED Attending: KEN MCDONALD Current LOS: 4 Anticipated DC Date: 10-25-2019 Planned Disposition: Home [facility] Discharge Planning Comments: CM met with patient to discuss discharge planning/needs. States she lives with her daughter, Yola. States Yola assists her with her care. She states she is independent with her care, but then states Yola brings her medication to her and helps with wound care. I discussed availability of home health, DME and rehab and she declines. I informed her that Dr. Mcdonald ordered home health and she states her daughter can help her with her care. I called [facility] and spoke with Sobia (she was set up with home health last week according to notes) and Sobia states that they tried several times to admit the patient, but the patient kept refusing for them to come out. Declination for home health signed by patient. She states she will have someone pick her up for discharge, she isn't sure whom yet. Declines needs. Architectural Technician: Reva Genao DCPIA - Discharge Planning Initial Assessment Updated by [email or web address]: Reva Genao on 10/25/19 4:15 pm * Is the patient Alert and Oriented? Yes * How many steps to enter\exit or inside your home? 8-100 * PCP Dr. Mcdonald * Pharmacy [facility] [address] * Preadmission Environment Home with Family * ADLs Independent * Equipment Cane Glucometer Shower Chair Walker * List name and contact numbers for known caregivers / representatives who currently or will assist patient after discharge: Yola Hanna [facility] - [phone] Mariella Castromery [phone] * Verbal permission to speak to the caregivers and representatives has been obtained from the patient. Yes * Community resources currently utilized None * Additional services required to return to the preadmission environment? No * Can the patient safely return to the preadmission environment? Yes * Has this patient been hospitalized within the prior 30 days at any hospital? Yes Coverage Notice Reviewer: [email or web address] Genao Notice Issued Date-Time: 10/25/2019 16:20 Notice Type: IM Discharge Notice Notice Delivered To: Patient Relationship to Patient: Self Rn Cardiac Cath Name: Delivery Method: HAND - Hand Delivered Julia Days: Prior Verbal Notification: Recipient Understood Notice: Yes Recipient Signature: Yes Med Rec Note Co-signed by Attending: Coverage Notice Comment: IMM explained, signed, given, copy placed in MR Reviewer: [id number] Genao Notice Issued Date-Time: 10/25/2019 16:20 Notice Type: Patient Choice Letter Notice Delivered To: Patient Relationship to Patient: Self Rn Cardiac Cath Name: Delivery Method: HAND - Hand Delivered Julia Days: Prior Verbal Notification: Recipient Understood Notice: Yes Recipient Signature: Yes Med Rec Note Co-signed by Attending: Coverage Notice Comment: STEVEN FOR DECLINATION OF HHS SIGNED Last DP export: 10/25/19 3:16 p Patient Name: TATIANNA HANNA Page [phone] at 1627 All edits/amendments must be made on the electronic document DICTATION DATE: 10/25/191625 SAMPLE BOX MAKER: OSIRIS 10/25/191625 RPT#: [id number] DC DATE: STATUS: ADM IN [facility] [address] [place] [address] END OF REPORT
[2019-10-25 17:01] VITALS: BP 196/82
--- NOTE | 2019-10-25 18:17 | NUR ---
PATEINT IS STABLE AND VSS. PATIENT DENIES ANY NEEDS OR PAIN. ORDERS RECEIVED FOR DC. WRITTEN AND VERBAL INSTRUCTIONS GIVEN . PATIENT VERBALIZED UNDERSTANDING AND SIGNED PAPERWORK. IV DCD WITHOUT DIFFICULTY AND PRESSURE DRSG APPLIED. PATIENT TO FRONT DOOR VIA WC TO PRIVATE VEHICLE DRIVEN BY DAUGHTER.
--- NOTE | 2019-10-26 08:04 | OP ---
PATIENT NAME: TATIANNA HANNA MEDICAL RECORD: [id number] :64 LOCATION:D.M2 D.2109 ADMISSION DATE:10/21/19 SURGEON: DOMINICK TOWNSEND MD DATE OF OPERATION: 10/23/2019 PROCEDURE: Left heart catheterization, selective coronary angiography, right radial approach. CATHETERS: Radial sheath, Estill catheter. The procedure was well tolerated. The patient returned to the bustamante. Sheath removed. TR band was placed. FINDINGS: Left ventriculography in 30-degree LOVE view: Normal wall motion. Normal systolic function. CORONARY ANATOMY: Left main: Left main is free of disease. LAD: LAD An in the area of previous stenting, both distally and proximally widely patent. No evidence of progression of disease. CIRCUMFLEX: Left dominant system with circumflex gives rise to PDA. This is free of disease. Right coronary is rudimentary and has luminal irregularities. IMPRESSION: Widely patent stents. No significant progression of previous coronary artery disease. Medical management. Suspect troponin elevation secondary to enzyme leak and renal insufficiency. TRANSINT:[id number] Voice Confirmation ID: [id number] DOCUMENT ID: [id number] DOMINICK TOWNSEND MD at 0804 CC: [id number] DICTATION DATE: 10/23/19 0938 ONLINE PROJECT MANAGER: 10/23/19 1527 DIS IN 10/25/19 [facility] [address] [place] [address]
--- NOTE | 2019-10-27 16:50 | MORECARE ---
CASE MANAGEMENT DISCHARGE SUMMARY PATIENT: TATIANNA HANNA UNIT: [id number] ADM DATE: 10/21/19 AGE: 59 : 64 SEX: F ROOM/BED: D.7658 AUTHOR: SAEEDDOC PHYSICIAN: REFERRING PHYSICIAN: KEN MCDONALD MD DATE OF SERVICE: 10/27/19 Discharge Plan Patient Name: TATIANNA HANNA Facility: [facility]:[place] : 1960 Planned Disposition: Home Anticipated Discharge Date: 10/25/19 Discharge Date: 10/25/2019 Expected LOS: 4 Initial Reviewer: [id number] Initial Review Date: 10/25/2019 Generated: 10/27/19 5:49 pm Comments DCP- Discharge Planning Updated by [id number]: Reva Genao on 10/25/19 3:[address] Patient Name: TATIANNA HANNA Admission Status: ER Accout number: [id number] Admission Date: 10-21-2019 : 1960 Admission Diagnosis:DISORIENTATION, UNSPECIFIED Attending: KEN MCDONALD Current LOS: 4 Anticipated DC Date: 10-25-2019 Planned Disposition: Home [facility] Discharge Planning Comments: CM met with patient to discuss discharge planning/needs. States she lives with her daughter, Yola. States Yola assists her with her care. She states she is independent with her care, but then states Yola brings her medication to her and helps with wound care. I discussed availability of home health, DME and rehab and she declines. I informed her that Dr. Mcdonald ordered home health and she states her daughter can help her with her care. I called [facility] and spoke with Sobia (she was set up with home health last week according to notes) and Sobia states that they tried several times to admit the patient, but the patient kept refusing for them to come out. Declination for home health signed by patient. She states she will have someone pick her up for discharge, she isn't sure whom yet. Declines needs. Bobbin Winder Tender: Reva Genao DCPIA - Discharge Planning Initial Assessment Updated by [id number]: Reva Genao on 10/25/19 4:15 pm * Is the patient Alert and Oriented? Yes * How many steps to enter\exit or inside your home? 8-10/0 * PCP Dr. Mcdonald * Pharmacy [facility] [address] * Preadmission Environment Home with Family * ADLs Independent * Equipment Cane Glucometer Shower Chair Walker * List name and contact numbers for known caregivers / representatives who currently or will assist patient after discharge: Yola Hanna [facility] - [phone] Mariella DiasGleason [phone] * Verbal permission to speak to the caregivers and representatives has been obtained from the patient. Yes * Community resources currently utilized None * Additional services required to return to the preadmission environment? No * Can the patient safely return to the preadmission environment? Yes * Has this patient been hospitalized within the prior 30 days at any hospital? Yes Coverage Notice Reviewer: [email or web address] Genao Notice Issued Date-Time: 10/25/2019 16:20 Notice Type: IM Discharge Notice Notice Delivered To: Patient Relationship to Patient: Self Awning Frame Maker Name: Delivery Method: HAND - Hand Delivered Julia Days: Prior Verbal Notification: Recipient Understood Notice: Yes Recipient Signature: Yes Med Rec Note Co-signed by Attending: Coverage Notice Comment: IMM explained, signed, given, copy placed in MR Reviewer: [id number] Milton Genao Notice Issued Date-Time: 10/25/2019 16:20 Notice Type: Patient Choice Letter Notice Delivered To: Patient Relationship to Patient: Self Awning Frame Maker Name: Delivery Method: HAND - Hand Delivered Julia Days: Prior Verbal Notification: Recipient Understood Notice: Yes Recipient Signature: Yes Med Rec Note Co-signed by Attending: Coverage Notice Comment: STEVEN FOR DECLINATION OF HHS SIGNED Last DP export: 10/25/19 3:27 p Patient Name: TATIANNA HANNA Page [phone] at 1650 All edits/amendments must be made on the electronic document DICTATION DATE: 10/27/191649 EQUAL OPPORTUNITY REPRESENTATIVE: OSIRIS 10/27/191649 RPT#: [id number] DC DATE:10/25/19 STATUS: DIS IN [facility] [address] [place] [address] END OF REPORT
== END 2019-10-25 18:24 | disposition home or self-care (01) | DRG 280 ==
LOC: D.ER 21:57 → D.M2 10-21 00:56
PROVIDERS: Family Medicine; Internal Medicine Interventional Cardiology; ADMIT Family Medicine; ATTEND Family Medicine
PROC: B2151ZZ Fluoroscopy of Left Heart using Low Osmolar Contrast (ICD-10-PCS; 2019-10-23)
PROC: 4A023N7 Measurement of Cardiac Sampling and Pressure, Left Heart, Percutaneous Approach (ICD-10-PCS; 2019-10-23)
PROC: B2111ZZ Fluoroscopy of Multiple Coronary Arteries using Low Osmolar Contrast (ICD-10-PCS; principal; 2019-10-23 08:45)
DX: I21.4 Non-ST elevation (NSTEMI) myocardial infarction (principal); G93.41 Metabolic encephalopathy; N17.9 Acute kidney failure, unspecified; Z68.41 Body mass index [BMI] 40.0-44.9, adult; E83.42 Hypomagnesemia; I25.10 Atherosclerotic heart disease of native coronary artery without angina pectoris; E11.40 Type 2 diabetes mellitus with diabetic neuropathy, unspecified; E78.5 Hyperlipidemia, unspecified; E86.0 Dehydration; E11.22 Type 2 diabetes mellitus with diabetic chronic kidney disease; I12.9 Hypertensive chronic kidney disease with stage 1 through stage 4 chronic kidney disease, or unspecified chronic kidney disease; N18.9 Chronic kidney disease, unspecified; E66.01 Morbid (severe) obesity due to excess calories

== ENCOUNTER 2019-10-26 16:58 | Emergency (ER) | payer OTHER, MEDICAID ==
[~2019-10-26] VITALS: Ht 172.7 cm; Wt 136.4 kg
[~2019-10-26 16:58] MED LIST changes: +MAGNESIUM OXID500 MG PO
[2019-10-26 17:30] VITALS: Ht 172.7 cm; Wt 136.4 kg
[2019-10-26 18:33] LABS: BASOPHILS 0.2 % (0-2); EOSINOPHILS 0.7 % (0-7); HEMATOCRIT 31.9 % (36.0-48.0); HEMOGLOBIN 10.2 g/dL (12-16); IMMATURE GRANULOCYTES 0.2 % (0-5); LYMPHOCYTES 22.6 % (15-50); MCH 29.1 pg (26.0-34.0); MCV 91.1 fL (80.0-100.0); MEAN PLATELET VOLUME 9.1 fL (7.4-10.4); MONOCYTES 8.5 % (2-11); NEUTROPHILS 67.8 % (40-80); PLATELET COUNT 182 10x3/uL (130-400); WBC 10.5 10x3/uL (4.8-10.8)
[2019-10-26 19:34] LABS: CALC OSMOLALITY 286 mosm/kg (275-300); CALCIUM 8.6 mg/dL (8.5-10.1); CARBON DIOXIDE 28.6 mmol/L (21.0-32.0); CHLORIDE - SERUM 106 mmol/L (98-107); CREATININE - SERUM 1.5 mg/dL (0.6-1.3); POTASSIUM - SERUM 3.2 mmol/L (3.5-5.1); SODIUM 141 mmol/L (136-145); UREA NITROGEN 22 mg/dL (7-18); eGFR NON AFRICAN AMERICAN 38 mL/min (90-120)
[2019-10-26 19:35] LABS: GLUCOSE 160 mg/dL (74-106)
[2019-10-26 19:42] LABS: ALBUMIN 2.7 g/dL (3.4-5.0); ALKALINE PHOSPHATASE 122 U/L (30-120); ALT (SGPT) 20 U/L (10-68); AMYLASE - SERUM 25 U/L (25-115); BILIRUBIN - TOTAL 0.76 mg/dL (0.2-1.3); PROTEIN - SERUM 6.6 g/dL (6.4-8.2)
[2019-10-26 19:44] LABS: LIPASE 36 U/L (73-393); TROPONIN-I < 0.017 ng/mL (0.000-0.060)
[2019-10-26 21:32] LABS: BILIRUBIN NEGATIVE (NEGATIVE); GLUCOSE NEGATIVE (NEGATIVE); KETONE NEGATIVE (NEGATIVE); NITRITE NEGATIVE (NEGATIVE); UROBILINOGEN NORMAL (NORMAL)
[2019-10-26 21:36] LABS: BACTERIA FEW /hpf (NEGATIVE); EPITHELIAL CELLS 0-5 /hpf (0-5); RED CELLS - URINE 0-5 /hpf (0-5); WHITE CELLS - URINE 0-5 /hpf (NEGATIVE)
[2019-10-27 00:22] VITALS: BP 148/86
== END 2019-10-27 00:23 | disposition home or self-care (01) ==
LOC: D.ER 16:58
PROVIDERS: Family Medicine
DX: G93.41 Metabolic encephalopathy (principal); E87.6 Hypokalemia; E11.9 Type 2 diabetes mellitus without complications; Z79.4 Long term (current) use of insulin; R11.0 Nausea

== ENCOUNTER 2019-12-19 19:02 | Inpatient (IN) | payer OTHER, MEDICAID ==
[~2019-12-19] VITALS: Ht 172.7 cm; Wt 104.3 kg
[2019-12-19] MEDS ORDERED: ZYLOPRIM300 MG PO (19:09)
[2019-12-19] MEDS ORDERED: KLONOPIN1 MG PO (19:10)
[2019-12-19] MEDS ORDERED: CELEXA40 MG PO (19:11)
[2019-12-19] MEDS ORDERED: EFFEXOR75 MG PO (19:11)
[2019-12-19] MEDS ORDERED: LIPITOR20 MG PO (19:12)
[2019-12-19 20:16] LABS: HEMATOCRIT 36.3 % (36.0-48.0); HEMOGLOBIN 12.1 g/dL (12-16); LYMPHOCYTES 17.1 % (15-50); MCH 29.6 pg (26.0-34.0); MCHC 33.3 g/dL (31.0-37.0); MCV 88.8 fL (80.0-100.0); MEAN PLATELET VOLUME 8.7 fL (7.4-10.4); NEUTROPHILS 77.1 % (40-80); PLATELET COUNT 389 10x3/uL (130-400); RBC 4.09 10x6/uL (4.00-5.40); RDW 14.7 % (11.5-14.5); WBC 13.4 10x3/uL (4.8-10.8)
[2019-12-19 20:23] LABS: APTT 28.9 SECONDS (22.8-39.4); INR 0.99 (0.85-1.17); PROTIME 13.1 SECONDS (11.6-15.0)
[2019-12-19 20:52] LABS: CALC OSMOLALITY 280 mosm/kg (275-300); CHLORIDE - SERUM 98 mmol/L (98-107); CREATININE - SERUM 1.5 mg/dL (0.6-1.3); POTASSIUM - SERUM 4.9 mmol/L (3.5-5.1); SODIUM 134 mmol/L (136-145); UREA NITROGEN 21 mg/dL (7-18); eGFR NON AFRICAN AMERICAN 38 mL/min (90-120)
[2019-12-19 21:02] LABS: GLUCOSE 276 mg/dL (74-106)
[2019-12-19 21:14] LABS: BILIRUBIN NEGATIVE (NEGATIVE); GLUCOSE NEGATIVE (NEGATIVE); KETONE NEGATIVE (NEGATIVE); NITRITE NEGATIVE (NEGATIVE); UDS - AMPHET NEGATIVE QUAL (NEGATIVE); UDS - BARB NEGATIVE QUAL (NEGATIVE); UDS - BENZO NEGATIVE QUAL (NEGATIVE); UDS - COCAINE NEGATIVE QUAL (NEGATIVE); UDS - OPIATE POSITIVE QUAL (NEGATIVE); UDS - PCP NEGATIVE QUAL (NEGATIVE); UDS - THC NEGATIVE QUAL (NEGATIVE); UROBILINOGEN NORMAL (NORMAL)
[2019-12-19 21:15] LABS: BACTERIA FEW /hpf (NEGATIVE); EPITHELIAL CELLS 0-5 /hpf (0-5); RED CELLS - URINE 0-5 /hpf (0-5); WHITE CELLS - URINE 0-5 /hpf (NEGATIVE)
[2019-12-19 21:20] LABS: ALBUMIN 2.8 g/dL (3.4-5.0); ALKALINE PHOSPHATASE 154 U/L (30-120); ALT (SGPT) 20 U/L (10-68); BILIRUBIN - TOTAL 0.78 mg/dL (0.2-1.3); CKMB 8.7 U/L (0.0-3.6); CREATINE KINASE 766 UL (21-215); MAGNESIUM - SERUM 1.5 mg/dL (1.8-2.4)
[2019-12-19 22:00] VITALS: BP 160/69
[2019-12-20] VITALS (9 sets, daily range): BP systolic 119–193; BP diastolic 64–91; BMI 35.0
--- NOTE | 2019-12-20 00:57 | NUR ---
REPORT GIVEN TO ANA
--- NOTE | 2019-12-20 02:32 | NUR ---
PT OBSERVED TRYING TO GET OUT OF BED. PT PLACED IN WHEELCHAIR AND GIVEN A SANDWICH AND ICE WATER.
--- NOTE | 2019-12-20 03:02 | NUR ---
PT GIVEN TURKEY SANDWICH AND ICE WATER WITH ORANGE SLICES. PT PICKED AT ORANGE SLICES AND ATE MOST OF THEM. TOOK ONE BITE OUT OF SANDWICH. PT ORIENTED TO SELF AND PLACE. UNAWARE OF DATE OR WHY SHE IS HERE. SHE DOES KNOW WHO OUR PRESIDENT IS.
--- NOTE | 2019-12-20 04:28 | NUR ---
PT STATES SHE IS TIRED NOW. ASSISTED PT BACK INTO BED, VSS. PT REQUESTING LIGHTS OFF. DENIES ANY OTHER NEEDS. RESPIRATIONS EVEN AND UNLABORED.
--- NOTE | 2019-12-20 05:36 | NUR ---
PT RESTING RIGHT SIDE LYING, ARROUSES TO VERBAL AND TACTILE STIMULI. SHE ANSWERS QUESTIONS APPROPRIATELY AND DENIES NEEDS. STILL ORIENTED TO SELF AND PLACE. NO SIGNS DISTRESS NOTED.
[2019-12-20 06:39] LABS: ALBUMIN 2.9 g/dL (3.4-5.0); BILIRUBIN - TOTAL 0.54 mg/dL (0.2-1.3); CALCIUM 8.1 mg/dL (8.5-10.1); PROTEIN - SERUM 5.7 g/dL (6.4-8.2)
[2019-12-20 07:01] LABS: HEMATOCRIT 33.6 % (36.0-48.0); HEMOGLOBIN 11.4 g/dL (12-16); LYMPHOCYTES 25.3 % (15-50); MCH 30.6 pg (26.0-34.0); MCHC 33.9 g/dL (31.0-37.0); MCV 90.1 fL (80.0-100.0); MEAN PLATELET VOLUME 8.7 fL (7.4-10.4); NEUTROPHILS 67.2 % (40-80); PLATELET COUNT 365 10x3/uL (130-400); RBC 3.73 10x6/uL (4.00-5.40); RDW 14.6 % (11.5-14.5); WBC 12.9 10x3/uL (4.8-10.8)
[2019-12-20 07:03] LABS: ANION GAP 11.2 mmol/L (8-16); CREATININE - SERUM 2.1 mg/dL (0.6-1.3); POTASSIUM - SERUM 3.2 mmol/L (3.5-5.1)
--- NOTE | 2019-12-20 11:22 | NUR ---
PT UP TO BEDSIDE COMMODE PRODUCED A LARGE LOOSE STOOL.
--- NOTE | 2019-12-20 14:36 | NUR ---
RECEIVED PATIENT FROM ER. ALERT AND ORIENTED X3. NO C/O PAIN. NO S/S OF ACUTE DISTRESS NOTED. IV TO RIGHT FOREARM, SL. SITE PATENT WITHOUT REDNESS OR SWELLING. UP WITH ASSIST. VITALS STABLE, EXCEPT BP 193/83. DENIES ANY NEEDS AT THIS TIME. CALL LIGHT IN REACH. SAGRARIO ALARM ON. WILL CONTINUE TO MONITOR.
--- NOTE | 2019-12-20 17:59 | NUR ---
RESTING IN BED WITH EYES OPEN. NO C/O PAIN. NO S/S OF ACUTE DISTRESS NOTED. DENIES ANY NEEDS AT THIS TIME. CALL LIGHT IN REACH. WILL CONTINUE TO MONITOR.
[2019-12-21] VITALS: BP 151/70
--- NOTE | 2019-12-21 02:49 | NUR ---
PT RESTING IN BED. EYES CLOSED. NO SIGNS OF DISTRESS. BREATHING EVEN AND UNLABORED. IV SITE RT FA DRESSING CLEAN DRY AND INTACT. NO SIGNS OF INFECTION OR INFULTRATION. LUNG SOUNDS CLEAR. BOWEL SOUNDS ACTIVE. NAUSEA AT TIMES. SKIN CLEAN DRY AND INTACT. SKIN CLEAN DRY AND INTACT. WILL CONTINUE PLAN OF CARE. CALL LIGHT IN REACH. BED LOWERED AND LOCKED. BED RAILS UPX2.
[2019-12-21 04:00] VITALS: BP 148/57
--- NOTE | 2019-12-21 05:32 | NUR ---
I have reviewed this patient and I concur with the Shift Assessment completed by the Licensed Practical Nurse today this shift.
--- NOTE | 2019-12-21 07:48 | NUR ---
PT RESTING IN BED WITH EYES CLOSED. EASILY AROUSED WITH NAME CALLED. RESP EVEN AND UNLABORED. SALINE LOC TO RIGHT FOREARM SITE WITHOUT REDNESS OR EDEMA. DENIES FURTHER NEEDS AT THIS TIME. CL WITHIN REACH. ENCOURAGED TO CALL WITH NEEDS. CONTINUE POC
[2019-12-21 10:31] VITALS: BP 168/73
--- NOTE | 2019-12-21 12:02 | NUR ---
DR MCDONALD OFFICE CALLED REGARDING ELEVATED CREAT. NEW ORDERS RECIEVED
[2019-12-21 12:55] VITALS: Ht 172.7 cm; Wt 104.3 kg
[2019-12-21 13:20] VITALS: BP 163/75
[2019-12-21 17:38] VITALS: BP 173/99
[2019-12-21 20:00] VITALS: BP 165/76
--- NOTE | 2019-12-22 00:11 | NUR ---
PT RESTING IN BED. EYES CLOSED. NO SIGNS OF DISTRESS. BREATHING EVEN AND UNLABORED. IV SITE LRT FA DRESSING CLEAN DRY AND INTACT. NO SIGNS OF INFECTION OR INFULTRATION. LUNG SOUNDS CLEAR. BOWEL SOUNDS ACTIVE. SKIN CLEAN DRY AND INTACT. WILL CONTINUE PLAN OF CARE. CALL LIGHT IN REACH. BED LOWERED AND LOCKED. BED RAILS UPX1.
--- NOTE | 2019-12-22 03:56 | NUR ---
I have reviewed this patient and I concur with the Shift Assessment completed by the Licensed Practical Nurse today this shift.
[2019-12-22 04:00] VITALS: BP 156/67
[2019-12-22 05:40] LABS: ALBUMIN 2.5 g/dL (3.4-5.0); BILIRUBIN - TOTAL 0.39 mg/dL (0.2-1.3); CALCIUM 7.6 mg/dL (8.5-10.1); CARBON DIOXIDE 27.8 mmol/L (21.0-32.0); CREATININE - SERUM 2.3 mg/dL (0.6-1.3)
[2019-12-22 05:41] LABS: ANION GAP 11.1 mmol/L (8-16); POTASSIUM - SERUM 2.9 mmol/L (3.5-5.1)
[2019-12-22 06:02] LABS: HEMATOCRIT 33.8 % (36.0-48.0); LYMPHOCYTES 28.5 % (15-50); MCH 30.1 pg (26.0-34.0); MCHC 32.5 g/dL (31.0-37.0); MEAN PLATELET VOLUME 9.1 fL (7.4-10.4); NEUTROPHILS 63.4 % (40-80); PLATELET COUNT 321 10x3/uL (130-400); RBC 3.66 10x6/uL (4.00-5.40); RDW 14.8 % (11.5-14.5); WBC 12.7 10x3/uL (4.8-10.8)
[2019-12-22 06:33] LABS: MCV 92.3 fL (80.0-100.0)
--- NOTE | 2019-12-22 08:05 | NUR ---
HER IV IS OUT, REMOVED. 2 ATTEMPTS TO START ANOTHER ONE. VASCULAR ACCESS NURSE CONSULTED. THE CALL LIGHT IS WITHIN REACH AND THE BED ALARM IS ON.
[2019-12-22 09:47] VITALS: BP 178/81
[2019-12-22 13:13] VITALS: BP 193/77
[2019-12-22 17:09] VITALS: BP 191/84
[2019-12-22 20:44] VITALS: BP 149/89
[2019-12-23 00:48] VITALS: BP 152/76
--- NOTE | 2019-12-23 02:28 | NUR ---
I have reviewed this patient and I concur with the Shift Assessment completed by the Licensed Practical Nurse today this shift.
[2019-12-23 04:00] VITALS: BP 148/74
[2019-12-23 06:01] LABS: BASOPHILS 0.2 % (0-2); EOSINOPHILS 1.6 % (0-7); HEMATOCRIT 33.7 % (36.0-48.0); HEMOGLOBIN 10.8 g/dL (12-16); IMMATURE GRANULOCYTES 0.2 % (0-5); LYMPHOCYTES 24.7 % (15-50); MCH 29.4 pg (26.0-34.0); MCV 91.8 fL (80.0-100.0); MEAN PLATELET VOLUME 9.1 fL (7.4-10.4); NEUTROPHILS 66.3 % (40-80); PLATELET COUNT 301 10x3/uL (130-400); RBC 3.67 10x6/uL (4.00-5.40); RDW 14.6 % (11.5-14.5); WBC 12.5 10x3/uL (4.8-10.8)
[2019-12-23 06:36] LABS: ALBUMIN 2.5 g/dL (3.4-5.0); ANION GAP 12.4 mmol/L (8-16); BILIRUBIN - TOTAL 0.52 mg/dL (0.2-1.3); CALCIUM 8.1 mg/dL (8.5-10.1); CARBON DIOXIDE 25.8 mmol/L (21.0-32.0); POTASSIUM - SERUM 3.2 mmol/L (3.5-5.1); PROTEIN - SERUM 5.9 g/dL (6.4-8.2)
[2019-12-23 06:38] LABS: CREATININE - SERUM 1.7 mg/dL (0.6-1.3)
[2019-12-23 10:08] VITALS: BP 172/81
--- NOTE | 2019-12-23 11:59 | NUR ---
PT ALERT X 4. BREATH SOUNDS CLEAR BILAT. IV TO LEFT HAND, PATENT, DRESSING CDI. SORES TO LOWER EXTREMITIES. PT REPORTING PAIN OF 5/10, MEDICATED PER ORDERS, WILL CONTINUE TO MONITOR. BED LOW, CALL LIGHT IN REACH. NO OTHER NEEDS AT THIS TIME.
[2019-12-23 12:00] VITALS: BP 177/86
[2019-12-23 16:00] VITALS: BP 153/78
[2019-12-23 20:00] VITALS: BP 191/76
--- NOTE | 2019-12-23 21:10 | NUR ---
WATCHING TV WITH NO COMPLAINTS VOICED. NO DISTRESS NOTED. IV TO LEFT HAND INTACT WIHTOUT REDNESS OR EDEMA NOTED. CL IN REACH
--- NOTE | 2019-12-23 23:00 | NUR ---
I have reviewed this patient and I concur with the Shift Assessment completed by the Licensed Practical Nurse today this shift.
[2019-12-24] VITALS: BP 176/81
[2019-12-24 06:33] LABS: BASOPHILS 0.2 % (0-2); EOSINOPHILS 2.9 % (0-7); HEMOGLOBIN 10.3 g/dL (12-16); IMMATURE GRANULOCYTES 0.3 % (0-5); LYMPHOCYTES 27.9 % (15-50); MCH 29.4 pg (26.0-34.0); MCHC 32.2 g/dL (31.0-37.0); MCV 91.4 fL (80.0-100.0); MEAN PLATELET VOLUME 9.2 fL (7.4-10.4); MONOCYTES 7.8 % (2-11); NEUTROPHILS 60.9 % (40-80); PLATELET COUNT 268 10x3/uL (130-400); RDW 14.5 % (11.5-14.5); WBC 9.7 10x3/uL (4.8-10.8)
[2019-12-24 07:17] LABS: ANION GAP 11.4 mmol/L (8-16); CALCIUM 8.4 mg/dL (8.5-10.1); CARBON DIOXIDE 25.8 mmol/L (21.0-32.0); CREATININE - SERUM 1.5 mg/dL (0.6-1.3); POTASSIUM - SERUM 3.2 mmol/L (3.5-5.1)
[2019-12-24 09:04] VITALS: BP 180/79
[2019-12-24 12:00] VITALS: BP 183/65
[2019-12-24 16:00] VITALS: BP 123/61
[2019-12-24 20:32] VITALS: BP 116/57
--- NOTE | 2019-12-24 21:52 | NUR ---
WATCHING TV. NO DISTRESS NOTED. SL TO LEFT HAND INTACT WIHTOUT REDNESS OR EDEMA NOTED.MILD EDEMA NOTED TO EXTREMITIES. CL IN REACH
[2019-12-24 23:36] VITALS: BP 118/67
--- NOTE | 2019-12-25 03:22 | NUR ---
I have reviewed this patient and I concur with the Shift Assessment completed by the Licensed Practical Nurse today this shift.
[2019-12-25 05:32] LABS: BASOPHILS 0.2 % (0-2); EOSINOPHILS 2.6 % (0-7); HEMATOCRIT 30.7 % (36.0-48.0); HEMOGLOBIN 9.7 g/dL (12-16); IMMATURE GRANULOCYTES 0.2 % (0-5); LYMPHOCYTES 28.3 % (15-50); MCH 29.3 pg (26.0-34.0); MCHC 31.6 g/dL (31.0-37.0); MCV 92.7 fL (80.0-100.0); MEAN PLATELET VOLUME 9.5 fL (7.4-10.4); MONOCYTES 8.6 % (2-11); NEUTROPHILS 60.1 % (40-80); PLATELET COUNT 268 10x3/uL (130-400); RBC 3.31 10x6/uL (4.00-5.40); RDW 14.6 % (11.5-14.5); WBC 9.6 10x3/uL (4.8-10.8)
[2019-12-25 05:34] VITALS: BP 135/62
[2019-12-25 06:02] LABS: ANION GAP 7.2 mmol/L (8-16); CALCIUM 7.8 mg/dL (8.5-10.1); CARBON DIOXIDE 28.1 mmol/L (21.0-32.0); MAGNESIUM - SERUM 1.9 mg/dL (1.8-2.4); POTASSIUM - SERUM 3.3 mmol/L (3.5-5.1)
[2019-12-25 06:05] LABS: CREATININE - SERUM 1.9 mg/dL (0.6-1.3)
[2019-12-25 09:07] VITALS: BP 70/50
[2019-12-25 12:34] VITALS: BP 156/68
[2019-12-25] MEDS ORDERED: COREG6.25 MG PO (13:19)
[2019-12-25] MEDS ORDERED: LISINOPRIL10 MG PO (13:19)
[2019-12-25] MEDS ORDERED: CHRONULAC30 ML PO (13:20)
[2019-12-25] MEDS ORDERED: K-DUR20 MEQ PO (13:21)
--- NOTE | 2019-12-25 15:48 | MORECARE ---
CASE MANAGEMENT DISCHARGE SUMMARY PATIENT: TATIANNA HANNA UNIT: [id number] ADM DATE: 12/21/19 AGE: 59 : 64 SEX: F ROOM/BED: D.2211 AUTHOR: DAVID TIPTON PHYSICIAN: REFERRING PHYSICIAN: KEN MCDONALD MD DATE OF SERVICE: 12/25/19 Discharge Plan Patient Name: TATIANNA HANNA Facility: [facility] : 1960 Planned Disposition: Home or Self Care Anticipated Discharge Date: Discharge Date: Expected LOS: Initial Reviewer: [id number] Initial Review Date: 12/20/2019 Generated: 12/25/19 4:47 pm DCPIA - Discharge Planning Initial Assessment Updated by [email or web address]: Sushma Snyder on 12/25/19 3:46 pm * Is the patient Alert and Oriented? Yes * How many steps to enter\exit or inside your home? 01/14 * PCP TAMARA * [facility] * Preadmission Environment Home with Family * ADLs Independent * Equipment Cane CPAP Rolling Walker Shower Chair * List name and contact numbers for known caregivers / representatives who currently or will assist patient after discharge: DEN ( DAUGHTER) [phone] * Verbal permission to speak to the caregivers and representatives has been obtained from the patient. N/A * Community resources currently utilized None * Additional services required to return to the preadmission environment? No * Can the patient safely return to the preadmission environment? Yes * Has this patient been hospitalized within the prior 30 days at any hospital? Yes Coverage Notice Reviewer: [id number] Milton Patel Notice Issued Date-Time: 12/20/2019 17:24 Notice Type: Medicare Outpatient Observation Notice Notice Delivered To: Patient Relationship to Patient: Engagement Mgr Name: Delivery Method: HAND - Hand Delivered Julia Days: Prior Verbal Notification: Recipient Understood Notice: Yes Recipient Signature: Yes Med Rec Note Co-signed by Attending: Coverage Notice Comment: Patient Name: TATIANNA HANNA Page [phone] at 1548 All edits/amendments must be made on the electronic document DICTATION DATE: 12/25/19 154 STUDENT NURSE: DM 12/25/19 1547 RPT#: [id number] DC DATE: STATUS: ADM IN [facility] [address] [place] [address] END OF REPORT
--- NOTE | 2019-12-25 15:57 | MORECARE ---
CASE MANAGEMENT DISCHARGE SUMMARY PATIENT: TATIANNA HANNA UNIT: [id number] ADM DATE: 12/21/19 AGE: 59 : 64 SEX: F ROOM/BED: D.2211 AUTHOR: SAEED,DOC PHYSICIAN: REFERRING PHYSICIAN: KEN MCDONALD MD DATE OF SERVICE: 12/25/19 Discharge Plan Patient Name: TATIANNA HANNA Facility: [facility]:[place] : 1960 Planned Disposition: Home or Self Care Anticipated Discharge Date: Discharge Date: Expected LOS: Initial Reviewer: [id number] Initial Review Date: 12/20/2019 Generated: 12/25/19 4:56 pm Comments DCP- Discharge Planning Updated by [email or web address]: Sushma Snyder on 12/25/19 2:[address] Patient Name: TATIANNA HANNA Admission Status: ER Accout number: [id number] Admission Date: 12-21-2019 : 1960 Admission Diagnosis:METABOLIC ENCEPHALOPATHY Attending: KEN MCDONALD Current LOS: 4 Anticipated DC Date: Planned Disposition: Home or Self Care Primary Insurance: [employer] Discharge Planning Comments: CM met with patient to complete initial dc planning assessment. CM educated patient on the CM role and verbal consent given by patient to complete assessment. Patient lives at home with her daughter and roommate where she states she is independent with her care. At discharge patient plans to return home and feels this is a safe discharge. Patient plans to take a UBER home. CM discussed availability of home health, rehab services, and medical equipment. Patient did not want home health, refusal signed. IMM served and explained. Patient has a CPAP, walker, cane and shower chair at home. Patient denied known discharge needs at this time. CM will continue to follow and will assist as needed with dc plans/needs. Advertising Strategist: Sushma Snyder DCPIA - Discharge Planning Initial Assessment Updated by [email or web address]: Sushma Snyder on 12/25/19 3:47 pm * Is the patient Alert and Oriented? Yes * How many steps to enter\exit or inside your home? 01/14 * PCP TAMARA * [facility] * Preadmission Environment Home with Family * ADLs Independent * Equipment Cane CPAP Rolling Walker Shower Chair * List name and contact numbers for known caregivers / representatives who currently or will assist patient after discharge: DEN ( DAUGHTER) [phone] * Verbal permission to speak to the caregivers and representatives has been obtained from the patient. N/A * Community resources currently utilized None * Additional services required to return to the preadmission environment? No * Can the patient safely return to the preadmission environment? Yes * Has this patient been hospitalized within the prior 30 days at any hospital? No Coverage Notice Reviewer: [id number] Milton Patel Notice Issued Date-Time: 12/20/2019 17:24 Notice Type: Medicare Outpatient Observation Notice Notice Delivered To: Patient Relationship to Patient: Loading Machine Operator Name: Delivery Method: HAND - Hand Delivered Julia Days: Prior Verbal Notification: Recipient Understood Notice: Yes Recipient Signature: Yes Med Rec Note Co-signed by Attending: Coverage Notice Comment: Reviewer: [id number] Milton Snyder Notice Issued Date-Time: 12/25/2019 15:30 Notice Type: IM Discharge Notice Notice Delivered To: Patient Relationship to Patient: Loading Machine Operator Name: Delivery Method: HAND - Hand Delivered Julia Days: Prior Verbal Notification: Recipient Understood Notice: Yes Recipient Signature: Yes Med Rec Note Co-signed by Attending: Coverage Notice Comment: Reviewer: [id number] Milton Snyder Notice Issued Date-Time: 12/25/2019 15:30 Notice Type: Patient Choice Letter Notice Delivered To: Patient Relationship to Patient: Loading Machine Operator Name: Delivery Method: HAND - Hand Delivered Julia Days: Prior Verbal Notification: Recipient Understood Notice: Yes Recipient Signature: Yes Med Rec Note Co-signed by Attending: Coverage Notice Comment: refusal of hh Last DP export: 12/25/19 2:48 p Patient Name: TATIANNA HANNA Page [phone] at 1557 All edits/amendments must be made on the electronic document DICTATION DATE: 12/25/191555 ANTITANK ASSAULT GUNNER: OSIRIS 12/25/191555 RPT#: [id number] DC DATE: STATUS: ADM IN [facility] [address] [place] [address] END OF REPORT
--- NOTE | 2019-12-27 16:54 | MORECARE ---
CASE MANAGEMENT DISCHARGE SUMMARY PATIENT: TATIANNA HANNA UNIT: [id number] ADM DATE: 12/21/19 AGE: 59 : 64 SEX: F ROOM/BED: D.2211 AUTHOR: SAEED,DOC PHYSICIAN: REFERRING PHYSICIAN: KEN MCDONALD MD DATE OF SERVICE: 12/27/19 Discharge Plan Patient Name: TATIANNA HANNA Facility: [facility]:[place] : 1960 Planned Disposition: Home or Self Care Anticipated Discharge Date: Discharge Date: 12/25/2019 Expected LOS: Initial Reviewer: [email or web address] Initial Review Date: 12/20/2019 Generated: 12/27/19 5:54 pm Comments DCP- Discharge Planning Updated by [id number]: Sushma Snyder on 12/25/19 2:[address] Patient Name: TATIANNA HANNA Admission Status: ER Accout number: [id number] Admission Date: 12-21-2019 : 1960 Admission Diagnosis:METABOLIC ENCEPHALOPATHY Attending: KEN MCDONALD Current LOS: 4 Anticipated DC Date: Planned Disposition: Home or Self Care Primary Insurance: [employer] Discharge Planning Comments: CM met with patient to complete initial dc planning assessment. CM educated patient on the CM role and verbal consent given by patient to complete assessment. Patient lives at home with her daughter and roommate where she states she is independent with her care. At discharge patient plans to return home and feels this is a safe discharge. Patient plans to take a UBER home. CM discussed availability of home health, rehab services, and medical equipment. Patient did not want home health, refusal signed. IMM served and explained. Patient has a CPAP, walker, cane and shower chair at home. Patient denied known discharge needs at this time. CM will continue to follow and will assist as needed with dc plans/needs. Activity Therapy Teacher: Sushma Snyder DCPIA - Discharge Planning Initial Assessment Updated by [email or web address]: Sushma Snyder on 12/25/19 3:47 pm * Is the patient Alert and Oriented? Yes * How many steps to enter\exit or inside your home? 01/14 * PCP TAMARA * [facility] * Preadmission Environment Home with Family * ADLs Independent * Equipment Cane CPAP Rolling Walker Shower Chair * List name and contact numbers for known caregivers / representatives who currently or will assist patient after discharge: DEN ( DAUGHTER) [phone] * Verbal permission to speak to the caregivers and representatives has been obtained from the patient. N/A * Community resources currently utilized None * Additional services required to return to the preadmission environment? No * Can the patient safely return to the preadmission environment? Yes * Has this patient been hospitalized within the prior 30 days at any hospital? No Coverage Notice Reviewer: [id number] Milton Patel Notice Issued Date-Time: 12/20/2019 17:24 Notice Type: Medicare Outpatient Observation Notice Notice Delivered To: Patient Relationship to Patient: Tacker Off Name: Delivery Method: HAND - Hand Delivered Julia Days: Prior Verbal Notification: Recipient Understood Notice: Yes Recipient Signature: Yes Med Rec Note Co-signed by Attending: Coverage Notice Comment: Reviewer: [id number] Milton Snyder Notice Issued Date-Time: 12/25/2019 15:30 Notice Type: IM Discharge Notice Notice Delivered To: Patient Relationship to Patient: Tacker Off Name: Delivery Method: HAND - Hand Delivered Julia Days: Prior Verbal Notification: Recipient Understood Notice: Yes Recipient Signature: Yes Med Rec Note Co-signed by Attending: Coverage Notice Comment: Reviewer: [id number] Snyder Notice Issued Date-Time: 12/25/2019 15:30 Notice Type: Patient Choice Letter Notice Delivered To: Patient Relationship to Patient: Tacker Off Name: Delivery Method: HAND - Hand Delivered Julia Days: Prior Verbal Notification: Recipient Understood Notice: Yes Recipient Signature: Yes Med Rec Note Co-signed by Attending: Coverage Notice Comment: refusal of hh Last DP export: 12/25/19 2:57 p Patient Name: TATIANNA HANNA Page [phone] at 1654 All edits/amendments must be made on the electronic document DICTATION DATE: 12/27/191653 CRISIS INTERVENTION COUNSELOR: OSIRIS 12/27/191653 RPT#: [id number] DC DATE:12/25/19 STATUS: DIS IN [facility] [id number] [place] [address] END OF REPORT
== END 2019-12-25 18:16 | disposition home or self-care (01) | DRG 640 ==
LOC: D.ER 19:02 → OBSVTIME 22:24 → D.EDHOLD 22:24 → D.MS 12-20 11:59
PROVIDERS: Family Medicine; ADMIT Family Medicine; ATTEND Family Medicine
DX: E87.6 Hypokalemia (principal); G93.41 Metabolic encephalopathy; N17.9 Acute kidney failure, unspecified; I10 Essential (primary) hypertension; R10.31 Right lower quadrant pain; E66.01 Morbid (severe) obesity due to excess calories; E11.65 Type 2 diabetes mellitus with hyperglycemia; K21.9 Gastro-esophageal reflux disease without esophagitis; I25.10 Atherosclerotic heart disease of native coronary artery without angina pectoris; K72.90 Hepatic failure, unspecified without coma

== ENCOUNTER 2020-01-10 11:02 | Inpatient (IN) | payer OTHER, MEDICAID ==
[~2020-01-10] VITALS: Ht 172.7 cm; Wt 118.4 kg
[~2020-01-10 11:02] MED LIST changes: +EFFEXOR75 MG PO; +LISINOPRIL10 MG PO
--- NOTE | 2020-01-10 11:37 | NUR ---
PT TO CT
--- NOTE | 2020-01-10 11:41 | NUR ---
PLACE PT ON BEDPAN. PT REPORTS FEELING URGENCY WITH RETENTION. PT IS REQUESTING AN IN AND OUT CATH
[2020-01-10 11:55] LABS: CALCIUM 8.9 mg/dL (8.5-10.1); CARBON DIOXIDE 25.8 mmol/L (21.0-32.0); CREATININE - SERUM 3.3 mg/dL (0.6-1.3); POTASSIUM - SERUM 3.8 mmol/L (3.5-5.1)
[2020-01-10 12:01] LABS: ALBUMIN 2.7 g/dL (3.4-5.0); BILIRUBIN - TOTAL 0.15 mg/dL (0.2-1.3); PROTEIN - SERUM 6.4 g/dL (6.4-8.2)
[2020-01-10 12:03] LABS: BASOPHILS 0.2 % (0-2); EOSINOPHILS 2.1 % (0-7); HEMATOCRIT 33.9 % (36.0-48.0); HEMOGLOBIN 10.7 g/dL (12-16); IMMATURE GRANULOCYTES 0.2 % (0-5); LYMPHOCYTES 11.1 % (15-50); MCH 29.3 pg (26.0-34.0); MCHC 31.6 g/dL (31.0-37.0); MCV 92.9 fL (80.0-100.0); MONOCYTES 5.1 % (2-11); NEUTROPHILS 81.3 % (40-80); PLATELET COUNT 279 10x3/uL (130-400); RBC 3.65 10x6/uL (4.00-5.40); RDW 14.3 % (11.5-14.5); WBC 13.8 10x3/uL (4.8-10.8)
[2020-01-10 13:55] VITALS: BP 121/67
--- NOTE | 2020-01-10 14:30 | NUR ---
HARLEY INSERTED AND WAS TOLERATED WELL. 1000 ML RETURNED. URINE TO LAB
[2020-01-10 14:43] LABS: AMORPHOUS SEDIMENT >1+ /lpf (NONE SEEN); BACTERIA FEW /hpf (NEGATIVE); BILIRUBIN NEGATIVE (NEGATIVE); EPITHELIAL CELLS 0-5 /hpf (0-5); GLUCOSE 1000 mg/dL (NEGATIVE); KETONE NEGATIVE (NEGATIVE); NITRITE NEGATIVE (NEGATIVE); RED CELLS - URINE OCC /hpf (0-5); UROBILINOGEN NORMAL (NORMAL)
--- NOTE | 2020-01-10 15:16 | NUR ---
HARLEY UNCLAMPED AT THIS TIME.
[2020-01-10 15:51] VITALS: BP 120/63
--- NOTE | 2020-01-10 18:27 | NUR ---
CALLED REPORT TO LISA LIPSCOMB AT THIS TIME.
[2020-01-10 20:00] VITALS: BP 152/74
[2020-01-10 22:34] VITALS: BP 152/74; BMI 39.7
[2020-01-10] MEDS ORDERED: HYDROCODON-ACE1 EA10 PO (22:34)
[2020-01-11] VITALS: BP 144/72
[2020-01-11 04:00] VITALS: BP 110/56
[2020-01-11 06:19] LABS: HEMOGLOBIN 9.6 g/dL (12-16); MCH 29.2 pg (26.0-34.0); MCV 91.2 fL (80.0-100.0); MEAN PLATELET VOLUME 10.3 fL (7.4-10.4); PLATELET COUNT 252 10x3/uL (130-400); RBC 3.29 10x6/uL (4.00-5.40); RDW 14.2 % (11.5-14.5); WBC 11.1 10x3/uL (4.8-10.8)
[2020-01-11 06:47] LABS: ANION GAP 13.1 mmol/L (8-16); CALCIUM 8.1 mg/dL (8.5-10.1); CARBON DIOXIDE 22.7 mmol/L (21.0-32.0); CREATININE - SERUM 2.2 mg/dL (0.6-1.3); POTASSIUM - SERUM 3.8 mmol/L (3.5-5.1)
[2020-01-11 06:56] LABS: BASOPHILS 1 % (0-2); LYMPHOCYTES 22 % (15-50); NEUTROPHILS 77 % (40-80); PLATELET ESTIMATE NORMAL
--- NOTE | 2020-01-11 07:40 | NUR ---
ALERT AND ORIENTED X3. DENIES ANY PAIN OR DISCOMFORT AT THIS TIME. IVF INFUSING AT PRESCRIBEDRATE TO LEFT F/A WITH NO S/S OF INFECTION/INFILTRATION. HARLEY CATH PATENT WITH CLEAR FRANK URINE NOTED. BED ALARM IN PLACE AT THIS TIME AND ENCOURAGED TO USE CALL LIGHT FOR ASSSIT.
[2020-01-11 09:36] VITALS: BP 131/53
--- NOTE | 2020-01-11 11:30 | NUR ---
DR. DEL VALLE'S OFFICE CALLED REGARDING PATIENT BLOOD SUGAR OF 178 W/O SLIDING SCALE OR BLOOD SUGAR MONITORING. STATED WOULD PUT IN ORDERS LATER.
[2020-01-11 12:51] VITALS: BP 107/55
[2020-01-11 13:05] VITALS: Ht 172.7 cm; Wt 118.4 kg
--- NOTE | 2020-01-11 13:08 | HP ---
PATIENT: TATIANNA HANNA MEDICAL RECORD: [id number] ACCOUNT: [id number] LOCATION:[facility] [address] : [birth year] ADMISSION DATE: 01/10/20 PCP: No PCP HISTORY AND PHYSICAL EXAMINATION CHIEF COMPLAINT: Frequent falling and acute renal failure. HISTORY OF PRESENT ILLNESS: This is a 59-year-old morbidly obese female followed by Dr. Arizmendi, who has had frequent falls recently. She fell last night and this morning, she got up and felt real good, went to the bathroom, sat on the commode. Apparently, the commode seat slipped and she fell and hit her left ear and left knee on the bathtub, also has other aches and pains on elbow and hip. She reports a decreased p.o. intake, but states she has been drinking plenty of fluids. In the Emergency Department, her lactic acid level was 5.2 initially. Urine was yellow and clear with 3+ protein, few bacteria, 5-10 white blood cells. Her CBC showed a white count of 13,800, hemoglobin 10.7. Basic metabolic panel is okay except glucose was 226, BUN 48, and creatinine 3.3 (baseline creatinine around 1.7 to 1.9). Liver functions were normal. CT of the head and spine showed nothing acute. X-rays of the hip, elbow, chest, and knee showed no acute fractures. She is admitted for frequent falls and dehydration with acute kidney injury. PAST MEDICAL HISTORY: Diabetes with neuropathy, hypertension, morbid obesity, metabolic encephalopathy. PAST SURGICAL HISTORY: Cholecystectomy, hysterectomy, total knee replacement. She has had toe amputations. She has had bilateral carpal tunnel release, trigger finger release, times 2, anterior cervical fusion, and exploratory surgeries. ALLERGIES: CODEINE. HOME MEDICATIONS: Lantus 60 units in the morning and 100 units in the evening, gabapentin 600 mg t.i.d., aspirin 81 mg at bedtime, citalopram 40 mg at bedtime, atorvastatin 20 mg once a day, Jardiance 10 mg once a day, Mag-Ox 500 mg once a day, allopurinol 300 mg once a day, venlafaxine 75 mg once a day, carvedilol 6.25 mg twice a day, lisinopril 10 mg once a day, lactulose 2 table spoons once a day, potassium K-Dur 20 mEq once a day, [place] 10 four times a day. ALLERGIES: CODEINE. SOCIAL HISTORY: She lives with family. HABITS: No tobacco, alcohol or drugs. REVIEW OF SYSTEMS: GENERAL: No major weight changes. HEENT: No particular sinus or allergy problems. RESPIRATORY: No history of emphysema or asthma. CARDIAC: No known coronary disease. GASTROINTESTINAL: She has had some heartburn. GENITOURINARY: Occasional urinary tract infections. MUSCULOSKELETAL: Has chronic back and neck pains. NEUROLOGIC: She has had metabolic encephalopathy. No seizures. No migraines. PSYCHIATRIC: She has depression. HISTORY AND PHYSICAL [id number] TATIANNA HANNA PHYSICAL EXAMINATION: VITAL SIGNS: Temperature 98.6, pulse 87, respirations 20, blood pressure 152/74, and O2 sat 96%. GENERAL: Morbidly obese white female, does not appear in acute distress. She is awake and alert. SKIN: Warm and dry. HEENT: Grossly within normal limits. NECK: Supple. No JVD or bruit. HEART: Regular rate and rhythm. LUNGS: Fairly clear. ABDOMEN: Soft, flat, nontender. EXTREMITIES: No significant pitting edema. LABORATORY DATA: Lactic acid initially was 5.2, now down to 1.1. Urinalysis; trace blood, 3+ protein, trace leukocyte esterase, few bacteria, and 5-10 white blood cells. CBC with a white count of 13,800, hemoglobin 10.7, hematocrit 33.9. Basic metabolic panel: Sodium 134, potassium 3.8, chloride 98, CO2 25.8, BUN 48, creatinine 3.3, glucose 226, calcium 8.9. Liver functions were normal. DIAGNOSTIC DATA: EKG normal sinus rhythm. X-ray of the hip, elbow, chest, and knee showed no acute fracture is seen. CT of the head showed no acute abnormalities seen. CT of the cervical spine did not show anything acute. ASSESSMENT: 1. Weakness with frequent falls. 2. Acute renal insufficiency. 3. Diabetes with peripheral neuropathy 4. History of encephalopathy. PLAN: Blood cultures and urine cultures have been done. Started on IV fluids and IV antibiotics. We will check an ammonia level tomorrow. Other tests or procedures as warranted. TRANSINT:[id number] Voice Confirmation ID: [id number] DOCUMENT ID: [id number] SERGIO DEL VALLE MD at 1308 CC: [id number] DICTATION DATE: 01/10/20 2251 CEMENT MIXER: 01/11/20 0935 ADM IN [facility] [address] [id number]
--- NOTE | 2020-01-11 15:21 | NUR ---
IV DISCONTINUED AND VERBALIZED UNDERSTANDING OF DISCHARGE INSTRUCTIONS. STABLE AT TIME OF DISCHARGE.
--- NOTE | 2020-01-11 16:44 | NUR ---
. SCD'S ON WITH NO S/S OF DVT NOTED. PERCOCET GIVEN FOR 7/10 BACK PAIN. ENCOURAGED TO USE CALL LIGHT FOR ASSIST.
[2020-01-11 17:53] VITALS: BP 109/44
[2020-01-11 20:00] VITALS: BP 110/63
[2020-01-12] VITALS: BP 124/54
--- NOTE | 2020-01-12 03:58 | NUR ---
ASSESSED AT THE BEGINNING OF THE SHIFT. PT IS ALERT AND ORIENTED, AABLE TO VERBALIZE NEEDS. SHE WAS ASSISTED UP TO THE BATHROOM TO SHOWER AND HAD HER LINENS CHANGED EARY IN THE EVENING. SHE HAS A HARLEY AND HAS BEEN C/O BACK AND KNEE PAIN EARLIER BUT AFTER HER ONE PAIN MED SHE HAS NOT REQUESTED AGAIN. SHE DID SAY SHE HAD SLEPT TOO MUCH DURING THE DAY AND WAS NOW AWAKE WATCHING TV.
[2020-01-12 04:00] VITALS: BP 130/52
[2020-01-12 06:15] LABS: BASOPHILS 0.3 % (0-2); EOSINOPHILS 4.7 % (0-7); HEMATOCRIT 28.2 % (36.0-48.0); HEMOGLOBIN 8.9 g/dL (12-16); IMMATURE GRANULOCYTES 0.3 % (0-5); LYMPHOCYTES 32.6 % (15-50); MCHC 31.6 g/dL (31.0-37.0); MCV 91.9 fL (80.0-100.0); MEAN PLATELET VOLUME 9.7 fL (7.4-10.4); MONOCYTES 10.1 % (2-11); PLATELET COUNT 239 10x3/uL (130-400); RBC 3.07 10x6/uL (4.00-5.40); RDW 14.5 % (11.5-14.5)
[2020-01-12 06:30] LABS: ANION GAP 10.5 mmol/L (8-16); CALCIUM 7.6 mg/dL (8.5-10.1); CARBON DIOXIDE 24.3 mmol/L (21.0-32.0); CREATININE - SERUM 1.8 mg/dL (0.6-1.3); POTASSIUM - SERUM 3.8 mmol/L (3.5-5.1)
[2020-01-12 06:51] LABS: WBC 6.3 10x3/uL (4.8-10.8)
--- NOTE | 2020-01-12 07:55 | NUR ---
PT RESTING QUIETLY IN BED. RESP EVEN AND UNLABORED. REPORTS PAIN 8/10 AT THIS TIME, PAIN MEDICATION TO BE ADMINISTERED. IV TO LEFT FOREARM WITH NS @ 100ML/HR INFUSING VIA PUMP. SITE WITHOUT REDNESS OR EDEMA. F/C PATENT TO GRAVITY, DRAINING YELLOW URINE. DENIES FURTHER NEEDS AT THIS TIME. CL WITHIN REACH. ENCOURAGED TO CALL WITH NEEDS. CONTINUE POC
[2020-01-12 09:43] VITALS: BP 137/71
--- NOTE | 2020-01-12 11:33 | NUR ---
RECEIVED CALL FROM ALEJANDRO WITH DR. DEL VALLE REGARDING PT F/C. ORDER TO DISCONTINUE F/C FOR DISCHARGE.
--- NOTE | 2020-01-12 12:52 | MORECARE ---
CASE MANAGEMENT DISCHARGE SUMMARY PATIENT: TATIANNA HANNA UNIT: [id number] ADM DATE: 01/10/20 AGE: 59 : 64 SEX: F ROOM/BED: D.2207 AUTHOR: DAVID TIPTON PHYSICIAN: REFERRING PHYSICIAN: SERGIO DEL VALLE MD DATE OF SERVICE: 01/12/20 Discharge Plan Patient Name: TATIANNA HANNA Facility: [facility]:[place] : 1960 Planned Disposition: Home or Self Care Anticipated Discharge Date: Discharge Date: Expected LOS: Initial Reviewer: [id number] Initial Review Date: 01/10/2020 Generated: 01/12/20 1:51 pm Patient Name: TATIANNA HANNA Page [phone] at 1252 All edits/amendments must be made on the electronic document DICTATION DATE: 01/12/20 1251 TOP DISTRIBUTION EXECUTIVE: OSIRIS 01/12/20 1251 RPT#: [id number] DC DATE: STATUS: ADM IN [facility] [address] [place] [address] END OF REPORT
--- NOTE | 2020-01-12 13:01 | MORECARE ---
CASE MANAGEMENT DISCHARGE SUMMARY PATIENT: TATIANNA HANNA UNIT: [id number] ADM DATE: 01/10/20 AGE: 59 : 64 SEX: F ROOM/BED: D.2207 AUTHOR: DAVID TIPTON PHYSICIAN: REFERRING PHYSICIAN: SERGIO DEL VALLE MD DATE OF SERVICE: 01/12/20 Discharge Plan Patient Name: TATIANNA HANNA Facility: [facility]:[place] : 1960 Planned Disposition: Home or Self Care Anticipated Discharge Date: Discharge Date: Expected LOS: Initial Reviewer: [email or web address] Initial Review Date: 01/10/2020 Generated: 01/12/20 2:01 pm DCPIA - Discharge Planning Initial Assessment Updated by [id number]: Sushma Snyder on 01/12/20 12:57 pm * Is the patient Alert and Oriented? Yes * How many steps to enter\exit or inside your home? 01/14 * PCP TAMARA * [facility]acy [facility] * Preadmission Environment Home with Family * ADLs Independent * Equipment Cane CPAP Rolling Walker Shower Chair * List name and contact numbers for known caregivers / representatives who currently or will assist patient after discharge: DEN [phone] * Verbal permission to speak to the caregivers and representatives has been obtained from the patient. Yes * Community resources currently utilized None * Additional services required to return to the preadmission environment? No * Can the patient safely return to the preadmission environment? Yes * Has this patient been hospitalized within the prior 30 days at any hospital? Yes Last DP export: 01/12/20 11:52 am Patient Name: TATIANNA HANNA Page [phone] at 1301 All edits/amendments must be made on the electronic document DICTATION DATE: 01/12/20 1301 KNOCKUP WORKER: OSIRIS 01/12/20 1301 RPT#: [id number] DC DATE: STATUS: ADM IN [facility] [address] [place] [address] END OF REPORT
--- NOTE | 2020-01-12 13:09 | MORECARE ---
CASE MANAGEMENT DISCHARGE SUMMARY PATIENT: TATIANNA HANNA UNIT: [id number] ADM DATE: 01/10/20 AGE: 59 : 64 SEX: F ROOM/BED: D.2206 AUTHOR: SAEEDDOC PHYSICIAN: REFERRING PHYSICIAN: SERGIO DEL VALLE MD DATE OF SERVICE: 01/12/20 Discharge Plan Patient Name: TATIANNA HANNA Facility: [facility]:[place] : 1960 Planned Disposition: Home or Self Care Anticipated Discharge Date: Discharge Date: Expected LOS: Initial Reviewer: [email or web address] Initial Review Date: 01/10/2020 Generated: 01/12/20 2:09 pm Comments DCP- Discharge Planning Updated by [id number]: Sushma Snyder on 01/12/20 12:[address] Patient Name: TATIANNA HANNA Admission Status: ER Accout number: [id number] Admission Date: 01-10-2020 : 1960 Admission Diagnosis: Attending: SERGIO DEL VALLE Current LOS: 2 Anticipated DC Date: Planned Disposition: Home or Self Care Primary Insurance: [employer] Plan Discharge Planning Comments: CM met with patient to complete initial dc planning assessment. CM educated patient on the CM role and verbal consent given by patient to complete assessment. Patient lives at home with her daughter where she is independent with her care. At discharge patient plans to return home and feels this is a safe discharge. CM discussed availability of home health, rehab services, and medical equipment. She stated that last time she was here she was in a different mind set and now she wants to get better. She stated that her daughter Yola are going to be moving to [place] next month. Patient has a cane, rolling walker and shower chair and CPAP. Patient denied known discharge needs at this time. CM will continue to follow and will assist as needed with dc plans/needs. Field Hauler: Sushma Snyder DCPIA - Discharge Planning Initial Assessment Updated by [email or web address]: Sushma Snyder on 01/12/20 12:57 pm * Is the patient Alert and Oriented? Yes * How many steps to enter\exit or inside your home? 01/14 * PCP TAMARA * Pharmacy [facility] * Preadmission Environment Home with Family * ADLs Independent * Equipment Cane CPAP Rolling Walker Shower Chair * List name and contact numbers for known caregivers / representatives who currently or will assist patient after discharge: YOLA [phone] * Verbal permission to speak to the caregivers and representatives has been obtained from the patient. Yes * Community resources currently utilized None * Additional services required to return to the preadmission environment? No * Can the patient safely return to the preadmission environment? Yes * Has this patient been hospitalized within the prior 30 days at any hospital? Yes Last DP export: 01/12/20 12:01 pm Patient Name: TATIANNA HANNA Page [phone] at 1309 All edits/amendments must be made on the electronic document DICTATION DATE: 01/12/20 1303 ENVIRONMENTAL AID: OSIRIS 01/12/20 1309 RPT#: [id number] DC DATE: STATUS: ADM IN [facility] [address] [place] [address] END OF REPORT
--- NOTE | 2020-01-13 13:10 | MORECARE ---
CASE MANAGEMENT DISCHARGE SUMMARY PATIENT: TATIANNA HANNA UNIT: [id number] ADM DATE: 01/10/20 AGE: 59 : 64 SEX: F ROOM/BED: D.8348 AUTHOR: DAVID TIPTON PHYSICIAN: REFERRING PHYSICIAN: SERGIO DEL VALLE MD DATE OF SERVICE: 01/13/20 Discharge Plan Patient Name: TATIANNA HANNA Facility: [facility]:[place] : 1960 Planned Disposition: Home or Self Care Anticipated Discharge Date: Discharge Date: 01/12/2020 Expected LOS: Initial Reviewer: [email or web address] Initial Review Date: 01/10/2020 Generated: 01/13/20 2:09 pm Comments DCP- Discharge Planning Updated by [email or web address]: Sushma Snyder on 01/12/20 12:[address] Patient Name: TATIANNA HANNA Admission Status: ER Accout number: [id number] Admission Date: 01-10-2020 : 1960 Admission Diagnosis: Attending: SERGIO DEL VALLE Current LOS: 2 Anticipated DC Date: Planned Disposition: Home or Self Care Primary Insurance: [employer] Discharge Planning Comments: CM met with patient to complete initial dc planning assessment. CM educated patient on the CM role and verbal consent given by patient to complete assessment. Patient lives at home with her daughter where she is independent with her care. At discharge patient plans to return home and feels this is a safe discharge. CM discussed availability of home health, rehab services, and medical equipment. She stated that last time she was here she was in a different mind set and now she wants to get better. She stated that her daughter Yola are going to be moving to [place] next month. Patient has a cane, rolling walker and shower chair and CPAP. Patient denied known discharge needs at this time. CM will continue to follow and will assist as needed with dc plans/needs. Christmas Tree Grader: Sushma Snyder DCPIA - Discharge Planning Initial Assessment Updated by [id number]: Sushma Snyder on 01/12/20 12:57 pm * Is the patient Alert and Oriented? Yes * How many steps to enter\exit or inside your home? 01/14 * PCP T[facility] * [facility] * Preadmission Environment Home with Family * ADLs Independent * Equipment Cane CPAP Rolling Walker Shower Chair * List name and contact numbers for known caregivers / representatives who currently or will assist patient after discharge: YOLA [phone] * Verbal permission to speak to the caregivers and representatives has been obtained from the patient. Yes * Community resources currently utilized None * Additional services required to return to the preadmission environment? No * Can the patient safely return to the preadmission environment? Yes * Has this patient been hospitalized within the prior 30 days at any hospital? Yes Last DP export: 01/12/20 12:09 pm Patient Name: TAITANNA HANNA Page [id number] at 1310 All edits/amendments must be made on the electronic document DICTATION DATE: 01/13/20 1309 DEVELOPER EVANGELIST: OSIRIS 01/13/20 1309 RPT#: [id number] DC DATE:01/12/20 STATUS: DIS IN [facility] [address] [place] [address] END OF REPORT
== END 2020-01-12 15:46 | disposition home or self-care (01) | DRG 683 ==
LOC: D.ER 11:02 → D.MS 18:19
PROVIDERS: Family Medicine; ADMIT Family Medicine; ATTEND Family Medicine
DX: N17.9 Acute kidney failure, unspecified (principal); N39.0 Urinary tract infection, site not specified; E11.40 Type 2 diabetes mellitus with diabetic neuropathy, unspecified; R53.1 Weakness; Z91.81 History of falling; E86.0 Dehydration; H72.92 Unspecified perforation of tympanic membrane, left ear